=== PATIENT | female | born 1940 | race Caucasian/White ===

== ENCOUNTER 2017-03-31 23:40 | Inpatient (IN) | payer OTHER ==
[2017-04-01] MEDS ORDERED: FUROSEMIDE 40 MG/4 ML INJECTABLE VIAL IVPUSH ONE ×2 (00:58→04:21)
--- NOTE | 2017-04-01 01:11 | PDOC ---
History of Present Illness - General History Source: Patient, Family Exam Limitations: No Limitations, Language Barrier - History of Present Illness Initial Comments: 04/01/17 01:12 The patient is a 77 year old female with significant past medical history of hypertension, hyperlipidemia, diabetes, osteoporosis, and hyperthyroidism who presents to the ED for chest discomfort that began earlier today. As per family members, at bedside, patient was complaining of chest discomfort that she describes as a pressure-like sensation. Patient denies diaphoresis, lightheadedness, SOB, jaw pain, shoulder pain, arm pain, nausea, or vomiting. Family checked her blood pressure and it was noted to be 170/60. Family also states her legs are normally swollen, however they noted an increase in leg swelling bilaterally. Daughter reports patient was on furosemide 20 mg once per day and two weeks ago her maintenance scheduler informed her that she should take furosemide 20 mg BID. The patient denies fever, chills, cough, abdominal pain, and diarrhea. Allergies: NKDA Social History: No alcohol, tobacco, or drug use reported. Past Surgical History: appendectomy, polyp removal PCP: Dr. Albert Wilkinson <Laury Moran - Last Filed: 04/01/17 04:25> <Constance Clark - Last Filed: 04/01/17 20:31> - General Chief Complaint: Blood Pressure Problem Stated Complaint: BLOOD PRESSURE PROBLEM Time Seen by Provider: 04/01/17 00:48 Past History <Laury Moran - Last Filed: 04/01/17 04:25> - Past Medical History Anemia: Yes Asthma: No Cancer: Yes (Cancerous polyp) Cardiac Disorders: Yes CVA: Yes (TIA) COPD: No CHF: No Dementia: No Diabetes: Yes GI Disorders: No Disorders: No HTN: Yes Hypercholesterolemia: Yes Liver Disease: No Seizures: No Thyroid Disease: Yes - Surgical History Abdominal Surgery: No Appendectomy: Yes Cardiac Surgery: No Cholecystectomy: No Lung Surgery: No Neurologic Surgery: No Orthopedic Surgery: No - Immunization History Immunization Up to Date: Yes - Psycho/Social/Smoking Cessation Hx Anxiety: No Suicidal Ideation: No Smoking Status: No Smoking History: Never smoked Have you smoked in the past 12 months: No If you are a former smoker, when did you quit?: 40 years ago Information on smoking cessation initiated: No Hx Alcohol Use: No Drug/Substance Use Hx: No Substance Use Type: None Hx Substance Use Treatment: No <Constance Clark - Last Filed: 04/01/17 20:31> - Past Medical History Allergies/Adverse Reactions: Allergies Allergy/AdvReac Type Severity Reaction Status Date / Time No Known Allergies Allergy Verified 04/01/17 00:48 Home Medications: Ambulatory Orders Ferrous Sulfate [Feosol] 325 mg PO TID 01/14/15 Simvastatin [Zocor -] 20 mg PO HS 01/14/15 Acetaminophen [Tylenol .Regular Strength -] 650 mg PO Q6H PRN #0 tablet Aspirin [ASA -] 81 mg PO DAILY PRN 12/03/15 Furosemide 20 mg PO BID 12/03/15 Amlodipine Besylate [Norvasc -] 5 mg PO DAILY 12/04/15 Brimonidine Tartrate/Timolol [Combigan 0.2%-0.5% Eye Drops] 1 drop OU DAILY Cholecalciferol (Vitamin D3) [Vitamin D] 5,000 unit PO DAILY 12/04/15 Insulin (Novolog) [Novolog -] 0 units SQ BID 12/04/15 Calcium Carbonate/Vitamin D3 [Calcium 500 + Vit D Caplet] 1 PO BIDAC 04/01/17 Insulin Glargine,Hum.rec.anlog [Lantus (nf)] 20 units SQ BID 04/01/17 Januvia 50 mg PO DAILY 04/01/17 Lecithin 1 PO DAILY 04/01/17 Methimazole 5 mg PO DAILY 04/01/17 [place]-3 2 cap PO BID 04/01/17 Risedronate Sodium 35 mg PO WEEKLY 04/01/17 Review of Systems - Review of Systems Able to Perform ROS?: Yes Comments:: 04/01/17 01:12 CONSTITUTIONAL: Absent: fever, chills, diaphoresis, generalized weakness, malaise, loss of appetite HEENT: Absent: rhinorrhea, nasal congestion, throat pain, throat swelling, difficulty swallowing, mouth swelling, ear pain, eye pain, visual Changes CARDIOVASCULAR: +chest discomfort, bilateral leg swelling, elevated blood pressure Absent: syncope, palpitations, irregular heart rate, lightheadedness RESPIRATORY: Absent: cough, shortness of breath, dyspnea with exertion, orthopnea, wheezing, stridor, hemoptysis GASTROINTESTINAL: Absent: abdominal pain, abdominal distension, nausea, vomiting, diarrhea, constipation, melena, hematochezia GENITOURINARY: Absent: dysuria, frequency, urgency, hesitancy, hematuria, flank pain, genital pain MUSCULOSKELETAL: Absent: myalgia, arthralgia, joint swelling SKIN: Absent: rash, itching, pallor NEUROLOGIC: Absent: headache, focal weakness or paresthesias, dizziness, unsteady gait, seizure, mental status changes, bladder or bowel incontinence <Laury Moran - Last Filed: 04/01/17 04:25> *Physical Exam - Vital Signs Last Vital Signs Temp Pulse Resp BP Pulse Ox 98.0 F 80 14 198/85 100 04/01/17 00:48 04/01/17 00:48 04/01/17 00:48 04/01/17 00:48 04/01/17 00:48 - Physical Exam Comments: 04/01/17 01:12 GENERAL: Aferbile. Well developed, well nourished. Awake and alert. No acute distress. HEENT: Normocephalic, atraumatic. PERRLA, EOMI. No conjunctival pallor. Sclera are non- icteric. Moist mucous membranes. Oropharynx is clear. NECK: Supple. Full ROM. No JVD. Carotid pulses 2+ and symmetric, without bruits. No thyromegaly. No lymphadenopathy. CARDIOVASCULAR: Regular rate and rhythm. Diastolic murmur. No rubs or gallops. Distal pulses are 2+ and symmetric. PULMONARY: No evidence of respiratory distress. Lungs clear to auscultation bilaterally. No wheezing, rales or rhonchi. ABDOMINAL: Soft. Non-tender. Non-distended. No rebound or guarding. Postsurgical ventral hernia. Normoactive bowel sounds. MUSCULOSKELETAL Normal range of motion at all joints. No bony deformities or tenderness. No CVA tenderness. EXTREMITIES: No cyanosis. No clubbing. 3+ pitting edema right lower extremity. 2+ pitting edema left lower extremity. No calf tenderness. SKIN: Warm and dry. Normal capillary refill. No rashes. No jaundice. NEUROLOGICAL: AOx3. Answering questions appropriate. Cranial nerves 2-12 intact. Moving all extremities. No gross neurological deficits. <Laury Moran - Last Filed: 04/01/17 04:25> - Vital Signs Last Vital Signs Temp Pulse Resp BP Pulse Ox 98.0 F 80 14 198/85 100 04/01/17 00:48 04/01/17 00:48 04/01/17 00:48 04/01/17 00:48 04/01/17 00:48 <Constance Clark - Last Filed: 04/01/17 20:31> ED Treatment Course - LABORATORY CBC & Chemistry Diagram: 04/01/17 01:30 04/01/17 01:30 - RADIOLOGY Radiograph Interpretation: 04/01/17 03:14 EXAM: Venous duplex bilateral, lower extremities Reviewed by Imaging utilization review specialist: FINDINGS: There is no DVT of the right or left lower extremity. IMPRESSION: No DVT. <Laury Moran - Last Filed: 04/01/17 04:25> - LABORATORY CBC & Chemistry Diagram: 04/01/17 11:00 04/01/17 11:00 - RADIOLOGY Radiology Studies Ordered: Category Date Time Status CHEST X-RAY PORTABLE* [RAD] Stat Radiology 04/01/17 00:57 Ordered DUPLEX VASCUL US-2LEGS [US] Stat Ultrasound 04/01/17 00:56 Ordered <Constance Clark - Last Filed: 04/01/17 20:31> Medical Decision Making - Medical Decision Making 04/01/17 04:[address] Albert Wilkinson (via answering service) at 4:16 Awaiting call back 04/01/17 04:25 Patient's case discussed with Dr. Wilkinson at 4:25 <Laury Moran - Last Filed: 04/01/17 04:25> - Medical Decision Making 04/01/17 03:12 Patient Name: Priscila Carlisle THIS IS A PRELIMINARYREPORT FROM IMAGING EXCEPTIONAL STUDENT EDUCATION AIDE EXAM: Venous duplex bilateral, lower extremities IMAGES: 45 INDICATION: Rule out DVT DATE OF SERVICE: 2017-04-01 01:00:51.0 COMPARISON: none FINDINGS: There is no DVT of the right or left lower extremity. IMPRESSION: No DVT. THIS DOCUMENT HAS BEEN ELECTRONICALLY SIGNED 04/01/17 20:29 Pt comes with swollen legs (DVT ruled out with sono) she has doubling of her BUN and Cr and she has HTN which is poorly controlled. Case d/w Dr. Mixon. Pt complains of dyspnea, and she will be evaluated in the hospital. SHe will likely require echocardiogram in the hospital and cardio consult. <Constance Clark - Last Filed: 04/01/17 20:31> *DC/Admit/Observation/Transfer - Attestations Scribe Attestion: 04/01/17 01:12 Documentation prepared by Laury Moran, acting as medical dir for Constance Clark MD/DO. <Laury Moran - Last Filed: 04/01/17 04:25> - Discharge Dispostion Admit: Yes <Constance Clark - Last Filed: 04/01/17 20:31> Diagnosis at time of Disposition: Renal insufficiency, Anemia, HTN (hypertension), Heart murmur, Peripheral edema - Referrals
[2017-04-01 01:49] LABS: BASOPHIL 0.3 % (0-2.0); EOSINOPHIL 1.8 % (0-4.5); MCH 30.2 pg (25.7-33.7); MCHC 33.6 g/dl (32.0-36.0); MEAN CELL VOLUME 89.9 fl (80-96); MEAN PLT VOLUME 9.2 fl (7.5-11.1); NEUTROPHILS 55.5 % (42.8-82.8); PLATELET COUNT 180 K/MM3 (134-434); RDW 15.6 % (11.6-15.6); WHITE BLOOD COUNT 6.7 K/mm3 (4.0-10.0)
[2017-04-01] MEDS ORDERED: FUROSEMIDE 40 MG/4 ML INJECTABLE VIAL ONE ×2 (01:49→05:10)
[2017-04-01 02:43] LABS: ALBUMIN 3.2 g/dl (3.4-5.0); BILIRUBIN,TOTAL 0.3 mg/dL (0.2-1.0); CALCIUM 9.8 mg/dL (8.5-10.1); COCKROFT - GAULT 25.6955; CREATININE 2.1 mg/dL (0.55-1.02); TOT PROT 6.3 g/dl (6.4-8.2)
[2017-04-01 02:45] LABS: TROPONIN I 0.02 ng/ml (0.00-0.05)
[2017-04-01] MEDS ORDERED: SODIUM CHLORIDE 0.9% 500 ML INFUS.BAG IV ONE (04:16)
[2017-04-01 07:42] VITALS: BMI 30.8
--- NOTE | 2017-04-01 09:16 | EKG ---
Test Reason : Blood Pressure : / mmHG Vent. Rate : 074 BPM Atrial Rate : 074 BPM P-R Int : 192 ms QRS Dur : 126 ms QT Int : 398 ms P-R-T Axes : 030 -43 110 degrees QTc Int : 441 ms SINUS RHYTHM WITH OCCASIONAL PREMATURE VENTRICULAR COMPLEXES RIGHT BUNDLE BRANCH BLOCK LEFT AXIS DEVIATION LEFT VENTRICULAR HYPERTROPHY WITH QRS WIDENING AND REPOLARIZATION ABNORMALITY ABNORMAL ECG WHEN COMPARED WITH ECG OF 14-JAN-2016 14:47, PREMATURE VENTRICULAR COMPLEXES ARE NOW PRESENT Confirmed by MARVEL FULTON MD ([id number]) on 04/01/2017 9:16:32 AM Referred By: Confirmed By:MARVEL FULTON MD
[2017-04-01] MEDS ORDERED: ACETAMINOPHEN 325 MG TABLET (FP) PO PRN (10:20)
[2017-04-01] MEDS ORDERED: ASPIRIN 81 MG CHEWABLE TABLETS PO PRN (10:20)
[2017-04-01] MEDS ORDERED: PATIENT'S OWN MEDICATION (NON-FORMULARY) (Brimonidine Tartrate/Timolol [Combigan 0.2%-0.5% OU SCH (10:30)
--- NOTE | 2017-04-01 10:30 | HP ---
Admitting History and Physical - Primary Care Physician PCP: Albert Wilkinson - Admission Chief Complaint: Leg edema. SOB History of Present Illness: Pt was noticed by her daughter to have trouble breathing, elevated blood pressure (SBP over 160), leg swelling and brought her to ER; in ER she was found to have Leg edema, ARF. Pt was seen in Dr. Connie Hall (Pt.'s Endo) two weeks ago, Lasix was increased to BID for leg edema. Pt is known to be noncompliant with diet (eats salty food, rich carbohydrates diet). 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 Cardiovascular: Yes: HTN, Hyperlipdemia Gastrointestinal: Yes: Pancreatitis, Other (Abdominal/Umbilical hernia) Renal/: Yes: Renal Failure, Neurogenic Bladder ...: No Heme/Onc: Yes: Anemia Musculoskeletal: Yes: Chronic low back pain, Other (R shoulder pain) Endocrine: Yes: Diabetes Mellitus - Past Surgical History Past Surgical History: Yes: Appendectomy, Cholecystectomy - Smoking History Smoking history: Former smoker Have you smoked in the past 12 months: No If you are a former smoker, when did you quit?: 40 years ago - Alcohol/Substance Use Hx Alcohol Use: No Home Medications - Allergies Allergies/Adverse Reactions: Allergies Allergy/AdvReac Type Severity Reaction Status Date / Time No Known Allergies Allergy Verified 04/01/17 00:48 - Home Medications Home Medications: Ambulatory Orders Ferrous Sulfate [Feosol] 325 mg PO TID 01/14/15 Simvastatin [Zocor -] 20 mg PO HS 01/14/15 Acetaminophen [Tylenol .Regular Strength -] 650 mg PO Q6H PRN #0 tablet Aspirin [ASA -] 81 mg PO DAILY PRN 12/03/15 Furosemide 20 mg PO BID 12/03/15 Amlodipine Besylate [Norvasc -] 5 mg PO DAILY 12/04/15 Brimonidine Tartrate/Timolol [Combigan 0.2%-0.5% Eye Drops] 1 drop OU DAILY Cholecalciferol (Vitamin D3) [Vitamin D] 5,000 unit PO DAILY 12/04/15 Insulin (Novolog) [Novolog -] 0 units SQ BID 12/04/15 Calcium Carbonate/Vitamin D3 [Calcium 500 + Vit D Caplet] 1 PO BIDAC 04/01/17 Insulin Glargine,Hum.rec.anlog [Lantus (nf)] 20 units SQ BID 04/01/17 Januvia 50 mg PO DAILY 04/01/17 Lecithin 1 PO DAILY 04/01/17 Methimazole 5 mg PO DAILY 04/01/17 [place]-3 2 cap PO BID 04/01/17 Risedronate Sodium 35 mg PO WEEKLY 04/01/17 Review of Systems - Review of Systems Constitutional: denies: Chills, Fever, Loss of Appetite Eyes: denies: Blurred Vision, Double Vision HENT: denies: Difficult Swallowing, Nasal Congestion, Throat Pain Neck: denies: Pain on Movement, Stiffness Cardiovascular: denies: Chest Pain, Edema, Palpitations, Shortness of Breath Respiratory: denies: Cough, SOB, Wheezing Gastrointestinal: denies: Abdominal Pain, Constipation, Diarrhea, Nausea, Vomiting Genitourinary: denies: Burning, Discharge, Frequency Musculoskeletal: denies: Back Pain, Joint Swelling, Muscle Pain Integumentary: denies: Bruising, Eczema, Rash Neurological: denies: Change in LOC, Change in Speech, Confusion, Unsteady Gait Endocrine: denies: Excessive Sweating, Intolerance to Cold Hematology/Lymphatic: denies: Easily Bruised, Excessive Bleeding Psychiatric: denies: Anxiety, Depression Physical Examination Vital Signs: Vital Signs Temperature 97.9 F 04/01/17 07:39 Pulse Rate 79 04/01/17 07:39 Respiratory Rate 18 04/01/17 07:39 Blood Pressure 152/67 04/01/17 07:39 O2 Sat by Pulse Oximetry (%) 96 04/01/17 08:23 Constitutional: Yes: No Distress, Calm Eyes: Yes: Conjunctiva Clear, EOM Intact, PERRL HENT: Yes: Normocephalic. No: Epistaxis, Pharyngeal Erythema Neck: Yes: Trachea Midline. No: Lymphadenopathy Cardiovascular: Yes: Regular Rate and Rhythm, S1, S2 Respiratory: Yes: Regular, CTA Bilaterally Gastrointestinal: Yes: Normal Bowel Sounds, Soft, Abdomen, Obese. No: Palpable Mass, Tenderness ...Rectal Exam: Yes: Deferred Breast(s): Yes: Other (deferred) Musculoskeletal: No: Back Pain, Joint Swelling, Muscle Pain Edema: LLE: 1+, RLE: 1+ Integumentary: No: Bruising, Rash Neurological: Yes: Alert, Oriented, Cran Nerves II-XII Intact Labs: reviewed Imaging - Results Chest X-ray: Report Reviewed Ultrasound: Report Reviewed Problem List - Problems (1) Acute on chronic renal failure Code(s): N17.9 - ACUTE KIDNEY FAILURE, UNSPECIFIED N18.9 - CHRONIC KIDNEY DISEASE, UNSPECIFIED (2) Peripheral edema Code(s): R60.9 - EDEMA, UNSPECIFIED (3) CHF (congestive heart failure) Code(s): I50.9 - HEART FAILURE, UNSPECIFIED (4) Hypertrophic obstructive cardiomyopathy (HOCM) Code(s): I42.1 - OBSTRUCTIVE HYPERTROPHIC CARDIOMYOPATHY (5) Anemia Code(s): D64.9 - ANEMIA, UNSPECIFIED (6) HTN (hypertension) Code(s): I10 - ESSENTIAL (PRIMARY) HYPERTENSION (7) Diabetes mellitus Code(s): E11.9 - TYPE 2 DIABETES MELLITUS WITHOUT COMPLICATIONS Assessment/Plan Hold Januvia. To avoid ACEI/ ARB. Small dose of Lasix might be beneficial; to monitor renal function. Renal consult Cardio consult Echo- if not done recently in Cardio office Kidney US- if not done recently by Renal. Pt.'s condition was reviewed with pt.'s daughter (at bedside) AM labs. Case was d/w pt.s' nurse
[2017-04-01 11:18] LABS: MCH 30.5 pg (25.7-33.7); MCHC 33.9 g/dl (32.0-36.0); MEAN CELL VOLUME 90.1 fl (80-96); MEAN PLT VOLUME 10.4 fl (7.5-11.1); RDW 15.3 % (11.6-15.6); WHITE BLOOD COUNT 5.6 K/mm3 (4.0-10.0)
[2017-04-01 11:46] LABS: ALBUMIN 3.1 g/dl (3.4-5.0); ANION GAP 9 (8-16); CALCIUM 9.5 mg/dL (8.5-10.1); CO2 32 mmol/L (21-32); CREATININE 2.2 mg/dL (0.55-1.02); GLUCOSE,RANDOM 296 mg/dL (74-106); SGOT/AST 37 U/L (15-37); SGPT/ALT 24 U/L (12-78)
[2017-04-01 11:51] LABS: ALK PHOS 116 U/L (45-117); BILIRUBIN,TOTAL 0.5 mg/dL (0.2-1.0); TOT PROT 6.2 g/dl (6.4-8.2); TROPONIN I < 0.02 ng/ml (0.00-0.05)
[2017-04-01] MEDS ORDERED: INSULIN (NOVOLOG) ASPART 100 UNITS/ML 10ML VIAL ONE ×2 (11:56→23:01)
[2017-04-01] MEDS: amLODIPine BESYLATE 5 MG TABLET (FP) PO SCH (12:23)
[2017-04-01] MEDS: INSULIN SLIDING SCALE (NOVOLOG) 1 VIAL SQ SCH ×3 (12:23→22:55)
[2017-04-01] MEDS: FERROUS SO4 325 MG TABLET (FP) PO SCH ×2 (13:07→22:49)
[2017-04-01] MEDS: METHIMAZOLE 5 MG TABLET (FP) PO SCH (13:07)
--- NOTE | 2017-04-01 13:22 | CON.CARD ---
Consult Consult Specialty:: Cardiology Reason for Consultation:: htn chf - History of Present Illness History of Present Illness: The patient is a 77 year old female with significant past medical history of hypertension, hyperlipidemia, diabetes, osteoporosis, and hyperthyroidism who presents to the ED for chest discomfort that began earlier today. As per family members, at bedside, patient was complaining of chest discomfort that she describes as a pressure-like sensation. Patient denies diaphoresis, lightheadedness, SOB, jaw pain, shoulder pain, arm pain, nausea, or vomiting. Family checked her blood pressure and it was noted to be 170/60. Family also states her legs are normally swollen, however they noted an increase in leg swelling bilaterally. Daughter reports patient was on furosemide 20 mg once per day and two weeks ago her child protective investigator informed her that she should take furosemide 20 mg BID. The patient denies fever, chills, cough, abdominal pain, and diarrhea. Allergies: NKDA Social History: No alcohol, tobacco, or drug use reported. Past Surgical History: appendectomy, polyp removal PCP: Dr. Albert Wilkinson [facility] ASHD neg. 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 Cardio/Vascular: Yes: HTN, Hyperlipdemia Gastrointestinal: Yes: Pancreatitis Renal/: Yes: Renal Failure ...: No Musculoskeletal: Yes: Chronic low back pain, Other (R shoulder pain) Endocrine: Yes: Diabetes Mellitus Additional Medical History: Obesity - Past Surgical History Past Surgical History: Yes: Appendectomy - Alcohol/Substance Use Hx Alcohol Use: No - Smoking History Smoking history: Former smoker Have you smoked in the past 12 months: No If you are a former smoker, when did you quit?: 40 years ago Home Medications - Allergies Allergies/Adverse Reactions: Allergies Allergy/AdvReac Type Severity Reaction Status Date / Time No Known Allergies Allergy Verified 04/01/17 00:48 - Home Medications Home Medications: Ambulatory Orders Ferrous Sulfate [Feosol] 325 mg PO TID 01/14/15 Simvastatin [Zocor -] 20 mg PO HS 01/14/15 Acetaminophen [Tylenol .Regular Strength -] 650 mg PO Q6H PRN #0 tablet Aspirin [ASA -] 81 mg PO DAILY PRN 01/27/16 Furosemide 20 mg PO BID 12/03/15 Amlodipine Besylate [Norvasc -] 5 mg PO DAILY 12/04/15 Brimonidine Tartrate/Timolol [Combigan 0.2%-0.5% Eye Drops] 1 drop OU DAILY Cholecalciferol (Vitamin D3) [Vitamin D] 5,000 unit PO DAILY 12/04/15 Insulin (Novolog) [Novolog -] 0 units SQ BID 12/04/15 Calcium Carbonate/Vitamin D3 [Calcium 500 + Vit D Caplet] 1 PO BIDAC 04/01/17 Insulin Glargine,Hum.rec.anlog [Lantus (nf)] 20 units SQ BID 04/01/17 Januvia 50 mg PO DAILY 04/01/17 Lecithin 1 PO DAILY 04/01/17 Methimazole 5 mg PO DAILY 04/01/17 [place]-3 2 cap PO BID 04/01/17 Risedronate Sodium 35 mg PO WEEKLY 04/01/17 Review of Systems - Review of Systems Constitutional: reports: No Symptoms Eyes: reports: No Symptoms HENT: reports: No Symptoms Neck: reports: No Symptoms Cardiovascular: reports: Chest Pain, Shortness of Breath Gastrointestinal: reports: No Symptoms Genitourinary: reports: No Symptoms Breasts: reports: No Symptoms Reported Musculoskeletal: reports: No Symptoms Integumentary: reports: No Symptoms Neurological: reports: No Symptoms Endocrine: reports: No Symptoms Hematology/Lymphatic: reports: No Symptoms Psychiatric: reports: No Symptoms Vital Signs: Vital Signs Temperature 97.9 F 04/01/17 07:39 Pulse Rate 81 04/01/17 12:00 Respiratory Rate 18 04/01/17 12:00 Blood Pressure 148/53 04/01/17 12:00 O2 Sat by Pulse Oximetry (%) 96 04/01/17 08:23 Constitutional: Yes: Well Nourished, No Distress, Calm Eyes: Yes: WNL, Conjunctiva Clear, EOM Intact HENT: Yes: WNL, Atraumatic, Normocephalic Neck: Yes: WNL, Supple, Trachea Midline Respiratory: Yes: WNL, Regular, CTA Bilaterally Gastrointestinal: Yes: WNL, Normal Bowel Sounds Renal/: Yes: WNL Cardiovascular: Yes: WNL, Regular Rate and Rhythm Musculoskeletal: Yes: WNL Extremities: Yes: WNL Edema: Yes Integumentary: Yes: WNL Neurological: Yes: WNL, Alert, Oriented ...Motor Strength: WNL Psychiatric: Yes: WNL, Alert, Oriented - Other Data Labs, Other Data: CBC, BMP 04/01/17 11:00 04/01/17 11:00 Troponin, BNP 04/01/17 11:00 Troponin I < 0.02 Troponin, BNP 04/01/17 11:00 Troponin I < 0.02 Laboratory Tests 04/01/17 04/01/17 04/01/17 01:30 01:30 01:30 WBC 6.7 RBC 2.93 L Hgb 8.9 L Hct 26.4 L MCV 89.9 MCHC 33.6 RDW 15.6 Plt Count 180 MPV 9.2 Neutrophils % 55.5 Lymphocytes % 31.7 D Monocytes % 10.7 H Eosinophils % 1.8 Basophils % 0.3 Sodium 144 Potassium 4.1 Chloride 104 Carbon Dioxide 29 Anion Gap 11 BUN 34 H D Creatinine 2.1 H D Creat Clearance w eGFR 22.84 POC Glucometer Random Glucose 91 D Calcium 9.8 Total Bilirubin 0.3 D AST 33 D ALT 23 D Alkaline Phosphatase 102 D Creatine Kinase 65 Troponin I 0.02 B-Natriuretic Peptide 192.67 Total Protein 6.3 L Albumin 3.2 L D 04/01/17 04/01/17 04/01/17 11:00 11:00 11:11 WBC 5.6 RBC 2.89 L Hgb 8.8 L Hct 26.1 L MCV 90.1 MCHC 33.9 RDW 15.3 Plt Count MPV 10.4 D Neutrophils % Lymphocytes % Monocytes % Eosinophils % Basophils % Sodium 141 Potassium 4.3 Chloride 100 Carbon Dioxide 32 Anion Gap 9 BUN 35 H Creatinine 2.2 H Creat Clearance w eGFR 21.64 POC Glucometer 289 Random Glucose 296 H D Calcium 9.5 Total Bilirubin 0.5 D AST 37 ALT 24 Alkaline Phosphatase 116 Creatine Kinase 61 Troponin I < 0.02 B-Natriuretic Peptide Total Protein 6.2 L Albumin 3.1 L Imaging - Results Chest X-ray: Image Reviewed EKG: Image Reviewed (sr rep abn vpcs) Problem List - Problems (1) Heart murmur Code(s): R01.1 - CARDIAC MURMUR, UNSPECIFIED (2) Peripheral edema Code(s): R60.9 - EDEMA, UNSPECIFIED (3) Renal insufficiency Code(s): N28.9 - DISORDER OF KIDNEY AND URETER, UNSPECIFIED (4) Anemia Code(s): D64.9 - ANEMIA, UNSPECIFIED (5) HTN (hypertension) Code(s): I10 - ESSENTIAL (PRIMARY) HYPERTENSION (6) Accidental fall Code(s): W19.XXXA - UNSPECIFIED FALL, INITIAL ENCOUNTER (7) Altered mental state Code(s): R41.82 - ALTERED MENTAL STATUS, UNSPECIFIED (8) Chronic renal failure Code(s): N18.9 - CHRONIC KIDNEY DISEASE, UNSPECIFIED (9) GIB (gastrointestinal bleeding) Code(s): K92.2 - GASTROINTESTINAL HEMORRHAGE, UNSPECIFIED (10) Pancreatitis Code(s): K85.9 - ACUTE PANCREATITIS, UNSPECIFIED * DO NOT USE * (11) Right shoulder injury Code(s): S49.91XA - UNSP INJURY OF RIGHT SHOULDER AND UPPER ARM, INIT ENCNTR (12) Weakness Code(s): R53.1 - WEAKNESS (13) Diabetes mellitus Code(s): E11.9 - TYPE 2 DIABETES MELLITUS WITHOUT COMPLICATIONS Assessment/Plan Uncontroled HTN decompensated CHF ASHD neg. MIBI ST 2010 Bradycardia DM HHD HOCOM no LVOT gradient January 2012 HTN Hyperlipidemia Hypothyroidism LBBB 2016 PAD bilateral moderate atherosclerosis of carotid arteries January 2012 Plan Agree with restarting patients meds IV lasix avoid dehydration dvt plx
--- NOTE | 2017-04-01 13:48 | CONSULT ---
Consultation: REQUESTING PROVIDER: Dr. Sparkle Jones CONSULT REQUEST: We have been asked to medically evaluate this patient for acute kidney injury. HISTORY OF PRESENT ILLNESS: THis is a 71 year old Faroese speaking female, with a past medical history of HTN, HLD, IDDM, presents to the emergency room with chest tightness and hypertension (BP 170 systolic on admission) Patient with daughter giving history. States that she was home feeling chest tightness yesterday. Denies sob , palpitations, jaw pain, tingling sensation, abdominal pain, diaphoresis. Daughter also states that she has chronic bilateral leg swelling that has recently been more pronounced. Patient also states that she increased her Lasix to 20mg bid for the past two weeks. We were called to evaluate acute kidney injury on labs, Bun/Cr on admission were 34/2.1. Base line creatinine 1.4-1.6. Patient denies increased frequency, she sates she urinates 3-4 daily. She drinks 1 Liter of water per day. She has not noticed any blood in urine. Daughter states that she did have an episode of dark urine last week. She does not admit to taking NSAIDS, aleve or ibuprofen. She takes Tylenol for pain. She does take 81mg aspirin daily. PMH: HTN, HLD, IDDM, hyperthyroid, osteoporosis PSHx: gastic sx Social Hx: negative x3 REVIEW OF SYSTEMS: CONSTITUTIONAL: Absent: fever, chills, diaphoresis, generalized weakness, malaise, loss of appetite, weight change HEENT: Absent: rhinorrhea, nasal congestion, throat pain, throat swelling, difficulty swallowing, mouth swelling, ear pain, eye pain, visual changes CARDIOVASCULAR: Positive: chest tightness, b/l leg edema Absent: chest pain, syncope, palpitations, irregular heart rate, lightheadedness , RESPIRATORY: Absent: cough, shortness of breath, dyspnea with exertion, orthopnea, wheezing, stridor, hemoptysis GASTROINTESTINAL: Absent: abdominal pain, abdominal distension, nausea, vomiting, diarrhea, constipation, melena, hematochezia GENITOURINARY: Absent: dysuria, frequency, urgency, hesitancy, hematuria, flank pain, genital pain MUSCULOSKELETAL: Absent: myalgia, arthralgia, joint swelling, back pain, neck pain SKIN: Absent: rash, itching, pallor HEMATOLOGIC/IMMUNOLOGIC: Absent: easy bleeding, easy bruising, lymphadenopathy, frequent infections ENDOCRINE: Absent: unexplained weight gain, unexplained weight loss, heat intolerance, cold intolerance NEUROLOGIC: Absent: headache, focal weakness or paresthesias, dizziness, unsteady gait, seizure, mental status changes, bladder or bowel incontinence PSYCHIATRIC: Absent: anxiety, depression, suicidal or homicidal ideation, hallucinations. PHYSICAL EXAMINATION Vital Signs Period Temp Pulse Resp BP Sys/Elder Pulse Ox Last 24 Hr 97.9 F-98.2 F 74-82 14-20 148-198/53-85 96-100 GENERAL: Faroese speaking, Awake, alert, and fully oriented, in no acute distress. HEAD: Normal with no signs of trauma. EYES: Pupils equal, round and reactive to light, extraocular movements intact, sclera anicteric, conjunctiva clear. No lid lag. NECK: thick neck with palpable goiter? left sided; left murmur/ bruit? ,no JVD, LUNGS: Breath sounds equal, clear to auscultation bilaterally. No wheezes, and no crackles. No accessory muscle use. HEART: Regular rate and rhythm, normal S1 and S2 with II-III/IVsystolic murmur, rub or gallop. ABDOMEN: Soft, nontender, distended, normoactive bowel sounds, umbilical hernia MUSCULOSKELETAL: Normal range of motion at all joints. No bony deformities or tenderness. No CVA tenderness. Left flank pain with palpation UPPER EXTREMITIES: 2+ pulses, warm, well-perfused. No cyanosis. No clubbing. Cap refill <2 seconds. No peripheral edema. LOWER EXTREMITIES: 2+ pulses, warm, well-perfused. No calf tenderness. bilateral 1+ edema NEUROLOGICAL: . Normal speech PSYCHIATRIC: Cooperative. Good eye contact. Appropriate mood and affect. SKIN: Warm, dry, normal turgor, no rashes or lesions noted. Laboratory Results - last 24 hr 04/01/17 04/01/17 04/01/17 11:00 11:00 11:11 WBC 5.6 RBC 2.89 L Hgb 8.8 L Hct 26.1 L MCV 90.1 MCHC 33.9 RDW 15.3 Plt Count No Result Required. MPV 10.4 D Sodium 141 Potassium 4.3 Chloride 100 Carbon Dioxide 32 Anion Gap 9 BUN 35 H Creatinine 2.2 H Creat Clearance w eGFR 21.64 POC Glucometer 289 Random Glucose 296 H D Calcium 9.5 Total Bilirubin 0.5 D AST 37 ALT 24 Alkaline Phosphatase 116 Creatine Kinase 61 Troponin I < 0.02 Total Protein 6.2 L Albumin 3.1 L Active Medications Generic Name Dose Route Start Last Admin Trade Name Freq PRN Reason Stop Dose Admin Acetaminophen 650 mg 04/01/17 10:20 Tylenol - PO Q6H PRN FEVER OR PAIN Amlodipine Besylate 5 mg 04/01/17 10:30 04/01/17 12:23 Norvasc - PO 5 mg DAILY [facility] Administration Aspirin 81 mg 04/01/17 10:20 Asa - PO DAILY PRN PAIN Atorvastatin Calcium 20 mg 04/01/17 22:00 Lipitor - PO HS [facility] Cholecalciferol 5,000 unit 04/02/17 10:00 Vitamin D3 - PO DAILY [facility] Ferrous Sulfate 325 mg 04/01/17 14:00 04/01/17 13:07 Feosol - PO 325 mg TID [facility] Administration Heparin Sodium (Porcine) 5,000 unit 04/01/17 22:00 Heparin - SQ BID [facility] Insulin Aspart 1 vial 04/01/17 11:00 04/01/17 12:23 Novolog Vial Sliding Scale - SQ 6 units ACHS [facility] Administration Protocol Insulin Detemir 20 units 04/01/17 16:30 Levemir Vial SQ BIDAC [facility] Methimazole 5 mg 04/01/17 10:30 04/01/17 13:07 Tapazole - PO 5 mg DAILY [facility] Administration Non-Formulary Medication 1 drop 04/01/17 10:30 Brimonidine Tartrate/Timolol [Combigan 0.2%-0.5% Eye Drops] OU DAILY [facility] ASSESSMENT/PLAN: Impression: 1. CUAUHTEMOC 2. HTN 3. Hyper thyroid 4. IDDM 5. LVH Plan: -need to evaluate volume status/ if CUAUHTEMOC is due to pre/intr/post renal causes; vs vol overload -UA -urine creatinine, electrolytes -calculate FeNA -Renal/Bladder US -hold nephrotoxic agents -cxr noted; cardiomegaly / no acute CHF; may want to gently hydrate -recommend echo to asses heart function; Dispo: We will continue to follow the patient. Thank you for this consultative opportunity. Visit type - Emergency Visit Emergency Visit: Yes ED Registration Date: 04/01/17 Care time: The patient presented to the Emergency Department on the above date and was hospitalized for further evaluation of their emergent condition. - New Patient This patient is new to me today: Yes Date on this admission: 04/01/17 - Critical Care Critical Care patient: No
[2017-04-01] MEDS: INSULIN DETEMIR 100 UNITS/ML MDV SQ SCH (17:29)
[2017-04-01 19:21] LABS: URINE APPEARANCE CLEAR; URINE BILIRUBIN NEGATIVE (NEGATIVE); URINE BLOOD NEGATIVE (NEGATIVE); URINE COLOR STRAW; URINE GLUCOSE (UA) 1+ (NEGATIVE); URINE KETONE NEGATIVE (NEGATIVE); URINE LEUK ESTERASE NEGATIVE (NEGATIVE); URINE NITRITE NEGATIVE (NEGATIVE); URINE UROBILINOGEN NEGATIVE E.U./dl (0.2-1.0)
[2017-04-01 19:27] LABS: URINE PROTEIN 2+ (NEGATIVE)
[2017-04-01 19:36] LABS: URINE CREATININE 27.3 mg/dL (20-320)
--- NOTE | 2017-04-01 20:32 | PN ---
Teaching Attending Note Name of Resident: Svitlana Esteban (Nephrology) ATTENDING PHYSICIAN STATEMENT I saw and evaluated the patient. I reviewed the resident's note and discussed the case with the resident. I agree with the resident's findings and plan as documented. Nephrology Consult Please see consult completed by resident as well. Pt is a 77 year old female who presents with chest tightness. She was found to have elevated creatinine and I was called to evaluate her. She says that she has had lower extremity edema and SOB. Her daughter assisted with the history. She denies dysuria or hematuria. She denies nsaid use. pmhx htn dm osteoarthritis hyperthyroid pshx abdominal surgery ros leg swelling family hx denies soci neg Current Medications Generic Name Dose Route Start Last Admin Trade Name Freq PRN Reason Stop Dose Admin Acetaminophen 650 mg 04/01/17 10:20 Tylenol - PO Q6H PRN FEVER OR PAIN Amlodipine Besylate 5 mg 04/01/17 10:30 04/01/17 12:23 Norvasc - PO 5 mg DAILY [facility] Administration Aspirin 81 mg 04/01/17 10:20 Asa - PO DAILY PRN PAIN Atorvastatin Calcium 20 mg 04/01/17 22:00 Lipitor - PO HS [facility] Cholecalciferol 5,000 unit 04/02/17 10:00 Vitamin D3 - PO DAILY [facility] Ferrous Sulfate 325 mg 04/01/17 14:00 04/01/17 13:07 Feosol - PO 325 mg TID [facility] Administration Heparin Sodium (Porcine) 5,000 unit 04/01/17 22:00 Heparin - SQ BID [facility] Insulin Aspart 1 vial 04/01/17 11:00 04/01/17 17:26 Novolog Vial Sliding Scale - SQ 4 units ACHS [facility] Administration Protocol Insulin Detemir 20 units 04/01/17 16:30 04/01/17 17:29 Levemir Vial SQ 20 units BIDAC [facility] Administration Methimazole 5 mg 04/01/17 10:30 04/01/17 13:07 Tapazole - PO 5 mg DAILY [facility] Administration Non-Formulary Medication 1 drop 04/01/17 10:30 Brimonidine Tartrate/Timolol [Combigan 0.2%-0.5% Eye Drops] OU DAILY [facility] Current Active Problems Peripheral edema (Acute) Renal insufficiency (Acute) Anemia (Chronic) HTN (hypertension) (Chronic) Last Vital Signs Temp Pulse Resp BP Pulse Ox 98.6 F 86 18 136/74 96 04/01/17 15:17 04/01/17 15:17 04/01/17 15:17 04/01/17 15:17 04/01/17 08:23 cardio s1s2 reg pulm clear GI sift, hernia ext plus 1 edema neuro awake and alert skin neg rash Impression 1. CKD 2. CUAUHTEMOC 3. hyperthyroidism 4. anemia 5. DM 6. HTN Plan - renal ultrasound shows atrophic kidneys - recommend to stay on lasix, can give PO - will need ckd workup - check prt to cook restaurant ratio - repeat labs in am Dr Tubbs
[2017-04-01 20:42] LABS: URINE RBC <1 /hpf (0-3); URINE WBC 2 /hpf (3-5)
[2017-04-01] MEDS: ATORVASTATIN CA 20 MG TABLET (FP) PO SCH (22:49)
[2017-04-01] MEDS: HEPARIN NA (PORCINE) 5,000 UNITS/ML 1ML VIAL SQ SCH (22:49)
[2017-04-02] MEDS: INSULIN SLIDING SCALE (NOVOLOG) 1 VIAL SQ SCH ×4 (06:36→22:06)
[2017-04-02] MEDS: INSULIN DETEMIR 100 UNITS/ML MDV SQ SCH ×2 (06:36→16:58)
[2017-04-02] MEDS: FERROUS SO4 325 MG TABLET (FP) PO SCH ×3 (06:37→22:06)
[2017-04-02 08:28] LABS: BASOPHIL 0.4 % (0-2.0); EOSINOPHIL 1.6 % (0-4.5); MCH 30.3 pg (25.7-33.7); MCHC 33.3 g/dl (32.0-36.0); MEAN CELL VOLUME 90.9 fl (80-96); MEAN PLT VOLUME 9.9 fl (7.5-11.1); NEUTROPHILS 51.7 % (42.8-82.8); PLATELET COUNT 165 K/MM3 (134-434); RDW 15.3 % (11.6-15.6); WHITE BLOOD COUNT 5.1 K/mm3 (4.0-10.0)
--- NOTE | 2017-04-02 08:55 | PN ---
Progress Note, Physician Chief Complaint: OOB to chair; feels better no CP/SOB; still some legs edema no pain - Current Medication List Current Medications: Active Medications Acetaminophen (Tylenol -) 650 mg PO Q6H PRN PRN Reason: FEVER OR PAIN Amlodipine Besylate (Norvasc -) 5 mg PO DAILY [facility] Last Admin: 04/01/17 12:23 Dose: 5 mg Aspirin (Asa -) 81 mg PO DAILY PRN PRN Reason: PAIN Atorvastatin Calcium (Lipitor -) 20 mg PO HS [facility] Last Admin: 04/01/17 22:49 Dose: 20 mg Cholecalciferol (Vitamin D3 -) 5,000 unit PO DAILY [facility] Ferrous Sulfate (Feosol -) 325 mg PO TID [facility] Last Admin: 04/02/17 06:37 Dose: 325 mg Furosemide (Lasix -) 40 mg PO DAILY [facility] Heparin Sodium (Porcine) (Heparin -) 5,000 unit SQ BID [facility] Last Admin: 04/01/17 22:49 Dose: 5,000 unit Insulin Aspart (Novolog Vial Sliding Scale -) 1 vial SQ ACHS [facility] PRN Reason: Protocol Last Admin: 04/02/17 06:36 Dose: 2 units Insulin Detemir (Levemir Vial) 20 units SQ BIDAC [facility] Last Admin: 04/02/17 06:36 Dose: 20 units Methimazole (Tapazole -) 5 mg PO DAILY [facility] Last Admin: 04/01/17 13:07 Dose: 5 mg Non-Formulary Medication (Brimonidine Tartrate/Timolol [Combigan 0.2%-0.5% Eye Drops]) 1 drop OU DAILY [facility] - Objective Vital Signs: Vital Signs Temperature 98.7 F 04/02/17 06:00 Pulse Rate 89 04/02/17 06:00 Respiratory Rate 18 04/02/17 06:00 Blood Pressure 146/81 04/02/17 06:00 O2 Sat by Pulse Oximetry (%) 96 04/01/17 21:00 Constitutional: Yes: No Distress, Calm Eyes: Yes: Conjunctiva Clear HENT: Yes: Atraumatic Neck: Yes: Supple Cardiovascular: Yes: Regular Rate and Rhythm Respiratory: Yes: CTA Bilaterally Gastrointestinal: Yes: Soft. No: Distention, Tenderness Genitourinary: No: CVA Tenderness - Left, CVA Tenderness - Right Musculoskeletal: No: Joint Stiffness, Joint Swelling Extremities: No: Cold, Cool Edema: Yes (1+ both legs) Integumentary: No: Rash, Venous Stasis Changes Neurological: Yes: WNL, Alert, Oriented ...Motor Strength: WNL Psychiatric: Yes: WNL, Alert, Oriented. No: Agitated, Suicidal Ideation Labs: CBC, BMP 04/02/17 07:30 - ....Imaging Other: Report Reviewed Assessment/Plan Uncontroled HTN decompensated CHF, fluid overload h/o ASHD, neg. MIBI ST 2010 Bradycardia DM, HTN Hyperlipidemia Hypothyroidism LBBB PAD and bilateral moderate atherosclerosis of carotid arteries cardiology and renal f/u labs f/u diurese, f/u renal fct d/w pt and daughter and staff: falls PFX; do not get OOB alone DVT aspiration decubs pfx pt and daughter do not want SNF from here, pt to go home with home PT and VNS; daughter lives close
--- NOTE | 2017-04-02 09:42 | PN ---
Progress Note, Physician History of Present Illness: The patient is a 77 year old female with significant past medical history of hypertension, hyperlipidemia, diabetes, osteoporosis, and hyperthyroidism who presents to the ED for chest discomfort that began earlier today. As per family members, at bedside, patient was complaining of chest discomfort that she describes as a pressure-like sensation. Patient denies diaphoresis, lightheadedness, SOB, jaw pain, shoulder pain, arm pain, nausea, or vomiting. Family checked her blood pressure and it was noted to be 170/60. Family also states her legs are normally swollen, however they noted an increase in leg swelling bilaterally. Daughter reports patient was on furosemide 20 mg once per day and two weeks ago her ceo and president informed her that she should take furosemide 20 mg BID. The patient denies fever, chills, cough, abdominal pain, and diarrhea. Allergies: NKDA Social History: No alcohol, tobacco, or drug use reported. Past Surgical History: appendectomy, polyp removal PCP: Dr. Albert Wilkinson [facility] ASHD neg. MIBI [facility] 2010 Bradycardia DM HHD HOCOM no LVOT gradient January 2012 HTN Hyperlipidemia Hypothyroidism LBBB 2015 PAD bilateral moderate atherosclerosis of carotid arteries January 2012 - Current Medication List Current Medications: Active Medications Acetaminophen (Tylenol -) 650 mg PO Q6H PRN PRN Reason: FEVER OR PAIN Amlodipine Besylate (Norvasc -) 5 mg PO DAILY [facility] Last Admin: 04/01/17 12:23 Dose: 5 mg Aspirin (Asa -) 81 mg PO DAILY PRN PRN Reason: PAIN Atorvastatin Calcium (Lipitor -) 20 mg PO HS [facility] Last Admin: 04/01/17 22:49 Dose: 20 mg Cholecalciferol (Vitamin D3 -) 5,000 unit PO DAILY [facility] Ferrous Sulfate (Feosol -) 325 mg PO TID [facility] Last Admin: 04/02/17 06:37 Dose: 325 mg Furosemide (Lasix -) 40 mg PO DAILY [facility] Heparin Sodium (Porcine) (Heparin -) 5,000 unit SQ BID [facility] Last Admin: 04/01/17 22:49 Dose: 5,000 unit Insulin Aspart (Novolog Vial Sliding Scale -) 1 vial SQ ACHS [facility] PRN Reason: Protocol Last Admin: 04/02/17 06:36 Dose: 2 units Insulin Detemir (Levemir Vial) 20 units SQ BIDAC [facility] Last Admin: 04/02/17 06:36 Dose: 20 units Methimazole (Tapazole -) 5 mg PO DAILY [facility] Last Admin: 04/01/17 13:07 Dose: 5 mg Non-Formulary Medication (Brimonidine Tartrate/Timolol [Combigan 0.2%-0.5% Eye Drops]) 1 drop OU DAILY [facility] - Objective Vital Signs: Vital Signs Temperature 98.7 F 04/02/17 06:00 Pulse Rate 89 04/02/17 06:00 Respiratory Rate 18 04/02/17 06:00 Blood Pressure 146/81 04/02/17 06:00 O2 Sat by Pulse Oximetry (%) 96 04/01/17 21:00 Eyes: Yes: WNL, Conjunctiva Clear, EOM Intact HENT: Yes: WNL, Atraumatic, Normocephalic Neck: Yes: WNL, Supple, Trachea Midline Cardiovascular: Yes: WNL, Regular Rate and Rhythm, Murmur, S1, S2 Respiratory: Yes: WNL, Regular, CTA Bilaterally Gastrointestinal: Yes: WNL, Normal Bowel Sounds Genitourinary: Yes: WNL Musculoskeletal: Yes: WNL Extremities: Yes: WNL Edema: No Integumentary: Yes: WNL Neurological: Yes: WNL, Alert, Oriented ...Motor Strength: WNL Psychiatric: Yes: WNL Labs: CBC, BMP 04/02/17 07:30 Problem List - Problems (1) Heart murmur Code(s): R01.1 - CARDIAC MURMUR, UNSPECIFIED (2) Peripheral edema Code(s): R60.9 - EDEMA, UNSPECIFIED (3) Renal insufficiency Code(s): N28.9 - DISORDER OF KIDNEY AND URETER, UNSPECIFIED (4) Anemia Code(s): D64.9 - ANEMIA, UNSPECIFIED (5) HTN (hypertension) Code(s): I10 - ESSENTIAL (PRIMARY) HYPERTENSION (6) Accidental fall Code(s): W19.XXXA - UNSPECIFIED FALL, INITIAL ENCOUNTER (7) Altered mental state Code(s): R41.82 - ALTERED MENTAL STATUS, UNSPECIFIED (8) Chronic renal failure Code(s): N18.9 - CHRONIC KIDNEY DISEASE, UNSPECIFIED (9) GIB (gastrointestinal bleeding) Code(s): K92.2 - GASTROINTESTINAL HEMORRHAGE, UNSPECIFIED (10) Pancreatitis Code(s): K85.9 - ACUTE PANCREATITIS, UNSPECIFIED * DO NOT USE * (11) Right shoulder injury Code(s): S49.91XA - UNSP INJURY OF RIGHT SHOULDER AND UPPER ARM, INIT ENCNTR (12) Weakness Code(s): R53.1 - WEAKNESS (13) Diabetes mellitus Code(s): E11.9 - TYPE 2 DIABETES MELLITUS WITHOUT COMPLICATIONS Assessment/Plan Uncontroled HTN decompensated CHF ASHD neg. MIBI ST 2010 Bradycardia DM HHD HOCOM no LVOT gradient January 2012 HTN Hyperlipidemia Hypothyroidism LBBB 2016 PAD bilateral moderate atherosclerosis of carotid arteries January 2012 Plan Agree with restarting patients meds cont lasix avoid dehydration dvt plx
[2017-04-02] MEDS ORDERED: PT OWN MED DRAWER 7, Y5N ONE (09:53)
[2017-04-02] MEDS: amLODIPine BESYLATE 5 MG TABLET (FP) PO SCH (09:57)
[2017-04-02] MEDS: FUROSEMIDE 40 MG TABLET (FP) PO SCH (09:57)
[2017-04-02] MEDS: CHOLECALCIFEROL (VITAMIN D3) 1,000 UNIT TABLET (FP) PO SCH (09:57)
[2017-04-02] MEDS: METHIMAZOLE 5 MG TABLET (FP) PO SCH (09:58)
[2017-04-02] MEDS: HEPARIN NA (PORCINE) 5,000 UNITS/ML 1ML VIAL SQ SCH ×2 (09:58→22:07)
[2017-04-02 10:09] LABS: ALBUMIN 3.1 g/dl (3.4-5.0); BILIRUBIN,TOTAL 0.4 mg/dL (0.2-1.0); CALCIUM 9.5 mg/dL (8.5-10.1); COCKROFT - GAULT 27.54; TOT PROT 6.1 g/dl (6.4-8.2)
--- NOTE | 2017-04-02 11:05 | PN ---
Progress Note (short form) - Note Progress Note: RENAL Pt is awake and alert she was admitted with dyspnea, chest pain and leg edema feels better now Her BP was high as well I know her from office visits Last Vital Signs Temp Pulse Resp BP Pulse Ox 98.7 F 89 18 146/81 96 04/02/17 06:00 04/02/17 06:00 04/02/17 06:00 04/02/17 06:00 04/01/17 21:00 lungs clear cvs s1s2 rr abd soft +edema neuro a+ox3 CBC, BMP 04/02/17 07:30 04/02/17 07:30 Current Medications Generic Name Dose Route Start Last Admin Trade Name Freq PRN Reason Stop Dose Admin Acetaminophen 650 mg 04/01/17 10:20 Tylenol - PO Q6H PRN FEVER OR PAIN Amlodipine Besylate 5 mg 04/01/17 10:30 04/02/17 09:57 Norvasc - PO 5 mg DAILY [facility] Administration Aspirin 81 mg 04/01/17 10:20 Asa - PO DAILY PRN PAIN Atorvastatin Calcium 20 mg 04/01/17 22:00 04/01/17 22:49 Lipitor - PO 20 mg HS [facility] Administration Cholecalciferol 5,000 unit 04/02/17 10:00 04/02/17 09:57 Vitamin D3 - PO 5,000 unit DAILY [facility] Administration Ferrous Sulfate 325 mg 04/01/17 14:00 04/02/17 06:37 Feosol - PO 325 mg TID [facility] Administration Furosemide 40 mg 04/02/17 10:00 04/02/17 09:57 Lasix - PO 40 mg DAILY [facility] Administration Heparin Sodium (Porcine) 5,000 unit 04/01/17 22:00 04/02/17 09:58 Heparin - SQ 5,000 unit BID [facility] Administration Insulin Aspart 1 vial 04/01/17 11:00 04/02/17 06:36 Novolog Vial Sliding Scale - SQ 2 units ACHS [facility] Administration Protocol Insulin Detemir 20 units 04/01/17 16:30 04/02/17 06:36 Levemir Vial SQ 20 units BIDAC [facility] Administration Methimazole 5 mg 04/01/17 10:30 04/02/17 09:58 Tapazole - PO 5 mg DAILY [facility] Administration Non-Formulary Medication 1 drop 04/01/17 10:30 Brimonidine Tartrate/Timolol [Combigan 0.2%-0.5% Eye Drops] OU DAILY [facility] Impression 1. CKD proteinuric 2. CUAUHTEMOC mild 3. hyperthyroidism 4. anemia 5. DM 6. 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
[2017-04-02] MEDS ORDERED: INSULIN (NOVOLOG) ASPART 100 UNITS/ML 10ML VIAL ONE ×2 (11:34→21:16)
[2017-04-02 20:28] LABS: URINE CREATININE 55.5 mg/dL (20-320)
[2017-04-02] MEDS: ATORVASTATIN CA 20 MG TABLET (FP) PO SCH (22:06)
[2017-04-03] MEDS: INSULIN DETEMIR 100 UNITS/ML MDV SQ SCH ×2 (06:40→18:00)
[2017-04-03] MEDS: FERROUS SO4 325 MG TABLET (FP) PO SCH ×3 (06:40→22:21)
[2017-04-03] MEDS: INSULIN SLIDING SCALE (NOVOLOG) 1 VIAL SQ SCH ×4 (06:41→22:21)
[2017-04-03] MEDS ORDERED: INSULIN DETEMIR 100 UNITS/ML MDV SQ ONE (06:53)
[2017-04-03 07:47] LABS: BASOPHIL 0.4 % (0-2.0); EOSINOPHIL 1.4 % (0-4.5); MCH 31.1 pg (25.7-33.7); MCHC 34.4 g/dl (32.0-36.0); MEAN CELL VOLUME 90.4 fl (80-96); MEAN PLT VOLUME 9.3 fl (7.5-11.1); NEUTROPHILS 49.1 % (42.8-82.8); PLATELET COUNT 175 K/MM3 (134-434); RDW 15.5 % (11.6-15.6); WHITE BLOOD COUNT 6.2 K/mm3 (4.0-10.0)
[2017-04-03 08:12] LABS: ALBUMIN 3.2 g/dl (3.4-5.0); CALCIUM 9.4 mg/dL (8.5-10.1); COCKROFT - GAULT 28.6195; CREATININE 1.9 mg/dL (0.55-1.02)
[2017-04-03 08:14] LABS: BILIRUBIN,TOTAL 0.5 mg/dL (0.2-1.0); TOT PROT 6.3 g/dl (6.4-8.2)
[2017-04-03 08:16] LABS: FERRITIN 58.479 ng/ml (6.9-282.5)
--- NOTE | 2017-04-03 09:48 | PN ---
Progress Note, Physician History of Present Illness: The patient is a 77 year old female with significant past medical history of hypertension, hyperlipidemia, diabetes, osteoporosis, and hyperthyroidism who presents to the ED for chest discomfort that began earlier today. As per family members, at bedside, patient was complaining of chest discomfort that she describes as a pressure-like sensation. Patient denies diaphoresis, lightheadedness, SOB, jaw pain, shoulder pain, arm pain, nausea, or vomiting. Family checked her blood pressure and it was noted to be 170/60. Family also states her legs are normally swollen, however they noted an increase in leg swelling bilaterally. Daughter reports patient was on furosemide 20 mg once per day and two weeks ago her artificial flowers starcher informed her that she should take furosemide 20 mg BID. The patient denies fever, chills, cough, abdominal pain, and diarrhea. Allergies: NKDA Social History: No alcohol, tobacco, or drug use reported. Past Surgical History: appendectomy, polyp removal PCP: Dr. Albert Wilkinson [facility] ASHD neg. MIBI [facility] 2010 Bradycardia DM HHD HOCOM no LVOT gradient January 2012 HTN Hyperlipidemia Hypothyroidism LBBB 2015 PAD bilateral moderate atherosclerosis of carotid arteries January 2012 - Current Medication List Current Medications: Active Medications Acetaminophen (Tylenol -) 650 mg PO Q6H PRN PRN Reason: FEVER OR PAIN Last Admin: 04/02/17 19:45 Dose: 650 mg Amlodipine Besylate (Norvasc -) 5 mg PO DAILY [facility] Last Admin: 04/02/17 09:57 Dose: 5 mg Aspirin (Asa -) 81 mg PO DAILY PRN PRN Reason: PAIN Atorvastatin Calcium (Lipitor -) 20 mg PO HS [facility] Last Admin: 04/02/17 22:06 Dose: 20 mg Cholecalciferol (Vitamin D3 -) 5,000 unit PO DAILY [facility] Last Admin: 04/02/17 09:57 Dose: 5,000 unit Ferrous Sulfate (Feosol -) 325 mg PO TID [facility] Last Admin: 04/03/17 06:40 Dose: 325 mg Furosemide (Lasix -) 40 mg PO DAILY [facility] Last Admin: 04/02/17 09:57 Dose: 40 mg Heparin Sodium (Porcine) (Heparin -) 5,000 unit SQ BID [facility] Last Admin: 04/02/17 22:07 Dose: 5,000 unit Insulin Aspart (Novolog Vial Sliding Scale -) 1 vial SQ ACHS [facility] PRN Reason: Protocol Last Admin: 04/03/17 06:41 Dose: Not Given Insulin Detemir (Levemir Vial) 20 units SQ BIDAC [facility] Last Admin: 04/03/17 06:40 Dose: 20 units Methimazole (Tapazole -) 5 mg PO DAILY [facility] Last Admin: 04/02/17 09:58 Dose: 5 mg Non-Formulary Medication (Brimonidine Tartrate/Timolol [Combigan 0.2%-0.5% Eye Drops]) 1 drop OU DAILY [facility] - Objective Vital Signs: Vital Signs Temperature 98.2 F 04/02/17 13:45 Pulse Rate 82 04/02/17 22:00 Respiratory Rate 18 04/02/17 22:00 Blood Pressure 158/59 04/02/17 22:00 O2 Sat by Pulse Oximetry (%) 96 04/01/17 21:00 Eyes: Yes: WNL, Conjunctiva Clear, EOM Intact HENT: Yes: WNL, Atraumatic, Normocephalic Neck: Yes: WNL, Supple, Trachea Midline Cardiovascular: Yes: WNL, Regular Rate and Rhythm Respiratory: Yes: WNL, Regular, CTA Bilaterally Gastrointestinal: Yes: WNL, Normal Bowel Sounds Genitourinary: Yes: WNL Musculoskeletal: Yes: WNL Extremities: Yes: WNL Edema: No Integumentary: Yes: WNL Neurological: Yes: WNL, Alert, Oriented ...Motor Strength: WNL Psychiatric: Yes: WNL Labs: CBC, BMP 04/03/17 07:10 04/03/17 07:10 Problem List - Problems (1) Heart murmur Code(s): R01.1 - CARDIAC MURMUR, UNSPECIFIED (2) Peripheral edema Code(s): R60.9 - EDEMA, UNSPECIFIED (3) Renal insufficiency Code(s): N28.9 - DISORDER OF KIDNEY AND URETER, UNSPECIFIED (4) Anemia Code(s): D64.9 - ANEMIA, UNSPECIFIED (5) HTN (hypertension) Code(s): I10 - ESSENTIAL (PRIMARY) HYPERTENSION (6) Accidental fall Code(s): W19.XXXA - UNSPECIFIED FALL, INITIAL ENCOUNTER (7) Altered mental state Code(s): R41.82 - ALTERED MENTAL STATUS, UNSPECIFIED (8) Chronic renal failure Code(s): N18.9 - CHRONIC KIDNEY DISEASE, UNSPECIFIED (9) GIB (gastrointestinal bleeding) Code(s): K92.2 - GASTROINTESTINAL HEMORRHAGE, UNSPECIFIED (10) Pancreatitis Code(s): K85.9 - ACUTE PANCREATITIS, UNSPECIFIED * DO NOT USE * (11) Right shoulder injury Code(s): S49.91XA - UNSP INJURY OF RIGHT SHOULDER AND UPPER ARM, INIT ENCNTR (12) Weakness Code(s): R53.1 - WEAKNESS (13) Diabetes mellitus Code(s): E11.9 - TYPE 2 DIABETES MELLITUS WITHOUT COMPLICATIONS Assessment/Plan Uncontroled HTN decompensated CHF ASHD neg. MIBI ST 2010 Bradycardia DM HHD HOCOM no LVOT gradient January 2012 HTN Hyperlipidemia Hypothyroidism LBBB 2016 PAD bilateral moderate atherosclerosis of carotid arteries January 2012 Plan cont cardiac meds cont lasix avoid dehydration dvt plx cardiac chowdary stable
[2017-04-03] MEDS ORDERED: PT OWN MED DRAWER 7, Y5N ONE (10:50)
[2017-04-03] MEDS: amLODIPine BESYLATE 5 MG TABLET (FP) PO SCH (10:51)
[2017-04-03] MEDS: FUROSEMIDE 40 MG TABLET (FP) PO SCH (10:51)
[2017-04-03] MEDS: METHIMAZOLE 5 MG TABLET (FP) PO SCH (10:52)
[2017-04-03] MEDS: HEPARIN NA (PORCINE) 5,000 UNITS/ML 1ML VIAL SQ SCH ×2 (10:52→22:22)
[2017-04-03] MEDS: CHOLECALCIFEROL (VITAMIN D3) 1,000 UNIT TABLET (FP) PO SCH (10:52)
--- NOTE | 2017-04-03 11:18 | PN ---
Progress Note (short form) - Note Progress Note: RENAL Pt is awake and alert she was admitted with dyspnea, chest pain and leg edema feels better now Her BP was high as well I know her from office visits denies new complaints Last Vital Signs Temp Pulse Resp BP Pulse Ox 98.2 F 82 18 158/59 96 04/02/17 13:45 04/02/17 22:00 04/02/17 22:00 04/02/17 22:00 04/01/17 21:00 lungs clear cvs s1s2 rr abd soft +edema neuro a+ox3 CBC, BMP 04/03/17 07:10 04/03/17 07:10 Current Medications Generic Name Dose Route Start Last Admin Trade Name Freq PRN Reason Stop Dose Admin Acetaminophen 650 mg 04/01/17 10:20 04/02/17 19:45 Tylenol - PO 650 mg Q6H PRN Administration FEVER OR PAIN Amlodipine Besylate 5 mg 04/01/17 10:30 04/03/17 10:51 Norvasc - PO 5 mg DAILY TRISHA Administration Aspirin 81 mg 04/01/17 10:20 Asa - PO DAILY PRN PAIN Atorvastatin Calcium 20 mg 04/01/17 22:00 04/02/17 22:06 Lipitor - PO 20 mg HS TRISHA Administration Cholecalciferol 5,000 unit 04/02/17 10:00 04/03/17 10:52 Vitamin D3 - PO 5,000 unit DAILY TRISHA Administration Ferrous Sulfate 325 mg 04/01/17 14:00 04/03/17 06:40 Feosol - PO 325 mg TID TRISHA Administration Furosemide 40 mg 04/02/17 10:00 04/03/17 10:51 Lasix - PO 40 mg DAILY TRISHA Administration Heparin Sodium (Porcine) 5,000 unit 04/01/17 22:00 04/03/17 10:52 Heparin - SQ 5,000 unit BID TRISHA Administration Insulin Aspart 1 vial 04/01/17 11:00 04/03/17 06:41 Novolog Vial Sliding Scale - SQ Not Given [facility] Protocol Insulin Detemir 20 units 04/01/17 16:30 04/03/17 06:40 Levemir Vial SQ 20 units BIDAC TRISHA Administration Methimazole 5 mg 04/01/17 10:30 04/03/17 10:52 Tapazole - PO 5 mg DAILY TRISHA Administration Non-Formulary Medication 1 drop 04/01/17 10:30 Brimonidine Tartrate/Timolol [Combigan 0.2%-0.5% Eye Drops] OU DAILY TRISHA Impression 1. CKD proteinuric- nephrotic range 2. CU[place]HT[place] mild 3. hyperthyroidism 4. anemia 5. DM 6. HTN Plan - renal ultrasound shows atrophic kidneys- evidence of ckd - keep on lasix - creatinine is trending down - repeat labs in am MV
--- NOTE | 2017-04-03 12:36 | PN ---
Progress Note, Physician History of Present Illness: Pt. w/o SOB, CP, Abd pain - Current Medication List Current Medications: Active Medications Acetaminophen (Tylenol -) 650 mg PO Q6H PRN PRN Reason: FEVER OR PAIN Last Admin: 04/02/17 19:45 Dose: 650 mg Amlodipine Besylate (Norvasc -) 5 mg PO DAILY [facility] Last Admin: 04/03/17 10:51 Dose: 5 mg Aspirin (Asa -) 81 mg PO DAILY PRN PRN Reason: PAIN Atorvastatin Calcium (Lipitor -) 20 mg PO HS [facility] Last Admin: 04/02/17 22:06 Dose: 20 mg Cholecalciferol (Vitamin D3 -) 5,000 unit PO DAILY [facility] Last Admin: 04/03/17 10:52 Dose: 5,000 unit Ferrous Sulfate (Feosol -) 325 mg PO TID [facility] Last Admin: 04/03/17 06:40 Dose: 325 mg Furosemide (Lasix -) 40 mg PO DAILY [facility] Last Admin: 04/03/17 10:51 Dose: 40 mg Heparin Sodium (Porcine) (Heparin -) 5,000 unit SQ BID [facility] Last Admin: 04/03/17 10:52 Dose: 5,000 unit Insulin Aspart (Novolog Vial Sliding Scale -) 1 vial SQ ACHS [facility] PRN Reason: Protocol Last Admin: 04/03/17 12:05 Dose: 4 units Insulin Detemir (Levemir Vial) 20 units SQ BIDAC [facility] Last Admin: 04/03/17 06:40 Dose: 20 units Methimazole (Tapazole -) 5 mg PO DAILY [facility] Last Admin: 04/03/17 10:52 Dose: 5 mg Non-Formulary Medication (Brimonidine Tartrate/Timolol [Combigan 0.2%-0.5% Eye Drops]) 1 drop OU DAILY [facility] - Objective Vital Signs: Vital Signs Temperature 98.5 F 04/03/17 12:17 Pulse Rate 87 04/03/17 12:17 Respiratory Rate 18 04/03/17 12:17 Blood Pressure 155/65 04/03/17 12:17 O2 Sat by Pulse Oximetry (%) 96 04/01/17 21:00 Constitutional: Yes: No Distress, Calm Cardiovascular: Yes: Regular Rate and Rhythm, S1, S2 Respiratory: Yes: Regular, CTA Bilaterally Gastrointestinal: Yes: Normal Bowel Sounds, Soft, Abdomen, Obese. No: Palpable Mass, Tenderness Edema: LLE: 1+, RLE: 1+ Neurological: Yes: Alert, Oriented Labs: CBC, BMP 04/03/17 07:10 04/03/17 07:10 Problem List - Problems (1) Acute on chronic renal failure Code(s): N17.9 - ACUTE KIDNEY FAILURE, UNSPECIFIED N18.9 - CHRONIC KIDNEY DISEASE, UNSPECIFIED (2) Peripheral edema Code(s): R60.9 - EDEMA, UNSPECIFIED (3) CHF (congestive heart failure) Code(s): I50.9 - HEART FAILURE, UNSPECIFIED (4) Hypertrophic obstructive cardiomyopathy (HOCM) Code(s): I42.1 - OBSTRUCTIVE HYPERTROPHIC CARDIOMYOPATHY (5) Anemia Code(s): D64.9 - ANEMIA, UNSPECIFIED (6) HTN (hypertension) Code(s): I10 - ESSENTIAL (PRIMARY) HYPERTENSION (7) Diabetes mellitus Code(s): E11.9 - TYPE 2 DIABETES MELLITUS WITHOUT COMPLICATIONS (8) Uncontrolled hypertension Assessment/Plan: add Hydralazine Code(s): I10 - ESSENTIAL (PRIMARY) HYPERTENSION Assessment/Plan Hold Januvia. To avoid ACEI/ ARB. Cont. LAsix Renal consult apreciated, case was d/w Dr. Jauregui; creatinine is improving ( slowly). Cardio consult appreciated Add Hydralazine for better BP control. AM labs. Case was d/w pt.s' nurse
[2017-04-03] MEDS: hydrALAZINE HCL 10 MG TABLET PO SCH ×2 (14:35→22:21)
[2017-04-03] MEDS: ATORVASTATIN CA 20 MG TABLET (FP) PO SCH (22:21)
[2017-04-04 06:06] LABS: SERUM IRON 178 ug/dL (27-139)
[2017-04-04] MEDS: INSULIN SLIDING SCALE (NOVOLOG) 1 VIAL SQ SCH ×2 (06:31→11:45)
[2017-04-04] MEDS: hydrALAZINE HCL 10 MG TABLET PO SCH ×2 (06:33→14:23)
[2017-04-04] MEDS: INSULIN DETEMIR 100 UNITS/ML MDV SQ SCH (06:33)
[2017-04-04] MEDS: FERROUS SO4 325 MG TABLET (FP) PO SCH ×2 (06:33→14:23)
[2017-04-04] MEDS ORDERED: INSULIN (NOVOLOG) ASPART 100 UNITS/ML 10ML VIAL ONE (06:45)
[2017-04-04 08:44] LABS: CALCIUM 9.4 mg/dL (8.5-10.1); COCKROFT - GAULT 30.2175; CREATININE 1.8 mg/dL (0.55-1.02)
--- NOTE | 2017-04-04 09:01 | PN ---
Progress Note, Physician History of Present Illness: The patient is a 77 year old female with significant past medical history of hypertension, hyperlipidemia, diabetes, osteoporosis, and hyperthyroidism who presents to the ED for chest discomfort that began earlier today. As per family members, at bedside, patient was complaining of chest discomfort that she describes as a pressure-like sensation. Patient denies diaphoresis, lightheadedness, SOB, jaw pain, shoulder pain, arm pain, nausea, or vomiting. Family checked her blood pressure and it was noted to be 170/60. Family also states her legs are normally swollen, however they noted an increase in leg swelling bilaterally. Daughter reports patient was on furosemide 20 mg once per day and two weeks ago her geographic area intelligence officer informed her that she should take furosemide 20 mg BID. The patient denies fever, chills, cough, abdominal pain, and diarrhea. Allergies: NKDA Social History: No alcohol, tobacco, or drug use reported. Past Surgical History: appendectomy, polyp removal PCP: Dr. Albert Wilkinson [facility] ASHD neg. MIBI [facility] 2010 Bradycardia DM HHD HOCOM no LVOT gradient January 2012 HTN Hyperlipidemia Hypothyroidism LBBB 2015 PAD bilateral moderate atherosclerosis of carotid arteries January 2012 - Current Medication List Current Medications: Active Medications Acetaminophen (Tylenol -) 650 mg PO Q6H PRN PRN Reason: FEVER OR PAIN Last Admin: 04/02/17 19:45 Dose: 650 mg Amlodipine Besylate (Norvasc -) 5 mg PO DAILY [facility] OF [facility] Last Admin: 04/03/17 10:51 Dose: 5 mg Aspirin (Asa -) 81 mg PO DAILY PRN PRN Reason: PAIN Atorvastatin Calcium (Lipitor -) 20 mg PO HS [facility] Last Admin: 04/03/17 22:21 Dose: 20 mg Cholecalciferol (Vitamin D3 -) 5,000 unit PO DAILY [facility] Last Admin: 04/03/17 10:52 Dose: 5,000 unit Ferrous Sulfate (Feosol -) 325 mg PO TID [facility] Last Admin: 04/04/17 06:33 Dose: 325 mg Furosemide (Lasix -) 40 mg PO DAILY [facility] Last Admin: 04/03/17 10:51 Dose: 40 mg Heparin Sodium (Porcine) (Heparin -) 5,000 unit SQ BID [facility] Last Admin: 04/03/17 22:22 Dose: 5,000 unit Hydralazine HCl (Apresoline -) 10 mg PO TID [facility] Last Admin: 05/29/17 06:33 Dose: 10 mg Insulin Aspart (Novolog Vial Sliding Scale -) 1 vial SQ ACHS ON [facility] PRN Reason: Protocol Last Admin: 04/04/17 06:31 Dose: Not Given Insulin Detemir (Levemir Vial) 20 units SQ BIDAC [facility] Last Admin: 04/04/17 06:33 Dose: 20 units Methimazole (Tapazole -) 5 mg PO DAILY [facility] Last Admin: 04/03/17 10:52 Dose: 5 mg Non-Formulary Medication (Brimonidine Tartrate/Timolol [Combigan 0.2%-0.5% Eye Drops]) 1 drop OU DAILY ON [facility] OF [facility] - Objective Vital Signs: Vital Signs Temperature 98.5 F 04/04/17 06:00 Pulse Rate 82 04/04/17 06:00 Respiratory Rate 20 04/04/17 06:00 Blood Pressure 133/45 04/04/17 06:00 O2 Sat by Pulse Oximetry (%) 95 04/03/17 21:00 Eyes: Yes: WNL, Conjunctiva Clear, EOM Intact HENT: Yes: WNL, Atraumatic, Normocephalic Neck: Yes: WNL, Supple, Trachea Midline Cardiovascular: Yes: WNL, Regular Rate and Rhythm Respiratory: Yes: WNL, Regular, CTA Bilaterally Gastrointestinal: Yes: WNL, Normal Bowel Sounds Genitourinary: Yes: WNL Musculoskeletal: Yes: WNL Extremities: Yes: WNL Edema: No Integumentary: Yes: WNL Neurological: Yes: WNL, Alert, Oriented ...Motor Strength: WNL Psychiatric: Yes: WNL Labs: CBC, BMP 04/03/17 07:10 04/04/17 07:10 Problem List - Problems (1) Heart murmur Code(s): R01.1 - CARDIAC MURMUR, UNSPECIFIED (2) Peripheral edema Code(s): R60.9 - EDEMA, UNSPECIFIED (3) Renal insufficiency Code(s): N28.9 - DISORDER OF KIDNEY AND URETER, UNSPECIFIED (4) Anemia Code(s): D64.9 - ANEMIA, UNSPECIFIED (5) HTN (hypertension) Code(s): I10 - ESSENTIAL (PRIMARY) HYPERTENSION (6) Accidental fall Code(s): W19.XXXA - UNSPECIFIED FALL, INITIAL ENCOUNTER (7) Altered mental state Code(s): R41.82 - ALTERED MENTAL STATUS, UNSPECIFIED (8) Chronic renal failure Code(s): N18.9 - CHRONIC KIDNEY DISEASE, UNSPECIFIED (9) GIB (gastrointestinal bleeding) Code(s): K92.2 - GASTROINTESTINAL HEMORRHAGE, UNSPECIFIED (10) Pancreatitis Code(s): K85.9 - ACUTE PANCREATITIS, UNSPECIFIED * DO NOT USE * (11) Right shoulder injury Code(s): S49.91XA - UNSP INJURY OF RIGHT SHOULDER AND UPPER ARM, INIT ENCNTR (12) Weakness Code(s): R53.1 - WEAKNESS (13) Diabetes mellitus Code(s): E11.9 - TYPE 2 DIABETES MELLITUS WITHOUT COMPLICATIONS Assessment/Plan Uncontroled HTN decompensated CHF ASHD neg. MIBI ST 2010 Bradycardia DM HHD HOCOM no LVOT gradient January 2012 HTN Hyperlipidemia Hypothyroidism LBBB 2015 PAD bilateral moderate atherosclerosis of carotid arteries January 2012 Plan cont cardiac meds cont lasix avoid dehydration dvt plx cardiac chowdary stable
[2017-04-04] MEDS ORDERED: PT OWN MED DRAWER 7, Y5N ONE (10:58)
[2017-04-04 11:07] VITALS: TEMP 97.8
[2017-04-04] MEDS: CHOLECALCIFEROL (VITAMIN D3) 1,000 UNIT TABLET (FP) PO SCH (11:07)
[2017-04-04] MEDS: amLODIPine BESYLATE 5 MG TABLET (FP) PO SCH (11:07)
[2017-04-04] MEDS: FUROSEMIDE 40 MG TABLET (FP) PO SCH (11:07)
[2017-04-04] MEDS: METHIMAZOLE 5 MG TABLET (FP) PO SCH (11:08)
[2017-04-04] MEDS: HEPARIN NA (PORCINE) 5,000 UNITS/ML 1ML VIAL SQ SCH (11:08)
--- NOTE | 2017-04-04 12:07 | PN ---
Progress Note (short form) - Note Progress Note: RENAL Pt is awake and alert she was admitted with dyspnea, chest pain and leg edema feels better now Her BP was high as well I know her from office visits denies new complaints wants to go home Last Vital Signs Temp Pulse Resp BP Pulse Ox 97.8 F 70 20 120/50 95 04/04/17 11:04 04/04/17 11:04 04/04/17 11:04 04/04/17 11:04 04/03/17 21:00 lungs clear cvs s1s2 rr abd soft +edema neuro a+ox3 CBC, BMP 04/03/17 07:10 04/04/17 07:10 Current Medications Generic Name Dose Route Start Last Admin Trade Name Freq PRN Reason Stop Dose Admin Acetaminophen 650 mg 04/01/17 10:20 04/02/17 19:45 Tylenol - PO 650 mg Q6H PRN Administration FEVER OR PAIN Amlodipine Besylate 5 mg 04/01/17 10:30 04/04/17 11:07 Norvasc - PO 5 mg DAILY TRISHA Administration Aspirin 81 mg 04/01/17 10:20 Asa - PO DAILY PRN PAIN Atorvastatin Calcium 20 mg 04/01/17 22:00 04/03/17 22:21 Lipitor - PO 20 mg HS TRISHA Administration Cholecalciferol 5,000 unit 04/02/17 10:00 04/04/17 11:07 Vitamin D3 - PO 5,000 unit DAILY TRISHA Administration Ferrous Sulfate 325 mg 04/01/17 14:00 04/04/17 06:33 Feosol - PO 325 mg TID TRISHA Administration Furosemide 40 mg 04/02/17 10:00 04/04/17 11:07 Lasix - PO 40 mg DAILY TRISHA Administration Heparin Sodium (Porcine) 5,000 unit 04/01/17 22:00 04/04/17 11:08 Heparin - SQ 5,000 unit BID TRISHA Administration Hydralazine HCl 10 mg 04/03/17 14:00 04/04/17 06:33 Apresoline - PO 10 mg TID TRISHA Administration Insulin Aspart 1 vial 04/01/17 11:00 04/04/17 11:45 Novolog Vial Sliding Scale - SQ 4 units ACHS TRISHA Administration Protocol Insulin Detemir 20 units 04/01/17 16:30 04/04/17 06:33 Levemir Vial SQ 20 units BIDAC TRISHA Administration Methimazole 5 mg 04/01/17 10:30 04/04/17 11:08 Tapazole - PO 5 mg DAILY TRISHA Administration Non-Formulary Medication 1 drop 04/01/17 10:30 Brimonidine Tartrate/Timolol [Combigan 0.2%-0.5% Eye Drops] OU DAILY TRISHA Impression 1. CKD proteinuric- nephrotic range 2. [place] mild 3. hyperthyroidism 4. anemia 5. DM 6. HTN Plan - renal ultrasound shows atrophic kidneys- evidence of ckd - keep on lasix - creatinine is trending down - no objection to dc. Needs outpatient follow up MV
--- NOTE | 2017-04-04 12:50 | DS ---
Physical Examination Vital Signs: Vital Signs Temperature 97.8 F 04/04/17 11:04 Pulse Rate 70 04/04/17 11:04 Respiratory Rate 20 04/04/17 11:04 Blood Pressure 120/50 04/04/17 11:04 O2 Sat by Pulse Oximetry (%) 95 04/03/17 21:00 Findings/Remarks: Pt. w/o SOB, CP, Palp., Abd pain. Constitutional: Yes: No Distress, Calm Cardiovascular: Yes: Regular Rate and Rhythm, S1, S2 Respiratory: Yes: Regular, CTA Bilaterally Gastrointestinal: Yes: Normal Bowel Sounds, Soft, Abdomen, Obese. No: Tenderness Edema: No Neurological: Yes: Alert, Oriented Labs: CBC, BMP 04/03/17 07:10 04/04/17 07:10 Discharge Summary Reason For Visit: HTN ANEMIA RENAL INSUFFICIENCY Current Active Problems Acute on chronic renal failure (Acute) CHF (congestive heart failure) (Acute) Heart murmur (Acute) Hypertrophic obstructive cardiomyopathy (HOCM) (Acute) Peripheral edema (Acute) Renal insufficiency (Acute) Uncontrolled hypertension (Acute) Anemia (Chronic) HTN (hypertension) (Chronic) Hospital Course: Pt. came to ER for SOB, Led edema, elevated SBP; In ER she was was noticed to be in ARF. Pt. was admitted fro [place], CHF. medications were adjusted; Cardiology consult (Dr. Pena) and Renal consult (Dr. Jauregui) were called in for evaluation and management. Pt. improved slowly; she would be LA'ed home with office follow up. Condition: Improved - Instructions Diet, Activity, Other Instructions: Diet: diabetic, Low SALT, low cholesterol Follow up: Dr. Wilkinson with one week- to call. Dr. Jauregui 1 to 2 week- to call. Referrals: Albert Wilkinson MD [Primary Care Provider] - Disposition: HOME - Home Medications Comprehensive Discharge Medication List: Ambulatory Orders Ferrous Sulfate [Feosol] 325 mg PO TID 01/14/15 Simvastatin [Zocor -] 20 mg PO HS 01/14/15 Acetaminophen [Tylenol .Regular Strength -] 650 mg PO Q6H PRN #0 tablet Aspirin [ASA -] 81 mg PO DAILY PRN 12/03/15 Furosemide 20 mg PO BID 12/03/15 Amlodipine Besylate [Norvasc -] 5 mg PO DAILY 12/04/15 Brimonidine Tartrate/Timolol [Combigan 0.2%-0.5% Eye Drops] 1 drop OU DAILY Cholecalciferol (Vitamin D3) [Vitamin D] 5,000 unit PO DAILY 12/04/15 Insulin (Novolog) [Novolog -] 0 units SQ BID 12/04/15 Calcium Carbonate/Vitamin D3 [Calcium 500 + Vit D Caplet] 1 PO BIDAC 04/01/17 Insulin Glargine,Hum.rec.anlog [Lantus (nf)] 20 units SQ BID 04/01/17 Januvia 50 mg PO DAILY 04/01/17 Lecithin 1 PO DAILY 04/01/17 Methimazole 5 mg PO DAILY 04/01/17 [place]-3 2 cap PO BID 04/01/17 Risedronate Sodium 35 mg PO WEEKLY 04/01/17
[2017-04-04 14:22] VITALS: BP 144/60; PULSE 78
[2017-04-06 00:06] LABS: A/G RATIO 0.8 (0.7-1.7); ALBUMIN 2.8 g/dL (2.9-4.4); GLOBULIN, TOTAL 3.3 g/dL (2.2-3.9); M-SPIKE Not Observed g/dL (Not Observed); TOTAL PROTEIN 6.1 g/dL (6.0-8.5)
[2017-04-07 00:06] LABS: ALBUMIN FOR UPE 70.1 % (.); M-SPIKE, % Not Observed % (Not Observed)
== END 2017-04-04 15:54 | disposition home or self-care (01) | DRG 683 ==
LOC: JER 23:40 → JERBED 04-01 04:19 → UNDOADMIN 04-01 06:03 → J5S 04-01 06:55
PROVIDERS: ADMIT Specialist; ATTEND Specialist
DX: N17.9 Acute kidney failure, unspecified (principal); I13.0 Hypertensive heart and chronic kidney disease with heart failure and stage 1 through stage 4 chronic kidney disease, or unspecified chronic kidney disease; K86.1 Other chronic pancreatitis; I42.1 Obstructive hypertrophic cardiomyopathy; E78.5 Hyperlipidemia, unspecified; N31.9 Neuromuscular dysfunction of bladder, unspecified; K42.9 Umbilical hernia without obstruction or gangrene; M54.5 Low back pain; D64.9 Anemia, unspecified; M25.511 Pain in right shoulder; I25.10 Atherosclerotic heart disease of native coronary artery without angina pectoris; I65.29 Occlusion and stenosis of unspecified carotid artery; I44.7 Left bundle-branch block, unspecified; M81.0 Age-related osteoporosis without current pathological fracture; E05.90 Thyrotoxicosis, unspecified without thyrotoxic crisis or storm; I73.89 Other specified peripheral vascular diseases; E11.22 Type 2 diabetes mellitus with diabetic chronic kidney disease; N18.9 Chronic kidney disease, unspecified; I50.9 Heart failure, unspecified; E87.70 Fluid overload, unspecified; Z87.891 Personal history of nicotine dependence; Z86.73 Personal history of transient ischemic attack (TIA), and cerebral infarction without residual deficits
CPT/HCPCS: 36415; 71010-TC; 76775-TC; 76856-TC; 80048; 80053; 81003; 81015; 82436; 82550; 82570; 82607; 82728; 83540; 83880; 84133; 84155; 84156; 84157; 84165; 84300; 84484; 85025; 85027; 85651; 93005; 93010; 93970-TC; 99283-25; J1644

== ENCOUNTER 2017-04-15 20:01 | Inpatient (IN) | payer OTHER ==
[2017-04-15 20:30] VITALS: BMI 30.2
--- NOTE | 2017-04-15 21:06 | PDOC ---
History of Present Illness - General History Source: Patient, Primary Care Provider Exam Limitations: No Limitations - History of Present Illness Initial Comments: 04/15/17 22:18 The patient is a 77 year old female with a significant past medical history of HTN, HLD, diabetes, osteoporosis, and HLD who was sent by her PMD for abnormal lab results. The patient was recently admitted to the hospital on 04/01/17 for renal insufficiency. Patient was discharged and had a follow up appointment with her PMD yesterday and had blood drawn. Patient reports her PMD told her to come into the ED today for abnormal lab results. As per PMD, the patient had high sugar levels, creatinine of 2.5 and hemoglobin is 8.1. Patients baseline hemoglobin is around 8.9-9.0. As per PMD, the patients daughter does not give the patient insulin because she thinks it makes the patient weaker. The patient reports generalized weakness and a loss of appetite. She states she ate a slice of plantain, beans, rice and a cup of milk earlier today. Denies fevers or chills. Denies abdominal pain, nausea, vomiting, or diarrhea. Denies chest pain or shortness of breath. Denies dysuria or changes in urinary output. PMD: Albert Wilkinson <Marlo Pacheco - Last Filed: 04/15/17 22:18> <Constance Clark - Last Filed: 04/16/17 20:46> - General Chief Complaint: Revisit, Lab Variance Stated Complaint: DIZZINESS, PCP SENT Time Seen by Provider: 04/15/17 21:04 Past History <Marlo Pacheco - Last Filed: 04/15/17 22:18> - Past Medical History Anemia: Yes Asthma: No Cancer: Yes (Cancerous polyp) Cardiac Disorders: Yes CVA: Yes (TIA) COPD: No CHF: No Dementia: No Diabetes: Yes GI Disorders: No Disorders: No HTN: Yes Hypercholesterolemia: Yes Liver Disease: No Seizures: No Thyroid Disease: Yes - Surgical History Abdominal Surgery: No Appendectomy: Yes Cardiac Surgery: No Cholecystectomy: No Lung Surgery: No Neurologic Surgery: No Orthopedic Surgery: No - Immunization History Immunization Up to Date: Yes - Psycho/Social/Smoking Cessation Hx Anxiety: No Suicidal Ideation: No Smoking Status: No Smoking History: Former smoker Have you smoked in the past 12 months: No If you are a former smoker, when did you quit?: 40 years ago Cigars Per Day: 0 Information on smoking cessation initiated: No Hx Alcohol Use: No Drug/Substance Use Hx: No Substance Use Type: None Hx Substance Use Treatment: No <Constance Clark - Last Filed: 04/16/17 20:46> - Past Medical History Allergies/Adverse Reactions: Allergies Allergy/AdvReac Type Severity Reaction Status Date / Time No Known Allergies Allergy Verified 04/01/17 00:48 Home Medications: Ambulatory Orders Ferrous Sulfate [Feosol] 325 mg PO TID 01/14/15 Simvastatin [Zocor -] 20 mg PO HS 01/14/15 Acetaminophen [Tylenol .Regular Strength -] 650 mg PO Q6H PRN #0 tablet Aspirin [ASA -] 81 mg PO DAILY PRN 12/03/15 Amlodipine Besylate [Norvasc -] 5 mg PO DAILY 12/04/15 Brimonidine Tartrate/Timolol [Combigan 0.2%-0.5% Eye Drops] 1 drop OU DAILY Cholecalciferol (Vitamin D3) [Vitamin D] 5,000 unit PO DAILY 12/04/15 Insulin (Novolog) [Novolog -] 0 units SQ BID 12/04/15 Calcium Carbonate/Vitamin D3 [Calcium 500 + Vit D Caplet] 1 tab PO BIDAC Insulin Glargine,Hum.rec.anlog [Lantus (10mL VIAL) -] 20 units SQ BID 04/01/17 Januvia 50 mg PO DAILY 04/01/17 Lecithin 1 tab PO DAILY 04/01/17 Methimazole 5 mg PO DAILY 04/01/17 [place]-3 2 cap PO BID 04/01/17 Risedronate Sodium 35 mg PO WEEKLY 04/01/17 Furosemide [Lasix -] 40 mg PO DAILY tablet 04/04/17 Hydralazine HCl [Apresoline -] 10 mg PO TID #270 tablet 04/04/17 Review of Systems - Review of Systems Able to Perform ROS?: Yes Comments:: 04/15/17 22:19 CONSTITUTIONAL: + generalized weakness Absent: fever, chills, diaphoresis, malaise, loss of appetite HEENT: Absent: rhinorrhea, nasal congestion, throat pain, throat swelling, difficulty swallowing, mouth swelling, ear pain, eye pain, visual Changes CARDIOVASCULAR: Absent: chest pain, syncope, palpitations, irregular heart rate, lightheadedness , peripheral edema RESPIRATORY: Absent: cough, shortness of breath, dyspnea with exertion, orthopnea, wheezing, stridor, hemoptysis HEMATOLOGIC: + low hemoglobin count, low creatinine, high blood sugar GASTROINTESTINAL: Absent: abdominal pain, abdominal distension, nausea, vomiting, diarrhea, constipation, melena, hematochezia GENITOURINARY: Absent: dysuria, frequency, urgency, hesitancy, hematuria, flank pain, genital pain MUSCULOSKELETAL: Absent: myalgia, arthralgia, joint swelling SKIN: Absent: rash, itching, pallor HEMATOLOGIC/IMMUNOLOGIC: Absent: easy bleeding, easy bruising, lymphadenopathy, frequent infections ENDOCRINE: Absent: unexplained weight gain, unexplained weight loss, heat intolerance, cold intolerance NEUROLOGIC: Absent: headache, focal weakness or paresthesias, dizziness, unsteady gait, seizure, mental status changes, bladder or bowel incontinence PSYCHIATRIC: Absent: anxiety, depression, suicidal or homicidal ideation, hallucinations. All Other Systems: Reviewed and Negative <Marlo Pacheco - Last Filed: 04/15/17 22:18> *Physical Exam - Vital Signs Last Vital Signs Temp Pulse Resp BP Pulse Ox 97.3 F L 73 17 136/52 100 04/15/17 20:28 04/15/17 20:28 04/15/17 20:28 04/15/17 20:28 04/15/17 20:28 - Physical Exam Comments: 04/15/17 22:19 GENERAL: Well developed, well nourished. Awake and alert. No acute distress. HEENT: Normocephalic, atraumatic. PERRLA, EOMI. No conjunctival pallor. Sclera are non- icteric. Moist mucous membranes. Oropharynx is clear. NECK: Supple. Full ROM. No JVD. Carotid pulses 2+ and symmetric, without bruits. No thyromegaly. NCo lymphadenopathy. CARDIOVASCULAR: Regular rate and rhythm. No murmurs, rubs, or gallops. Distal pulses are 2+ and symmetric. PULMONARY: No evidence of respiratory distress. Lungs clear to auscultation bilaterally. No wheezing, rales or rhonchi. ABDOMINAL: + Gassy bowel sounds, abdominal distension. Soft. Non-tender. No rebound or guarding. No organomegaly. MUSCULOSKELETAL: Normal range of motion at all joints. No bony deformities or tenderness. No CVA tenderness. EXTREMITIES: No cyanosis. No clubbing. No edema. No calf tenderness. SKIN: Warm and dry. Normal capillary refill. No rashes. No jaundice. NEUROLOGICAL: Alert, awake, appropriate. Cranial nerves 2-12 intact. No deficits to light touch and temperature in face, upper extremities and lower extremities. No motor deficits in the in face, upper extremities and lower extremities. Normoreflexic in the upper and lower extremities. Normal speech. Toes are down- going bilaterally. Gait is normal without ataxia. PSYCHIATRIC: Cooperative. Good eye contact. Appropriate mood and affect. <Marol Pacheco - Last Filed: 04/15/17 22:18> - Vital Signs Last Vital Signs Temp Pulse Resp BP Pulse Ox 97.3 F L 73 17 136/52 100 04/15/17 20:28 04/15/17 20:28 04/15/17 20:28 04/15/17 20:28 04/15/17 20:28 <Constance Clark - Last Filed: 04/16/17 20:46> ED Treatment Course - LABORATORY CBC & Chemistry Diagram: 04/16/17 08:05 04/16/17 08:05 <Constance Clark - Last Filed: 04/16/17 20:46> Medical Decision Making - Medical Decision Making 04/15/17 22:[address] Wilkinson at 22:08. <Marlo Pacheco - Last Filed: 04/15/17 22:18> - Medical Decision Making 04/16/17 04:15 Patient Name: Priscila Carlisle THIS IS A PRELIMINARY REPORT FROM [facility] DATE OF SERVICE: 2017-04-16 02:59:05.0 IMAGES: 534 EXAM: ABDOMEN & PELVIS CT W /O CONTR HISTORY:Evaluate for pancreatitis COMPARISON: None. FINDINGS: Cardiomegaly with coronary artery calcifications Mild bibasilar subsegmental atelectasis Nodularity of the liver that is suggestive of cirrhosis Calcified granulomas within the right lobe of the liver 2.9 cm x 1.7 cm ovoid calcified exophytic mass arising from the gastric fundus. Follow-up is recommended The left kidney is enlarged relative to the contralateral side Bilateral cortical renal cysts Bilateral renal calcifications that are vascular in nature No evidence of nephrolithiasis, ureterolithiasis, or obstructive uropathy No evidence of intestinal obstruction, perforation, colitis, pancreatitis, acute diverticular disease, or an intra-abdominal or pelvic abscess. Extensive atherosclerotic changes No abdominal aortic aneurysm Multiple parenchymal calcifications within the uterus Multilevel spondylotic changes of the thoracolumbar spine THIS DOCUMENT HAS BEEN ELECTRONICALLY SIGNED 04/16/17 20:45 Pt comes with weakness. She was recently in the hospital and her Hb was 9. At her doc's office yesterday her Hb was 8. Today it is 7. She has guaiac positive black stools. She has no abdominal pains. Dr. Wilkinson is aware of the patient and he will follow her in telemetry. <Constance Clark - Last Filed: 04/16/17 20:46> *DC/Admit/Observation/Transfer - Attestations Scribe Attestion: 04/15/17 22:19 Documentation prepared by Marlo Pacheco, acting as medical insurance clerk for Constance Clark MD <Marlo Pacheco - Last Filed: 04/15/17 22:18> - Discharge Dispostion Admit: Yes <Constance Clark - Last Filed: 04/16/17 20:46> Diagnosis at time of Disposition: GIB (gastrointestinal bleeding), Pancreatitis, Acute on chronic renal failure - Referrals
[2017-04-15] MEDS ORDERED: MAG HYDROX/AL HYDROX/SIMETH 30 ML UNIT-DOSE CUP PO ONE (22:04)
[2017-04-15] MEDS ORDERED: SODIUM CHLORIDE 0.9% 500 ML INFUS.BAG IV ONE (22:10)
[2017-04-16] MEDS ORDERED: MAG HYDROX/AL HYDROX/SIMETH 30 ML UNIT-DOSE CUP ONE (00:05)
[2017-04-16 00:39] LABS: BASOPHIL 0.4 % (0-2.0); MCH 29.8 pg (25.7-33.7); MCHC 32.1 g/dl (32.0-36.0); MEAN CELL VOLUME 92.9 fl (80-96); MEAN PLT VOLUME 9.2 fl (7.5-11.1); NEUTROPHILS 57.6 % (42.8-82.8); PLATELET COUNT 231 K/MM3 (134-434); RDW 15.6 % (11.6-15.6); WHITE BLOOD COUNT 7.9 K/mm3 (4.0-10.0)
[2017-04-16 01:08] LABS: BILIRUBIN,TOTAL 0.3 mg/dL (0.2-1.0); CALCIUM 9.8 mg/dL (8.5-10.1); COCKROFT - GAULT 22.4825; CREATININE 2.4 mg/dL (0.55-1.02); TOT PROT 5.9 g/dl (6.4-8.2)
[2017-04-16 01:45] LABS: BASOPHIL 0.4 % (0-2.0); EOSINOPHIL 1.9 % (0-4.5); MCHC 32.3 g/dl (32.0-36.0); MEAN CELL VOLUME 92.9 fl (80-96); MEAN PLT VOLUME 9.3 fl (7.5-11.1); NEUTROPHILS 60.7 % (42.8-82.8); PLATELET COUNT 219 K/MM3 (134-434); RDW 15.7 % (11.6-15.6); WHITE BLOOD COUNT 8.4 K/mm3 (4.0-10.0)
[2017-04-16 02:01] LABS: PLATELET ESTIMATE ADEQUATE (NORMAL); POLYCHROMASIA 1+
[2017-04-16 02:02] LABS: ANISOCYTOSIS 1+; SPHEROCYTE 1+
[2017-04-16 08:18] LABS: MCH 30.5 pg (25.7-33.7); MCHC 33.3 g/dl (32.0-36.0); MEAN CELL VOLUME 91.6 fl (80-96); MEAN PLT VOLUME 8.6 fl (7.5-11.1); PLATELET COUNT 201 K/MM3 (134-434); RDW 15.2 % (11.6-15.6); WHITE BLOOD COUNT 7.7 K/mm3 (4.0-10.0)
[2017-04-16 08:45] LABS: ALBUMIN 2.9 g/dl (3.4-5.0); CALCIUM 9.5 mg/dL (8.5-10.1); COCKROFT - GAULT 24.531; CREATININE 2.2 mg/dL (0.55-1.02)
[2017-04-16 08:48] LABS: BILIRUBIN,TOTAL 0.3 mg/dL (0.2-1.0); TOT PROT 5.5 g/dl (6.4-8.2); TROPONIN I 0.02 ng/ml (0.00-0.05)
--- NOTE | 2017-04-16 09:22 | CON.CARD ---
Consult Consult Specialty:: Cardiology for Dr. Kelley Referred by:: Dr. Wilkinson Reason for Consultation:: Anemia, lightheadedness - History of Present Illness Chief Complaint: Sent to ER for severe Anemia History of Present Illness: 77 year old woman with a history of HTN, HLD, DMII, Hyperthyroid, Chronic anemia , Carotid stenosis, HCM with no sig LVOT gradiant, CAD, chronic LBBB, h/o bradycardia, chronic presumed diastolic CHF, admitted for severe anemia. Pt. seen and examined today with daughter at bedside, currently nad. pt receiving PRBC transfusion. Pt. had mild lightheadedness yesterday. States she saw Dr. Pnea yesterday and some tests were done and everything seemed ok from a cardiac standpoint. Denies any chest pain, sob, palpitations. No pnd, orthopnea. no change in chronic b/l LE edema. 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 Cardio/Vascular: Yes: HTN, Hyperlipdemia, Other (HCM with no reported LVOT gradient) Gastrointestinal: Yes: Pancreatitis, Other (Abdominal/Umbilical hernia) Renal/: Yes: Renal Failure, Neurogenic Bladder Musculoskeletal: Yes: Chronic low back pain, Other (R shoulder pain) Endocrine: Yes: Diabetes Mellitus Additional Medical History: Obesity - Past Surgical History Past Surgical History: Yes: Appendectomy, Cholecystectomy - Alcohol/Substance Use Hx Alcohol Use: No - Smoking History Smoking history: Former smoker Have you smoked in the past 12 months: No If you are a former smoker, when did you quit?: 40 years ago - Social History ADL: Independent History of Recent Travel: No Home Medications - Allergies Allergies/Adverse Reactions: Allergies Allergy/AdvReac Type Severity Reaction Status Date / Time No Known Allergies Allergy Verified 04/01/17 00:48 - Home Medications Home Medications: Ambulatory Orders Ferrous Sulfate [Feosol] 325 mg PO TID 01/14/15 Simvastatin [Zocor -] 20 mg PO HS 01/14/15 Acetaminophen [Tylenol .Regular Strength -] 650 mg PO Q6H PRN #0 tablet Aspirin [ASA -] 81 mg PO DAILY PRN 12/03/15 Amlodipine Besylate [Norvasc -] 5 mg PO DAILY 12/04/15 Brimonidine Tartrate/Timolol [Combigan 0.2%-0.5% Eye Drops] 1 drop OU DAILY Cholecalciferol (Vitamin D3) [Vitamin D] 5,000 unit PO DAILY 12/04/15 Insulin (Novolog) [Novolog -] 0 units SQ BID 12/04/15 Calcium Carbonate/Vitamin D3 [Calcium 500 + Vit D Caplet] 1 tab PO BIDAC Insulin Glargine,Hum.rec.anlog [Lantus (10mL VIAL) -] 20 units SQ BID 04/01/17 Januvia 50 mg PO DAILY 04/01/17 Lecithin 1 tab PO DAILY 04/01/17 Methimazole 5 mg PO DAILY 04/01/17 [place]-3 2 cap PO BID 04/01/17 Risedronate Sodium 35 mg PO WEEKLY 04/01/17 Furosemide [Lasix -] 40 mg PO DAILY tablet 04/04/17 Hydralazine HCl [Apresoline -] 10 mg PO TID #270 tablet 04/04/17 Family Disease History - Family Disease History Family History: Denies Review of Systems - Review of Systems Constitutional: reports: Weakness. denies: No Symptoms, Chills, Diaphoresis, Fever, Lethargy, Loss of Appetite, Malaise, Night Sweats, Unintentional Wgt. Loss, Other Eyes: denies: No Symptoms, Blind Spots, Blurred Vision, Double Vision, Eye Pain , Floaters, Photophobia, Recent Change in Vision, Other HENT: denies: No Symptoms, Difficult Swallowing, Ear Discharge, Ear Pain, Epistaxis, Gingival Bleeding, Hearing Loss, Mouth Swelling, Nasal Congestion, Ocular Prosthesis, Throat Pain, Toothache, Ringing in Ears, Other Neck: denies: No Symptoms, Decreased ROM, Lumps, Pain on Movement, Stiffness, Swollen Glands, Tenderness, Other Cardiovascular: reports: Edema. denies: No Symptoms, Chest Pain, Palpitations, Shortness of Breath, Other Respiratory: denies: No Symptoms, Cough, Exercise Intolerance, Hemoptysis, Orthopnea, PND, Snoring, SOB, SOB on Exertion, Wheezing, Other Gastrointestinal: denies: No Symptoms, Abdominal Pain, Bloating, Constipation, Diarrhea, Dysphagia, Indigestion, Melena, Nausea, Rectal Bleeding, Vomiting, Vomiting Blood, Other Genitourinary: denies: No Symptoms, Burning, Discharge, Dysuria, Flank Pain, Frequency, Hematuria, Incontinence, Lesions, Menses, Pain, Testicular Mass, Testicular Pain, Testicular Swelling, Urgency, Vaginal Bleeding, Other Breasts: denies: No Symptoms Reported, See HPI, Breast Implants, Discharge from Nipple, Lumps, Pain, Skin Changes, Other Musculoskeletal: denies: No Symptoms, Back Pain, Crepitus, Decreased ROM, Extremity Pain, Joint Pain, Joint Swelling, Muscle Pain, Muscle Cramps, Muscle Weakness, Other Integumentary: denies: No Symptoms, Blister, Bruising, Change in Color, Eczema, Erythema, Incision, Lesions, Lump, Pallor, Pruritis, Rash, Wound, Other Neurological: reports: Other (lightheadedness). denies: No Symptoms, Change in LOC, Change in Speech, Confusion, Dizziness, Headache, Incoordination, Numbness , Parasthesia, Pre-Existing Deficit, Seizure, Syncope, Tremors, Unsteady Gait, Weakness Endocrine: denies: No Symptoms, Excessive Sweating, Flushing, Increased Hunger, Increased Thirst, Intolerance to Cold, Intolerance to Heat, Unexplained Weight Gain, Unexplained Weight Loss, Other Hematology/Lymphatic: denies: No Symptoms, Easily Bruised, Excessive Bleeding, Swollen Glands, Other Psychiatric: denies: No Symptoms, Altered Sleep Pattern, Anxiety, Depression, Hallucinations, Panic, Paranoia, Suicidal, Other - Risk Factors Known Risk Factors: Yes: Diabetes Mellitus, Hypercholesterolemia, Hypertension Vital Signs: Vital Signs Temperature 97.6 F 04/16/17 04:26 Pulse Rate 80 04/16/17 04:26 Respiratory Rate 18 04/16/17 04:26 Blood Pressure 148/65 04/16/17 04:26 O2 Sat by Pulse Oximetry (%) 95 04/16/17 04:26 Constitutional: Yes: No Distress, Calm, Obese Eyes: Yes: WNL, Conjunctiva Clear, EOM Intact, PERRL HENT: Yes: WNL, Atraumatic, Normocephalic Neck: Yes: WNL, Supple, Trachea Midline Respiratory: Yes: WNL, Regular, CTA Bilaterally. No: Rales, Rhonchi, Wheezes Gastrointestinal: Yes: WNL, Normal Bowel Sounds, Soft. No: Distention, Tenderness Renal/: Yes: WNL Cardiovascular: Yes: Regular Rate and Rhythm. No: Bradycardia, Tachycardia, Pulse Irregular, Gallop, Rub, Varicosities JVD: No Carotid Bruit: No PMI: Non-Displaced Heart Sounds: Yes: S1, S2. No: Split S2, S3, S4, Clicks, Gallop, Rub, Bruit Murmur: Yes: Systolic Murmur, Grade 2. No: Diastolic Murmur Musculoskeletal: Yes: Muscle Weakness Extremities: Yes: WNL Edema: Yes Edema: LLE: Trace, RLE: Trace Peripheral Pulses WNL: Yes Peripheral Pulses: 2+ Left Doralis Pedis, 2+ Right Dorsalis Pedis Integumentary: Yes: WNL Neurological: Yes: Alert, Oriented, Cran Nerves II-XII Intact Psychiatric: Yes: Alert, Oriented - Other Data Labs, Other Data: CBC, BMP 04/16/17 08:05 04/16/17 08:05 Troponin, BNP 04/16/17 08:05 Troponin I 0.02 Troponin, BNP 04/16/17 08:05 Troponin I 0.02 ekg-nsr 81bpm, LBBB, sinus arrhythmia Echo: Report Reviewed Imaging - Results Chest X-ray: Report Reviewed, Image Reviewed EKG: Report Reviewed, Image Reviewed Other: Report Reviewed, Image Reviewed (tele-nsr, pvcs) Assessment/Plan 77 year old woman with a history of HTN, HLD, DMII, Hyperthyroid, Chronic anemia , Carotid stenosis, HCM with no sig LVOT gradiant, CAD, chronic LBBB, h/o bradycardia, chronic presumed diastolic CHF, admitted for severe symptomatic anemia. Anemia-acute on chronic, symptomatic with lightheadedness -receiving PRBCs -anemia work up -monitor on tele until H/H improves H/o HCM without increased LVOT gradient and Chronic diastolic CHF -pt states she saw Dr. Pena yesterday and had some tests done -f/up if echo done and status of LVOT gradient -avoid dehydration, currently intravacularly depleted -diuresis only prn as she is receiving IVF and PRBC transfusion HTN-adequately controlled for now -monitor off meds for now Carotid stenosis-reportedly moderate as per last notes here -f/up recent work up with Dr. Pena office -hold ASA for severe anemia LBBB-chronic -no additional work up needed at this point
--- NOTE | 2017-04-16 13:41 | PN ---
Progress Note, Physician Chief Complaint: Anemia, renal failure History of Present Illness: Pt. was seen in the office for weakness, blood was sent; blood work was c/w Anemia (Hb of 8.1), ARF ( creatinine of 2.5). Pt. was referred to ER found to be anemic, in ARF, have elevated amylase and lipase; pt. was admitted for evaluation and treatment. - Current Medication List Current Medications: Active Medications Sodium Chloride (Normal Saline -) 1,000 mls @ 100 mls/hr IV ASDIR TRISHA - Objective Vital Signs: Vital Signs Temperature 98.1 F 04/16/17 08:00 Pulse Rate 82 04/16/17 08:00 Respiratory Rate 20 04/16/17 08:00 Blood Pressure 145/77 04/16/17 08:00 O2 Sat by Pulse Oximetry (%) 97 04/16/17 08:00 Constitutional: Yes: No Distress, Calm Eyes: Yes: Conjunctiva Clear, EOM Intact, PERRL HENT: Yes: Normocephalic. No: Epistaxis, Rhinnorhea Neck: Yes: Trachea Midline. No: Lymphadenopathy Cardiovascular: Yes: Regular Rate and Rhythm, S1, S2 Respiratory: Yes: Regular, CTA Bilaterally. No: Rales Gastrointestinal: Yes: Normal Bowel Sounds, Soft, Abdomen, Obese. No: Palpable Mass, Tenderness Edema: No Integumentary: No: Bruising, Rash Neurological: Yes: Alert, Oriented, Cran Nerves II-XII Intact Labs: CBC, BMP 04/16/17 08:05 04/16/17 08:05 - ....Imaging Chest X-ray: Report Reviewed Cat Scan: Report Reviewed
--- NOTE | 2017-04-16 13:44 | HP ---
Admitting History and Physical - Primary Care Physician PCP: Albert Wilkinson - Admission Chief Complaint: Anemia, Acute Renal failure History of Present Illness: Pt. was seen in the office for weakness, blood was sent; blood work was c/w Anemia (Hb of 8.1), ARF ( creatinine of 2.5). Pt. was referred to ER found to be anemic, in ARF, have elevated amylase and lipase; pt. was admitted for evaluation and treatment. 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 Cardiovascular: Yes: HTN, Hyperlipdemia, Other (HCM with no reported LVOT gradient) Gastrointestinal: Yes: Pancreatitis, Other (Abdominal/Umbilical hernia) Renal/: Yes: Renal Failure, Neurogenic Bladder Heme/Onc: Yes: Anemia Musculoskeletal: Yes: Chronic low back pain, Other (R shoulder pain) Endocrine: Yes: Diabetes Mellitus - Past Surgical History Past Surgical History: Yes: Appendectomy, Cholecystectomy - Smoking History Smoking history: Former smoker Have you smoked in the past 12 months: No If you are a former smoker, when did you quit?: 40 years ago - Alcohol/Substance Use Hx Alcohol Use: No - Social History ADL: Independent History of Recent Travel: No Home Medications - Allergies Allergies/Adverse Reactions: Allergies Allergy/AdvReac Type Severity Reaction Status Date / Time No Known Allergies Allergy Verified 04/01/17 00:48 - Home Medications Home Medications: Ambulatory Orders Ferrous Sulfate [Feosol] 325 mg PO TID 01/14/15 Simvastatin [Zocor -] 20 mg PO HS 01/14/15 Acetaminophen [Tylenol .Regular Strength -] 650 mg PO Q6H PRN #0 tablet Aspirin [ASA -] 81 mg PO DAILY PRN 12/03/15 Amlodipine Besylate [Norvasc -] 5 mg PO DAILY 12/04/15 Brimonidine Tartrate/Timolol [Combigan 0.2%-0.5% Eye Drops] 1 drop OU DAILY Cholecalciferol (Vitamin D3) [Vitamin D] 5,000 unit PO DAILY 12/04/15 Insulin (Novolog) [Novolog -] 0 units SQ BID 12/04/15 Calcium Carbonate/Vitamin D3 [Calcium 500 + Vit D Caplet] 1 tab PO BIDAC 05/26/ 17 Insulin Glargine,Hum.rec.anlog [Lantus (10mL VIAL) -] 20 units SQ BID 04/01/17 Januvia 50 mg PO DAILY 04/01/17 Lecithin 1 tab PO DAILY 04/01/17 Methimazole 5 mg PO DAILY 04/01/17 [place]-3 2 cap PO BID 04/01/17 Risedronate Sodium 35 mg PO WEEKLY 04/01/17 Furosemide [Lasix -] 40 mg PO DAILY tablet 04/04/17 Hydralazine HCl [Apresoline -] 10 mg PO TID #270 tablet 04/04/17 Review of Systems - Review of Systems Constitutional: reports: Weakness (better since received PRBC). denies: Chills , Fever Eyes: denies: Blurred Vision, Double Vision HENT: denies: Difficult Swallowing, Ear Discharge, Epistaxis, Nasal Congestion Neck: denies: Decreased ROM, Pain on Movement, Stiffness Cardiovascular: denies: Chest Pain, Edema, Palpitations, Shortness of Breath Respiratory: denies: Cough, Hemoptysis, Wheezing Gastrointestinal: denies: Abdominal Pain, Constipation, Diarrhea, Nausea, Rectal Bleeding, Vomiting Genitourinary: denies: Burning, Discharge, Dysuria Musculoskeletal: denies: Back Pain, Extremity Pain Integumentary: denies: Bruising, Eczema, Rash Neurological: denies: Change in LOC, Change in Speech, Confusion, Dizziness, Numbness, Tremors, Unsteady Gait Endocrine: denies: Excessive Sweating, Intolerance to Cold Hematology/Lymphatic: denies: Easily Bruised, Excessive Bleeding Psychiatric: denies: Altered Sleep Pattern, Anxiety, Depression Physical Examination Vital Signs: Vital Signs Temperature 98.1 F 04/16/17 08:00 Pulse Rate 82 04/16/17 08:00 Respiratory Rate 20 04/16/17 08:00 Blood Pressure 145/77 04/16/17 08:00 O2 Sat by Pulse Oximetry (%) 97 04/16/17 08:00 Constitutional: Yes: No Distress, Calm Eyes: Yes: Conjunctiva Clear, EOM Intact, PERRL. No: Sclera Icterus HENT: Yes: Normocephalic. No: Epistaxis, Pharyngeal Erythema, Rhinnorhea, Thrush Neck: Yes: Trachea Midline. No: Lymphadenopathy Cardiovascular: Yes: Regular Rate and Rhythm, S1, S2 Respiratory: Yes: Regular, CTA Bilaterally. No: Rales Gastrointestinal: Yes: Normal Bowel Sounds, Soft, Abdomen, Obese. No: Palpable Mass, Tenderness ...Rectal Exam: Yes: Deferred Renal/: No: CVA Tenderness - Left, CVA Tenderness - Right Breast(s): Yes: Other (deferred) Musculoskeletal: Yes: Back Pain. No: Joint Stiffness, Joint Swelling Extremities: No: Cold, Cool Edema: No Integumentary: No: Bruising, Erythema, Rash Neurological: Yes: Oriented, Cran Nerves II-XII Intact Psychiatric: Yes: Alert, Oriented Labs: CBC, BMP 04/16/17 08:05 04/16/17 08:05 Imaging - Results Chest X-ray: Report Reviewed Cat Scan: Report Reviewed Problem List - Problems (1) Anemia Assessment/Plan: NO obvious source of bleeding. GI consult. Case was reviewed with Dr. Reji Chong Heme consult. Code(s): D64.9 - ANEMIA, UNSPECIFIED (2) Acute on chronic renal failure Assessment/Plan: Likely secondary hypoperfusion (secondary to hypovolemia, secondary to anemia). Tranfuse PRBC. Renal Consult. Monitor BMP Code(s): N17.9 - ACUTE KIDNEY FAILURE, UNSPECIFIED N18.9 - CHRONIC KIDNEY DISEASE, UNSPECIFIED (3) Pancreatitis Assessment/Plan: MARY [place] Code(s): K85.9 - ACUTE PANCREATITIS, UNSPECIFIED * DO NOT USE * (4) Weakness Code(s): R53.1 - WEAKNESS (5) Diabetes mellitus Code(s): E11.9 - TYPE 2 DIABETES MELLITUS WITHOUT COMPLICATIONS (6) HTN (hypertension) Code(s): I10 - ESSENTIAL (PRIMARY) HYPERTENSION Assessment/Plan Readjust meds DVT proph. AM labs
--- NOTE | 2017-04-16 13:46 | CONS ---
DATE OF CONSULTATION: 04/16/2017 REQUESTING PHYSICIAN: Albert Wilkinson MD HISTORY OF PRESENT ILLNESS: The patient is a 77-year-old woman admitted through [facility] for evaluation of anemia. Per the patients daughter, who is present at bedside, she had seen Dr. Wilkinson as an outpatient, blood was drawn routinely, and she was noted to be more anemic from baseline, and she was admitted to the hospital for further evaluation. She was also admitted recently in March of 2017 for evaluation of hypertension, anemia, and renal insufficiency. I know her both as an outpatient and as an inpatient, and she has been evaluated by my colleague, Dr. Hiram Heath, as well, in the past. It appears as though in terms of anemia workup, she had a workup in 2010 with him for anemia. She was noted to have B12 deficiency as well as angiodysplasia in the colon during a colonoscopy at that time, and he recommended B12 supplementation and avoidance of all NSAIDs. He also felt an epigastric mass, which was on CT scan. She had a sonogram of the abdomen in February of 2014, and that again demonstrated a prominent left lobe of the liver. At that time, he felt that she may have fatty liver disease, and he also performed an upper endoscopy that revealed a 3-cm submucosal mass in 2010. Subsequent endoscopic evaluations included a repeat upper endoscopy performed by myself in January 16, 2015, that revealed a non-obstructing Schatzkis ring, a 2-cm hiatal hernia, small in the GE junction, mild gastritis, and also revealed a submucosal lesion in the body of the stomach. She does have an exophytic gastric mass noted on previous imaging studies, and workup on this has been deferred by the patient and her family in the past. 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 Subsequently to that, it appears as though she developed cholecystitis, which was treated conservatively with cholecystostomy tube at an outside institution. She did not receive a cholecystectomy. She currently denies any abdominal pain. There has been no reported nausea or vomiting. She states that her bowel movements are dark. However, they have been dark since initiation of iron therapy, which she has been taking 3 times a day consistently now. There has been no overt rectal bleeding. Upon evaluation now, she was receiving her first unit of packed red blood cells as her hemoglobin was noted to be 6.5. PAST MEDICAL HISTORY: Includes diabetes mellitus type 2, hypertension, questionable history of coronary artery disease, glaucoma, renal insufficiency, history of anemia, adenomatous polyps with dysplasia noted on colonoscopy in November of 2015, hiatal hernia, cirrhosis, AVMs, an AVM noted in the colon which underwent APC ablation in 2016, as well. SURGICAL HISTORY: Includes appendectomy, right hemicolectomy in 2016, eye surgery for glaucoma. SOCIAL HISTORY: She was born in the [place], came to the [facility] at age 22. She is [place]-speaking. She is unemployed. She is a former smoker. No history of alcohol abuse or intravenous drug abuse or other illicit drugs. FAMILY HISTORY: Father as he was killed. Mother from complications of heart disease. She has siblings. One sister of uterine cancer. She had 11 children, 2 in infancy/childhood. One child at age 2 from a liver problem. One son at age 45 from an accidental . MEDICATIONS PRIOR TO ADMISSION: Include Zocor, Feosol 325 mg p.o. t.i.d., Tylenol Regular Strength as needed q.6 hours, aspirin 81 mg once daily, NovoLog, vitamin D, Combigan, Norvasc, Lantus insulin, methimazole, risedronate, Januvia, hydralazine, and furosemide. ALLERGIES: No known drug allergies. REVIEW OF SYSTEMS: She denies any chest pain or shortness of breath. She denies any cough or sputum production. She denies any nausea or vomiting, dysphagia, odynophagia. There has been somewhat of a diminished appetite of late. She denies any abdominal pain, changes in bowel habits, rectal bleeding, and the remainder of her GI review of systems is noted in the history of present illness. PHYSICAL EXAMINATION: General: Patient is found lying comfortably in her bed. She appeared to be in no apparent distress. Vital signs: Temperature was 98.1, pulse 82, blood pressure 145/77. HEENT: Sclerae anicteric. Neck: Supple. Heart: Examination of the heart revealed a regular rate and rhythm. She did have a 2/6 systolic murmur heard best at the right sternal border. Lungs: Examination of the lungs clear lung oquendo bilaterally. Abdomen: Examination of the abdomen, abdomen was nondistended. She had an old right lower quadrant surgical scar. She also had a lower right paramedian surgical scar from recent colon surgery with a reducible nontender incisional hernia. She had normoactive bowel sounds. No hepatosplenomegaly was appreciated. No masses were palpated. No hernias detected. No tenderness was elicited. Extremities: Examination of the extremities revealed trace lower extremity edema bilaterally. Digital rectal: No external lesions, no masses. She had iron-stained stool in the rectal vault, which was guaiac positive. LABORATORY EVALUATION: Revealed white blood count 7.7, hemoglobin 6.5, hematocrit 19.6, platelets of 201. Sodium 136, potassium 4.6, chloride 99, bicarbonate 30, BUN of 58, creatinine 2.2, glucose of 162, AST of 31, ALT of 21, alkaline phosphatase 99, total bilirubin 0.,3, albumin of 2.9, amylase 129, lipase of 730. She was noted to be guaiac positive on a specimen sent from the ER. She had a CT scan of the abdomen and pelvis performed revealing surface irregularity in association with left lobe and caudate lobe hypertrophy indicative of cirrhosis. There is no gross hepatic mass lesion. However, this was a non-contrast study given her renal insufficiency. She had a heavily calcified 2.9 x 1.7 cm partially exophytic mass along the gastric fundus without definite interval change in comparison to a previous CT examination of January 14, 2015. The pancreas did look normal despite the elevated amylase and lipase, and there was bilateral renal cortical atrophy and several bilateral renal cortical cysts. No obvious change in those, as well. IMPRESSION: This is a 77-year-old female with worsened normocytic anemia, also with renal insufficiency of unclear etiology with imaging that suggests component of chronic renal disease. She is guaiac positive on my examination today, and there has been no overt melena or rectal bleeding by history. Slow bleeding lesion of the intestinal tract would be considered in the differential contributing to her anemia such as a bleeding arteriovenous malformation. She has had recent colonoscopy confirming that she did have a vascular ectasia in her transverse colon and her stool is dark, however, it it iron, however, she is on high-dose iron therapy with normal iron studies from the end of this past May to exclude an upper gastrointestinal source of bleeding given her liver disease and given her daily aspirin use. PLAN: I did discuss upper endoscopy with both the patient and her daughter via [employer] [id number]. We discussed the potential risks of the procedure like, but not limited to, bleeding, perforation requiring surgery to repair, infection, sedation, medication effects, all of which can be potentially life threatening. The patient did agree to the procedure as did her daughter. I agree with packed red blood cell transfusion. Would consider PPI therapy. In this setting, would advance to clear liquid diet as there is no evidence of overt ongoing GI bleeding and monitor, and consider hematology evaluation as part of workup in the setting of normal iron indices, and other recommendations will be made pending the patients clinical course and findings from upper endoscopy. I think you for this consultative opportunity. KISHORE PALOMINO DO [id number]
[2017-04-16] MEDS ORDERED: ACETAMINOPHEN 325 MG TABLET (FP) PO PRN (13:58)
[2017-04-16] MEDS: METHIMAZOLE 5 MG TABLET (FP) PO SCH (14:56)
[2017-04-16] MEDS: hydrALAZINE HCL 10 MG TABLET PO SCH ×2 (14:56→21:57)
--- NOTE | 2017-04-16 15:29 | EKG ---
Test Reason : Blood Pressure : / mmHG Vent. Rate : 081 BPM Atrial Rate : 081 BPM P-R Int : 202 ms QRS Dur : 144 ms QT Int : 404 ms P-R-T Axes : 034 -51 105 degrees QTc Int : 469 ms NORMAL SINUS RHYTHM WITH SINUS ARRHYTHMIA LEFT AXIS DEVIATION LEFT BUNDLE BRANCH BLOCK ABNORMAL ECG WHEN COMPARED WITH ECG OF 01-APR-2017 03:43, PREMATURE VENTRICULAR COMPLEXES ARE NO LONGER PRESENT LEFT BUNDLE BRANCH BLOCK IS NOW PRESENT CLINICAL CORRELATION IS RECOMMENDED Confirmed by LUIS JOYA MD ([id number]) on 04/16/2017 3:29:36 PM Referred By: Confirmed By:LUIS JOYA MD
--- NOTE | 2017-04-16 17:16 | CONSULT ---
Consult Consult Specialty:: Nephrology Reason for Consultation:: CKD with CUAUHTEMOC - History of Present Illness Chief Complaint: sent in for abnormal labs, anemia and renal failure History of Present Illness: Pt is a 77 year old female with pmhx of CKD, HTN, DM, chol ad osteoporosis who was sent in from her PMD for abnormal labs. She was found to have elevated creatinine of about 2.5. Pt was was also found to be anemic and was sent in for a blood transfusion. Pt does have weakness. She denies shortness of breath. She denies hematuria or dysuria. She was evaluated by me a few weeks ago but has not followed up in the office. She has atrophic kidney on ultrasound done last visit. 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 Cardio/Vascular: Yes: HTN, Hyperlipdemia, Other (HCM with no reported LVOT gradient) Gastrointestinal: Yes: Pancreatitis, Other (Abdominal/Umbilical hernia) Renal/: Yes: Renal Failure, Neurogenic Bladder Musculoskeletal: Yes: Chronic low back pain, Other (R shoulder pain) Endocrine: Yes: Diabetes Mellitus Additional Medical History: Obesity - Past Surgical History Past Surgical History: Yes: Appendectomy, Cholecystectomy - Alcohol/Substance Use Hx Alcohol Use: No - Smoking History Smoking history: Former smoker Have you smoked in the past 12 months: No If you are a former smoker, when did you quit?: 40 years ago - Social History ADL: Independent History of Recent Travel: No Home Medications - Allergies Allergies/Adverse Reactions: Allergies Allergy/AdvReac Type Severity Reaction Status Date / Time No Known Allergies Allergy Verified 04/01/17 00:48 - Home Medications Home Medications: Ambulatory Orders Ferrous Sulfate [Feosol] 325 mg PO TID 01/14/15 Simvastatin [Zocor -] 20 mg PO HS 01/14/15 Acetaminophen [Tylenol .Regular Strength -] 650 mg PO Q6H PRN #0 tablet Aspirin [ASA -] 81 mg PO DAILY PRN 12/03/15 Amlodipine Besylate [Norvasc -] 5 mg PO DAILY 12/04/15 Brimonidine Tartrate/Timolol [Combigan 0.2%-0.5% Eye Drops] 1 drop OU DAILY Cholecalciferol (Vitamin D3) [Vitamin D] 5,000 unit PO DAILY 12/04/15 Insulin (Novolog) [Novolog -] 0 units SQ BID 12/04/15 Calcium Carbonate/Vitamin D3 [Calcium 500 + Vit D Caplet] 1 tab PO BIDAC Insulin Glargine,Hum.rec.anlog [Lantus (10mL VIAL) -] 20 units SQ BID 04/01/17 Januvia 50 mg PO DAILY 04/01/17 Lecithin 1 tab PO DAILY 04/01/17 Methimazole 5 mg PO DAILY 04/01/17 [place]-3 2 cap PO BID 04/01/17 Risedronate Sodium 35 mg PO WEEKLY 04/01/17 Furosemide [Lasix -] 40 mg PO DAILY tablet 04/04/17 Hydralazine HCl [Apresoline -] 10 mg PO TID #270 tablet 04/04/17 Family Disease History - Family Disease History Family History: Denies Review of Systems - Review of Systems Constitutional: reports: No Symptoms Eyes: reports: No Symptoms HENT: reports: No Symptoms Neck: reports: No Symptoms Cardiovascular: reports: Edema Respiratory: reports: No Symptoms Gastrointestinal: reports: No Symptoms Genitourinary: reports: No Symptoms Musculoskeletal: reports: No Symptoms Hematology/Lymphatic: reports: No Symptoms Psychiatric: reports: No Symptoms Physical Exam Vital Signs: Vital Signs Temperature 98.8 F 04/16/17 15:32 Pulse Rate 92 H 04/16/17 15:32 Respiratory Rate 20 04/16/17 15:32 Blood Pressure 123/74 04/16/17 15:32 O2 Sat by Pulse Oximetry (%) 97 04/16/17 08:00 Constitutional: Yes: Calm Eyes: Yes: Conjunctiva Clear HENT: Yes: Atraumatic Neck: Yes: Supple Cardiovascular: Yes: S1, S2 Respiratory: Yes: CTA Bilaterally Gastrointestinal: Yes: Soft, Abdomen, Obese Renal/: Yes: WNL Musculoskeletal: Yes: WNL Edema: Yes Edema: LLE: 1+, RLE: 1+ Neurological: Yes: Oriented Psychiatric: Yes: Oriented Labs: CBC, BMP 04/16/17 08:05 04/16/17 08:05 Laboratory Tests 01/17/15 04/01/17 04/02/17 05:45 18:01 07:30 Hgb 9.1 L MCV 87.2 Sodium Potassium Chloride Carbon Dioxide Anion Gap BUN Creatinine 2.0 H Serum Total Protein Albumin Globulin Albumin/Globulin Ratio Vxdyb-5-Yoiirwnzw Nctwn-3-Nkxfbicbd (%) Pmaxg-3-Icumhhisa Vnfkx-5-Ndmkogthq (%) Beta Globulins Beta Globulins (%) Gamma Globulins Gamma Globulins (%) M-Niles % Urine Color Straw Urine Appearance Clear Urine pH 7.0 Ur Specific [place] 1.010 Urine Protein 2+ H Urine Glucose (UA) 1+ H D Urine Ketones Negative Urine Blood Negative Urine Nitrite Negative Urine Bilirubin Negative Urine Urobilinogen Negative Protein/Creatinin Ratio Stool Occult Blood MAHENDRA M-Niles 04/02/17 04/03/17 04/03/17 20:04 07:10 07:10 Hgb 9.0 L MCV Sodium Potassium Chloride Carbon Dioxide Anion Gap BUN Creatinine 1.9 H Serum Total Protein Albumin Globulin Albumin/Globulin Ratio Uypiu-4-Kmwucsdiv Aqzmg-7-Dthnstplf (%) Ntdzq-7-Lfqhudlxd Njiyc-7-Grhzqmlzm (%) Beta Globulins Beta Globulins (%) Gamma Globulins Gamma Globulins (%) M-Niles % Urine Color Urine Appearance Urine pH Ur Specific [place] Urine Protein Urine Glucose (UA) Urine Ketones Urine Blood Urine Nitrite Urine Bilirubin Urine Urobilinogen Protein/Creatinin Ratio 3.49 Stool Occult Blood MAHENDRA M-Niles 04/03/17 04/04/17 04/16/17 07:10 07:10 00:17 Hgb 6.9 L* D MCV Sodium Potassium Chloride Carbon Dioxide Anion Gap BUN 39 H Creatinine 1.8 H Serum Total Protein 6.1 Albumin 2.8 L Globulin 3.3 Albumin/Globulin Ratio 0.8 Rqlft-4-Vwnklhbwa 0.3 Hwcon-9-Mukwtkkui (%) 6.4 Tdzwf-4-Yhwloacug 0.9 Bjyus-9-Puxlywmtf (%) 4.3 Beta Globulins 1.1 Beta Globulins (%) 13.3 Gamma Globulins 1.0 Gamma Globulins (%) 6.0 M-Niles % Not observed Urine Color Urine Appearance Urine pH Ur Specific [place] Urine Protein Urine Glucose (UA) Urine Ketones Urine Blood Urine Nitrite Urine Bilirubin Urine Urobilinogen Protein/Creatinin Ratio Stool Occult Blood MAHENDRA M-Niles Not observed 04/16/17 04/16/17 04/16/17 00:17 01:15 01:32 Hgb 6.7 L* MCV Sodium Potassium Chloride Carbon Dioxide Anion Gap BUN 60 H D Creatinine 2.4 H D Serum Total Protein Albumin Globulin Albumin/Globulin Ratio Bqmra-8-Ktbokxdoe Omqbb-3-Cktmiitwz (%) Eijaj-7-Qyobwjqjg Dujwr-6-Nndmlaktz (%) Beta Globulins Beta Globulins (%) Gamma Globulins Gamma Globulins (%) M-Niles % Urine Color Urine Appearance Urine pH Ur Specific [place] Urine Protein Urine Glucose (UA) Urine Ketones Urine Blood Urine Nitrite Urine Bilirubin Urine Urobilinogen Protein/Creatinin Ratio Stool Occult Blood Positive MAHENDRA M-Niles 04/16/17 04/16/17 08:05 08:05 Hgb 6.5 L* MCV Sodium 136 Potassium 4.6 Chloride 99 Carbon Dioxide 30 Anion Gap 7 L BUN 58 H Creatinine 2.2 H Serum Total Protein Albumin Globulin Albumin/Globulin Ratio Mueyf-8-Mhfnsiaun Sljmh-7-Rvvxcwrxu (%) Nnhsa-5-Srzyogpez Lnamj-8-Vczetjuol (%) Beta Globulins Beta Globulins (%) Gamma Globulins Gamma Globulins (%) M-Niles % Urine Color Urine Appearance Urine pH Ur Specific [place] Urine Protein Urine Glucose (UA) Urine Ketones Urine Blood Urine Nitrite Urine Bilirubin Urine Urobilinogen Protein/Creatinin Ratio Stool Occult Blood MAHENDRA M-Niles Imaging - Results Chest X-ray: Report Reviewed Cat Scan: Report Reviewed (hepatic cirrhosis, bilateral renal cysts and atrophy) Problem List - Problems (1) Acute on chronic renal failure Code(s): N17.9 - ACUTE KIDNEY FAILURE, UNSPECIFIED N18.9 - CHRONIC KIDNEY DISEASE, UNSPECIFIED (2) Chronic renal failure Code(s): N18.9 - CHRONIC KIDNEY DISEASE, UNSPECIFIED (3) Peripheral edema Code(s): R60.9 - EDEMA, UNSPECIFIED (4) Anemia Code(s): D64.9 - ANEMIA, UNSPECIFIED (5) Diabetes mellitus Code(s): E11.9 - TYPE 2 DIABETES MELLITUS WITHOUT COMPLICATIONS (6) HTN (hypertension) Code(s): I10 - ESSENTIAL (PRIMARY) HYPERTENSION Assessment/Plan Current Medications Generic Name Dose Route Start Last Admin Trade Name Freq PRN Reason Stop Dose Admin Acetaminophen 650 mg 04/16/17 13:58 Tylenol - PO Q6H PRN FEVER OR PAIN Amlodipine Besylate 5 mg 04/17/17 10:00 Norvasc - PO DAILY TRISHA Atorvastatin Calcium 10 mg 04/16/17 22:00 Lipitor - PO HS TRISHA Brimonidine Tartrate 1 drop 04/17/17 10:00 Alphagan 0.2% - OU DAILY TRISHA Hydralazine HCl 10 mg 04/16/17 14:00 04/16/17 14:56 Apresoline - PO 10 mg TID TRISHA Administration Sodium Chloride 1,000 mls @ 100 mls/hr 04/16/17 07:45 Normal Saline - IV ASDIR TRISHA Methimazole 5 mg 04/16/17 14:00 04/16/17 14:56 Tapazole - PO 5 mg DAILY TRISHA Administration Timolol Maleate 1 drop 04/17/17 10:00 Timoptic 0.5% OU DAILY TRISHA Impression 1. CKD 2. CUAUHTEMOC 3. hyperthyroidism 4. anemia 5. DM 6. HTN 7. anemia Plan - renal function is improving - transfuse PRBC - monitor respiratory status closely, she may need diuretics with the blood if she develops shortness of breath - monitor blood pressure - workup from last visit noted - pt is going for an endoscopy on Tuesday - will follow pt - check ua and urine protein to surgical endoscopist ratio - case discussed with patients family at length - check diogenes Tubbs
[2017-04-16] MEDS: ATORVASTATIN CA 10 MG TABLET (FP) PO SCH (21:57)
[2017-04-16] MEDS: SODIUM CHLORIDE 1,000 ML IV SCH (21:59)
[2017-04-16] MEDS ORDERED: PATIENT'S OWN MEDICATION (NON-FORMULARY) (Simvastatin 20 MG) PO SCH (22:00)
[2017-04-17] MEDS: hydrALAZINE HCL 10 MG TABLET PO SCH ×3 (06:17→23:00)
[2017-04-17 07:21] LABS: MCH 30.4 pg (25.7-33.7); MEAN CELL VOLUME 89.5 fl (80-96); MEAN PLT VOLUME 8.9 fl (7.5-11.1); PLATELET COUNT 187 K/MM3 (134-434); RDW 16.3 % (11.6-15.6); WHITE BLOOD COUNT 5.5 K/mm3 (4.0-10.0)
[2017-04-17] MEDS: SODIUM CHLORIDE 1,000 ML IV SCH (07:45)
--- NOTE | 2017-04-17 08:23 | PN ---
Progress Note, Physician History of Present Illness: seen and examined [facility]. no overnight events. no new complaints. states she is feeling better. - Current Medication List Current Medications: Active Medications Acetaminophen (Tylenol -) 650 mg PO Q6H PRN PRN Reason: FEVER OR PAIN Amlodipine Besylate (Norvasc -) 5 mg PO DAILY [facility] Atorvastatin Calcium (Lipitor -) 10 mg PO HS [facility] Last Admin: 04/16/17 21:57 Dose: 10 mg Brimonidine Tartrate (Alphagan 0.2% -) 1 drop OU DAILY [facility] Hydralazine HCl (Apresoline -) 10 mg PO TID [facility] Last Admin: 04/17/17 06:17 Dose: 10 mg Sodium Chloride (Normal Saline -) 1,000 mls @ 100 mls/hr IV ASDIR [facility] Last Admin: 04/16/17 21:59 Dose: 100 mls/hr Methimazole (Tapazole -) 5 mg PO DAILY [facility] Last Admin: 04/16/17 14:56 Dose: 5 mg Timolol Maleate (Timoptic 0.5%) 1 drop OU DAILY [facility] - Objective Vital Signs: Vital Signs Temperature 98.7 F 04/16/17 22:00 Pulse Rate 87 04/16/17 22:00 Respiratory Rate 20 04/16/17 22:00 Blood Pressure 155/60 04/16/17 22:00 O2 Sat by Pulse Oximetry (%) 98 04/16/17 21:00 Constitutional: Yes: No Distress, Calm, Obese Eyes: Yes: WNL, Conjunctiva Clear, EOM Intact, PERRL HENT: Yes: WNL, Atraumatic, Normocephalic Neck: Yes: WNL, Supple, Trachea Midline Cardiovascular: Yes: Regular Rate and Rhythm, Murmur, S1, S2. No: Bradycardia, Tachycardia, Pulse Irregular, Bruit, JVD, Gallop, Rub, S3, S4, Varicosities Respiratory: Yes: WNL, Regular, CTA Bilaterally. No: Rales, Rhonchi, SOB, Wheezes Gastrointestinal: Yes: WNL, Normal Bowel Sounds, Soft. No: Distention, Tenderness Musculoskeletal: Yes: WNL Extremities: Yes: WNL Edema: Yes Edema: LLE: Trace, RLE: Trace Peripheral Pulses WNL: Yes Peripheral Pulses: Left Doralis Pedis: 2+, Right Dorsalis Pedis: 2+ Integumentary: Yes: WNL Neurological: Yes: WNL, Alert, Oriented Psychiatric: Yes: Alert, Oriented Labs: CBC, BMP 04/17/17 05:42 - ....Imaging Chest X-ray: Report Reviewed, Image Reviewed EKG: Report Reviewed, Image Reviewed Other: Report Reviewed, Image Reviewed (tele-nsr, pvcs, no sig arrhythmia) Assessment/Plan 77 year old woman with a history of HTN, HLD, DMII, Hyperthyroid, Chronic anemia , Carotid stenosis, HCM with no sig LVOT gradiant, CAD, chronic LBBB, h/o bradycardia, chronic presumed diastolic CHF, admitted for severe symptomatic anemia. Anemia-acute on chronic, symptomatic with lightheadedness, improved with PRBC transfusion -s/p PRBCs with improved H/H -anemia work up in progress -planned for endoscopy -monitor on tele until establish stable H/H, tele can be dcd later today if H/H stable on serial cbcs H/o HCM without increased LVOT gradient and Chronic diastolic CHF -pt states she saw Dr. Pena tuesday and had some tests done -f/up if echo done and status of LVOT gradient -avoid dehydration -diuresis only prn as she is receiving IVF and PRBC transfusion HTN-adequately controlled for now -monitor off meds for now Carotid stenosis-reportedly moderate as per last notes here -f/up recent work up with Dr. Pena office -hold ASA for severe anemia LBBB-chronic -no additional work up needed at this point
[2017-04-17 08:31] LABS: ALBUMIN 3.2 g/dl (3.4-5.0); BILIRUBIN,TOTAL 0.6 mg/dL (0.2-1.0); CALCIUM 9.7 mg/dL (8.5-10.1); COCKROFT - GAULT 30.413; CREATININE 1.8 mg/dL (0.55-1.02)
[2017-04-17] MEDS: METHIMAZOLE 5 MG TABLET (FP) PO SCH (09:41)
[2017-04-17] MEDS: amLODIPine BESYLATE 5 MG TABLET (FP) PO SCH (09:42)
[2017-04-17] MEDS ORDERED: PATIENT'S OWN MEDICATION (NON-FORMULARY) (Brimonidine Tartrate/Timolol [Combigan 0.2%-0.5% OU SCH (10:00)
[2017-04-17 11:19] LABS: URINE APPEARANCE CLEAR; URINE BILIRUBIN NEGATIVE (NEGATIVE); URINE BLOOD NEGATIVE (NEGATIVE); URINE COLOR STRAW; URINE GLUCOSE (UA) 1+ (NEGATIVE); URINE KETONE NEGATIVE (NEGATIVE); URINE NITRITE NEGATIVE (NEGATIVE); URINE UROBILINOGEN NEGATIVE E.U./dl (0.2-1.0)
[2017-04-17 11:28] LABS: URINE LEUK ESTERASE TRACE (NEGATIVE); URINE PROTEIN 2+ (NEGATIVE)
[2017-04-17 11:29] LABS: URINE BACTERIA RARE /hpf (NONE SEEN); URINE WBC 2 /hpf (3-5)
--- NOTE | 2017-04-17 11:51 | CONSULT ---
Consult Consult Specialty:: Hematology-oncology Referred by:: Dr. 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 Cardio/Vascular: Yes: HTN, Hyperlipdemia, Other (HCM with no reported LVOT gradient) Gastrointestinal: Yes: Pancreatitis, Other (Abdominal/Umbilical hernia, appendectomy) Renal/: Yes: Renal Failure, Neurogenic Bladder ...: No Musculoskeletal: Yes: Chronic low back pain Endocrine: Yes: Diabetes Mellitus Additional Medical History: Obesity - Past Surgical History Past Surgical History: Yes: Appendectomy - Alcohol/Substance Use Hx Alcohol Use: No - Smoking History Smoking history: Former smoker Have you smoked in the past 12 months: No If you are a former smoker, when did you quit?: 40 years ago - Social History ADL: Independent Place of : Other (in) History of Recent Travel: No Home Medications - Allergies Allergies/Adverse Reactions: Allergies Allergy/AdvReac Type Severity Reaction Status Date / Time No Known Allergies Allergy Verified 04/01/17 00:48 - Home Medications Home Medications: Ambulatory Orders Ferrous Sulfate [Feosol] 325 mg PO TID 01/14/15 Simvastatin [Zocor -] 20 mg PO HS 01/14/15 Acetaminophen [Tylenol .Regular Strength -] 650 mg PO Q6H PRN #0 tablet Aspirin [ASA -] 81 mg PO DAILY PRN 12/03/15 Amlodipine Besylate [Norvasc -] 5 mg PO DAILY 12/04/15 Brimonidine Tartrate/Timolol [Combigan 0.2%-0.5% Eye Drops] 1 drop OU DAILY Cholecalciferol (Vitamin D3) [Vitamin D] 5,000 unit PO DAILY 12/04/15 Insulin (Novolog) [Novolog -] 0 units SQ BID 12/04/15 Calcium Carbonate/Vitamin D3 [Calcium 500 + Vit D Caplet] 1 tab PO BIDAC Insulin Glargine,Hum.rec.anlog [Lantus (10mL VIAL) -] 20 units SQ BID 04/01/17 Januvia 50 mg PO DAILY 04/01/17 Lecithin 1 tab PO DAILY 04/01/17 Methimazole 5 mg PO DAILY 04/01/17 [place]-3 2 cap PO BID 04/01/17 Risedronate Sodium 35 mg PO WEEKLY 04/01/17 Furosemide [Lasix -] 40 mg PO DAILY tablet 04/04/17 Hydralazine HCl [Apresoline -] 10 mg PO TID #270 tablet 04/04/17 Family Disease History - Family Disease History Family Disease History: CA: Sister (stock house 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 denies: Chest Pain Respiratory: reports: SOB on Exertion. denies: Wheezing Gastrointestinal: reports: Rectal Bleeding Genitourinary: denies: Dysuria, Hematuria Breasts: reports: No Symptoms Reported, Other (mammograpy reportedly negative) Musculoskeletal: reports: Extremity Pain, Muscle Pain Integumentary: denies: Eczema, Erythema Neurological: reports: No Symptoms, Weakness Endocrine: reports: No Symptoms. denies: Unexplained Weight Loss Hematology/Lymphatic: denies: Easily Bruised, Swollen Glands Psychiatric: reports: No Symptoms Physical Exam Vital Signs: Vital Signs Temperature 98 F 04/17/17 10:00 Pulse Rate 80 04/17/17 10:00 Respiratory Rate 20 04/17/17 10:00 Blood Pressure 154/65 04/17/17 10:00 O2 Sat by Pulse Oximetry (%) 98 04/17/17 09:00 Constitutional: Yes: No Distress Eyes: Yes: EOM Intact, Other (anisocoria). No: Diplopia, Sclera Icterus HENT: Yes: Normocephalic, Other (dentures upper and lower). No: Epistaxis, Hoarseness, Thrush Neck: Yes: Supple, Trachea Midline. No: Lymphadenopathy, Thyromegaly Cardiovascular: Yes: Regular Rate and Rhythm, Murmur Respiratory: Yes: Diminished, Rhonchi, Other (bilaterally) Gastrointestinal: Yes: Normal Bowel Sounds, Soft, Distention, Other ( appendectomy scar, s/p umbilical hernia repair with scar). No: Hepatomegaly, Splenomegaly Renal/: No: CVA Tenderness - Left, CVA Tenderness - Right Breast(s): Yes: WNL, Left, Right, Other (linvertedf nipple left and partial inverted nipple on right - no masses) Edema: No Integumentary: No: Erythema, Jaundice Neurological: Yes: WNL ...Motor Strength: WNL Psychiatric: Yes: WNL Labs: CBC, BMP 04/17/17 05:42 04/17/17 05:42 Imaging - Results Cat Scan: Image Reviewed Problem List - Problems (1) Acute on chronic renal failure Assessment/Plan: Seen by Nephrology- for work up ; CT with cortical atrophy compatible with chronic kidney disease and with cysts. Code(s): N17.9 - ACUTE KIDNEY FAILURE, UNSPECIFIED N18.9 - CHRONIC KIDNEY DISEASE, UNSPECIFIED (2) GIB (gastrointestinal bleeding) Assessment/Plan: Describes BRB per rectum and hematest positive stool . For GI assessment. Code(s): K92.2 - GASTROINTESTINAL HEMORRHAGE, UNSPECIFIED (3) Pancreatitis Assessment/Plan: Elevated lipase and amylase. CT with picture compatible with cirrhosis. No drinking history For GI assessment. Code(s): K85.9 - ACUTE PANCREATITIS, UNSPECIFIED * DO NOT USE * (4) Anemia Assessment/Plan: Likely multifactorial-- hematest positive stool and history of rectal bleeding, CUAUHTEMOC/CKD, pancreatitis, cirrhosis. Blood loss picture, kidney disease, and chronic disease. For additional screening Will need GI work up when medically feasible. May be candidate for Procrit per renal protocol. Code(s): D64.9 - ANEMIA, UNSPECIFIED
[2017-04-17 12:00] LABS: URINE CREATININE 35.9 mg/dL (20-320)
--- NOTE | 2017-04-17 12:35 | PN ---
GI Progress Note Subjective: No acute events States feeling well Recived 2 U PRBC yesterday No Overt bleeding - Objective Vital Signs: Vital Signs Temperature 98 F 04/17/17 10:00 Pulse Rate 80 04/17/17 10:00 Respiratory Rate 20 04/17/17 10:00 Blood Pressure 154/65 04/17/17 10:00 O2 Sat by Pulse Oximetry (%) 98 04/17/17 09:00 Constitutional: Calm Eyes: No: Sclera Icterus Cardiovascular: Yes: Regular Rate and Rhythm Respiratory: Yes: CTA Bilaterally Gastrointestinal Inspection: Yes: Hernia. No: Distention ...Auscultate: Yes: Normoactive Bowel Sounds ...Palpate: No: Splenomegaly, Tenderness Labs: CBC, BMP 04/17/17 05:42 04/17/17 05:42 - ....Imaging Chest X-ray: Other Cat Scan: Report Reviewed (EXAM#: TYPE/EXAM: RESULT: [id number] CT/ABDOMEN PELVIS CT W/O CONTR Abdomen and pelvis CT without intravenous contrast Clinical information: elevated lipase/amylase; evaluate for pancreatitis; hernia; distention, gassiness. Multiplanar imaging was performed. As requested intravenous contrast was not administered. Oral contrast was administered. No evidence of pneumoperitoneum, bowel obstruction or free intraperitoneal fluid. The pancreas demonstrates no definite noncontrast pathology. Mild acute pancreatitis may not be demonstrable on CT or MRI. Hepatic surface irregularity with associated left lobe and caudate lobe hypertrophy is seen consistent with evidence of cirrhosis. No gross hepatic mass lesion is identified. The spleen, gallbladder, and adrenal glands demonstrate no obvious noncontrast abnormality. Abdomen and pelvis CT without intravenous contrast Clinical information evaluate for pancreatitis Multiplanar imaging was performed. As requested intravenous contrast was not administered. No evidence of pneumoperitoneum, free intraperitoneal fluid or bowel obstruction. The pancreas demonstrates no definite noncontrast pathology. Mild acute pancreatitis may not be demonstrable on CT or MRI. Hepatic surface irregularity is seen in association with left lobe and caudate lobe hypertrophy indicative of cirrhosis. There is no gross hepatic mass lesion. No splenomegaly is seen. A heavily calcified 2.9 x 1.7 cm partially exophytic mass lesion is seen along the gastric fundus without definite interval change in comparison to a previous CT exam of 2014. The gallbladder, and adrenal glands demonstrate no obvious noncontrast pathology. As the prior study there is bilateral renal cortical atrophy and several bilateral renal cortical cysts. No obvious interval change is seen. No aortic aneurysm is noted. There is no CT evidence of acute appendicitis or diverticulitis. No gross small bowel pathology is seen. Colonic fecal retention is noted which is probably moderate. There is mild chronic elevation of the right diaphragm with associated mild chronic right basilar atelectasis. Prominent atherosclerotic coronary artery calcifications are noted. Chronic stable minimal to mild L1 vertebral body compression fracture without bony retropulsion. Impression: No definite CT findings of acute pathology are identified. The pancreas demonstrates no definite noncontrast abnormality. Hepatic cirrhosis. Stable heavily calcified 2.9 x 1.7 cm partially exophytic gastric lesion without definite interval change in comparison to a previous CT study of 2014. Bilateral renal cortical atrophy. Bilateral renal cortical cysts.) Problem List - Problems (1) GIB (gastrointestinal bleeding) Assessment/Plan: No overt bleeding For EGD 04/18 Code(s): K92.2 - GASTROINTESTINAL HEMORRHAGE, UNSPECIFIED (2) Elevated lipase Assessment/Plan: No clinical signs of pancreatitis Would stop Januvia and monitor Ideally if persistent elevation of amylase/lipase, contrast imaging of pancreas would be warranted however Ms. Carlisle's renal function prohibative Code(s): R74.8 - ABNORMAL LEVELS OF OTHER SERUM ENZYMES (3) Cirrhosis Assessment/Plan: Needs Q 6 Month AFP tumor marker and abdominal US to screen for hepatoma Code(s): K74.60 - UNSPECIFIED CIRRHOSIS OF LIVER Qualifiers: Hepatic cirrhosis type: other cirrhosis Qualified Code(s): K74.69 - Other cirrhosis of liver (4) Gastric mass Assessment/Plan: Exophytic / submucosal mass noted on current CT and previous studies. This has been discussed with patient and family in the past and evaluation has been deferred. If they are amenable to further work-up, then referral to a facility capable of performing EUS could be considered ie. Dr. Cate Kruger @ [facility], Code(s): K31.9 - DISEASE OF STOMACH AND DUODENUM, UNSPECIFIED
[2017-04-17] MEDS ORDERED: SODIUM CHLORIDE 1,000 ML IV SCH (13:46)
--- NOTE | 2017-04-17 13:48 | PN ---
Progress Note, Physician History of Present Illness: Pt. w/o SOB, CP, palp., abd pain, N, V. - Current Medication List Current Medications: Active Medications Acetaminophen (Tylenol -) 650 mg PO Q6H PRN PRN Reason: FEVER OR PAIN Amlodipine Besylate (Norvasc -) 5 mg PO DAILY [facility] Last Admin: 04/17/17 09:42 Dose: 5 mg Atorvastatin Calcium (Lipitor -) 10 mg PO HS [facility] Last Admin: 04/16/17 21:57 Dose: 10 mg Brimonidine Tartrate (Alphagan 0.2% -) 1 drop OU DAILY [facility] Hydralazine HCl (Apresoline -) 10 mg PO TID [facility] Last Admin: 04/17/17 06:17 Dose: 10 mg Sodium Chloride (Normal Saline -) 1,000 mls @ 50 mls/hr IV ASDIR [facility] Insulin Aspart (Novolog Vial Sliding Scale -) 1 vial SQ ACHS [facility] PRN Reason: Protocol Methimazole (Tapazole -) 5 mg PO DAILY [facility] Last Admin: 04/17/17 09:41 Dose: 5 mg Pantoprazole Sodium (Protonix -) 40 mg PO BID [facility] Timolol Maleate (Timoptic 0.5%) 1 drop OU DAILY [facility] - Objective Vital Signs: Vital Signs Temperature 98 F 04/17/17 10:00 Pulse Rate 80 04/17/17 10:00 Respiratory Rate 20 04/17/17 10:00 Blood Pressure 154/65 04/17/17 10:00 O2 Sat by Pulse Oximetry (%) 98 04/17/17 09:00 Constitutional: Yes: No Distress, Calm Cardiovascular: Yes: Regular Rate and Rhythm, S1, S2 Respiratory: Yes: Regular, CTA Bilaterally. No: Rales Gastrointestinal: Yes: Normal Bowel Sounds, Soft, Abdomen, Obese. No: Tenderness Edema: No Neurological: Yes: Alert, Oriented Labs: CBC, BMP 04/17/17 05:42 04/17/17 05:42 Problem List - Problems (1) Anemia Assessment/Plan: NO obvious source of bleeding. GI consult appreciated. Heme consult appreciated. Code(s): D64.9 - ANEMIA, UNSPECIFIED (2) Acute on chronic renal failure Assessment/Plan: Likely secondary hypoperfusion (secondary to hypovolemia, secondary to anemia). Tranfuse PRBC. Renal Consult appreciated. Monitor BMP Code(s): N17.9 - ACUTE KIDNEY FAILURE, UNSPECIFIED N18.9 - CHRONIC KIDNEY DISEASE, UNSPECIFIED (3) Pancreatitis Assessment/Plan: Probable secondary to medication Audrey was DC'ed. Better Code(s): K85.9 - ACUTE PANCREATITIS, UNSPECIFIED * DO NOT USE * (4) Weakness Code(s): R53.1 - WEAKNESS (5) Diabetes mellitus Code(s): E11.9 - TYPE 2 DIABETES MELLITUS WITHOUT COMPLICATIONS (6) HTN (hypertension) Code(s): I10 - ESSENTIAL (PRIMARY) HYPERTENSION Assessment/Plan Readjust meds DVT proph. for colonoscopy. AM labs
[2017-04-17] MEDS: BRIMONIDINE TARTRATE 0.2% OPHTHALMIC 5 ML BOTTLE OU SCH (15:09)
[2017-04-17] MEDS: TIMOLOL 0.5% OPHTHALMIC SOL 5 ML BOTTLE OU SCH (15:10)
[2017-04-17] MEDS: PANTOPRAZOLE 40 MG TABLET (FP) PO SCH ×2 (15:12→23:00)
[2017-04-17] MEDS: INSULIN SLIDING SCALE (NOVOLOG) 1 VIAL SQ SCH ×2 (17:09→23:01)
--- NOTE | 2017-04-17 17:25 | PN ---
Progress Note, Physician History of Present Illness: Pt seen and examined at bedside. She is awake and alert. She is out of bed to chair. - Current Medication List Current Medications: Active Medications Acetaminophen (Tylenol -) 650 mg PO Q6H PRN PRN Reason: FEVER OR PAIN Amlodipine Besylate (Norvasc -) 5 mg PO DAILY [facility] Last Admin: 04/17/17 09:42 Dose: 5 mg Atorvastatin Calcium (Lipitor -) 10 mg PO HS [facility] Last Admin: 04/16/17 21:57 Dose: 10 mg Brimonidine Tartrate (Alphagan 0.2% -) 1 drop OU DAILY [facility] Last Admin: 04/17/17 15:09 Dose: 1 drop Hydralazine HCl (Apresoline -) 10 mg PO TID [facility] Last Admin: 04/17/17 15:13 Dose: 10 mg Sodium Chloride (Normal Saline -) 1,000 mls @ 50 mls/hr IV ASDIR [facility] Last Admin: 04/17/17 15:13 Dose: 50 mls/hr Insulin Aspart (Novolog Vial Sliding Scale -) 1 vial SQ ACHS [facility] PRN Reason: Protocol Last Admin: 04/17/17 17:09 Dose: 8 units Methimazole (Tapazole -) 5 mg PO DAILY [facility] Last Admin: 04/17/17 09:41 Dose: 5 mg Pantoprazole Sodium (Protonix -) 40 mg PO BID [facility] Last Admin: 04/17/17 15:12 Dose: 40 mg Timolol Maleate (Timoptic 0.5%) 1 drop OU DAILY [facility] Last Admin: 04/17/17 15:10 Dose: 1 drop - Objective Vital Signs: Vital Signs Temperature 98 F 04/17/17 15:09 Pulse Rate 82 04/17/17 15:09 Respiratory Rate 20 04/17/17 15:09 Blood Pressure 153/70 04/17/17 15:09 O2 Sat by Pulse Oximetry (%) 98 04/17/17 09:00 Constitutional: Yes: Calm Eyes: Yes: Conjunctiva Clear HENT: Yes: Atraumatic Neck: Yes: Supple Cardiovascular: Yes: S1, S2 Respiratory: Yes: CTA Bilaterally Gastrointestinal: Yes: Normal Bowel Sounds, Soft Genitourinary: Yes: WNL Musculoskeletal: Yes: WNL Edema: Yes Edema: LLE: 1+, RLE: 1+ Neurological: Yes: Oriented Psychiatric: Yes: Oriented Labs: CBC, BMP 04/17/17 05:42 04/17/17 05:42 Problem List - Problems (1) Acute on chronic renal failure Code(s): N17.9 - ACUTE KIDNEY FAILURE, UNSPECIFIED N18.9 - CHRONIC KIDNEY DISEASE, UNSPECIFIED (2) Chronic renal failure Code(s): N18.9 - CHRONIC KIDNEY DISEASE, UNSPECIFIED (3) Peripheral edema Code(s): R60.9 - EDEMA, UNSPECIFIED (4) Anemia Code(s): D64.9 - ANEMIA, UNSPECIFIED (5) Diabetes mellitus Code(s): E11.9 - TYPE 2 DIABETES MELLITUS WITHOUT COMPLICATIONS (6) HTN (hypertension) Code(s): I10 - ESSENTIAL (PRIMARY) HYPERTENSION Assessment/Plan Current Medications Generic Name Dose Route Start Last Admin Trade Name Freq PRN Reason Stop Dose Admin Acetaminophen 650 mg 04/16/17 13:58 Tylenol - PO Q6H PRN FEVER OR PAIN Amlodipine Besylate 5 mg 04/17/17 10:00 04/17/17 09:42 Norvasc - PO 5 mg DAILY [facility] Administration Atorvastatin Calcium 10 mg 04/16/17 22:00 04/16/17 21:57 Lipitor - PO 10 mg HS [facility] Administration Brimonidine Tartrate 1 drop 04/17/17 10:00 04/17/17 15:09 Alphagan 0.2% - OU 1 drop DAILY [facility] Administration Hydralazine HCl 10 mg 04/16/17 14:00 04/17/17 15:13 Apresoline - PO 10 mg TID [facility] Administration Sodium Chloride 1,000 mls @ 50 mls/hr 04/17/17 13:46 04/17/17 15:13 Normal Saline - IV 50 mls/hr ASDIR [facility] Administration Insulin Aspart 1 vial 04/17/17 16:30 04/17/17 17:09 Novolog Vial Sliding Scale - SQ 8 units ACHS [facility] Administration Protocol Methimazole 5 mg 04/16/17 14:00 04/17/17 09:41 Tapazole - PO 5 mg DAILY [facility] Administration Pantoprazole Sodium 40 mg 04/17/17 11:00 04/17/17 15:12 Protonix - PO 40 mg BID [facility] Administration Timolol Maleate 1 drop 04/17/17 10:00 04/17/17 15:10 Timoptic 0.5% OU 1 drop DAILY [facility] Administration Laboratory Tests 04/17/17 10:00 Protein/Creatinin Ratio 3.537 Laboratory Tests 04/17/17 05:42 HAN Screen Pending Impression 1. CKD 2. CUAUHTEMOC 3. hyperthyroidism 4. anemia 5. DM 6. HTN 7. anemia Plan - renal function is stabilizing - will hold fluids for now as pt has hx of CHF and she has lower extremity edema - endoscopy tomorrow - case discussed with patients family - workup is in progress - CUAUHTEMOC likely from pre-renal disease Dr Tubbs
[2017-04-17] MEDS: ATORVASTATIN CA 10 MG TABLET (FP) PO SCH (23:00)
[2017-04-18] MEDS: INSULIN SLIDING SCALE (NOVOLOG) 1 VIAL SQ SCH ×4 (06:44→22:16)
[2017-04-18] MEDS: hydrALAZINE HCL 10 MG TABLET PO SCH ×3 (06:44→22:15)
[2017-04-18 07:59] LABS: BASOPHIL 0.2 % (0-2.0); MCH 30.4 pg (25.7-33.7); MCHC 33.9 g/dl (32.0-36.0); MEAN CELL VOLUME 89.8 fl (80-96); MEAN PLT VOLUME 8.9 fl (7.5-11.1); PLATELET COUNT 205 K/MM3 (134-434); RDW 16.4 % (11.6-15.6); WHITE BLOOD COUNT 6.7 K/mm3 (4.0-10.0)
[2017-04-18 08:34] LABS: ALBUMIN 3.1 g/dl (3.4-5.0); CALCIUM 9.1 mg/dL (8.5-10.1)
[2017-04-18 08:42] LABS: BILIRUBIN,TOTAL 0.8 mg/dL (0.2-1.0); COCKROFT - GAULT 31.348; CREATININE 1.7 mg/dL (0.55-1.02); FERRITIN 54.353 ng/ml (6.9-282.5); THYROID STIMULATING HORMONE 2.57 uIU/ml (0.358-3.74); TOT PROT 6.1 g/dl (6.4-8.2)
[2017-04-18] MEDS: METHIMAZOLE 5 MG TABLET (FP) PO SCH (09:25)
[2017-04-18] MEDS: TIMOLOL 0.5% OPHTHALMIC SOL 5 ML BOTTLE OU SCH (09:25)
[2017-04-18] MEDS: PANTOPRAZOLE 40 MG TABLET (FP) PO SCH ×2 (09:25→22:15)
[2017-04-18] MEDS: BRIMONIDINE TARTRATE 0.2% OPHTHALMIC 5 ML BOTTLE OU SCH (09:26)
[2017-04-18] MEDS: amLODIPine BESYLATE 5 MG TABLET (FP) PO SCH (09:26)
[2017-04-18] MEDS ORDERED: ETOMIDATE 20 MG/10 ML AMPUL IVPUSH ONE (10:24)
[2017-04-18] MEDS ORDERED: PROPOFOL 20 ML ONE (10:24)
--- NOTE | 2017-04-18 11:17 | PN ---
Progress Note (short form) - Note Progress Note: GI Procedure NOte: Please see EGD report. Ulcer and gastric mass and ectasia seen but no obvious bleeding. Given highly dysplastic colon lesion that required surgical resection surveillance colonoscopy has been advised . The daughter and mother agree. Will prep for tomorrow.
--- NOTE | 2017-04-18 11:53 | PN ---
Progress Note, Physician History of Present Illness: Pt. w/o SOB, CP, palp., abd pain, N, V. Pt. was seen in AM, before EGD; daughter at bedside. - Current Medication List Current Medications: Active Medications Acetaminophen (Tylenol -) 650 mg PO Q6H PRN PRN Reason: FEVER OR PAIN Amlodipine Besylate (Norvasc -) 5 mg PO DAILY [facility] Last Admin: 04/18/17 09:26 Dose: 5 mg Atorvastatin Calcium (Lipitor -) 10 mg PO HS [facility] Last Admin: 04/17/17 23:00 Dose: 10 mg Bisacodyl (Dulcolax -) 20 mg PO ONCE ONE Stop: 04/18/17 20:01 Brimonidine Tartrate (Alphagan 0.2% -) 1 drop OU DAILY [facility] Last Admin: 04/18/17 09:26 Dose: 1 drop Hydralazine HCl (Apresoline -) 10 mg PO TID [facility] Last Admin: 04/18/17 06:44 Dose: 10 mg Insulin Aspart (Novolog Vial Sliding Scale -) 1 vial SQ ACHS [facility] PRN Reason: Protocol Last Admin: 04/18/17 06:44 Dose: Not Given Methimazole (Tapazole -) 5 mg PO DAILY [facility] Last Admin: 04/18/17 09:25 Dose: 5 mg Pantoprazole Sodium (Protonix -) 40 mg PO BID [facility] Last Admin: 04/18/17 09:25 Dose: 40 mg Timolol Maleate (Timoptic 0.5%) 1 drop OU DAILY [facility] Last Admin: 04/18/17 09:25 Dose: 1 drop - Objective Vital Signs: Vital Signs Temperature 97 F L 04/18/17 10:51 Pulse Rate 65 04/18/17 11:36 Respiratory Rate 18 04/18/17 11:36 Blood Pressure 153/61 04/18/17 11:36 O2 Sat by Pulse Oximetry (%) 100 04/18/17 11:36 Constitutional: Yes: No Distress, Calm Cardiovascular: Yes: Regular Rate and Rhythm, S1, S2 Respiratory: Yes: Regular, CTA Bilaterally. No: Rales Gastrointestinal: Yes: Normal Bowel Sounds, Soft, Abdomen, Obese. No: Palpable Mass, Tenderness Edema: LLE: Trace, RLE: Trace Neurological: Yes: Alert, Oriented Labs: CBC, BMP 04/18/17 06:05 04/18/17 06:05 Problem List - Problems (1) Anemia Code(s): D64.9 - ANEMIA, UNSPECIFIED (2) Acute on chronic renal failure Code(s): N17.9 - ACUTE KIDNEY FAILURE, UNSPECIFIED N18.9 - CHRONIC KIDNEY DISEASE, UNSPECIFIED (3) Pancreatitis Code(s): K85.9 - ACUTE PANCREATITIS, UNSPECIFIED * DO NOT USE * (4) Weakness Code(s): R53.1 - WEAKNESS (5) Diabetes mellitus Code(s): E11.9 - TYPE 2 DIABETES MELLITUS WITHOUT COMPLICATIONS (6) HTN (hypertension) Code(s): I10 - ESSENTIAL (PRIMARY) HYPERTENSION Assessment/Plan For EGD this AM. To monitor H/H DVT proph. AM labs Case was d/w pt.'s dg. (at bedside).
[2017-04-18] MEDS ORDERED: PEG3350/SOD SULF,BICARB,CL/KCL 4,000 ML SOLN.RECON PO ONE (12:00)
--- NOTE | 2017-04-18 14:33 | PN ---
Progress Note, Physician History of Present Illness: History of Present Illness: 77 year old woman with a history of HTN, HLD, DMII, Hyperthyroid, Chronic anemia , Carotid stenosis, HCM with no sig LVOT gradiant, CAD, chronic LBBB, h/o bradycardia, chronic presumed diastolic CHF, admitted for severe anemia. Pt. seen and examined today with daughter at bedside, currently nad. pt receiving PRBC transfusion. Pt. had mild lightheadedness yesterday. States she saw Dr. Pena yesterday and some tests were done and everything seemed ok from a cardiac standpoint. Denies any chest pain, sob, palpitations. No pnd, orthopnea. no change in chronic b/l LE edema. - History Source - Current Medication List Current Medications: Active Medications Acetaminophen (Tylenol -) 650 mg PO Q6H PRN PRN Reason: FEVER OR PAIN Amlodipine Besylate (Norvasc -) 5 mg PO DAILY [facility] Last Admin: 04/18/17 09:26 Dose: 5 mg Atorvastatin Calcium (Lipitor -) 10 mg PO HS [facility] Last Admin: 04/17/17 23:00 Dose: 10 mg Bisacodyl (Dulcolax -) 20 mg PO ONCE ONE Stop: 04/18/17 20:01 Brimonidine Tartrate (Alphagan 0.2% -) 1 drop OU DAILY [facility] Last Admin: 04/18/17 09:26 Dose: 1 drop Hydralazine HCl (Apresoline -) 10 mg PO TID [facility] Last Admin: 04/18/17 12:59 Dose: 10 mg Insulin Aspart (Novolog Vial Sliding Scale -) 1 vial SQ ACHS [facility] PRN Reason: Protocol Last Admin: 04/18/17 12:31 Dose: 6 units Methimazole (Tapazole -) 5 mg PO DAILY [facility] Last Admin: 04/18/17 09:25 Dose: 5 mg Pantoprazole Sodium (Protonix -) 40 mg PO BID [facility] Last Admin: 04/18/17 09:25 Dose: 40 mg Timolol Maleate (Timoptic 0.5%) 1 drop OU DAILY [facility] Last Admin: 04/18/17 09:25 Dose: 1 drop - Objective Vital Signs: Vital Signs Temperature 98 F 04/18/17 13:00 Pulse Rate 80 04/18/17 13:00 Respiratory Rate 14 04/18/17 13:00 Blood Pressure 140/66 06/12/17 13:00 O2 Sat by Pulse Oximetry (%) 100 04/18/17 11:36 Eyes: Yes: WNL, Conjunctiva Clear, EOM Intact HENT: Yes: WNL, Atraumatic, Normocephalic Neck: Yes: WNL, Supple, Trachea Midline Cardiovascular: Yes: WNL, Regular Rate and Rhythm Respiratory: Yes: WNL, Regular, CTA Bilaterally Gastrointestinal: Yes: WNL, Normal Bowel Sounds Genitourinary: Yes: WNL Musculoskeletal: Yes: WNL Extremities: Yes: WNL Edema: No Integumentary: Yes: WNL Neurological: Yes: WNL, Alert, Oriented ...Motor Strength: WNL Psychiatric: Yes: WNL Labs: CBC, BMP 04/18/17 06:05 04/18/17 06:05 Assessment/Plan 77 year old woman with a history of HTN, HLD, DMII, Hyperthyroid, Chronic anemia , Carotid stenosis, HCM with no sig LVOT gradiant, CAD, chronic LBBB, h/o bradycardia, chronic presumed diastolic CHF, admitted for severe symptomatic anemia. Anemia-acute on chronic, symptomatic with lightheadedness, improved with PRBC transfusion -s/p PRBCs with improved H/H -anemia work up in progress -planned for endoscopy -monitor on tele until establish stable H/H, tele can be dcd later today if H/H stable on serial cbcs H/o HCM without increased LVOT gradient and Chronic diastolic CHF --f/up if echo done and status of LVOT gradient -avoid dehydration -diuresis only prn as she is receiving IVF and PRBC transfusion HTN-adequately controlled for now -monitor off meds for now Carotid stenosis-reportedly moderate as per last notes here -f/up recent work up with Dr. Pena office -hold ASA for severe anemia LBBB-chronic -no additional work up needed at this point
--- NOTE | 2017-04-18 14:46 | PN ---
Progress Note, Physician History of Present Illness: Pt seen and examined at bedside. She is awake and alert. She denies shortness of breath. She went for the endoscopy today. She is going for a colonoscopy tomorrow. - Current Medication List Current Medications: Active Medications Acetaminophen (Tylenol -) 650 mg PO Q6H PRN PRN Reason: FEVER OR PAIN Amlodipine Besylate (Norvasc -) 5 mg PO DAILY [facility] Last Admin: 04/18/17 09:26 Dose: 5 mg Atorvastatin Calcium (Lipitor -) 10 mg PO HS [facility] Last Admin: 04/17/17 23:00 Dose: 10 mg Bisacodyl (Dulcolax -) 20 mg PO ONCE ONE Stop: 04/18/17 20:01 Brimonidine Tartrate (Alphagan 0.2% -) 1 drop OU DAILY [facility] Last Admin: 04/18/17 09:26 Dose: 1 drop Hydralazine HCl (Apresoline -) 10 mg PO TID [facility] Last Admin: 04/18/17 12:59 Dose: 10 mg Insulin Aspart (Novolog Vial Sliding Scale -) 1 vial SQ ACHS [facility] PRN Reason: Protocol Last Admin: 04/18/17 12:31 Dose: 6 units Methimazole (Tapazole -) 5 mg PO DAILY [facility] Last Admin: 04/18/17 09:25 Dose: 5 mg Pantoprazole Sodium (Protonix -) 40 mg PO BID [facility] Last Admin: 04/18/17 09:25 Dose: 40 mg Timolol Maleate (Timoptic 0.5%) 1 drop OU DAILY [facility] Last Admin: 04/18/17 09:25 Dose: 1 drop - Objective Vital Signs: Vital Signs Temperature 98 F 04/18/17 13:00 Pulse Rate 80 04/18/17 13:00 Respiratory Rate 14 04/18/17 13:00 Blood Pressure 140/66 04/18/17 13:00 O2 Sat by Pulse Oximetry (%) 100 04/18/17 11:36 Constitutional: Yes: Calm Eyes: Yes: Conjunctiva Clear HENT: Yes: Atraumatic Neck: Yes: Supple Cardiovascular: Yes: S1, S2 Respiratory: Yes: CTA Bilaterally Gastrointestinal: Yes: Normal Bowel Sounds, Soft, Abdomen, Obese Genitourinary: Yes: WNL Musculoskeletal: Yes: WNL Edema: Yes Edema: LUE: Trace, RUE: Trace, LLE: 1+, RLE: 1+ Neurological: Yes: Oriented Psychiatric: Yes: Oriented Labs: CBC, BMP 04/18/17 06:05 04/18/17 06:05 Problem List - Problems (1) Acute on chronic renal failure Code(s): N17.9 - ACUTE KIDNEY FAILURE, UNSPECIFIED N18.9 - CHRONIC KIDNEY DISEASE, UNSPECIFIED (2) Chronic renal failure Code(s): N18.9 - CHRONIC KIDNEY DISEASE, UNSPECIFIED (3) Peripheral edema Code(s): R60.9 - EDEMA, UNSPECIFIED (4) Anemia Code(s): D64.9 - ANEMIA, UNSPECIFIED (5) Diabetes mellitus Code(s): E11.9 - TYPE 2 DIABETES MELLITUS WITHOUT COMPLICATIONS (6) HTN (hypertension) Code(s): I10 - ESSENTIAL (PRIMARY) HYPERTENSION Assessment/Plan Current Medications Generic Name Dose Route Start Last Admin Trade Name Freq PRN Reason Stop Dose Admin Acetaminophen 650 mg 04/16/17 13:58 Tylenol - PO Q6H PRN FEVER OR PAIN Amlodipine Besylate 5 mg 04/17/17 10:00 04/18/17 09:26 Norvasc - PO 5 mg DAILY [facility] Administration Atorvastatin Calcium 10 mg 04/16/17 22:00 04/17/17 23:00 Lipitor - PO 10 mg HS [facility] Administration Bisacodyl 20 mg 04/18/17 20:00 Dulcolax - PO 04/18/17 20:01 ONCE ONE Brimonidine Tartrate 1 drop 04/17/17 10:00 04/18/17 09:26 Alphagan 0.2% - OU 1 drop DAILY [facility] Administration Hydralazine HCl 10 mg 04/16/17 14:00 04/18/17 12:59 Apresoline - PO 10 mg TID [facility] Administration Insulin Aspart 1 vial 04/17/17 16:30 04/18/17 12:31 Novolog Vial Sliding Scale - SQ 6 units ACHS [facility] Administration Protocol Methimazole 5 mg 04/16/17 14:00 04/18/17 09:25 Tapazole - PO 5 mg DAILY [facility] Administration Pantoprazole Sodium 40 mg 04/17/17 11:00 04/18/17 09:25 Protonix - PO 40 mg BID [facility] Administration Timolol Maleate 1 drop 04/17/17 10:00 04/18/17 09:25 Timoptic 0.5% OU 1 drop DAILY [facility] Administration Impression 1. CKD 2. CUAUHTEMOC 3. hyperthyroidism 4. anemia 5. DM 6. HTN 7. anemia Plan - renal function is improving - renal workup in progress - endoscopy done today, pt going for a colonoscopy in am - case discussed with patients family - CUAUHTEMOC likely from pre-renal disease Dr Tubbs
[2017-04-18] MEDS ORDERED: BISACODYL 5 MG TABLET.DR (FP) PO ONE (20:00)
[2017-04-18] MEDS: ATORVASTATIN CA 10 MG TABLET (FP) PO SCH (22:15)
[2017-04-19] MEDS: hydrALAZINE HCL 10 MG TABLET PO SCH ×3 (05:35→22:24)
[2017-04-19] MEDS: INSULIN SLIDING SCALE (NOVOLOG) 1 VIAL SQ SCH ×3 (06:13→22:28)
[2017-04-19 07:02] LABS: BASOPHIL 0.2 % (0-2.0); EOSINOPHIL 1.8 % (0-4.5); MCH 30.3 pg (25.7-33.7); MEAN CELL VOLUME 89.2 fl (80-96); MEAN PLT VOLUME 8.6 fl (7.5-11.1); NEUTROPHILS 57.2 % (42.8-82.8); PLATELET COUNT 180 K/MM3 (134-434); RDW 15.7 % (11.6-15.6); WHITE BLOOD COUNT 4.8 K/mm3 (4.0-10.0)
[2017-04-19 07:36] LABS: ALBUMIN 2.8 g/dl (3.4-5.0); CALCIUM 8.3 mg/dL (8.5-10.1)
[2017-04-19 07:40] LABS: BILIRUBIN,TOTAL 0.6 mg/dL (0.2-1.0); COCKROFT - GAULT 33.3115; CREATININE 1.6 mg/dL (0.55-1.02); TOT PROT 5.1 g/dl (6.4-8.2)
--- NOTE | 2017-04-19 10:43 | PN ---
Progress Note, Physician History of Present Illness: History of Present Illness: 77 year old woman with a history of HTN, HLD, DMII, Hyperthyroid, Chronic anemia , Carotid stenosis, HCM with no sig LVOT gradiant, CAD, chronic LBBB, h/o bradycardia, chronic presumed diastolic CHF, admitted for severe anemia. Pt. seen and examined today with daughter at bedside, currently nad. pt receiving PRBC transfusion. Pt. had mild lightheadedness yesterday. States she saw Dr. Pena yesterday and some tests were done and everything seemed ok from a cardiac standpoint. Denies any chest pain, sob, palpitations. No pnd, orthopnea. no change in chronic b/l LE edema. - History Source - Current Medication List Current Medications: Active Medications Acetaminophen (Tylenol -) 650 mg PO Q6H PRN PRN Reason: FEVER OR PAIN Amlodipine Besylate (Norvasc -) 5 mg PO DAILY [facility] Last Admin: 04/18/17 09:26 Dose: 5 mg Atorvastatin Calcium (Lipitor -) 10 mg PO HS [facility] Last Admin: 04/18/17 22:15 Dose: 10 mg Brimonidine Tartrate (Alphagan 0.2% -) 1 drop OU DAILY [facility] Last Admin: 04/18/17 09:26 Dose: 1 drop Hydralazine HCl (Apresoline -) 10 mg PO TID [facility] Last Admin: 04/19/17 05:35 Dose: Not Given Insulin Aspart (Novolog Vial Sliding Scale -) 1 vial SQ ACHS [facility] PRN Reason: Protocol Last Admin: 04/19/17 06:13 Dose: Not Given Methimazole (Tapazole -) 5 mg PO DAILY [facility] Last Admin: 04/18/17 09:25 Dose: 5 mg Pantoprazole Sodium (Protonix -) 40 mg PO BID [facility] Last Admin: 04/18/17 22:15 Dose: 40 mg Timolol Maleate (Timoptic 0.5%) 1 drop OU DAILY [facility] Last Admin: 04/18/17 09:25 Dose: 1 drop - Objective Vital Signs: Vital Signs Temperature 98.4 F 04/19/17 06:00 Pulse Rate 84 04/19/17 06:00 Respiratory Rate 18 04/19/17 06:00 Blood Pressure 157/75 04/19/17 06:00 O2 Sat by Pulse Oximetry (%) 97 04/19/17 06:00 Eyes: Yes: WNL, Conjunctiva Clear, EOM Intact HENT: Yes: WNL, Atraumatic, Normocephalic Neck: Yes: WNL, Supple, Trachea Midline Cardiovascular: Yes: WNL, Regular Rate and Rhythm, Murmur, S1, S2 Respiratory: Yes: WNL, Regular, CTA Bilaterally Gastrointestinal: Yes: WNL, Normal Bowel Sounds Genitourinary: Yes: WNL Musculoskeletal: Yes: WNL Extremities: Yes: WNL Edema: No Integumentary: Yes: WNL Neurological: Yes: WNL, Alert, Oriented ...Motor Strength: WNL Psychiatric: Yes: WNL Labs: CBC, BMP 04/19/17 05:35 04/19/17 05:35 Assessment/Plan 77 year old woman with a history of HTN, HLD, DMII, Hyperthyroid, Chronic anemia , Carotid stenosis, HCM with no sig LVOT gradiant, CAD, chronic LBBB, h/o bradycardia, chronic presumed diastolic CHF, admitted for severe symptomatic anemia. Anemia-acute on chronic, symptomatic with lightheadedness, improved with PRBC transfusion -s/p PRBCs with improved H/H -anemia work up in progress -planned for endoscopy -monitor on tele until establish stable H/H, tele can be dcd later today if H/H stable on serial cbcs H/o HCM without increased LVOT gradient and Chronic diastolic CHF --f/up if echo done and status of LVOT gradient -avoid dehydration -diuresis only prn as she is receiving IVF and PRBC transfusion HTN-adequately controlled for now -monitor off meds for now Carotid stenosis-reportedly moderate as per last notes here -f/up recent work up with Dr. Pena office -hold ASA for severe anemia LBBB-chronic -no additional work up needed at this point d/c telemetry
[2017-04-19] MEDS ORDERED: PROPOFOL 20 ML ONE ×3 (10:48→10:49)
--- NOTE | 2017-04-19 11:25 | PATH ---
Surgical Pathology Report Patient Name: HARRY THOMAS [facility]. Rec. #: [id number] /Age/Gender: 1940 (Age: 77) / F Account: [id number] Location: 4 W TELEMETRY U Taken: 04/18/2017 Received: 04/18/2017 Reported: 04/19/2017 Physicians: Wilman Babcock M.D. Specimen(s) Received A: BX GASTRIC BODY TUMOR (?SUBMUCOSAL) B: BX ANTRUM Clinical History Anemia, blood in stool Duodenal AVM, duodenal bulb ulcer, gastric tumor, antral ulcers Final Diagnosis A. STOMACH, BODY, TUMOR (SUBMUCOSAL), BIOPSY: GASTRIC OXYNTIC MUCOSA MODERATE CHRONIC GASTRITIS. IMMUNOSTAIN FOR H. PYLORI IS NEGATIVE FOR ORGANISMS. NO SUBMUCOSAL TISSUE PRESENT FOR EVALUATION. Comment: The endoscopic impression of possible submucosal gastric body tumor is noted. No submucosal tissue is present for evaluation in the examined material. B. STOMACH, ANTRUM, BIOPSY: GASTRIC ANTRAL MUCOSA WITH FOCALLY ACTIVE MODERATE CHRONIC GASTRITIS AND REACTIVE GASTROPATHY WITH SURFACE EROSION. IMMUNOSTAIN FOR H. PYLORI IS NEGATIVE FOR ORGANISMS. Electronically Signed Elie Simmons M.D. Gross Description A. Received in formalin, labeled "biopsy gastric body tumor" are 2 jones, irregular portions of soft tissue measuring 0.2 and 0.4 cm in greatest dimension. The specimens are submitted in toto in one cassette. B. Received in formalin, labeled "biopsy antrum" are 2 jones, irregular portions of soft tissue measuring 0.2 and 0.3 cm in greatest dimension. The specimens are submitted in toto in one cassette. /04/18/201704/18/2017
--- NOTE | 2017-04-19 11:42 | PN ---
Progress Note, Physician History of Present Illness: Pt. w/o SOB, CP, palp., abd pain, N, V. Pt. was seen in AM, before colonoscopy; daughter at bedside. - Current Medication List Current Medications: Active Medications Acetaminophen (Tylenol -) 650 mg PO Q6H PRN PRN Reason: FEVER OR PAIN Amlodipine Besylate (Norvasc -) 5 mg PO DAILY [facility] Last Admin: 04/18/17 09:26 Dose: 5 mg Atorvastatin Calcium (Lipitor -) 10 mg PO HS [facility] Last Admin: 04/18/17 22:15 Dose: 10 mg Brimonidine Tartrate (Alphagan 0.2% -) 1 drop OU DAILY [facility] Last Admin: 04/18/17 09:26 Dose: 1 drop Hydralazine HCl (Apresoline -) 10 mg PO TID [facility] Last Admin: 04/19/17 05:35 Dose: Not Given Insulin Aspart (Novolog Vial Sliding Scale -) 1 vial SQ ACHS [facility] PRN Reason: Protocol Last Admin: 04/19/17 06:13 Dose: Not Given Methimazole (Tapazole -) 5 mg PO DAILY [facility] Last Admin: 04/18/17 09:25 Dose: 5 mg Pantoprazole Sodium (Protonix -) 40 mg PO BID [facility] Last Admin: 04/18/17 22:15 Dose: 40 mg Timolol Maleate (Timoptic 0.5%) 1 drop OU DAILY [facility] Last Admin: 04/18/17 09:25 Dose: 1 drop - Objective Vital Signs: Vital Signs Temperature 98.4 F 04/19/17 06:00 Pulse Rate 84 04/19/17 06:00 Respiratory Rate 18 04/19/17 06:00 Blood Pressure 157/75 04/19/17 06:00 O2 Sat by Pulse Oximetry (%) 97 04/19/17 06:00 Constitutional: Yes: No Distress, Calm Cardiovascular: Yes: Regular Rate and Rhythm, S1, S2 Respiratory: Yes: Regular, CTA Bilaterally. No: Rales Gastrointestinal: Yes: Normal Bowel Sounds, Soft, Abdomen, Obese Edema: No Neurological: Yes: Alert, Oriented Labs: CBC, BMP 04/19/17 05:35 04/19/17 05:35 Problem List - Problems (1) Anemia Assessment/Plan: NO obvious source of bleeding. GI consult appreciated. Case was reviewed with Dr. Reji Chong; for colonoscopy this AM Heme consult appreciated. H/H is trending down today; she might need PRBC Code(s): D64.9 - ANEMIA, UNSPECIFIED (2) Acute on chronic renal failure Assessment/Plan: Likely secondary hypoperfusion (secondary to hypovolemia, secondary to anemia). s/p PRBC. Renal Consult appreciated. Monitor BMP Code(s): N17.9 - ACUTE KIDNEY FAILURE, UNSPECIFIED N18.9 - CHRONIC KIDNEY DISEASE, UNSPECIFIED (3) Pancreatitis Code(s): K85.9 - ACUTE PANCREATITIS, UNSPECIFIED * DO NOT USE * (4) Weakness Code(s): R53.1 - WEAKNESS (5) Diabetes mellitus Code(s): E11.9 - TYPE 2 DIABETES MELLITUS WITHOUT COMPLICATIONS (6) HTN (hypertension) Code(s): I10 - ESSENTIAL (PRIMARY) HYPERTENSION Assessment/Plan DVT proph. AM labs
--- NOTE | 2017-04-19 11:51 | PN ---
Progress Note (short form) - Note Progress Note: Colonoscopy report placed in procedureal section of physical chart and to be scanned into [employer] Problem List - Problems (1) GIB (gastrointestinal bleeding) Code(s): K92.2 - GASTROINTESTINAL HEMORRHAGE, UNSPECIFIED (2) Elevated lipase Code(s): R74.8 - ABNORMAL LEVELS OF OTHER SERUM ENZYMES (3) Cirrhosis Code(s): K74.60 - UNSPECIFIED CIRRHOSIS OF LIVER Qualifiers: Hepatic cirrhosis type: other cirrhosis Qualified Code(s): K74.69 - Other cirrhosis of liver (4) Gastric mass Code(s): K31.9 - DISEASE OF STOMACH AND DUODENUM, UNSPECIFIED
[2017-04-19] MEDS: amLODIPine BESYLATE 5 MG TABLET (FP) PO SCH (13:27)
[2017-04-19] MEDS: BRIMONIDINE TARTRATE 0.2% OPHTHALMIC 5 ML BOTTLE OU SCH (13:28)
[2017-04-19] MEDS: TIMOLOL 0.5% OPHTHALMIC SOL 5 ML BOTTLE OU SCH (13:28)
[2017-04-19] MEDS: METHIMAZOLE 5 MG TABLET (FP) PO SCH (13:28)
[2017-04-19] MEDS: PANTOPRAZOLE 40 MG TABLET (FP) PO SCH ×2 (13:28→22:24)
--- NOTE | 2017-04-19 16:58 | PN ---
Progress Note, Physician History of Present Illness: Pt seen and examined at bedside. She is awake and alert. She denies shortness of breath. - Current Medication List Current Medications: Active Medications Acetaminophen (Tylenol -) 650 mg PO Q6H PRN PRN Reason: FEVER OR PAIN Amlodipine Besylate (Norvasc -) 5 mg PO DAILY [facility] Last Admin: 04/19/17 13:27 Dose: 5 mg Atorvastatin Calcium (Lipitor -) 10 mg PO HS [facility] Last Admin: 04/18/17 22:15 Dose: 10 mg Brimonidine Tartrate (Alphagan 0.2% -) 1 drop OU DAILY [facility] Last Admin: 04/19/17 13:28 Dose: 1 drop Hydralazine HCl (Apresoline -) 10 mg PO TID [facility] Last Admin: 04/19/17 13:28 Dose: 10 mg Hydrocortisone Acetate (Anusol Hc Suppository -) 25 mg RC HS [facility] Stop: 04/22/17 21:59 Insulin Aspart (Novolog Vial Sliding Scale -) 1 vial SQ ACHS [facility] PRN Reason: Protocol Last Admin: 04/19/17 13:29 Dose: Not Given Methimazole (Tapazole -) 5 mg PO DAILY [facility] Last Admin: 04/19/17 13:28 Dose: 5 mg Pantoprazole Sodium (Protonix -) 40 mg PO BID [facility] Last Admin: 04/19/17 13:28 Dose: 40 mg Timolol Maleate (Timoptic 0.5%) 1 drop OU DAILY [facility] Last Admin: 04/19/17 13:28 Dose: 1 drop - Objective Vital Signs: Vital Signs Temperature 98 F 04/19/17 13:06 Pulse Rate 86 04/19/17 13:06 Respiratory Rate 20 04/19/17 13:06 Blood Pressure 170/80 04/19/17 13:06 O2 Sat by Pulse Oximetry (%) 98 04/19/17 12:08 Constitutional: Yes: Calm Eyes: Yes: Conjunctiva Clear HENT: Yes: Atraumatic Neck: Yes: Supple Cardiovascular: Yes: S1, S2 Respiratory: Yes: CTA Bilaterally Gastrointestinal: Yes: Soft, Abdomen, Obese Genitourinary: Yes: WNL Musculoskeletal: Yes: WNL Edema: Yes Edema: LLE: Trace, RLE: Trace Neurological: Yes: Oriented Psychiatric: Yes: Oriented Labs: CBC, BMP 04/19/17 05:35 04/19/17 05:35 Problem List - Problems (1) Acute on chronic renal failure Code(s): N17.9 - ACUTE KIDNEY FAILURE, UNSPECIFIED N18.9 - CHRONIC KIDNEY DISEASE, UNSPECIFIED (2) Chronic renal failure Code(s): N18.9 - CHRONIC KIDNEY DISEASE, UNSPECIFIED (3) Peripheral edema Code(s): R60.9 - EDEMA, UNSPECIFIED (4) Anemia Code(s): D64.9 - ANEMIA, UNSPECIFIED (5) Diabetes mellitus Code(s): E11.9 - TYPE 2 DIABETES MELLITUS WITHOUT COMPLICATIONS (6) HTN (hypertension) Code(s): I10 - ESSENTIAL (PRIMARY) HYPERTENSION Assessment/Plan Current Medications Generic Name Dose Route Start Last Admin Trade Name Freq PRN Reason Stop Dose Admin Acetaminophen 650 mg 04/16/17 13:58 Tylenol - PO Q6H PRN FEVER OR PAIN Amlodipine Besylate 5 mg 04/17/17 10:00 04/19/17 13:27 Norvasc - PO 5 mg DAILY [facility] Administration Atorvastatin Calcium 10 mg 04/16/17 22:00 04/18/17 22:15 Lipitor - PO 10 mg HS [facility] Administration Brimonidine Tartrate 1 drop 04/17/17 10:00 04/19/17 13:28 Alphagan 0.2% - OU 1 drop DAILY [facility] Administration Hydralazine HCl 10 mg 04/16/17 14:00 04/19/17 13:28 Apresoline - PO 10 mg TID [facility] Administration Hydrocortisone Acetate 25 mg 04/19/17 22:00 Anusol Hc Suppository - RC 04/22/17 21:59 HS [facility] Insulin Aspart 1 vial 04/17/17 16:30 04/19/17 13:29 Novolog Vial Sliding Scale - SQ Not Given ACHS [facility] Protocol Methimazole 5 mg 04/16/17 14:00 04/19/17 13:28 Tapazole - PO 5 mg DAILY [facility] Administration Pantoprazole Sodium 40 mg 04/17/17 11:00 04/19/17 13:28 Protonix - PO 40 mg BID [facility] Administration Timolol Maleate 1 drop 04/17/17 10:00 04/19/17 13:28 Timoptic 0.5% OU 1 drop DAILY [facility] Administration Laboratory Tests 04/17/17 04/18/17 05:42 06:05 MAHENDRA M-Niles Pending MAHENDRA Comments Pending HAN Screen Pending Impression 1. CKD 2. CUAUHTEMOC 3. hyperthyroidism 4. anemia 5. DM 6. HTN 7. anemia Plan - renal function continues to improve - will see pt in office - monitor hg - renal workup in progress - CUAUHTEMOC likely from pre-renal disease Dr Tubbs
--- NOTE | 2017-04-19 18:03 | PN ---
Progress Note (short form) - Note Progress Note: Patient seen and examined S/P EGD - with Schatzke ring, hiatal hernia, small varix in distal esophagus , 3 cm submucosal lesion-greater curvature( s/P biopsy) , mild gastritis /p colonoscopy -3 flat polyps vascular ectasia in transverse colon-- one was fiery red and oozing with passage of scope s/p ileo colonic surgical anastomosis. Tolerated well Last Vital Signs Temp Pulse Resp BP Pulse Ox 98 F 86 20 170/80 98 04/19/17 13:06 04/19/17 13:06 04/19/17 13:06 04/19/17 13:06 04/19/17 12:08 Lungs clear COR-RSR Soft abdomen Ext- no homans CBC, BMP 04/19/17 05:35 04/19/17 05:35 B-12 elevated --?? secondary to liver disease, Normal folate and TSH. Protein studies pending Current Medications Generic Name Dose Route Start Last Admin Trade Name Freq PRN Reason Stop Dose Admin Acetaminophen 650 mg 04/16/17 13:58 Tylenol - PO Q6H PRN FEVER OR PAIN Amlodipine Besylate 5 mg 04/17/17 10:00 04/19/17 13:27 Norvasc - PO 5 mg DAILY [facility] Administration Atorvastatin Calcium 10 mg 04/16/17 22:00 04/18/17 22:15 Lipitor - PO 10 mg HS [facility] Administration Brimonidine Tartrate 1 drop 04/17/17 10:00 04/19/17 13:28 Alphagan 0.2% - OU 1 drop DAILY [facility] Administration Hydralazine HCl 10 mg 04/16/17 14:00 04/19/17 13:28 Apresoline - PO 10 mg TID [facility] Administration Hydrocortisone Acetate 25 mg 04/19/17 22:00 Anusol Hc Suppository - RC 04/22/17 21:59 HS [facility] Insulin Aspart 1 vial 04/17/17 16:30 04/19/17 13:29 Novolog Vial Sliding Scale - SQ Not Given ACHS [facility] Protocol Methimazole 5 mg 04/16/17 14:00 04/19/17 13:28 Tapazole - PO 5 mg DAILY [facility] Administration Pantoprazole Sodium 40 mg 04/17/17 11:00 04/19/17 13:28 Protonix - PO 40 mg BID [facility] Administration Timolol Maleate 1 drop 04/17/17 10:00 04/19/17 13:28 Timoptic 0.5% OU 1 drop DAILY [facility] Administration Impression: Multifactorial anemia - GI blood loss / chronic disease. Awaiting protein studies. Problem List - Problems (1) Acute on chronic renal failure Code(s): N17.9 - ACUTE KIDNEY FAILURE, UNSPECIFIED N18.9 - CHRONIC KIDNEY DISEASE, UNSPECIFIED (2) GIB (gastrointestinal bleeding) Code(s): K92.2 - GASTROINTESTINAL HEMORRHAGE, UNSPECIFIED (3) Pancreatitis Code(s): K85.9 - ACUTE PANCREATITIS, UNSPECIFIED * DO NOT USE * (4) Anemia Code(s): D64.9 - ANEMIA, UNSPECIFIED
[2017-04-19 19:55] LABS: MCH 29.4 pg (25.7-33.7); MCHC 32.5 g/dl (32.0-36.0); MEAN CELL VOLUME 90.6 fl (80-96); MEAN PLT VOLUME 8.9 fl (7.5-11.1); PLATELET COUNT 199 K/MM3 (134-434); RDW 16.3 % (11.6-15.6); WHITE BLOOD COUNT 5.8 K/mm3 (4.0-10.0)
[2017-04-19] MEDS: ATORVASTATIN CA 10 MG TABLET (FP) PO SCH (22:24)
[2017-04-19] MEDS: HYDROCORTISONE ACETATE 25 MG/SUPP.RECT RC SCH (22:24)
[2017-04-19] MEDS ORDERED: INSULIN (NOVOLOG) ASPART 100 UNITS/ML 10ML VIAL ONE (22:28)
[2017-04-20 00:07] LABS: A/G RATIO 1.2 (0.7-1.7); ALBUMIN 3.1 g/dL (2.9-4.4); ALPHA-1-GLOBULIN 0.2 g/dL (0.0-0.4); BETA GLOBULIN 1.2 g/dL (0.7-1.3); GAMMA GLOBULIN 0.8 g/dL (0.4-1.8); GLOBULIN, TOTAL 2.8 g/dL (2.2-3.9); M-SPIKE Not Observed g/dL (Not Observed); TOTAL PROTEIN 5.9 g/dL (6.0-8.5)
[2017-04-20] MEDS: INSULIN SLIDING SCALE (NOVOLOG) 1 VIAL SQ SCH ×5 (02:30→22:52)
[2017-04-20] MEDS: hydrALAZINE HCL 10 MG TABLET PO SCH ×3 (06:51→22:32)
[2017-04-20 07:34] LABS: MCH 30.4 pg (25.7-33.7); MCHC 33.5 g/dl (32.0-36.0); MEAN CELL VOLUME 90.9 fl (80-96); MEAN PLT VOLUME 9.4 fl (7.5-11.1); PLATELET COUNT 206 K/MM3 (134-434); RDW 15.8 % (11.6-15.6)
[2017-04-20 08:47] LABS: ALBUMIN 3.3 g/dl (3.4-5.0); BILIRUBIN,TOTAL 0.6 mg/dL (0.2-1.0); COCKROFT - GAULT 29.58; CREATININE 1.9 mg/dL (0.55-1.02); TOT PROT 6.5 g/dl (6.4-8.2)
[2017-04-20] MEDS ORDERED: PT OWN MED DRAWER 7, Y5N ONE ×3 (10:10→22:40)
[2017-04-20] MEDS: METHIMAZOLE 5 MG TABLET (FP) PO SCH (10:15)
[2017-04-20] MEDS: TIMOLOL 0.5% OPHTHALMIC SOL 5 ML BOTTLE OU SCH (10:15)
[2017-04-20] MEDS: amLODIPine BESYLATE 5 MG TABLET (FP) PO SCH (10:15)
[2017-04-20] MEDS: PANTOPRAZOLE 40 MG TABLET (FP) PO SCH ×2 (10:15→22:31)
[2017-04-20] MEDS: BRIMONIDINE TARTRATE 0.2% OPHTHALMIC 5 ML BOTTLE OU SCH (10:16)
--- NOTE | 2017-04-20 10:53 | PN ---
Progress Note, Physician History of Present Illness: History of Present Illness: 77 year old woman with a history of HTN, HLD, DMII, Hyperthyroid, Chronic anemia , Carotid stenosis, HCM with no sig LVOT gradiant, CAD, chronic LBBB, h/o bradycardia, chronic presumed diastolic CHF, admitted for severe anemia. Pt. seen and examined today with daughter at bedside, currently nad. pt receiving PRBC transfusion. Pt. had mild lightheadedness yesterday. States she saw Dr. Pena yesterday and some tests were done and everything seemed ok from a cardiac standpoint. Denies any chest pain, sob, palpitations. No pnd, orthopnea. no change in chronic b/l LE edema. - History Source - Current Medication List Current Medications: Active Medications Acetaminophen (Tylenol -) 650 mg PO Q6H PRN PRN Reason: FEVER OR PAIN Last Admin: 04/20/17 10:20 Dose: 650 mg Amlodipine Besylate (Norvasc -) 5 mg PO DAILY [facility] Last Admin: 04/20/17 10:15 Dose: 5 mg Atorvastatin Calcium (Lipitor -) 10 mg PO HS [facility] Last Admin: 04/19/17 22:24 Dose: 10 mg Brimonidine Tartrate (Alphagan 0.2% -) 1 drop OU DAILY [facility] Last Admin: 04/20/17 10:16 Dose: 1 drop Hydralazine HCl (Apresoline -) 10 mg PO TID [facility] Last Admin: 04/20/17 06:51 Dose: 10 mg Hydrocortisone Acetate (Anusol Hc Suppository -) 25 mg RC HS [facility] Stop: 04/22/17 21:59 Last Admin: 04/19/17 22:24 Dose: 25 mg Insulin Aspart (Novolog Vial Sliding Scale -) 1 vial SQ ACHS [facility] PRN Reason: Protocol Last Admin: 04/20/17 06:57 Dose: 4 units Methimazole (Tapazole -) 5 mg PO DAILY [facility] Last Admin: 04/20/17 10:15 Dose: 5 mg Pantoprazole Sodium (Protonix -) 40 mg PO BID [facility] Last Admin: 04/20/17 10:15 Dose: 40 mg Timolol Maleate (Timoptic 0.5%) 1 drop OU DAILY [facility] Last Admin: 04/20/17 10:15 Dose: 1 drop - Objective Vital Signs: Vital Signs Temperature 98.8 F 04/20/17 06:00 Pulse Rate 97 H 04/20/17 08:23 Respiratory Rate 20 04/20/17 08:23 Blood Pressure 154/66 04/20/17 08:23 O2 Sat by Pulse Oximetry (%) 95 04/20/17 06:00 Eyes: Yes: WNL, Conjunctiva Clear, EOM Intact HENT: Yes: WNL, Atraumatic, Normocephalic Neck: Yes: WNL, Supple, Trachea Midline Cardiovascular: Yes: WNL, Regular Rate and Rhythm Respiratory: Yes: WNL, Regular, CTA Bilaterally Gastrointestinal: Yes: WNL, Normal Bowel Sounds Genitourinary: Yes: WNL Musculoskeletal: Yes: WNL Extremities: Yes: WNL Edema: No Integumentary: Yes: WNL Neurological: Yes: WNL, Alert, Oriented ...Motor Strength: WNL Psychiatric: Yes: WNL Labs: CBC, BMP 04/20/17 05:10 04/20/17 05:10 Assessment/Plan 77 year old woman with a history of HTN, HLD, DMII, Hyperthyroid, Chronic anemia , Carotid stenosis, HCM with no sig LVOT gradiant, CAD, chronic LBBB, h/o bradycardia, chronic presumed diastolic CHF, admitted for severe symptomatic anemia. Anemia-acute on chronic, symptomatic with lightheadedness, improved with PRBC transfusion -s/p PRBCs with improved H/H -anemia work up in progress -planned for endoscopy -monitor on tele until establish stable H/H, tele can be dcd later today if H/H stable on serial cbcs H/o HCM without increased LVOT gradient and Chronic diastolic CHF --f/up if echo done and status of LVOT gradient -avoid dehydration -diuresis only prn as she is receiving IVF and PRBC transfusion HTN-adequately controlled for now -monitor off meds for now Carotid stenosis-reportedly moderate as per last notes here -f/up recent work up with Dr. Pena office -hold ASA for severe anemia LBBB-chronic -no additional work up needed at this point d/c telemetry
--- NOTE | 2017-04-20 13:46 | PATH ---
Surgical Pathology Report Patient Name: HARRY THOMAS [facility]. Rec. #: [id number] /Age/Gender: 1940 (Age: 77) / F Account: [id number] Location: 4 W TELEMETRY U Taken: 04/18/2017 Received: 04/19/2017 Reported: 04/20/2017 Physicians: Jose Luis Gage D.O. Specimen(s) Received BX POLYPS RECTOSIGMOID Clinical History Anemia Colon polyps, AVMs, hemorrhoids Final Diagnosis COLON, RECTOSIGMOID, POLYPS, BIOPSY: FRAGMENTS OF HYPERPLASTIC POLYPS WITH FOCAL PROMINENT REACTIVE LYMPHOID AGGREGATE. Electronically Signed Elie Simmons M.D. Gross Description Received in formalin, labeled "biopsy rectosigmoid polyps" are 3 jones, irregular portions of soft tissue ranging from 0.1-0.3 cm in greatest dimension. The specimens are submitted in toto in one cassette. 04/19/201704/19/2017
--- NOTE | 2017-04-20 17:36 | PN ---
Progress Note, Physician History of Present Illness: Pt seen and examined at bedside. She is awake and alert. - Current Medication List Current Medications: Active Medications Acetaminophen (Tylenol -) 650 mg PO Q6H PRN PRN Reason: FEVER OR PAIN Last Admin: 04/20/17 10:20 Dose: 650 mg Amlodipine Besylate (Norvasc -) 5 mg PO DAILY [facility] Last Admin: 04/20/17 10:15 Dose: 5 mg Atorvastatin Calcium (Lipitor -) 10 mg PO HS [facility] Last Admin: 04/19/17 22:24 Dose: 10 mg Brimonidine Tartrate (Alphagan 0.2% -) 1 drop OU DAILY [facility] Last Admin: 04/20/17 10:16 Dose: 1 drop Hydralazine HCl (Apresoline -) 10 mg PO TID [facility] Last Admin: 04/20/17 15:35 Dose: 10 mg Hydrocortisone Acetate (Anusol Hc Suppository -) 25 mg RC HS [facility] Stop: 04/22/17 21:59 Last Admin: 04/19/17 22:24 Dose: 25 mg Insulin Aspart (Novolog Vial Sliding Scale -) 1 vial SQ ACHS [facility] PRN Reason: Protocol Last Admin: 04/20/17 17:12 Dose: 4 units Methimazole (Tapazole -) 5 mg PO DAILY [facility] Last Admin: 04/20/17 10:15 Dose: 5 mg Pantoprazole Sodium (Protonix -) 40 mg PO BID [facility] Last Admin: 04/20/17 10:15 Dose: 40 mg Timolol Maleate (Timoptic 0.5%) 1 drop OU DAILY [facility] Last Admin: 04/20/17 10:15 Dose: 1 drop - Objective Vital Signs: Vital Signs Temperature 98.7 F 04/20/17 14:25 Pulse Rate 77 04/20/17 14:25 Respiratory Rate 20 04/20/17 14:25 Blood Pressure 135/54 04/20/17 14:25 O2 Sat by Pulse Oximetry (%) 95 04/20/17 06:00 Constitutional: Yes: Calm Eyes: Yes: Conjunctiva Clear HENT: Yes: Atraumatic Neck: Yes: Supple Cardiovascular: Yes: S1, S2 Respiratory: Yes: CTA Bilaterally Gastrointestinal: Yes: Normal Bowel Sounds, Soft, Abdomen, Obese Genitourinary: Yes: WNL Musculoskeletal: Yes: WNL Edema: Yes Edema: LLE: 1+, RLE: 1+ Neurological: Yes: Oriented Psychiatric: Yes: Oriented Labs: CBC, BMP 04/20/17 05:10 04/20/17 05:10 Problem List - Problems (1) Acute on chronic renal failure Code(s): N17.9 - ACUTE KIDNEY FAILURE, UNSPECIFIED N18.9 - CHRONIC KIDNEY DISEASE, UNSPECIFIED (2) Chronic renal failure Code(s): N18.9 - CHRONIC KIDNEY DISEASE, UNSPECIFIED (3) Peripheral edema Code(s): R60.9 - EDEMA, UNSPECIFIED (4) Anemia Code(s): D64.9 - ANEMIA, UNSPECIFIED (5) Diabetes mellitus Code(s): E11.9 - TYPE 2 DIABETES MELLITUS WITHOUT COMPLICATIONS (6) HTN (hypertension) Code(s): I10 - ESSENTIAL (PRIMARY) HYPERTENSION Assessment/Plan Current Medications Generic Name Dose Route Start Last Admin Trade Name Freq PRN Reason Stop Dose Admin Acetaminophen 650 mg 04/16/17 13:58 04/20/17 10:20 Tylenol - PO 650 mg Q6H PRN Administration FEVER OR PAIN Amlodipine Besylate 5 mg 04/17/17 10:00 04/20/17 10:15 Norvasc - PO 5 mg DAILY [facility] Administration Atorvastatin Calcium 10 mg 04/16/17 22:00 04/19/17 22:24 Lipitor - PO 10 mg HS [facility] Administration Brimonidine Tartrate 1 drop 04/17/17 10:00 04/20/17 10:16 Alphagan 0.2% - OU 1 drop DAILY [facility] Administration Hydralazine HCl 10 mg 04/16/17 14:00 04/20/17 15:35 Apresoline - PO 10 mg TID [facility] Administration Hydrocortisone Acetate 25 mg 04/19/17 22:00 04/19/17 22:24 Anusol Hc Suppository - RC 04/22/17 21:59 25 mg HS [facility] Administration Insulin Aspart 1 vial 04/17/17 16:30 04/20/17 17:12 Novolog Vial Sliding Scale - SQ 4 units ACHS [facility] Administration Protocol Methimazole 5 mg 04/16/17 14:00 04/20/17 10:15 Tapazole - PO 5 mg DAILY [facility] Administration Pantoprazole Sodium 40 mg 04/17/17 11:00 04/20/17 10:15 Protonix - PO 40 mg BID [facility] Administration Timolol Maleate 1 drop 04/17/17 10:00 04/20/17 10:15 Timoptic 0.5% OU 1 drop DAILY [facility] Administration Impression 1. CKD 2. CUAUHTEMOC 3. hyperthyroidism 4. anemia 5. DM 6. HTN 7. anemia Plan - will monitor renal function - follow up protein studies - will give lasix PRN - renal workup in progress - CUAUHTEMOC likely from pre-renal disease Dr Tubbs
[2017-04-20] MEDS: HYDROCORTISONE ACETATE 25 MG/SUPP.RECT RC SCH (22:43)
[2017-04-20] MEDS: ATORVASTATIN CA 10 MG TABLET (FP) PO SCH (22:43)
--- NOTE | 2017-04-20 23:13 | PN ---
Progress Note, Physician History of Present Illness: Pt. w/o SOB, CP, palp., abd pain, N, V. Pt. with generalized weakness today - Current Medication List Current Medications: Active Medications Acetaminophen (Tylenol -) 650 mg PO Q6H PRN PRN Reason: FEVER OR PAIN Last Admin: 04/20/17 10:20 Dose: 650 mg Amlodipine Besylate (Norvasc -) 5 mg PO DAILY [facility] Last Admin: 04/20/17 10:15 Dose: 5 mg Atorvastatin Calcium (Lipitor -) 10 mg PO HS [facility] Last Admin: 04/20/17 22:43 Dose: 10 mg Brimonidine Tartrate (Alphagan 0.2% -) 1 drop OU DAILY [facility] Last Admin: 04/20/17 10:16 Dose: 1 drop Hydralazine HCl (Apresoline -) 10 mg PO TID [facility] Last Admin: 04/20/17 22:32 Dose: 10 mg Hydrocortisone Acetate (Anusol Hc Suppository -) 25 mg RC HS [facility] Stop: 04/22/17 21:59 Last Admin: 04/20/17 22:43 Dose: 25 mg Insulin Aspart (Novolog Vial Sliding Scale -) 1 vial SQ ACHS [facility] PRN Reason: Protocol Last Admin: 04/20/17 22:52 Dose: 4 units Methimazole (Tapazole -) 5 mg PO DAILY [facility] Last Admin: 04/20/17 10:15 Dose: 5 mg Pantoprazole Sodium (Protonix -) 40 mg PO BID [facility] Last Admin: 04/20/17 22:31 Dose: 40 mg Timolol Maleate (Timoptic 0.5%) 1 drop OU DAILY [facility] Last Admin: 04/20/17 10:15 Dose: 1 drop - Objective Vital Signs: Vital Signs Temperature 99.0 F 04/20/17 17:00 Pulse Rate 78 04/20/17 17:00 Respiratory Rate 18 04/20/17 17:00 Blood Pressure 154/62 04/20/17 17:00 O2 Sat by Pulse Oximetry (%) 97 04/20/17 09:00 Constitutional: Yes: No Distress, Calm Cardiovascular: Yes: Regular Rate and Rhythm, S1, S2 Respiratory: Yes: Regular, CTA Bilaterally. No: Rales Gastrointestinal: Yes: Normal Bowel Sounds, Soft, Abdomen, Obese. No: Palpable Mass, Tenderness Edema: Yes Edema: LLE: 1+, RLE: Trace Neurological: Yes: Alert, Oriented Labs: CBC, BMP 04/20/17 05:10 04/20/17 05:10 Problem List - Problems (1) Anemia Code(s): D64.9 - ANEMIA, UNSPECIFIED (2) Acute on chronic renal failure Code(s): N17.9 - ACUTE KIDNEY FAILURE, UNSPECIFIED N18.9 - CHRONIC KIDNEY DISEASE, UNSPECIFIED (3) Pancreatitis Code(s): K85.9 - ACUTE PANCREATITIS, UNSPECIFIED * DO NOT USE * (4) Weakness Code(s): R53.1 - WEAKNESS (5) Diabetes mellitus Code(s): E11.9 - TYPE 2 DIABETES MELLITUS WITHOUT COMPLICATIONS (6) HTN (hypertension) Code(s): I10 - ESSENTIAL (PRIMARY) HYPERTENSION Assessment/Plan s/p EGD, s/p colonoscopy. Renal function trending down, to monitor To monitor H/H DVT proph. AM labs
[2017-04-21] MEDS: hydrALAZINE HCL 10 MG TABLET PO SCH ×3 (07:00→21:07)
[2017-04-21] MEDS: INSULIN SLIDING SCALE (NOVOLOG) 1 VIAL SQ SCH ×4 (07:01→21:15)
[2017-04-21 08:59] LABS: CALCIUM 8.6 mg/dL (8.5-10.1); COCKROFT - GAULT 35.2495; CREATININE 1.6 mg/dL (0.55-1.02)
[2017-04-21] MEDS ORDERED: PT OWN MED DRAWER 7, Y5N ONE ×2 (10:56→21:05)
--- NOTE | 2017-04-21 10:56 | PN ---
Progress Note, Physician History of Present Illness: History of Present Illness: 77 year old woman with a history of HTN, HLD, DMII, Hyperthyroid, Chronic anemia , Carotid stenosis, HCM with no sig LVOT gradiant, CAD, chronic LBBB, h/o bradycardia, chronic presumed diastolic CHF, admitted for severe anemia. Pt. seen and examined today with daughter at bedside, currently nad. pt receiving PRBC transfusion. Pt. had mild lightheadedness yesterday. States she saw Dr. Pena yesterday and some tests were done and everything seemed ok from a cardiac standpoint. Denies any chest pain, sob, palpitations. No pnd, orthopnea. no change in chronic b/l LE edema. - History Source - Current Medication List Current Medications: Active Medications Acetaminophen (Tylenol -) 650 mg PO Q6H PRN PRN Reason: FEVER OR PAIN Last Admin: 04/20/17 10:20 Dose: 650 mg Amlodipine Besylate (Norvasc -) 5 mg PO DAILY [facility] Last Admin: 04/20/17 10:15 Dose: 5 mg Atorvastatin Calcium (Lipitor -) 10 mg PO HS [facility] Last Admin: 04/20/17 22:43 Dose: 10 mg Brimonidine Tartrate (Alphagan 0.2% -) 1 drop OU DAILY [facility] Last Admin: 04/20/17 10:16 Dose: 1 drop Hydralazine HCl (Apresoline -) 10 mg PO TID [facility] Last Admin: 04/21/17 07:00 Dose: 10 mg Hydrocortisone Acetate (Anusol Hc Suppository -) 25 mg RC HS [facility] Stop: 04/22/17 21:59 Last Admin: 04/20/17 22:43 Dose: 25 mg Insulin Aspart (Novolog Vial Sliding Scale -) 1 vial SQ ACHS [facility] PRN Reason: Protocol Last Admin: 04/21/17 07:01 Dose: 4 units Methimazole (Tapazole -) 5 mg PO DAILY [facility] Last Admin: 04/20/17 10:15 Dose: 5 mg Pantoprazole Sodium (Protonix -) 40 mg PO BID [facility] Last Admin: 04/20/17 22:31 Dose: 40 mg Timolol Maleate (Timoptic 0.5%) 1 drop OU DAILY [facility] Last Admin: 04/20/17 10:15 Dose: 1 drop - Objective Vital Signs: Vital Signs Temperature 98.3 F 04/21/17 02:02 Pulse Rate 85 04/21/17 07:00 Respiratory Rate 20 04/21/17 07:00 Blood Pressure 166/73 04/21/17 07:00 O2 Sat by Pulse Oximetry (%) 98 04/20/17 21:00 Eyes: Yes: WNL, Conjunctiva Clear, EOM Intact HENT: Yes: WNL, Atraumatic, Normocephalic Neck: Yes: WNL, Supple, Trachea Midline Cardiovascular: Yes: WNL, Regular Rate and Rhythm Respiratory: Yes: WNL, Regular, CTA Bilaterally Gastrointestinal: Yes: WNL, Normal Bowel Sounds Genitourinary: Yes: WNL Musculoskeletal: Yes: WNL Extremities: Yes: WNL Edema: No Integumentary: Yes: WNL Neurological: Yes: WNL, Alert, Oriented ...Motor Strength: WNL Psychiatric: Yes: WNL Labs: CBC, BMP 04/20/17 05:10 04/21/17 05:48 Assessment/Plan 77 year old woman with a history of HTN, HLD, DMII, Hyperthyroid, Chronic anemia , Carotid stenosis, HCM with no sig LVOT gradiant, CAD, chronic LBBB, h/o bradycardia, chronic presumed diastolic CHF, admitted for severe symptomatic anemia. Anemia-acute on chronic, symptomatic with lightheadedness, improved with PRBC transfusion -s/p PRBCs with improved H/H -anemia work up in progress -planned for endoscopy -monitor on tele until establish stable H/H, tele can be dcd later today if H/H stable on serial cbcs H/o HCM without increased LVOT gradient and Chronic diastolic CHF --f/up if echo done and status of LVOT gradient -avoid dehydration -diuresis only prn as she is receiving IVF and PRBC transfusion HTN-adequately controlled for now -monitor off meds for now Carotid stenosis-reportedly moderate as per last notes here -f/up recent work up with Dr. Pena office -hold ASA for severe anemia LBBB-chronic -no additional work up needed at this point d/c telemetry
[2017-04-21] MEDS ORDERED: INSULIN DETEMIR 100 UNITS/ML MDV SQ ONE (11:00)
[2017-04-21] MEDS: METHIMAZOLE 5 MG TABLET (FP) PO SCH (11:10)
[2017-04-21] MEDS: amLODIPine BESYLATE 5 MG TABLET (FP) PO SCH (11:10)
[2017-04-21] MEDS: BRIMONIDINE TARTRATE 0.2% OPHTHALMIC 5 ML BOTTLE OU SCH (11:11)
[2017-04-21] MEDS: TIMOLOL 0.5% OPHTHALMIC SOL 5 ML BOTTLE OU SCH (11:11)
[2017-04-21] MEDS: PANTOPRAZOLE 40 MG TABLET (FP) PO SCH ×2 (11:11→21:07)
--- NOTE | 2017-04-21 16:11 | PN ---
Progress Note, Physician History of Present Illness: Pt seen and examined at bedside. She is awake and alert. She is comfortable. - Current Medication List Current Medications: Active Medications Acetaminophen (Tylenol -) 650 mg PO Q6H PRN PRN Reason: FEVER OR PAIN Last Admin: 04/20/17 10:20 Dose: 650 mg Amlodipine Besylate (Norvasc -) 5 mg PO DAILY [facility] Last Admin: 04/21/17 11:10 Dose: 5 mg Atorvastatin Calcium (Lipitor -) 10 mg PO HS [facility] Last Admin: 04/20/17 22:43 Dose: 10 mg Brimonidine Tartrate (Alphagan 0.2% -) 1 drop OU DAILY [facility] Last Admin: 04/21/17 11:11 Dose: 1 drop Hydralazine HCl (Apresoline -) 10 mg PO TID [facility] Last Admin: 04/21/17 15:27 Dose: 10 mg Hydrocortisone Acetate (Anusol Hc Suppository -) 25 mg RC HS [facility] Stop: 04/22/17 21:59 Last Admin: 04/20/17 22:43 Dose: 25 mg Insulin Aspart (Novolog Vial Sliding Scale -) 1 vial SQ ACHS [facility] PRN Reason: Protocol Last Admin: 04/21/17 12:00 Dose: 4 units Insulin Detemir (Levemir Vial) 4 units SQ ACBK [facility] Methimazole (Tapazole -) 5 mg PO DAILY [facility] Last Admin: 04/21/17 11:10 Dose: 5 mg Pantoprazole Sodium (Protonix -) 40 mg PO BID [facility] Last Admin: 04/21/17 11:11 Dose: 40 mg Timolol Maleate (Timoptic 0.5%) 1 drop OU DAILY [facility] Last Admin: 04/21/17 11:11 Dose: 1 drop - Objective Vital Signs: Vital Signs Temperature 98.4 F 04/21/17 14:25 Pulse Rate 77 04/21/17 14:25 Respiratory Rate 20 04/21/17 14:25 Blood Pressure 132/62 04/21/17 14:25 O2 Sat by Pulse Oximetry (%) 98 04/21/17 09:00 Constitutional: Yes: Calm Eyes: Yes: Conjunctiva Clear HENT: Yes: Atraumatic Neck: Yes: Supple Cardiovascular: Yes: S1, S2 Respiratory: Yes: CTA Bilaterally Gastrointestinal: Yes: Soft Genitourinary: Yes: WNL Musculoskeletal: Yes: WNL Edema: Yes Edema: LLE: Trace, RLE: Trace Neurological: Yes: Oriented Psychiatric: Yes: Oriented Labs: CBC, BMP 04/20/17 05:10 04/21/17 05:48 Problem List - Problems (1) Acute on chronic renal failure Code(s): N17.9 - ACUTE KIDNEY FAILURE, UNSPECIFIED N18.9 - CHRONIC KIDNEY DISEASE, UNSPECIFIED (2) Chronic renal failure Code(s): N18.9 - CHRONIC KIDNEY DISEASE, UNSPECIFIED (3) Peripheral edema Code(s): R60.9 - EDEMA, UNSPECIFIED (4) Anemia Code(s): D64.9 - ANEMIA, UNSPECIFIED (5) Diabetes mellitus Code(s): E11.9 - TYPE 2 DIABETES MELLITUS WITHOUT COMPLICATIONS (6) HTN (hypertension) Code(s): I10 - ESSENTIAL (PRIMARY) HYPERTENSION Assessment/Plan Current Medications Generic Name Dose Route Start Last Admin Trade Name Freq PRN Reason Stop Dose Admin Acetaminophen 650 mg 04/16/17 13:58 04/20/17 10:20 Tylenol - PO 650 mg Q6H PRN Administration FEVER OR PAIN Amlodipine Besylate 5 mg 04/17/17 10:00 04/21/17 11:10 Norvasc - PO 5 mg DAILY [facility] Administration Atorvastatin Calcium 10 mg 04/16/17 22:00 04/20/17 22:43 Lipitor - PO 10 mg HS [facility] Administration Brimonidine Tartrate 1 drop 04/17/17 10:00 04/21/17 11:11 Alphagan 0.2% - OU 1 drop DAILY [facility] Administration Hydralazine HCl 10 mg 04/16/17 14:00 04/21/17 15:27 Apresoline - PO 10 mg TID [facility] Administration Hydrocortisone Acetate 25 mg 04/19/17 22:00 04/20/17 22:43 Anusol Hc Suppository - RC 04/22/17 21:59 25 mg HS [facility] Administration Insulin Aspart 1 vial 04/17/17 16:30 04/21/17 12:00 Novolog Vial Sliding Scale - SQ 4 units ACHS [facility] Administration Protocol Insulin Detemir 4 units 04/22/17 10:00 Levemir Vial SQ ACBK [facility] Methimazole 5 mg 04/16/17 14:00 04/21/17 11:10 Tapazole - PO 5 mg DAILY [facility] Administration Pantoprazole Sodium 40 mg 04/17/17 11:00 04/21/17 11:11 Protonix - PO 40 mg BID [facility] Administration Timolol Maleate 1 drop 04/17/17 10:00 04/21/17 11:11 Timoptic 0.5% OU 1 drop DAILY [facility] Administration Laboratory Tests 04/17/17 04/18/17 05:42 06:05 MAHENDRA M-Niles Not observed HAN Screen Negative Impression 1. CKD 2. CUAUHTEMOC 3. hyperthyroidism 4. anemia 5. DM 6. HTN 7. anemia Plan - renal function is stabilizing - will see as outpt - follow up protein studies - will give lasix PRN - pt does have history of CKD, likely etiology is DM however will need further evaluation as outpt - renal workup in progress - CUAUHTEMOC likely from pre-renal disease Dr Tubbs
[2017-04-21] MEDS: ATORVASTATIN CA 10 MG TABLET (FP) PO SCH (21:07)
[2017-04-21] MEDS: HYDROCORTISONE ACETATE 25 MG/SUPP.RECT RC SCH (21:08)
--- NOTE | 2017-04-21 22:34 | PN ---
Progress Note, Physician History of Present Illness: Pt. w/o SOB, CP, palp., abd pain, N, V. Pt.'s generalized weakness improvig. Pt.'s [employer] and granddaughter at bed side. - Current Medication List Current Medications: Active Medications Acetaminophen (Tylenol -) 650 mg PO Q6H PRN PRN Reason: FEVER OR PAIN Last Admin: 04/20/17 10:20 Dose: 650 mg Amlodipine Besylate (Norvasc -) 5 mg PO DAILY [facility] Last Admin: 04/21/17 11:10 Dose: 5 mg Atorvastatin Calcium (Lipitor -) 10 mg PO HS [facility] Last Admin: 04/21/17 21:07 Dose: 10 mg Brimonidine Tartrate (Alphagan 0.2% -) 1 drop OU DAILY [facility] Last Admin: 04/21/17 11:11 Dose: 1 drop Hydralazine HCl (Apresoline -) 10 mg PO TID [facility] Last Admin: 04/21/17 21:07 Dose: 10 mg Hydrocortisone Acetate (Anusol Hc Suppository -) 25 mg RC HS [facility] Stop: 04/22/17 21:59 Last Admin: 04/21/17 21:08 Dose: 25 mg Insulin Aspart (Novolog Vial Sliding Scale -) 1 vial SQ ACHS [facility] PRN Reason: Protocol Last Admin: 04/21/17 21:15 Dose: Not Given Insulin Detemir (Levemir Vial) 4 units SQ ACBK [facility] Methimazole (Tapazole -) 5 mg PO DAILY [facility] Last Admin: 04/21/17 11:10 Dose: 5 mg Pantoprazole Sodium (Protonix -) 40 mg PO BID [facility] Last Admin: 04/21/17 21:07 Dose: 40 mg Timolol Maleate (Timoptic 0.5%) 1 drop OU DAILY [facility] Last Admin: 04/21/17 11:11 Dose: 1 drop - Objective Vital Signs: Vital Signs Temperature 98.4 F 04/21/17 21:16 Pulse Rate 82 04/21/17 21:16 Respiratory Rate 20 04/21/17 21:16 Blood Pressure 169/77 04/21/17 21:16 O2 Sat by Pulse Oximetry (%) 98 04/21/17 21:00 Constitutional: Yes: No Distress, Calm Cardiovascular: Yes: Regular Rate and Rhythm, S1, S2 Respiratory: Yes: Regular, CTA Bilaterally. No: Rales Gastrointestinal: Yes: Normal Bowel Sounds, Soft, Abdomen, Obese. No: Palpable Mass, Tenderness Edema: No Edema: LLE: 1+, RLE: 1+ Neurological: Yes: Alert, Oriented Labs: CBC, BMP 04/20/17 05:10 04/21/17 05:48 Problem List - Problems (1) Anemia Assessment/Plan: No obvious source of bleeding. GI consult appreciated. Heme consult appreciated. H/H is stable. Code(s): D64.9 - ANEMIA, UNSPECIFIED (2) Acute on chronic renal failure Assessment/Plan: Likely secondary hypoperfusion (secondary to hypovolemia, secondary to anemia). s/p PRBC. Renal Consult appreciated. Monitor BMP Code(s): N17.9 - ACUTE KIDNEY FAILURE, UNSPECIFIED N18.9 - CHRONIC KIDNEY DISEASE, UNSPECIFIED (3) Pancreatitis Code(s): K85.9 - ACUTE PANCREATITIS, UNSPECIFIED * DO NOT USE * (4) Weakness Code(s): R53.1 - WEAKNESS (5) Diabetes mellitus Assessment/Plan: Pt is on Novolog coverage. TO start Levemir Code(s): E11.9 - TYPE 2 DIABETES MELLITUS WITHOUT COMPLICATIONS (6) HTN (hypertension) Code(s): I10 - ESSENTIAL (PRIMARY) HYPERTENSION Assessment/Plan s/p EGD, s/p colonoscopy- no source of bleeding identified. Pt. would need a capsule endoscopy as outpt. DVT proph. AM labs
[2017-04-22] MEDS: hydrALAZINE HCL 10 MG TABLET PO SCH ×2 (06:40→13:37)
[2017-04-22] MEDS: INSULIN SLIDING SCALE (NOVOLOG) 1 VIAL SQ SCH ×4 (06:40→17:02)
[2017-04-22 07:54] LABS: ANION GAP 10 (8-16); CALCIUM 9.2 mg/dL (8.5-10.1); CO2 25 mmol/L (21-32); CREATININE 1.7 mg/dL (0.55-1.02); GLUCOSE,RANDOM 198 mg/dL (74-106)
[2017-04-22] MEDS ORDERED: PT OWN MED DRAWER 7, Y5N ONE (08:53)
[2017-04-22] MEDS ORDERED: INSULIN DETEMIR 100 UNITS/ML MDV SQ SCH (10:00)
[2017-04-22] MEDS: TIMOLOL 0.5% OPHTHALMIC SOL 5 ML BOTTLE OU SCH (10:09)
[2017-04-22] MEDS: BRIMONIDINE TARTRATE 0.2% OPHTHALMIC 5 ML BOTTLE OU SCH (10:10)
[2017-04-22] MEDS: METHIMAZOLE 5 MG TABLET (FP) PO SCH (10:10)
[2017-04-22] MEDS: PANTOPRAZOLE 40 MG TABLET (FP) PO SCH (10:10)
[2017-04-22] MEDS: amLODIPine BESYLATE 5 MG TABLET (FP) PO SCH (10:10)
--- NOTE | 2017-04-22 10:23 | PN ---
Progress Note, Physician History of Present Illness: History of Present Illness: 77 year old woman with a history of HTN, HLD, DMII, Hyperthyroid, Chronic anemia , Carotid stenosis, HCM with no sig LVOT gradiant, CAD, chronic LBBB, h/o bradycardia, chronic presumed diastolic CHF, admitted for severe anemia. Pt. seen and examined today with daughter at bedside, currently nad. pt receiving PRBC transfusion. Pt. had mild lightheadedness yesterday. States she saw Dr. Pena yesterday and some tests were done and everything seemed ok from a cardiac standpoint. Denies any chest pain, sob, palpitations. No pnd, orthopnea. no change in chronic b/l LE edema. - History Source - Current Medication List Current Medications: Active Medications Acetaminophen (Tylenol -) 650 mg PO Q6H PRN PRN Reason: FEVER OR PAIN Last Admin: 04/20/17 10:20 Dose: 650 mg Amlodipine Besylate (Norvasc -) 5 mg PO DAILY [facility] Last Admin: 04/22/17 10:10 Dose: 5 mg Atorvastatin Calcium (Lipitor -) 10 mg PO HS [facility] Last Admin: 04/21/17 21:07 Dose: 10 mg Brimonidine Tartrate (Alphagan 0.2% -) 1 drop OU DAILY [facility] Last Admin: 04/22/17 10:10 Dose: 1 drop Hydralazine HCl (Apresoline -) 10 mg PO TID [facility] Last Admin: 04/22/17 06:40 Dose: 10 mg Hydrocortisone Acetate (Anusol Hc Suppository -) 25 mg RC HS [facility] Stop: 04/22/17 21:59 Last Admin: 04/21/17 21:08 Dose: 25 mg Insulin Aspart (Novolog Vial Sliding Scale -) 1 vial SQ ACHS [facility] PRN Reason: Protocol Last Admin: 04/22/17 06:40 Dose: 4 units Insulin Detemir (Levemir Vial) 4 units SQ ACBK [facility] Methimazole (Tapazole -) 5 mg PO DAILY [facility] Last Admin: 04/22/17 10:10 Dose: 5 mg Pantoprazole Sodium (Protonix -) 40 mg PO BID [facility] Last Admin: 04/22/17 10:10 Dose: 40 mg Timolol Maleate (Timoptic 0.5%) 1 drop OU DAILY [facility] Last Admin: 04/22/17 10:09 Dose: 1 drop - Objective Vital Signs: Vital Signs Temperature 98.8 F 04/22/17 08:13 Pulse Rate 89 04/22/17 08:13 Respiratory Rate 20 04/22/17 08:13 Blood Pressure 154/77 04/22/17 08:13 O2 Sat by Pulse Oximetry (%) 98 04/22/17 08:13 Eyes: Yes: WNL, Conjunctiva Clear, EOM Intact HENT: Yes: WNL, Atraumatic, Normocephalic Neck: Yes: WNL, Supple, Trachea Midline Cardiovascular: Yes: WNL, Regular Rate and Rhythm Respiratory: Yes: WNL, Regular, CTA Bilaterally Gastrointestinal: Yes: WNL, Normal Bowel Sounds Genitourinary: Yes: WNL Musculoskeletal: Yes: WNL Extremities: Yes: WNL Edema: No Integumentary: Yes: WNL Neurological: Yes: WNL, Alert, Oriented ...Motor Strength: WNL Psychiatric: Yes: WNL Labs: CBC, BMP 04/20/17 05:10 04/22/17 05:35 Assessment/Plan 77 year old woman with a history of HTN, HLD, DMII, Hyperthyroid, Chronic anemia , Carotid stenosis, HCM with no sig LVOT gradiant, CAD, chronic LBBB, h/o bradycardia, chronic presumed diastolic CHF, admitted for severe symptomatic anemia. Anemia-acute on chronic, symptomatic with lightheadedness, improved with PRBC transfusion -s/p PRBCs with improved H/H -anemia work up in progress no source of bleeding identified , capsule endoscopy as outpatient -monitor on tele until establish stable H/H, tele can be dcd later today if H/H stable on serial cbcs H/o HCM without increased LVOT gradient and Chronic diastolic CHF --f/up if echo done and status of LVOT gradient -avoid dehydration -diuresis only prn as she is receiving IVF and PRBC transfusion HTN-adequately controlled for now -monitor off meds for now Carotid stenosis-reportedly moderate as per last notes here -hold ASA for severe anemia LBBB-chronic -no additional work up needed at this point d/c telemetry
--- NOTE | 2017-04-22 15:25 | PN ---
Progress Note, Physician History of Present Illness: Pt seen and examined at bedside. She is awake and alert. She denies shortness of breath. - Current Medication List Current Medications: Active Medications Acetaminophen (Tylenol -) 650 mg PO Q6H PRN PRN Reason: FEVER OR PAIN Last Admin: 04/20/17 10:20 Dose: 650 mg Amlodipine Besylate (Norvasc -) 5 mg PO DAILY [facility] Last Admin: 04/22/17 10:10 Dose: 5 mg Atorvastatin Calcium (Lipitor -) 10 mg PO HS [facility] Last Admin: 04/21/17 21:07 Dose: 10 mg Brimonidine Tartrate (Alphagan 0.2% -) 1 drop OU DAILY [facility] Last Admin: 04/22/17 10:10 Dose: 1 drop Hydralazine HCl (Apresoline -) 10 mg PO TID [facility] Last Admin: 04/22/17 13:37 Dose: 10 mg Hydrocortisone Acetate (Anusol Hc Suppository -) 25 mg RC HS [facility] Stop: 04/22/17 21:59 Last Admin: 04/21/17 21:08 Dose: 25 mg Insulin Aspart (Novolog Vial Sliding Scale -) 1 vial SQ ACHS [facility] PRN Reason: Protocol Last Admin: 04/22/17 13:39 Dose: 4 units Insulin Detemir (Levemir Vial) 4 units SQ ACBK [facility] Last Admin: 04/22/17 10:38 Dose: 4 units Methimazole (Tapazole -) 5 mg PO DAILY [facility] Last Admin: 04/22/17 10:10 Dose: 5 mg Pantoprazole Sodium (Protonix -) 40 mg PO BID [facility] Last Admin: 04/22/17 10:10 Dose: 40 mg Timolol Maleate (Timoptic 0.5%) 1 drop OU DAILY [facility] Last Admin: 04/22/17 10:09 Dose: 1 drop - Objective Vital Signs: Vital Signs Temperature 98.4 F 04/22/17 14:20 Pulse Rate 67 04/22/17 14:20 Respiratory Rate 20 04/22/17 14:20 Blood Pressure 142/67 04/22/17 14:20 O2 Sat by Pulse Oximetry (%) 98 04/22/17 08:13 Constitutional: Yes: Calm Eyes: Yes: Conjunctiva Clear HENT: Yes: Atraumatic Neck: Yes: Supple Cardiovascular: Yes: S1, S2 Respiratory: Yes: CTA Bilaterally Gastrointestinal: Yes: Normal Bowel Sounds, Soft Genitourinary: Yes: WNL Musculoskeletal: Yes: WNL Edema: Yes Edema: LLE: 1+, RLE: 1+ Neurological: Yes: Oriented Psychiatric: Yes: Oriented Labs: CBC, BMP 04/20/17 05:10 04/22/17 05:35 Problem List - Problems (1) Acute on chronic renal failure Code(s): N17.9 - ACUTE KIDNEY FAILURE, UNSPECIFIED N18.9 - CHRONIC KIDNEY DISEASE, UNSPECIFIED (2) Chronic renal failure Code(s): N18.9 - CHRONIC KIDNEY DISEASE, UNSPECIFIED (3) Peripheral edema Code(s): R60.9 - EDEMA, UNSPECIFIED (4) Anemia Code(s): D64.9 - ANEMIA, UNSPECIFIED (5) Diabetes mellitus Code(s): E11.9 - TYPE 2 DIABETES MELLITUS WITHOUT COMPLICATIONS (6) HTN (hypertension) Code(s): I10 - ESSENTIAL (PRIMARY) HYPERTENSION Assessment/Plan Current Medications Generic Name Dose Route Start Last Admin Trade Name Freq PRN Reason Stop Dose Admin Acetaminophen 650 mg 04/16/17 13:58 04/20/17 10:20 Tylenol - PO 650 mg Q6H PRN Administration FEVER OR PAIN Amlodipine Besylate 5 mg 04/17/17 10:00 04/22/17 10:10 Norvasc - PO 5 mg DAILY TRISHA Administration Atorvastatin Calcium 10 mg 04/16/17 22:00 04/21/17 21:07 Lipitor - PO 10 mg HS TRISHA Administration Brimonidine Tartrate 1 drop 04/17/17 10:00 04/22/17 10:10 Alphagan 0.2% - OU 1 drop DAILY TRISHA Administration Hydralazine HCl 10 mg 04/16/17 14:00 04/22/17 13:37 Apresoline - PO 10 mg TID TRISHA Administration Hydrocortisone Acetate 25 mg 04/19/17 22:00 04/21/17 21:08 Anusol Hc Suppository - RC 04/22/17 21:59 25 mg HS TRISHA Administration Insulin Aspart 1 vial 04/17/17 16:30 04/22/17 13:39 Novolog Vial Sliding Scale - SQ 4 units ACHS TRISHA Administration Protocol Insulin Detemir 4 units 04/22/17 10:00 04/22/17 10:38 Levemir Vial SQ 4 units ACBK TRISHA Administration Methimazole 5 mg 04/16/17 14:00 04/22/17 10:10 Tapazole - PO 5 mg DAILY TRISHA Administration Pantoprazole Sodium 40 mg 04/17/17 11:00 04/22/17 10:10 Protonix - PO 40 mg BID TRISHA Administration Timolol Maleate 1 drop 04/17/17 10:00 04/22/17 10:09 Timoptic 0.5% OU 1 drop DAILY TRISHA Administration Laboratory Tests 04/04/17 04/22/17 07:10 05:35 BUN 39 H 27 H Creatinine 1.8 H 1.7 H Impression 1. CKD 2. CUAUHTEMOC 3. hyperthyroidism 4. anemia 5. DM 6. HTN 7. anemia Plan - renal function is stable, her numbers today are better than when she was discharged on last admission - she does have edema. Pt takes 20 mg of lasix po BID at home, will restart - pt can follow with PMD next week and with me the week after - discussed plan with daughter at length - will see in office - discussed with PMD - CUAUHTEMOC likely from pre-renal disease Dr Tubbs
--- NOTE | 2017-04-22 15:53 | DS ---
Physical Examination Vital Signs: Vital Signs Temperature 98.4 F 04/22/17 14:20 Pulse Rate 67 04/22/17 14:20 Respiratory Rate 20 04/22/17 14:20 Blood Pressure 152/69 04/22/17 14:20 O2 Sat by Pulse Oximetry (%) 98 04/22/17 08:13 Findings/Remarks: Pt. w/o SOB, CP, palp., abd pain. Constitutional: Yes: No Distress, Calm Cardiovascular: Yes: Regular Rate and Rhythm, S1, S2 Respiratory: Yes: Regular, CTA Bilaterally. No: Rales Gastrointestinal: Yes: Normal Bowel Sounds, Soft, Abdomen, Obese Edema: LLE: 1+, RLE: 1+ Neurological: Yes: Alert, Oriented Labs: CBC, BMP 04/20/17 05:10 04/22/17 05:35 Discharge Summary Reason For Visit: GIB,PANCREATITIS, ACUTE ON CHRONIC DAO Current Active Problems Acute on chronic renal failure (Acute) Cirrhosis (Acute) Elevated lipase (Acute) GIB (gastrointestinal bleeding) (Acute) Gastric mass (Acute) Pancreatitis (Acute) Procedures: Principal: Abd/Pelvis CT scan Hospital Course: Pt. came to ER with weakness, noticed to be in ARF and have anemia (Hb of 8.1); she was admitted, transfused PRBC. Pt. was seen in consult by Renal (Dr. Tubbs), Cardio (Dr. Landers), GI (Dr. Chip Gage). Pt underwent EGD ( pt has a gastric mass) and colonoscopy; no obvious bleeding source was identified. Pt.'s kidney function improved. Pt. to be IL'ed home today with office followup. Condition: Fair - Instructions Diet, Activity, Other Instructions: Diet: DIABETIC, LOW SALT, low cholesterol CALL doctor's office for appointment Referrals: Steve Gage DO [Staff Physician] - (in 2-3 weeks) Albert Wilkinson MD [Staff Physician] - (next week) Gio Tubbs MD [Staff Physician] - (in 2 weeks) Disposition: VNS/HOME HEALTH CARE - Home Medications Comprehensive Discharge Medication List: Ambulatory Orders Ferrous Sulfate [Feosol] 325 mg PO TID 01/14/15 Simvastatin [Zocor -] 20 mg PO HS 01/14/15 Acetaminophen [Tylenol .Regular Strength -] 650 mg PO Q6H PRN #0 tablet Aspirin [ASA -] 81 mg PO DAILY PRN 12/03/15 Amlodipine Besylate [Norvasc -] 5 mg PO DAILY 12/04/15 Brimonidine Tartrate/Timolol [Combigan 0.2%-0.5% Eye Drops] 1 drop OU DAILY Cholecalciferol (Vitamin D3) [Vitamin D] 5,000 unit PO DAILY 12/04/15 Insulin (Novolog) [Novolog -] 0 units SQ BID 12/04/15 Calcium Carbonate/Vitamin D3 [Calcium 500 + Vit D Caplet] 1 tab PO BIDAC Insulin Glargine,Hum.rec.anlog [Lantus (10mL VIAL) -] 20 units SQ BID 04/01/17 Januvia 50 mg PO DAILY 04/01/17 Lecithin 1 tab PO DAILY 04/01/17 Methimazole 5 mg PO DAILY 04/01/17 [place]-3 2 cap PO BID 04/01/17 Risedronate Sodium 35 mg PO WEEKLY 04/01/17 Furosemide [Lasix -] 40 mg PO DAILY tablet 04/04/17 Hydralazine HCl [Apresoline -] 10 mg PO TID #270 tablet 04/04/17
--- NOTE | 2017-04-22 16:34 | PN ---
Progress Note (short form) - Note Progress Note: Patient seen and examined No specific complaints Last Vital Signs Temp Pulse Resp BP Pulse Ox 98.0 F 78 18 150/75 98 04/22/17 17:00 04/22/17 17:00 04/22/17 17:00 04/22/17 17:00 04/22/17 08:13 Cor: RSR, No murmurs, No gallops Lungs: Clear to P&A Abd: Soft, Normal bowel sounds, No organomegaly Ext:No significant edema Skin: No rashes, Integument intact Abnormal Lab Results 04/22/17 05:35 BUN 27 H Creatinine 1.7 H Random Glucose 198 H Meds reviewed A/P 1) Acute on chronic renal failure Assessment/Plan: Seen by Nephrology- for work up ; CT with cortical atrophy compatible with chronic kidney disease and with cysts. Code(s): N17.9 - ACUTE KIDNEY FAILURE, UNSPECIFIED N18.9 - CHRONIC KIDNEY DISEASE, UNSPECIFIED (2) GIB (gastrointestinal bleeding) Assessment/Plan: Describes BRB per rectum and hematest positive stool . s/p cplonmoscopy s/P--EGD--submucosal masses. Per report --patient had it for > 1yrs. bioosies were superficial (3) Pancreatitis Assessment/Plan: Elevated lipase and amylase. CT with picture compatible with cirrhosis. No drinking history For GI assessment. Code(s): K85.9 - ACUTE PANCREATITIS, UNSPECIFIED * DO NOT USE * (4) Anemia Assessment/Plan: Likely multifactorial-- hematest positive stool and history of rectal bleeding, CUAUHTEMOC/CKD, pancreatitis, cirrhosis. Blood loss picture, kidney disease, and chronic disease. Iron deficienct further gi w/u outpatient On FesO4 Protein studies neg. to f/u out patient
[2017-04-22 19:01] VITALS: BP 150/75; PULSE 78; TEMP 98
== END 2017-04-22 18:21 | disposition home health service (06) | DRG 377 ==
LOC: SUPCPDRO 20:01 → JER 20:01 → JERBED 04-16 01:26 → J4W 04-16 04:35
PROVIDERS: ADMIT Specialist; ATTEND Specialist
PROC: 30233N1 Transfusion of Nonautologous Red Blood Cells into Peripheral Vein, Percutaneous Approach (ICD-10-PCS; principal; 2017-04-16)
PROC: 0DB68ZX Excision of Stomach, Via Natural or Artificial Opening Endoscopic, Diagnostic (ICD-10-PCS; 2017-04-18)
PROC: 0W3P8ZZ Control Bleeding in Gastrointestinal Tract, Via Natural or Artificial Opening Endoscopic (ICD-10-PCS; 2017-04-18)
PROC: 0DBN8ZX Excision of Sigmoid Colon, Via Natural or Artificial Opening Endoscopic, Diagnostic (ICD-10-PCS; 2017-04-19)
DX: K92.2 Gastrointestinal hemorrhage, unspecified (principal); K85.90 Acute pancreatitis without necrosis or infection, unspecified; N17.9 Acute kidney failure, unspecified; I42.8 Other cardiomyopathies; I13.0 Hypertensive heart and chronic kidney disease with heart failure and stage 1 through stage 4 chronic kidney disease, or unspecified chronic kidney disease; I50.32 Chronic diastolic (congestive) heart failure; I85.00 Esophageal varices without bleeding; E78.5 Hyperlipidemia, unspecified; M81.0 Age-related osteoporosis without current pathological fracture; D64.9 Anemia, unspecified; K63.5 Polyp of colon; E05.90 Thyrotoxicosis, unspecified without thyrotoxic crisis or storm; I65.29 Occlusion and stenosis of unspecified carotid artery; I25.10 Atherosclerotic heart disease of native coronary artery without angina pectoris; I44.7 Left bundle-branch block, unspecified; K42.9 Umbilical hernia without obstruction or gangrene; N31.9 Neuromuscular dysfunction of bladder, unspecified; M54.5 Low back pain; M25.511 Pain in right shoulder; E66.8 Other obesity; Z68.31 Body mass index [BMI] 31.0-31.9, adult; E11.22 Type 2 diabetes mellitus with diabetic chronic kidney disease; N18.9 Chronic kidney disease, unspecified; K74.60 Unspecified cirrhosis of liver; R74.8 Abnormal levels of other serum enzymes; K31.9 Disease of stomach and duodenum, unspecified; N28.1 Cyst of kidney, acquired; E86.1 Hypovolemia; R60.9 Edema, unspecified; K25.9 Gastric ulcer, unspecified as acute or chronic, without hemorrhage or perforation; K31.819 Angiodysplasia of stomach and duodenum without bleeding; K62.1 Rectal polyp; K22.2 Esophageal obstruction; K44.9 Diaphragmatic hernia without obstruction or gangrene; K64.8 Other hemorrhoids; K29.60 Other gastritis without bleeding; D63.8 Anemia in other chronic diseases classified elsewhere; Z86.73 Personal history of transient ischemic attack (TIA), and cerebral infarction without residual deficits; Z87.891 Personal history of nicotine dependence
CPT/HCPCS: 36415; 36430; 71010-TC; 74176-TC; 80048; 80053; 81003; 81015; 82150; 82272; 82550; 82570; 82607; 82668; 82728; 82746; 82784; 83615; 83690; 83880; 84155; 84156; 84165; 84443; 84484; 85025; 85027; 85044; 86038; 86334; 86850; 86900; 86901; 86922; 88305-TC; 93005; 93010; 99282-25; P9038; P9058; Q9967

== ENCOUNTER 2017-11-25 16:38 | Inpatient (IN) | payer OTHER ==
--- NOTE | 2017-11-25 17:28 | PDOC ---
Rapid Medical Evaluation Time Seen by Provider: 11/25/17 17:22 Medical Evaluation: Allergies Allergy/AdvReac Type Severity Reaction Status Date / Time No Known Allergies Allergy Verified 04/01/17 00:48 11/25/17 17:24 I have performed a brief in-person evaluation of this patient. The patient presents with a chief complaint of:Anemia w/ sob. Hgb 5.1 on blood tests yesterday per daughter. 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
[2017-11-25 18:07] LABS: BASO % 0.3 % (0-2.0); EOS % 1.2 % (0-4.5); HEMATOCRIT 19.7 % (32.4-45.2); LYMPH % 25.1 % (8-40); MCH 27.7 pg (25.7-33.7); MCHC 31.5 g/dl (32.0-36.0); MEAN CELL VOLUME 87.8 fl (80-96); MEAN PLT VOLUME 9.1 fl (7.5-11.1); MONO % 8.5 % (3.8-10.2); NEUT % 64.9 % (42.8-82.8); PLATELET COUNT 262 K/MM3 (134-434); RBC 2.24 M/mm3 (3.60-5.2); RDW 16.3 % (11.6-15.6); WHITE BLOOD COUNT 6.4 K/mm3 (4.0-10.0)
[2017-11-25 18:09] LABS: HEMOGLOBIN 6.2 GM/dL (10.7-15.3)
[2017-11-25 18:23] LABS: INR 1.03 (0.82-1.09); PROTHROMBIN TIME (PATIENT) 11.6 SEC (9.98-11.88)
[2017-11-25 18:32] LABS: ANION GAP 9 (8-16); BILIRUBIN,TOTAL 0.4 mg/dL (0.2-1.0); BLOOD UREA NITROGEN 26 mg/dL (7-18); CALCIUM 8.1 mg/dL (8.5-10.1); CHLORIDE 106 mmol/L (98-107); CO2 26 mmol/L (21-32); CREATININE 2.3 mg/dL (0.55-1.02); GLUCOSE,RANDOM 210 mg/dL (74-106); POTASSIUM 4.9 mmol/L (3.5-5.1); SGOT/AST 34 U/L (15-37); SGPT/ALT 27 U/L (12-78); SODIUM 141 mmol/L (136-145); TOT PROT 6.3 g/dl (6.4-8.2)
[2017-11-25 18:33] LABS: ALK PHOS 131 U/L (45-117)
--- NOTE | 2017-11-25 18:58 | PDOC ---
History of Present Illness - General Chief Complaint: Revisit, Lab Variance Stated Complaint: PCP SENT Time Seen by Provider: 11/25/17 17:22 - History of Present Illness Initial Comments: 77 year old woman with a history of HTN, HLD, DMII, Hyperthyroid, Chronic anemia (on iron supplementation), Carotid stenosis, HCM, CAD, chronic LBBB, h/o bradycardia, chronic presumed diastolic CHF, and colonic biopsy, presenting with SOB and generalized weakness worsening yesterday with a HgB measured at outpatient lab shannan to be 5.7. RME redrew blood her and it was 6.2. She is currently still complaining of SOB, and generalized decreased energy. Denies hematemesis, BRBPR or any sign of blood loss. She was admitted approximately 7 months prior with very similar presentation at which point an EGD and colonoscopy were performed which found colonic and gastric masses concerning for CA which was eventually negative. She receives approximately one transfusion per year since 2002 and CKD along with these gastric masses which could be the cause for her worsening gradual anemia. Her pcp is dr. kimani owen 11/25/17 19:21 Past History - Past Medical History Allergies/Adverse Reactions: Allergies Allergy/AdvReac Type Severity Reaction Status Date / Time No Known Allergies Allergy Verified 11/25/17 17:27 Home Medications: Ambulatory Orders Ferrous Sulfate [Feosol] 325 mg PO BID 01/14/15 Simvastatin [Zocor -] 20 mg PO HS 01/14/15 Acetaminophen [Tylenol .Regular Strength -] 650 mg PO Q6H PRN #0 tablet Amlodipine Besylate [Norvasc -] 5 mg PO DAILY 12/04/15 Brimonidine Tartrate/Timolol [Combigan 0.2%-0.5% Eye Drops] 1 drop OU DAILY Cholecalciferol (Vitamin D3) [Vitamin D] 2,000 unit PO DAILY 12/04/15 Methimazole 5 mg PO DAILY 04/01/17 Risedronate Sodium 35 mg PO MO 04/01/17 Furosemide [Lasix -] 20 mg PO BID #60 tablet 04/22/17 Hydralazine HCl [Apresoline -] 10 mg PO BID 11/25/17 Insulin (Levemir) [Levemir Vial] 40 units SQ ACBK 11/25/17 Insulin Sliding Scale [Novolog Vial Sliding Scale -] 1 vial SQ ACHS PRN Lecithin, Soy [Lecithin] 2 tab PO DAILY 11/25/17 [place]-3 Fatty Acids/Fish Oil [Fish Oil 1,000 mg Capsule] 1 each PO DAILY Pantoprazole Sodium [Protonix -] 40 mg PO HS 11/25/17 Anemia: Yes Asthma: No Cancer: Yes (Cancerous polyp) Cardiac Disorders: Yes CVA: Yes (TIA) COPD: No CHF: No Dementia: No Diabetes: Yes GI Disorders: No Disorders: No HTN: Yes Hypercholesterolemia: Yes Liver Disease: No Seizures: No Thyroid Disease: Yes - Surgical History Abdominal Surgery: No Appendectomy: Yes Cardiac Surgery: No Cholecystectomy: No Lung Surgery: No Neurologic Surgery: No Orthopedic Surgery: No - Immunization History Immunization Up to Date: Yes - Suicide/Smoking/Psychosocial Hx Smoking Status: No Smoking History: Former smoker Have you smoked in the past 12 months: No If you are a former smoker, when did you quit?: 40 years ago Cigars Per Day: 0 Information on smoking cessation initiated: No Hx Alcohol Use: No Drug/Substance Use Hx: No Substance Use Type: None Hx Substance Use Treatment: No Review of Systems - Review of Systems Constitutional: No: Chills, Diaphoresis, Fever HEENTM: No: Blurred Vision, Recent change in vision Respiratory: Yes: Shortness of Breath. No: Cough, Orthopnea, Wheezing, Productive cough, Hemoptysis Cardiac (ROS): Yes: Edema, Lightheadedness. No: Chest Pain, Palpitations, Syncope, Chest Tightness ABD/GI: Yes: Constipated. No: Blood Streaked Bowels, Diarrhea, Nausea, Poor Appetite, Rectal Bleeding, Vomiting, Tarry Stools : No: Burning, Dysuria, Discharge Musculoskeletal: No: Back Pain Integumentary: No: Bruising, Change in Color, Erythema, Flushing Neurological: Yes: Weakness. No: Headache, Numbness, Paresthesia, Unsteady Gait , Ataxia, Dizziness Psychiatric: No: Anxiety, Depression *Physical Exam - Vital Signs Last Vital Signs Temp Pulse Resp BP Pulse Ox 98.3 F 86 17 121/55 100 11/25/17 17:23 11/25/17 17:23 11/25/17 17:23 11/25/17 17:23 11/25/17 17:23 - Physical Exam General Appearance: Yes: Nourished, Appropriately Dressed. No: Apparent Distress HEENT: positive: EOMI, ARIADNA, Normal ENT Inspection, Normal Voice Neck: positive: Trachea midline, Normal Thyroid, Supple. negative: Tender, Rigid Respiratory/Chest: positive: Crackles (Bilateral mid lung and basilar crackles) . negative: Chest Tender, Lungs Clear, Normal Breath Sounds, Respiratory Distress, Accessory Muscle Use Cardiovascular: positive: Regular Rhythm, Regular Rate, Edema (slightly anascarcic with noticeable bilateral LE pitting 2+ edema R>L (R>L is per baseline but overall swellig is worse right now)) Gastrointestinal/Abdominal: positive: Normal Bowel Sounds, Flat, Soft. negative : Tender Musculoskeletal: positive: Normal Inspection Extremity: positive: Normal Capillary Refill, Normal Range of Motion, Tender ( tender in bl LEs secondary to swelling). negative: Normal Inspection (edema per above) Integumentary: positive: Normal Color, Dry, Warm. negative: Bruising Neurologic: positive: Fully Oriented, Alert, Normal Mood/Affect, Normal Response , Motor Strength 5/5 ED Treatment Course - LABORATORY CBC & Chemistry Diagram: 11/25/17 17:45 11/25/17 17:45 - ADDITIONAL ORDERS Additional order review: Laboratory Results 11/25/17 11/25/17 17:45 17:45 PT with INR 11.60 INR 1.03 Crossmatch See Detail 11/25/17 17:45 RBC 2.24 L D MCV 87.8 MCHC 31.5 L RDW 16.3 H MPV 9.1 Neutrophils % 64.9 Lymphocytes % 25.1 Monocytes % 8.5 Eosinophils % 1.2 Basophils % 0.3 Medical Decision Making - Medical Decision Making 77 year old with history of GI polyps, CKD, questionable diastolic heart failure, and chronic anemia presenting with SOB, generalized edema, and HgB of 5.7. SATing 100% on RA but subjectively SOB so placed on NC 2L with improvement. Repeat HgB done by RME was 6.2. Type and screen sent and one unit ordered. Fecal occult blood negative. Unclear source for bleed but given patient 's GI surgical history and CKD she has good reason to be anemic. Spoke to Dr. Owen while he was downstairs in the ER. We will replete with one unit PRBC and give IV Lasix 20 despite creatinine of 2.[address] Owen is comfortable with this and patient appears fluid overloaded on pulmonary exam. Etiology of fluid overload is likely diastolic CHF and decreased oncotic pressure leading to easy third spacing. Patient admitted to [facility] under Dr. Owen. 11/25/17 22:21 *DC/Admit/Observation/Transfer Diagnosis at time of Disposition: Anasarca Anemia Qualifiers: Anemia type: other cause Other causes of anemia: chronic disease, other Qualified Code(s): D63.8 - Anemia in other chronic diseases classified elsewhere - Referrals - Patient Instructions - Post Discharge Activity
--- NOTE | 2017-11-25 20:40 | PDOC ---
Attending Attestation - HPI HPI: 11/25/17 20:59 The patient is a 77 year old female with past medical history of hypertension, hyperlipidemia, diabetes, chronic anemia, carotid stenosis, HCM, CAD, chronic LBBB, colonic biopsy, and diastolic CHF who presents to the ED with complaints of worsening shortness of breath and weakness since yesterday. The patient had blood work done outpatient which revealed a hemoglobin of 5.7, and the patient was instructed to come to the ER as per PMD. Upon evaluation in ED, patients hemoglobin was 6.2. She denies any hematemesis, melena, blood per rectum, or sign of blood loss. She denies any fever, chills, nausea, vomiting, diarrhea, cough, CP, SOB, urinary symptoms. PCP: Albert Wilkinson - Physicial Exam PE: 11/25/17 21:00 Vitals: Triage Vital signs reviewed General Appearance: no acute distress, well nourished well developed, Head: Atraumatic, normocephalic Neck: Supple;No Nuchal rigidity Cardiac: Regular rate and rhythm, no murmurs, no rubs, no gallops, Lungs: Clear to auscultation bilateral, good air movement bilaterally, Abdomen: Soft, nondistended, normal bowel sounds, nontender to palpation Extremities: Full range of motion to all extremities, no cyanosis, clubbing, or edema Skin: Warm and dry, no rashes or lesions, no petechiae Neuro: AOX3; Cranial Nerves 2-12 grossly intact, Strength intact to all extremities, Sensation intact to all extremities Psych: normal mood, normal affect - Medical Decision Making 11/25/17 21:01 Documentation prepared by Moni Peña, acting as medical lead for Daniel Schmid MD. <Moni Peña - Last Filed: 11/25/17 20:59> - Resident Resident Name: José Torres - ED Attending Attestation I have performed the following: I have examined & evaluated the patient, The case was reviewed & discussed with the resident, I agree w/resident's findings & plan, Exceptions are as noted - HPI HPI: 77 years old past medical history significant for hypertension hyperlipidemia diabetes chronic anemia carotid stenosis, HCM, CAD, presents to the ED with worsening shortness of breath and weakness. Outpatient labs demonstrated a hemoglobin of 5.7 she last required blood transfusion one year ago Case discussed with her PCP We will admit to medicine for blood transfusion and further management. <Daniel Schmid - Last Filed: 11/26/17 01:23>
[2017-11-25] MEDS ORDERED: FUROSEMIDE 40 MG/4 ML INJECTABLE VIAL IVPUSH ONE (20:57)
--- NOTE | 2017-11-25 21:00 | HP ---
Admitting History and Physical - Primary Care Physician PCP: Albert Wilkinson - Admission Chief Complaint: Anemia. [place] History of Present Illness: Pt was seen in my office 2-3 days ago, c/o weakness LE edema; she was sent for blood work; this AM lab reported HB of 5.6. Pt was aadviced to come to ER, were Hb was found to be 6.2 History Source: Patient, Family Member (daughter) Limitations to Obtaining History: Clinical Condition - Past Medical History [employer]: Yes: Dementia (mild), TIA Cardiovascular: Yes: HTN, Hyperlipdemia, Other (HCM with no reported LVOT gradient) Gastrointestinal: Yes: Pancreatitis, Other (Abdominal/Umbilical hernia) Renal/: Yes: Neurogenic Bladder Heme/Onc: Yes: Anemia Musculoskeletal: Yes: Chronic low back pain Endocrine: Yes: Diabetes Mellitus - Past Surgical History Past Surgical History: Yes: Appendectomy, Cholecystectomy - Smoking History Smoking history: Former smoker Have you smoked in the past 12 months: No If you are a former smoker, when did you quit?: 40 years ago - Alcohol/Substance Use Hx Alcohol Use: No - Social History ADL: Independent History of Recent Travel: No Home Medications - Allergies Allergies/Adverse Reactions: Allergies Allergy/AdvReac Type Severity Reaction Status Date / Time No Known Allergies Allergy Verified 11/25/17 17:27 - Home Medications Home Medications: Ambulatory Orders Ferrous Sulfate [Feosol] 325 mg PO BID 01/14/15 Simvastatin [Zocor -] 20 mg PO HS 01/14/15 Acetaminophen [Tylenol .Regular Strength -] 650 mg PO Q6H PRN #0 tablet Amlodipine Besylate [Norvasc -] 5 mg PO DAILY 12/04/15 Brimonidine Tartrate/Timolol [Combigan 0.2%-0.5% Eye Drops] 1 drop OU DAILY Cholecalciferol (Vitamin D3) [Vitamin D] 2,000 unit PO DAILY 12/04/15 Methimazole 5 mg PO DAILY 04/01/17 Risedronate Sodium 35 mg PO MO 04/01/17 Furosemide [Lasix -] 20 mg PO BID #60 tablet 04/22/17 Hydralazine HCl [Apresoline -] 10 mg PO BID 11/25/17 Insulin (Levemir) [Levemir Vial] 40 units SQ ACBK 11/25/17 Insulin Sliding Scale [Novolog Vial Sliding Scale -] 1 vial SQ ACHS PRN Lecithin, Soy [Lecithin] 2 tab PO DAILY 11/25/17 [place]-3 Fatty Acids/Fish Oil [Fish Oil 1,000 mg Capsule] 1 each PO DAILY Pantoprazole Sodium [Protonix -] 40 mg PO HS 11/25/17 Family Disease History - Family Disease History Family Disease History: CA: Sister (anesthesiology faculty malignancy) Review of Systems - Review of Systems Constitutional: denies: Fever Eyes: denies: Blurred Vision, Recent Change in Vision HENT: denies: Difficult Swallowing, Ear Discharge, Ear Pain, Nasal Congestion, Throat Pain Neck: denies: Pain on Movement, Tenderness Cardiovascular: reports: Edema. denies: Chest Pain, Palpitations Respiratory: denies: Cough, Exercise Intolerance Gastrointestinal: denies: Abdominal Pain, Diarrhea, Vomiting Genitourinary: denies: Burning, Discharge, Flank Pain Musculoskeletal: denies: Muscle Pain, Muscle Cramps Integumentary: denies: Bruising, Rash Neurological: reports: Change in Speech, Weakness. denies: Change in LOC Endocrine: denies: Excessive Sweating, Intolerance to Cold Hematology/Lymphatic: denies: Easily Bruised, Excessive Bleeding Psychiatric: denies: Anxiety, Depression Physical Examination Vital Signs: Vital Signs Temperature 97.8 F 11/25/17 20:55 Pulse Rate 77 11/25/17 20:55 Respiratory Rate 16 11/25/17 20:55 Blood Pressure 165/61 11/25/17 20:55 O2 Sat by Pulse Oximetry (%) 100 11/25/17 20:55 Constitutional: Yes: No Distress, Calm Eyes: Yes: Conjunctiva Clear, EOM Intact, PERRL HENT: Yes: Normocephalic. No: Thrush Neck: Yes: Trachea Midline. No: Lymphadenopathy Cardiovascular: Yes: Regular Rate and Rhythm, S1, S2 Respiratory: Yes: Regular, Rales, Other (crackles at bases) Gastrointestinal: Yes: Normal Bowel Sounds, Soft. No: Tenderness ...Rectal Exam: Yes: Deferred Extremities: No: Cold, Cool Edema: LLE: 2+, RLE: 2+ Integumentary: Yes: Pressure Ulcer Neurological: Yes: Alert, Oriented Labs: CBC, BMP 11/25/17 17:45 11/25/17 17:45 Imaging - Results Chest X-ray: Image Reviewed Problem List - Problems (1) Anemia Code(s): D64.9 - ANEMIA, UNSPECIFIED Qualifiers: Anemia type: other cause Other causes of anemia: chronic disease, other Qualified Code(s): D63.8 - Anemia in other chronic diseases classified elsewhere (2) Acute on chronic renal failure Code(s): N17.9 - ACUTE KIDNEY FAILURE, UNSPECIFIED; N18.9 - CHRONIC KIDNEY DISEASE, UNSPECIFIED (3) CHF (congestive heart failure) Code(s): I50.9 - HEART FAILURE, UNSPECIFIED (4) Peripheral edema Code(s): R60.9 - EDEMA, UNSPECIFIED (5) Diabetes mellitus Code(s): E11.9 - TYPE 2 DIABETES MELLITUS WITHOUT COMPLICATIONS (6) HTN (hypertension) Code(s): I10 - ESSENTIAL (PRIMARY) HYPERTENSION (7) Weakness Code(s): R53.1 - WEAKNESS Assessment/Plan Transfuse PRBC Renal consult AM labs. Case was d/w pt and pt's family (Dg and Nephew) at bedside; all questions were answered.
[2017-11-25 23:47] VITALS: BMI 33.6
[2017-11-26] MEDS ORDERED: FUROSEMIDE 40 MG/4 ML INJECTABLE VIAL IVPUSH ONE (00:15)
[2017-11-26] MEDS ORDERED: ACETAMINOPHEN 325 MG TABLET (FP) PO PRN (08:24)
[2017-11-26 08:53] LABS: HEMATOCRIT 22.1 % (32.4-45.2); MCH 27.2 pg (25.7-33.7); MCHC 31.8 g/dl (32.0-36.0); MEAN CELL VOLUME 85.4 fl (80-96); MEAN PLT VOLUME 8.9 fl (7.5-11.1); PLATELET COUNT 205 K/MM3 (134-434); RBC 2.58 M/mm3 (3.60-5.2); RDW 16.8 % (11.6-15.6); WHITE BLOOD COUNT 7.5 K/mm3 (4.0-10.0)
[2017-11-26] MEDS ORDERED: PT OWN MED DRAWER 7, Y5N ONE ×2 (09:25→21:59)
[2017-11-26 09:35] LABS: ANION GAP 4 (8-16); BLOOD UREA NITROGEN 30 mg/dL (7-18); CALCIUM 8.6 mg/dL (8.5-10.1); CHLORIDE 108 mmol/L (98-107); CO2 32 mmol/L (21-32); CREATININE 2.1 mg/dL (0.55-1.02); GLUCOSE,RANDOM 87 mg/dL (74-106); POTASSIUM 4.6 mmol/L (3.5-5.1); SODIUM 144 mmol/L (136-145)
[2017-11-26] MEDS ORDERED: INSULIN (NOVOLOG) ASPART 100 UNITS/ML 10ML VIAL ONE (09:37)
[2017-11-26] MEDS: INSULIN SLIDING SCALE (NOVOLOG) 1 VIAL SQ SCH ×2 (09:39→17:17)
[2017-11-26] MEDS: METHIMAZOLE 5 MG TABLET (FP) PO SCH (09:39)
[2017-11-26] MEDS: HEPARIN NA (PORCINE) 5,000 UNITS/ML 1ML VIAL SQ SCH ×2 (09:39→22:02)
[2017-11-26] MEDS: FERROUS SO4 325 MG TABLET (FP) PO SCH ×2 (09:39→17:17)
[2017-11-26] MEDS: amLODIPine BESYLATE 5 MG TABLET (FP) PO SCH (09:39)
[2017-11-26] MEDS ORDERED: PATIENT'S OWN MEDICATION (NON-FORMULARY) (Brimonidine Tartrate/Timolol [Combigan 0.2%-0.5% OU SCH (10:00)
[2017-11-26] MEDS: hydrALAZINE HCL 10 MG TABLET PO SCH ×2 (11:49→22:02)
[2017-11-26] MEDS: BRIMONIDINE TARTRATE 0.2% OPHTHALMIC 5 ML BOTTLE OU SCH (11:49)
[2017-11-26] MEDS: TIMOLOL 0.5% OPHTHALMIC SOL 5 ML BOTTLE OU SCH (11:50)
--- NOTE | 2017-11-26 13:04 | PN ---
Progress Note, Physician History of Present Illness: Pt states that is feeling good, no SOB/ CP/ papitations/ abd pain. - Current Medication List Current Medications: Active Medications Acetaminophen (Tylenol -) 650 mg PO Q6H PRN PRN Reason: FEVER Amlodipine Besylate (Norvasc -) 5 mg PO DAILY [facility] Last Admin: 11/26/17 09:39 Dose: 5 mg Atorvastatin Calcium (Lipitor -) 10 mg PO HS [facility] Brimonidine Tartrate (Alphagan 0.2% -) 1 drop OU DAILY [facility] Last Admin: 11/26/17 11:49 Dose: 1 drop Ferrous Sulfate (Feosol -) 325 mg PO BIDWM [facility] Last Admin: 11/26/17 09:39 Dose: 325 mg Heparin Sodium (Porcine) (Heparin -) 5,000 unit SQ BID [facility] Last Admin: 11/26/17 09:39 Dose: 5,000 unit Hydralazine HCl (Apresoline -) 10 mg PO BID [facility] Last Admin: 11/26/17 11:49 Dose: 10 mg Insulin Aspart (Novolog Vial Sliding Scale -) 1 vial SQ BIDAC [facility] PRN Reason: Protocol Last Admin: 11/26/17 09:39 Dose: 2 units Insulin Detemir (Levemir Vial) 40 units SQ ACBK [facility] Methimazole (Tapazole -) 5 mg PO DAILY [facility] Last Admin: 11/26/17 09:39 Dose: 5 mg Pantoprazole Sodium (Protonix -) 40 mg PO HS [facility] Timolol Maleate (Timoptic 0.5%) 1 drop OU DAILY [facility] Last Admin: 11/26/17 11:50 Dose: 1 drop - Objective Vital Signs: Vital Signs Temperature 98.3 F 11/26/17 07:59 Pulse Rate 74 11/26/17 07:59 Respiratory Rate 18 11/26/17 07:59 Blood Pressure 155/63 11/26/17 07:59 O2 Sat by Pulse Oximetry (%) 94 L 11/25/17 23:36 Constitutional: Yes: No Distress, Calm Cardiovascular: Yes: Regular Rate and Rhythm, S1, S2 Respiratory: Yes: Regular, CTA Bilaterally, Other (coarse BS at bases). No: Rales Gastrointestinal: Yes: Normal Bowel Sounds, Soft. No: Tenderness Edema: Yes Edema: LLE: 1+, RLE: 1+ Neurological: Yes: Alert, Oriented Labs: CBC, BMP 11/26/17 08:00 11/26/17 08:00 INR, PTT INR 1.03 (0.82-1.09) 11/25/17 17:45 Problem List - Problems (1) Anemia Code(s): D64.9 - ANEMIA, UNSPECIFIED Qualifiers: Anemia type: other cause Other causes of anemia: chronic disease, other Qualified Code(s): D63.8 - Anemia in other chronic diseases classified elsewhere (2) Acute on chronic renal failure Code(s): N17.9 - ACUTE KIDNEY FAILURE, UNSPECIFIED; N18.9 - CHRONIC KIDNEY DISEASE, UNSPECIFIED (3) CHF (congestive heart failure) Code(s): I50.9 - HEART FAILURE, UNSPECIFIED (4) Peripheral edema Code(s): R60.9 - EDEMA, UNSPECIFIED (5) Diabetes mellitus Code(s): E11.9 - TYPE 2 DIABETES MELLITUS WITHOUT COMPLICATIONS (6) HTN (hypertension) Code(s): I10 - ESSENTIAL (PRIMARY) HYPERTENSION (7) Weakness Code(s): R53.1 - WEAKNESS Assessment/Plan s/p 1 unit of PRBC Tx to transfuse 1 unit of PRBC Renal consult Heme consult AM labs. Case was d/w pt's dg. Case was reviewed with pt's nurse.
--- NOTE | 2017-11-26 16:50 | CON.NEP ---
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 Cardio/Vascular: Yes: HTN, Hyperlipdemia, Other (HCM with no reported LVOT gradient) Gastrointestinal: Yes: Pancreatitis, Other (Abdominal/Umbilical hernia) Renal/: Yes: Neurogenic Bladder Musculoskeletal: Yes: Chronic low back pain Endocrine: Yes: Diabetes Mellitus Additional Medical History: Obesity - Past Surgical History Past Surgical History: Yes: Appendectomy, Cholecystectomy - Alcohol/Substance Use Hx Alcohol Use: No - Smoking History Smoking history: Former smoker Have you smoked in the past 12 months: No If you are a former smoker, when did you quit?: 40 years ago - Social History ADL: Independent History of Recent Travel: No Home Medications - Allergies Allergies/Adverse Reactions: Allergies Allergy/AdvReac Type Severity Reaction Status Date / Time No Known Allergies Allergy Verified 11/25/17 17:27 - Home Medications Home Medications: Ambulatory Orders Ferrous Sulfate [Feosol] 325 mg PO BID 01/14/15 Simvastatin [Zocor -] 20 mg PO HS 01/14/15 Acetaminophen [Tylenol .Regular Strength -] 650 mg PO Q6H PRN #0 tablet Amlodipine Besylate [Norvasc -] 5 mg PO DAILY 12/04/15 Brimonidine Tartrate/Timolol [Combigan 0.2%-0.5% Eye Drops] 1 drop OU DAILY Cholecalciferol (Vitamin D3) [Vitamin D] 2,000 unit PO DAILY 12/04/15 Methimazole 5 mg PO DAILY 04/01/17 Risedronate Sodium 35 mg PO MO 04/01/17 Furosemide [Lasix -] 20 mg PO BID #60 tablet 04/22/17 Hydralazine HCl [Apresoline -] 10 mg PO BID 11/25/17 Insulin (Levemir) [Levemir Vial] 40 units SQ ACBK 11/25/17 Insulin Sliding Scale [Novolog Vial Sliding Scale -] 1 vial SQ ACHS PRN Lecithin, Soy [Lecithin] 2 tab PO DAILY 11/25/17 [place]-3 Fatty Acids/Fish Oil [Fish Oil 1,000 mg Capsule] 1 each PO DAILY Pantoprazole Sodium [Protonix -] 40 mg PO HS 11/25/17 Family Disease History - Family Disease History Family Disease History: CA: Sister (rubber factory worker malignancy) Nephrology Consult - Height Height: 5 ft - Weight Weight: 172 lb 3 oz - BMI Body Mass Index (BMI): 33.6 - Lab Results CBC,BMP: CBC, BMP 11/26/17 08:00 11/26/17 08:00 Anion Gap: Anion Gap Anion Gap 4 (8-16) L 11/26/17 08:00 - Physical Examination Vital Signs: Vital Signs Temperature 97.8 F 11/26/17 14:03 Pulse Rate 71 11/26/17 14:03 Respiratory Rate 18 11/26/17 14:03 Blood Pressure 133/64 11/26/17 14:03 O2 Sat by Pulse Oximetry (%) 98 11/26/17 09:00 Assessment/Plan ckd anemia renal function near baseline slight increase may be prerenal 2/2 acute medical problems will monitor during hosp stay may improve after blood transfusions
--- NOTE | 2017-11-26 17:44 | CONSULT ---
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: Dementia (mild), TIA Cardio/Vascular: Yes: HTN, Hyperlipdemia, Other (HCM with no reported LVOT gradient) Gastrointestinal: Yes: Pancreatitis, Other (Abdominal/Umbilical hernia) Renal/: Yes: Neurogenic Bladder Musculoskeletal: Yes: Chronic low back pain Endocrine: Yes: Diabetes Mellitus Additional Medical History: Obesity - Past Surgical History Past Surgical History: Yes: Appendectomy, Cholecystectomy - Smoking History Smoking history: Former smoker - Social History ADL: Independent Home Medications - Allergies Allergies/Adverse Reactions: Allergies Allergy/AdvReac Type Severity Reaction Status Date / Time No Known Allergies Allergy Verified 11/25/17 17:27 - Home Medications Home Medications: Ambulatory Orders Ferrous Sulfate [Feosol] 325 mg PO BID 01/14/15 Simvastatin [Zocor -] 20 mg PO HS 01/14/15 Acetaminophen [Tylenol .Regular Strength -] 650 mg PO Q6H PRN #0 tablet Amlodipine Besylate [Norvasc -] 5 mg PO DAILY 12/04/15 Brimonidine Tartrate/Timolol [Combigan 0.2%-0.5% Eye Drops] 1 drop OU DAILY Cholecalciferol (Vitamin D3) [Vitamin D] 2,000 unit PO DAILY 12/04/15 Methimazole 5 mg PO DAILY 04/01/17 Risedronate Sodium 35 mg PO MO 04/01/17 Furosemide [Lasix -] 20 mg PO BID #60 tablet 04/22/17 Hydralazine HCl [Apresoline -] 10 mg PO BID 11/25/17 Insulin (Levemir) [Levemir Vial] 40 units SQ ACBK 11/25/17 Insulin Sliding Scale [Novolog Vial Sliding Scale -] 1 vial SQ ACHS PRN Lecithin, Soy [Lecithin] 2 tab PO DAILY 11/25/17 [place]-3 Fatty Acids/Fish Oil [Fish Oil 1,000 mg Capsule] 1 each PO DAILY Pantoprazole Sodium [Protonix -] 40 mg PO HS 11/25/17 Home Medication List Medication Instructions Recorded Confirmed Type Ferrous Sulfate [Feosol] 325 mg PO BID 01/14/15 11/25/17 History Simvastatin [Zocor -] 20 mg PO HS 01/14/15 11/25/17 History Amlodipine Besylate [Norvasc -] 5 mg PO DAILY 12/04/15 11/25/17 History Brimonidine Tartrate/Timolol 1 drop OU DAILY 12/04/15 11/25/17 History [Combigan 0.2%-0.5% Eye Drops] Cholecalciferol (Vitamin D3) 2,000 unit PO DAILY 12/04/15 11/25/17 History [Vitamin D] Methimazole 5 mg PO DAILY 04/01/17 11/25/17 History Risedronate Sodium 35 mg PO MO 04/01/17 11/25/17 History Hydralazine HCl [Apresoline -] 10 mg PO BID 11/25/17 11/25/17 History Insulin (Levemir) [Levemir Vial] 40 units SQ ACBK 11/25/17 11/25/17 History Insulin Sliding Scale [Novolog 1 vial SQ ACHS PRN 11/25/17 11/25/17 History Vial Sliding Scale -] Lecithin, Soy [Lecithin] 2 tab PO DAILY 11/25/17 11/25/17 History [place]-3 Fatty Acids/Fish Oil [Fish 1 each PO DAILY 11/25/17 11/25/17 History Oil 1,000 mg Capsule] Pantoprazole Sodium [Protonix -] 40 mg PO HS 11/25/17 11/25/17 History Active Medications Generic Name Dose Route Start Last Admin Trade Name Freq PRN Reason Stop Dose Admin Acetaminophen 650 mg 11/26/17 08:24 Tylenol - PO Q6H PRN FEVER Amlodipine Besylate 5 mg 11/26/17 10:00 11/26/17 09:39 Norvasc - PO 5 mg DAILY [facility] Administration Atorvastatin Calcium 10 mg 11/26/17 22:00 Lipitor - PO [facility] Brimonidine Tartrate 1 drop 11/26/17 10:00 11/26/17 11:49 Alphagan 0.2% - OU 1 drop DAILY [facility] Administration Ferrous Sulfate 325 mg 11/26/17 10:00 11/26/17 17:17 Feosol - PO 325 mg BIDWM [facility] Administration Heparin Sodium (Porcine) 5,000 unit 11/26/17 10:00 11/26/17 09:39 Heparin - SQ 5,000 unit BID [facility] Administration Hydralazine HCl 10 mg 11/26/17 10:00 11/26/17 11:49 Apresoline - PO 10 mg BID [facility] Administration Insulin Aspart 1 vial 11/26/17 10:00 11/26/17 17:17 Novolog Vial Sliding Scale - SQ 2 units BIDAC [facility] Administration Protocol Insulin Detemir 40 units 11/27/17 07:00 Levemir Vial SQ ACBK [facility] Methimazole 5 mg 11/26/17 10:00 11/26/17 09:39 Tapazole - PO 5 mg DAILY [facility] Administration Pantoprazole Sodium 40 mg 11/26/17 22:00 Protonix - PO HS [facility] Timolol Maleate 1 drop 11/26/17 10:00 11/26/17 11:50 Timoptic 0.5% OU 1 drop DAILY [facility] Administration Family Disease History - Family Disease History Family Disease History: CA: Sister (ore smelter malignancy) - Physical Examination Vital Signs: Vital Signs Temperature 97.8 F 11/26/17 14:03 Pulse Rate 71 11/26/17 14:03 Respiratory Rate 18 11/26/17 14:03 Blood Pressure 133/64 11/26/17 14:03 O2 Sat by Pulse Oximetry (%) 98 11/26/17 09:00 Cor: RSR, No murmurs, No gallops Lungs: Clear to P&A Abd: Soft, Normal bowel sounds, No organomegaly Ext:1+ edema Skin: No rashes, Integument intact Abnormal Lab Results 11/25/17 11/26/17 11/26/17 17:45 08:00 08:00 RBC Hgb Hct MCHC RDW Chloride 108 H Anion Gap 4 L BUN 30 H Creatinine 2.1 H Random Glucose Iron Saturation Vitamin B12 1101 H Crossmatch See Detail 11/26/17 11/27/17 11/27/17 08:00 07:30 07:30 RBC 2.98 L Hgb 8.1 L D Hct 22.2 L 25.5 L D MCHC 31.5 L RDW 16.5 H Chloride Anion Gap 6 L BUN 29 H Creatinine 2.1 H Random Glucose 107 H Iron Saturation 9 L Vitamin B12 Crossmatch Assessment/Plan 77 y/o with DM HTN< hyperlipidemia, obesity, TIA, CKD come sin with shortness of breath Symptomatic anemia, CKD Anemia of chronic disease+/- gi losses On ferrous sulfate f/u iron studies/B!2/folate may be a candidate for procrit--will discuss with renal will request gi consult/pulmonary consult discussed with daughter in great detail
[2017-11-26] MEDS: ATORVASTATIN CA 10 MG TABLET (FP) PO SCH (22:02)
[2017-11-26] MEDS: PANTOPRAZOLE 40 MG TABLET (FP) PO SCH (22:02)
[2017-11-27] MEDS: INSULIN SLIDING SCALE (NOVOLOG) 1 VIAL SQ SCH ×2 (06:11→17:50)
[2017-11-27] MEDS: INSULIN DETEMIR 100 UNITS/ML MDV SQ SCH (06:11)
[2017-11-27] MEDS ORDERED: INSULIN (NOVOLOG) ASPART 100 UNITS/ML 10ML VIAL ONE (06:35)
[2017-11-27 08:40] LABS: HEMATOCRIT 25.5 % (32.4-45.2); HEMOGLOBIN 8.1 GM/dL (10.7-15.3); MCHC 31.5 g/dl (32.0-36.0); MEAN CELL VOLUME 85.7 fl (80-96); MEAN PLT VOLUME 8.8 fl (7.5-11.1); PLATELET COUNT 179 K/MM3 (134-434); RBC 2.98 M/mm3 (3.60-5.2); RDW 16.5 % (11.6-15.6); WHITE BLOOD COUNT 5.9 K/mm3 (4.0-10.0)
[2017-11-27 08:59] LABS: ANION GAP 6 (8-16); BLOOD UREA NITROGEN 29 mg/dL (7-18); CALCIUM 8.8 mg/dL (8.5-10.1); CHLORIDE 107 mmol/L (98-107); CO2 31 mmol/L (21-32); CREATININE 2.1 mg/dL (0.55-1.02); GLUCOSE,RANDOM 107 mg/dL (74-106); POTASSIUM 4.3 mmol/L (3.5-5.1); SODIUM 144 mmol/L (136-145)
[2017-11-27] MEDS ORDERED: PT OWN MED DRAWER 7, Y5N ONE ×2 (09:02→22:17)
[2017-11-27] MEDS: FERROUS SO4 325 MG TABLET (FP) PO SCH ×2 (09:06→17:51)
[2017-11-27] MEDS: amLODIPine BESYLATE 5 MG TABLET (FP) PO SCH (09:07)
[2017-11-27] MEDS: HEPARIN NA (PORCINE) 5,000 UNITS/ML 1ML VIAL SQ SCH ×2 (09:07→22:18)
[2017-11-27] MEDS: METHIMAZOLE 5 MG TABLET (FP) PO SCH (09:07)
[2017-11-27] MEDS: BRIMONIDINE TARTRATE 0.2% OPHTHALMIC 5 ML BOTTLE OU SCH (09:08)
[2017-11-27] MEDS: hydrALAZINE HCL 10 MG TABLET PO SCH ×2 (09:08→22:19)
[2017-11-27] MEDS: TIMOLOL 0.5% OPHTHALMIC SOL 5 ML BOTTLE OU SCH (09:09)
--- NOTE | 2017-11-27 11:39 | CON.PULM ---
Consult Consult Specialty:: PULM/CCM Referred by:: REZA Reason for Consultation:: SOB - History of Present Illness Chief Complaint: SOB / leg swelling History of Present Illness: 77 F, hypertension, hyperlipidemia, diabetes, chronic anemia, carotid stenosis, HCM, CAD, chronic LBBB, HCOM, colonic biopsy 1 year ago, and diastolic CHF. Reports BEATTY and SOB for the past few days. No significant cough or sputum. No fever or chills. Outpatient labs : Hgb 5.7. No travel history or sick contacts. Reports feeling better after receiving pRBCs. Having "small" BM with no active bleeding noted. CXR : Clear except for minimal RLL linear atelectasis. 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), TIA Cardio/Vascular: Yes: HTN, Hyperlipdemia, Other (HCM with no reported LVOT gradient) Gastrointestinal: Yes: Pancreatitis, Other (Abdominal/Umbilical hernia) Renal/: Yes: Neurogenic Bladder Musculoskeletal: Yes: Chronic low back pain Endocrine: Yes: Diabetes Mellitus Additional Medical History: Obesity - Past Surgical History Past Surgical History: Yes: Appendectomy, Cholecystectomy - Alcohol/Substance Use Hx Alcohol Use: No - Smoking History Smoking history: Former smoker Have you smoked in the past 12 months: No If you are a former smoker, when did you quit?: 40 years ago - Social History ADL: Independent History of Recent Travel: No Home Medications - Allergies Allergies/Adverse Reactions: Allergies Allergy/AdvReac Type Severity Reaction Status Date / Time No Known Allergies Allergy Verified 11/25/17 17:27 - Home Medications Home Medications: Ambulatory Orders Ferrous Sulfate [Feosol] 325 mg PO BID 01/14/15 Simvastatin [Zocor -] 20 mg PO HS 01/14/15 Acetaminophen [Tylenol .Regular Strength -] 650 mg PO Q6H PRN #0 tablet Amlodipine Besylate [Norvasc -] 5 mg PO DAILY 12/04/15 Brimonidine Tartrate/Timolol [Combigan 0.2%-0.5% Eye Drops] 1 drop OU DAILY Cholecalciferol (Vitamin D3) [Vitamin D] 2,000 unit PO DAILY 12/04/15 Methimazole 5 mg PO DAILY 04/01/17 Risedronate Sodium 35 mg PO MO 04/01/17 Furosemide [Lasix -] 20 mg PO BID #60 tablet 04/22/17 Hydralazine HCl [Apresoline -] 10 mg PO BID 11/25/17 Insulin (Levemir) [Levemir Vial] 40 units SQ ACBK 11/25/17 Insulin Sliding Scale [Novolog Vial Sliding Scale -] 1 vial SQ ACHS PRN Lecithin, Soy [Lecithin] 2 tab PO DAILY 11/25/17 [place]-3 Fatty Acids/Fish Oil [Fish Oil 1,000 mg Capsule] 1 each PO DAILY Pantoprazole Sodium [Protonix -] 40 mg PO HS 11/25/17 Family Disease History - Family Disease History Family Disease History: CA: Sister (correctional corporal malignancy) Review of Systems - Review of Systems Constitutional: reports: Malaise. denies: Chills, Diaphoresis, Night Sweats, Unintentional Wgt. Loss, Weakness Eyes: reports: No Symptoms HENT: reports: No Symptoms Neck: reports: No Symptoms Cardiovascular: reports: Edema, Shortness of Breath. denies: Chest Pain, Palpitations Respiratory: reports: Exercise Intolerance, Snoring, SOB, SOB on Exertion. denies: Cough, Hemoptysis, Wheezing Gastrointestinal: reports: Abdominal Pain, Indigestion, Melena, Nausea. denies : Constipation, Diarrhea, Dysphagia, Rectal Bleeding, Vomiting, Vomiting Blood Genitourinary: reports: No Symptoms Breasts: reports: No Symptoms Reported Musculoskeletal: reports: No Symptoms Integumentary: reports: No Symptoms Neurological: reports: No Symptoms Endocrine: reports: No Symptoms Hematology/Lymphatic: reports: No Symptoms Psychiatric: reports: No Symptoms Physical Exam Vital Sings: Vital Signs Temperature 98.8 F 11/27/17 09:00 Pulse Rate 73 11/27/17 09:00 Respiratory Rate 20 11/27/17 09:00 Blood Pressure 150/60 11/27/17 09:00 O2 Sat by Pulse Oximetry (%) 96 11/26/17 21:00 Constitutional: Yes: No Distress, Calm, Obese Eyes: Yes: Conjunctiva Clear, EOM Intact HENT: Yes: Atraumatic, Normocephalic Neck: Yes: Supple, Trachea Midline Cardiovascular: Yes: Regular Rate and Rhythm Respiratory: Yes: CTA Bilaterally, Diminished. No: Accessory Muscle Use, On Nasal O2, Rales, Rhonchi, SOB, Stridor, Tachypnea, Wheezes ...Inspection: Yes: WNL ...Clubbing: No Gastrointestinal: Yes: Normal Bowel Sounds, Soft, Abdomen, Obese Musculoskeletal: Yes: WNL Extremities: Yes: WNL Edema: Yes Peripheral Pulses WNL: Yes Integumentary: Yes: WNL Neurological: Yes: WNL, Alert, Oriented ...Motor Strength: WNL Psychiatric: Yes: WNL, Alert, Oriented Labs: CBC, BMP 11/27/17 07:30 11/27/17 07:30 Imaging - Results Chest X-ray: Report Reviewed, Image Reviewed Problem List - Problems (1) Anemia Code(s): D64.9 - ANEMIA, UNSPECIFIED Qualifiers: Anemia type: other cause Other causes of anemia: chronic disease, other Qualified Code(s): D63.8 - Anemia in other chronic diseases classified elsewhere (2) CHF (congestive heart failure) Code(s): I50.9 - HEART FAILURE, UNSPECIFIED (3) GIB (gastrointestinal bleeding) Code(s): K92.2 - GASTROINTESTINAL HEMORRHAGE, UNSPECIFIED (4) Hypertrophic obstructive cardiomyopathy (HOCM) Code(s): I42.1 - OBSTRUCTIVE HYPERTROPHIC CARDIOMYOPATHY (5) Peripheral edema Code(s): R60.9 - EDEMA, UNSPECIFIED (6) Renal insufficiency Code(s): N28.9 - DISORDER OF KIDNEY AND URETER, UNSPECIFIED (7) Diabetes mellitus Code(s): E11.9 - TYPE 2 DIABETES MELLITUS WITHOUT COMPLICATIONS (8) HTN (hypertension) Code(s): I10 - ESSENTIAL (PRIMARY) HYPERTENSION Assessment/Plan Normal transfusion thresholds O2 as needed: currently she is comfortable off supplemental O2 GI evaluation has been called OOB to chair Incentive Spirometry SCDS : Caution with SQ Heparin Will follow Thank you. Dr Ford
--- NOTE | 2017-11-27 13:32 | PN ---
Progress Note, Physician History of Present Illness: Pt states that is better today, no SOB/ CP/ papitations/ abd pain. Pt walk (with her dg) this AM w/o BEATTY, CP. Pt's dg at bedside. - Current Medication List Current Medications: Active Medications Acetaminophen (Tylenol -) 650 mg PO Q6H PRN PRN Reason: FEVER Amlodipine Besylate (Norvasc -) 5 mg PO DAILY [facility] Last Admin: 11/27/17 09:07 Dose: 5 mg Atorvastatin Calcium (Lipitor -) 10 mg PO HS [facility] Last Admin: 11/26/17 22:02 Dose: 10 mg Brimonidine Tartrate (Alphagan 0.2% -) 1 drop OU DAILY [facility] Last Admin: 11/27/17 09:08 Dose: 1 drop Ferrous Sulfate (Feosol -) 325 mg PO BIDWM [facility] Last Admin: 11/27/17 09:06 Dose: 325 mg Heparin Sodium (Porcine) (Heparin -) 5,000 unit SQ BID [facility] Last Admin: 11/27/17 09:07 Dose: 5,000 unit Hydralazine HCl (Apresoline -) 10 mg PO BID [facility] Last Admin: 11/27/17 09:08 Dose: 10 mg Insulin Aspart (Novolog Vial Sliding Scale -) 1 vial SQ BIDAC [facility] PRN Reason: Protocol Last Admin: 11/27/17 06:11 Dose: Not Given Insulin Detemir (Levemir Vial) 40 units SQ ACBK [facility] Last Admin: 11/27/17 06:11 Dose: 40 units Methimazole (Tapazole -) 5 mg PO DAILY [facility] Last Admin: 11/27/17 09:07 Dose: 5 mg Pantoprazole Sodium (Protonix -) 40 mg PO HS [facility] Last Admin: 11/26/17 22:02 Dose: 40 mg Timolol Maleate (Timoptic 0.5%) 1 drop OU DAILY [facility] Last Admin: 11/27/17 09:09 Dose: 1 drop - Objective Vital Signs: Vital Signs Temperature 98.8 F 11/27/17 09:00 Pulse Rate 73 11/27/17 09:00 Respiratory Rate 20 11/27/17 09:00 Blood Pressure 150/60 11/27/17 09:00 O2 Sat by Pulse Oximetry (%) 96 11/26/17 21:00 Constitutional: Yes: No Distress, Calm Cardiovascular: Yes: Regular Rate and Rhythm, S1, S2 Respiratory: Yes: Regular, CTA Bilaterally. No: Rales Gastrointestinal: Yes: Normal Bowel Sounds, Soft, Tenderness Edema: LLE: 1+, RLE: 1+ Neurological: Yes: Alert, Oriented Labs: CBC, BMP 11/27/17 07:30 11/27/17 07:30 INR, PTT INR 1.03 (0.82-1.09) 11/25/17 17:45 Problem List - Problems (1) Anemia Assessment/Plan: likely multifactorial. s/p PRBC Transfusion (2 units) To f/u with Heme for further evaluation and treatmnet Code(s): D64.9 - ANEMIA, UNSPECIFIED Qualifiers: Anemia type: other cause Other causes of anemia: chronic disease, other Qualified Code(s): D63.8 - Anemia in other chronic diseases classified elsewhere (2) Acute on chronic renal failure Code(s): N17.9 - ACUTE KIDNEY FAILURE, UNSPECIFIED; N18.9 - CHRONIC KIDNEY DISEASE, UNSPECIFIED (3) CHF (congestive heart failure) Code(s): I50.9 - HEART FAILURE, UNSPECIFIED (4) Peripheral edema Code(s): R60.9 - EDEMA, UNSPECIFIED (5) Diabetes mellitus Code(s): E11.9 - TYPE 2 DIABETES MELLITUS WITHOUT COMPLICATIONS (6) HTN (hypertension) Code(s): I10 - ESSENTIAL (PRIMARY) HYPERTENSION (7) Weakness Code(s): R53.1 - WEAKNESS Assessment/Plan s/p 2 units of PRBC Tx Renal consult and Heme consult appreciated AM labs. Case was d/w pt's dg -at bedside. Case was reviewed with pt's nurse.
--- NOTE | 2017-11-27 19:24 | PN ---
Progress Note (short form) - Note Progress Note: ckd anemia Active Medications Acetaminophen (Tylenol -) 650 mg PO Q6H PRN PRN Reason: FEVER Amlodipine Besylate (Norvasc -) 5 mg PO DAILY [facility] Last Admin: 11/27/17 09:07 Dose: 5 mg Atorvastatin Calcium (Lipitor -) 10 mg PO HS [facility] Last Admin: 11/26/17 22:02 Dose: 10 mg Brimonidine Tartrate (Alphagan 0.2% -) 1 drop OU DAILY [facility] Last Admin: 11/27/17 09:08 Dose: 1 drop Ferrous Sulfate (Feosol -) 325 mg PO BIDWM [facility] Last Admin: 11/27/17 17:51 Dose: 325 mg Heparin Sodium (Porcine) (Heparin -) 5,000 unit SQ BID [facility] Last Admin: 11/27/17 09:07 Dose: 5,000 unit Hydralazine HCl (Apresoline -) 10 mg PO BID [facility] Last Admin: 11/27/17 09:08 Dose: 10 mg Insulin Aspart (Novolog Vial Sliding Scale -) 1 vial SQ BIDAC [facility] PRN Reason: Protocol Last Admin: 11/27/17 17:50 Dose: 6 units Insulin Detemir (Levemir Vial) 40 units SQ ACBK [facility] Last Admin: 11/27/17 06:11 Dose: 40 units Methimazole (Tapazole -) 5 mg PO DAILY [facility] Last Admin: 11/27/17 09:07 Dose: 5 mg Pantoprazole Sodium (Protonix -) 40 mg PO HS [facility] Last Admin: 11/26/17 22:02 Dose: 40 mg Timolol Maleate (Timoptic 0.5%) 1 drop OU DAILY [facility] Last Admin: 11/27/17 09:09 Dose: 1 drop Last Vital Signs Temp Pulse Resp BP Pulse Ox 98.7 F 74 20 155/59 96 11/27/17 14:40 11/27/17 14:40 11/27/17 09:00 11/27/17 14:40 11/27/17 09:00 CBC, BMP 11/27/17 07:30 11/27/17 07:30 IMP CKD acute worsening on admission may improve with transfusions of prbc anemia Plan follow labs
[2017-11-27] MEDS: PANTOPRAZOLE 40 MG TABLET (FP) PO SCH (22:18)
[2017-11-27] MEDS: FUROSEMIDE 20 MG TABLET (FP) PO SCH (22:18)
[2017-11-27] MEDS: ATORVASTATIN CA 10 MG TABLET (FP) PO SCH (22:18)
[2017-11-28] MEDS: INSULIN DETEMIR 100 UNITS/ML MDV SQ SCH (06:14)
[2017-11-28] MEDS: INSULIN SLIDING SCALE (NOVOLOG) 1 VIAL SQ SCH ×2 (06:15→16:47)
[2017-11-28] MEDS ORDERED: INSULIN (NOVOLOG) ASPART 100 UNITS/ML 10ML VIAL ONE ×2 (06:17→11:15)
[2017-11-28 08:04] LABS: HEMATOCRIT 25.3 % (32.4-45.2); HEMOGLOBIN 8.1 GM/dL (10.7-15.3); MCHC 31.8 g/dl (32.0-36.0); MEAN CELL VOLUME 84.8 fl (80-96); MEAN PLT VOLUME 9.1 fl (7.5-11.1); PLATELET COUNT 170 K/MM3 (134-434); RBC 2.99 M/mm3 (3.60-5.2); RDW 16.4 % (11.6-15.6); WHITE BLOOD COUNT 5.9 K/mm3 (4.0-10.0)
[2017-11-28] MEDS: FERROUS SO4 325 MG TABLET (FP) PO SCH ×2 (08:17→16:47)
[2017-11-28 08:20] LABS: ANION GAP 7 (8-16); BLOOD UREA NITROGEN 31 mg/dL (7-18); CHLORIDE 106 mmol/L (98-107); CO2 31 mmol/L (21-32); CREATININE 2.1 mg/dL (0.55-1.02); GLUCOSE,RANDOM 105 mg/dL (74-106); POTASSIUM 4.4 mmol/L (3.5-5.1); SODIUM 144 mmol/L (136-145)
--- NOTE | 2017-11-28 10:17 | PN ---
Progress Note (short form) - Note Progress Note: Full consult dictated. Plan discussed with Dr. Albert Wilkinson
[2017-11-28] MEDS ORDERED: PT OWN MED DRAWER 7, Y5N ONE (10:43)
[2017-11-28] MEDS: POLYETHYLENE GLYCOL 3350 119 GM BTL PO SCH (10:58)
[2017-11-28] MEDS: hydrALAZINE HCL 10 MG TABLET PO SCH ×2 (11:01→21:55)
[2017-11-28] MEDS: amLODIPine BESYLATE 5 MG TABLET (FP) PO SCH (11:01)
[2017-11-28] MEDS: METHIMAZOLE 5 MG TABLET (FP) PO SCH (11:01)
[2017-11-28] MEDS: FUROSEMIDE 20 MG TABLET (FP) PO SCH ×2 (11:02→21:54)
[2017-11-28] MEDS: HEPARIN NA (PORCINE) 5,000 UNITS/ML 1ML VIAL SQ SCH ×2 (11:02→21:54)
[2017-11-28] MEDS: BRIMONIDINE TARTRATE 0.2% OPHTHALMIC 5 ML BOTTLE OU SCH (11:02)
[2017-11-28] MEDS: TIMOLOL 0.5% OPHTHALMIC SOL 5 ML BOTTLE OU SCH (11:02)
--- NOTE | 2017-11-28 12:01 | PN ---
Progress Note (short form) - Note Progress Note: PULMONARY States breathing is improved after transfusions. No chest pain or cough. Last Vital Signs Temp Pulse Resp BP Pulse Ox 98.6 F 75 18 162/67 96 11/28/17 08:00 11/28/17 08:00 11/28/17 08:00 11/28/17 08:00 11/27/17 21:00 Gen: NAD at rest Heart: RRR Lung: decreased breath sounds at the bases Abd: soft, nontender Ext: no edema CBC, BMP 11/28/17 07:15 11/28/17 07:15 Active Medications Acetaminophen (Tylenol -) 650 mg PO Q6H PRN PRN Reason: FEVER Amlodipine Besylate (Norvasc -) 5 mg PO DAILY [facility] Last Admin: 11/28/17 11:01 Dose: 5 mg Atorvastatin Calcium (Lipitor -) 10 mg PO HS [facility] Last Admin: 11/27/17 22:18 Dose: 10 mg Brimonidine Tartrate (Alphagan 0.2% -) 1 drop OU DAILY [facility] Last Admin: 11/28/17 11:02 Dose: 1 drop Ferrous Sulfate (Feosol -) 325 mg PO BIDWM [facility] Last Admin: 11/28/17 08:17 Dose: 325 mg Furosemide (Lasix -) 20 mg PO BID [facility] Last Admin: 11/28/17 11:02 Dose: 20 mg Heparin Sodium (Porcine) (Heparin -) 5,000 unit SQ BID [facility] Last Admin: 11/28/17 11:02 Dose: 5,000 unit Hydralazine HCl (Apresoline -) 10 mg PO BID [facility] Last Admin: 11/28/17 11:01 Dose: 10 mg Insulin Aspart (Novolog Vial Sliding Scale -) 1 vial SQ BIDAC [facility] PRN Reason: Protocol Last Admin: 11/28/17 06:15 Dose: Not Given Insulin Detemir (Levemir Vial) 40 units SQ ACBK [facility] Last Admin: 11/28/17 06:14 Dose: 40 units Methimazole (Tapazole -) 5 mg PO DAILY [facility] Last Admin: 11/28/17 11:01 Dose: 5 mg Pantoprazole Sodium (Protonix -) 40 mg PO HS [facility] Last Admin: 11/27/17 22:18 Dose: 40 mg Polyethylene Glycol (Miralax (For Daily Use) -) 17 gm PO DAILY [facility] Last Admin: 11/28/17 10:58 Dose: 17 gm Timolol Maleate (Timoptic 0.5%) 1 drop OU DAILY [facility] Last Admin: 11/28/17 11:02 Dose: 1 drop A/P Anemia s/p PRBC transfusions Acute on Chronic Renal Failure CHF HTN DM - monitor H/H - transfuse as needed - lasix - monitor urine output, creatinine - DVT prophylaxis
--- NOTE | 2017-11-28 12:26 | CONS ---
DATE OF CONSULTATION: 11/28/2017 REQUESTING PHYSICIAN Albert Wilkinson MD HISTORY: The patient is a 77-year-old female admitted through [facility] Room for evaluation of anemia. The patient denies any overt rectal bleeding, melena, abdominal pain. She has been evaluated by Hematology who felt that this was secondary to anemia of chronic disease plus or minus GI losses. I have been asked to evaluate further. She does have a history of anemia dating back from 2014. She was also admitted last year in March for evaluation of hypertension, anemia, and renal insufficiency. She has been evaluated by myself in the past as well as Dr. Hiram Heath. In terms of anemia workup, she had a workup [place] [address] Heath for anemia. She was noted to have B12 deficiency as well as angiodysplasia in the colon during a colonoscopy at that time, and he recommended B12 supplementation and avoidance of all NSAIDs. He also felt an epigastric mass, which was noted on CT scan. She had a sonogram of the abdomen in February 2014 that, again, demonstrated a prominent left lobe of the liver. At that time, he felt she may have fatty liver disease, and he also performed an upper endoscopy that revealed a 3-cm submucosal mass in 2010. Subsequent endoscopic evaluations included a repeat upper endoscopy performed by myself January 16, 2015 that revealed a nonobstructing Schatzki ring, 2-cm hiatal hernia, small varix in the GE junction, mild gastritis, and also revealed a submucosal lesion in the body of the stomach as noted previously. She does have an exophytic gastric mass noted on previous imaging studies, and workup of this has been deferred by the patient and her family in the past. She also underwent colonoscopy on December 04, 2015 performed by myself that revealed an AVM in the transverse colon. She underwent APC ablation, and she was noted to have a 2-cm flat cecal polyp saddling the ileocecal valve biopsies of which revealed there to be high-grade dysplasia within the polyp, and this led the patient to undergo subsequent right hemicolectomy, which she opted for as opposed to repeated surveillance colonoscopies. Subsequent to that, it appears as though she developed cholecystitis, which was treated conservatively with cholecystostomy tube at an outside institution. She did not receive a cholecystectomy. During her hemicolectomy as well, liver biopsy was performed that revealed changes consistent with cirrhosis. Her most recent colonoscopy was on April 18, 2017 performed by myself. Her last endoscopic procedures were performed in April 2017. Her upper endoscopy was performed on April 18, [address] Wilman Ching, and it revealed a normal esophagus, the submucosal gastric mass as described previously, small, nonbleeding ulcers in the gastric antrum, small, nonbleeding ulcer in the 1st portion of the duodenum, a small angiodysplastic lesion with no bleeding in the 2nd part of the duodenum. He advised avoidance of NSAIDs, Gaviscon, pantoprazole 40 mg once daily endoscopic ultrasound, and CT scan. She underwent colonoscopy performed by myself April 19, 2017 that revealed 3 diminutive flat polyps in the rectosigmoid colon, vascular ectasias in the transverse colon. One was fiery red and did ooze when the endoscope passed over it. Argon Plasma A Operator was applied to the site, and I did suspect other ectasias along the GI tract also contributed to her guaiac-positive stool. At that time, there was evidence of an ileocolonic surgical anastomosis in the proximal half of the colon. I advised that if overt bleeding, persistent worsening of anemia, guaiac-positive stool without alternate etiologies of anemia persisted, capsule endoscopy as an outpatient could be considered as well as Hematology evaluation, iron supplementation, high-fiber diet, and avoidance of NSAIDs. Pathology reports from the colonoscopy revealed the polyps to be hyperplastic and of the biopsies of the stomach were negative for Helicobacter pylori. There was no submucosal tissue noted to evaluate the submucosal lesion. Currently, aside from constipation, she denies any other GI complaints. 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 PAST SURGICAL HISTORY: Includes appendectomy, right hemicolectomy in 2016, cholecystostomy tube secondary to cholecystitis in 2016 that underwent percutaneous drainage, eye surgery for glaucoma. SOCIAL HISTORY: She was born in the [place]. Came to the [place] at age 22. She is [place] speaking. She is unemployed. Former smoker. No history of alcohol abuse, intravenous drug abuse, or illicit drugs. FAMILY HISTORY: Father as he was killed. Mother from complications of heart disease. She has siblings. One sister of uterine cancer. She had 11 children. Two in infancy/childhood. One at age 2 from liver problem. One son at age 45 from an accidental . MEDICATIONS: Prior to admission include simvastatin, ferrous sulfate once daily, acetaminophen, vitamin D, Combigan, amlodipine, methimazole, risedronate, furosemide, pantoprazole, insulin, hydralazine. REVIEW OF SYSTEMS: She denied any chest pain. She does have a history of chronic shortness of breath. She denies any nausea, vomiting, dysphagia, or odynophagia. No fevers or chills. Remainder of her GI review of systems as noted in the history of present illness. No lower extremity swelling. PHYSICAL EXAMINATION: General: The patient is found lying comfortably in her bed. She appears to be in no apparent distress. Vital Signs: Temperature 98.6, pulse 75, blood pressure 162/67. HEENT: Her sclerae are anicteric. Neck: Supple. Heart: Reveals a regular rate and rhythm. She does have a 2/6 systolic murmur heard best at the left sternal border. Lungs: Reveal mild expiratory wheezing bilaterally at the bases. Abdomen: Reveals vertical right and midline abdominal surgical scars. She does have a nontender incisional hernia in the midline. She has normoactive bowel sounds. No hepatosplenomegaly is appreciated. No masses are palpated. No tenderness is elicited. Extremities: Reveal no bilateral lower extremity edema. Rectal: Digital rectal exam no external lesions and no masses. She has a scant amount of light jones stool in the rectal vault, which is guaiac negative. LABORATORY EVALUATION: White blood count 5.9, hemoglobin 8.1. Of note, this is after 2 units of packed red blood cells. Initial hemoglobin is 6.2, MCV 84.8, platelet count 170, INR 1.03. Sodium 144, potassium 4.4, chloride 108, bicarbonate 31, BUN 31, creatinine 2.1. She is occult blood negative. Specimen sent on November 25, 2017. Radiology reports: She had a chest x-ray performed that revealed no sign of failure. She had an enlarged heart with elevated right hemidiaphragm and right basilar atelectasis. IMPRESSION: This is a 77-year-old female with worsening of a chronic normocytic anemia without overt signs of gastrointestinal bleeding. She was guaiac negative x2, one from my examination and one from specimen sent on the . She is currently being evaluated by Hematology. I did discuss the possibility of a repeat upper endoscopy at this time given previous findings with the patient's daughter via telephone this morning; however, she does not want her mother undergoing invasive testing at this time and would prefer attempts at conservative measures such as medical therapy. I would continue Protonix 40 mg once daily, continue Hematology workup to look for alternate etiologies of her anemia, Nephrology is evaluating her as well given her renal insufficiency. I am deferring endoscopic evaluation at this time. Consideration should be given to have her follow up with Dr. Heath/Dr. Villa as an outpatient to discuss the possibility of a capsule endoscopy to complete evaluation of her intestinal tract as she has had recent upper endoscopy and colonoscopy. I suspect that vascular ectasias throughout her intestinal tract may indeed play a role in her anemia; however, concomitant etiologies need to be excluded as well. Please recall as necessary. I thank you for this consultative opportunity. KISHORE PALOMINO DO CD/[id number]
--- NOTE | 2017-11-28 16:13 | PN ---
Progress Note, Physician History of Present Illness: Pt seen and examined at bedside. She still has shortness of breath. - Current Medication List Current Medications: Active Medications Acetaminophen (Tylenol -) 650 mg PO Q6H PRN PRN Reason: FEVER Amlodipine Besylate (Norvasc -) 5 mg PO DAILY [facility] Last Admin: 11/28/17 11:01 Dose: 5 mg Atorvastatin Calcium (Lipitor -) 10 mg PO HS [facility] Last Admin: 11/27/17 22:18 Dose: 10 mg Brimonidine Tartrate (Alphagan 0.2% -) 1 drop OU DAILY [facility] Last Admin: 11/28/17 11:02 Dose: 1 drop Ferrous Sulfate (Feosol -) 325 mg PO BIDWM [facility] Last Admin: 11/28/17 08:17 Dose: 325 mg Furosemide (Lasix -) 20 mg PO BID [facility] Last Admin: 11/28/17 11:02 Dose: 20 mg Heparin Sodium (Porcine) (Heparin -) 5,000 unit SQ BID [facility] Last Admin: 11/28/17 11:02 Dose: 5,000 unit Hydralazine HCl (Apresoline -) 10 mg PO BID [facility] Last Admin: 11/28/17 11:01 Dose: 10 mg Insulin Aspart (Novolog Vial Sliding Scale -) 1 vial SQ BIDAC [facility] PRN Reason: Protocol Last Admin: 11/28/17 06:15 Dose: Not Given Insulin Detemir (Levemir Vial) 40 units SQ ACBK [facility] Last Admin: 11/28/17 06:14 Dose: 40 units Methimazole (Tapazole -) 5 mg PO DAILY [facility] Last Admin: 11/28/17 11:01 Dose: 5 mg Pantoprazole Sodium (Protonix -) 40 mg PO HS [facility] Last Admin: 11/27/17 22:18 Dose: 40 mg Polyethylene Glycol (Miralax (For Daily Use) -) 17 gm PO DAILY [facility] Last Admin: 11/28/17 10:58 Dose: 17 gm Timolol Maleate (Timoptic 0.5%) 1 drop OU DAILY [facility] Last Admin: 11/28/17 11:02 Dose: 1 drop - Objective Vital Signs: Vital Signs Temperature 98.1 F 11/28/17 14:00 Pulse Rate 69 11/28/17 14:00 Respiratory Rate 17 11/28/17 14:00 Blood Pressure 124/59 11/28/17 14:00 O2 Sat by Pulse Oximetry (%) 99 11/28/17 09:00 Constitutional: Yes: Calm Eyes: Yes: Conjunctiva Clear HENT: Yes: Atraumatic Neck: Yes: Supple Cardiovascular: Yes: S1, S2 Respiratory: Yes: CTA Bilaterally, On Nasal O2 Gastrointestinal: Yes: Soft, Abdomen, Obese Genitourinary: Yes: WNL Musculoskeletal: Yes: WNL Edema: Yes Edema: LLE: 1+, RLE: 1+ Neurological: Yes: Oriented Psychiatric: Yes: Oriented Labs: CBC, BMP 11/28/17 07:15 11/28/17 07:15 INR, PTT INR 1.03 (0.82-1.09) 11/25/17 17:45 Problem List - Problems (1) Anemia Code(s): D64.9 - ANEMIA, UNSPECIFIED Qualifiers: Anemia type: other cause Other causes of anemia: chronic disease, other Qualified Code(s): D63.8 - Anemia in other chronic diseases classified elsewhere (2) CHF (congestive heart failure) Code(s): I50.9 - HEART FAILURE, UNSPECIFIED (3) Renal insufficiency Code(s): N28.9 - DISORDER OF KIDNEY AND URETER, UNSPECIFIED (4) Diabetes mellitus Code(s): E11.9 - TYPE 2 DIABETES MELLITUS WITHOUT COMPLICATIONS (5) HTN (hypertension) Code(s): I10 - ESSENTIAL (PRIMARY) HYPERTENSION Assessment/Plan Current Medications Generic Name Dose Route Start Last Admin Trade Name Freq PRN Reason Stop Dose Admin Acetaminophen 650 mg 11/26/17 08:24 Tylenol - PO Q6H PRN FEVER Amlodipine Besylate 5 mg 11/26/17 10:00 11/28/17 11:01 Norvasc - PO 5 mg DAILY TRIS[facility] Administration Atorvastatin Calcium 10 mg 11/26/17 22:00 11/27/17 22:18 Lipitor - PO 10 mg HS [facility] Administration Brimonidine Tartrate 1 drop 11/26/17 10:00 11/28/17 11:02 Alphagan 0.2% - OU 1 drop DAILY [facility] Administration Ferrous Sulfate 325 mg 11/26/17 10:00 11/28/17 08:17 Feosol - PO 325 mg BIDWM [facility] Administration Furosemide 20 mg 11/27/17 22:00 11/28/17 11:02 Lasix - PO 20 mg BID [facility] Administration Heparin Sodium (Porcine) 5,000 unit 11/26/17 10:00 11/28/17 11:02 Heparin - SQ 5,000 unit BID [facility] Administration Hydralazine HCl 10 mg 11/26/17 10:00 11/28/17 11:01 Apresoline - PO 10 mg BID [facility] Administration Insulin Aspart 1 vial 11/26/17 10:00 11/28/17 06:15 Novolog Vial Sliding Scale - SQ Not Given BIDAC [facility] Protocol Insulin Detemir 40 units 11/27/17 07:00 11/28/17 06:14 Levemir Vial SQ 40 units ACBK [facility] Administration Methimazole 5 mg 11/26/17 10:00 11/28/17 11:01 Tapazole - PO 5 mg DAILY [facility] Administration Pantoprazole Sodium 40 mg 11/26/17 22:00 11/27/17 22:18 Protonix - PO 40 mg HS [facility] Administration Polyethylene Glycol 17 gm 11/29/17 10:00 11/28/17 10:58 Miralax (For Daily Use) - PO 17 gm DAILY [facility] Administration Timolol Maleate 1 drop 11/26/17 10:00 11/28/17 11:02 Timoptic 0.5% OU 1 drop DAILY [facility] Administration Impression 1. CKD with acute component 2. anemia 3. CHF 4. HTN 5. DM Plan - monitor renal function - cont lasix - monitor hg - repeat labs in am - called office for last labs - will follow Dr Tubbs
--- NOTE | 2017-11-28 16:28 | PN ---
Progress Note, Physician History of Present Illness: Pt states that is better today, no SOB/ CP/ papitations/ abd pain. Pt walk again this AM w/o BEATTY, CP. Pt's grandson is at bedside. - Current Medication List Current Medications: Active Medications Acetaminophen (Tylenol -) 650 mg PO Q6H PRN PRN Reason: FEVER Amlodipine Besylate (Norvasc -) 5 mg PO DAILY [facility] Last Admin: 11/28/17 11:01 Dose: 5 mg Atorvastatin Calcium (Lipitor -) 10 mg PO HS [facility] Last Admin: 11/27/17 22:18 Dose: 10 mg Brimonidine Tartrate (Alphagan 0.2% -) 1 drop OU DAILY [facility] Last Admin: 11/28/17 11:02 Dose: 1 drop Ferrous Sulfate (Feosol -) 325 mg PO BIDWM [facility] Last Admin: 11/28/17 08:17 Dose: 325 mg Furosemide (Lasix -) 20 mg PO BID [facility] Last Admin: 11/28/17 11:02 Dose: 20 mg Heparin Sodium (Porcine) (Heparin -) 5,000 unit SQ BID [facility] Last Admin: 11/28/17 11:02 Dose: 5,000 unit Hydralazine HCl (Apresoline -) 10 mg PO BID [facility] Last Admin: 11/28/17 11:01 Dose: 10 mg Insulin Aspart (Novolog Vial Sliding Scale -) 1 vial SQ BIDAC [facility] PRN Reason: Protocol Last Admin: 11/28/17 06:15 Dose: Not Given Insulin Detemir (Levemir Vial) 40 units SQ ACBK [facility] Last Admin: 11/28/17 06:14 Dose: 40 units Methimazole (Tapazole -) 5 mg PO DAILY [facility] Last Admin: 11/28/17 11:01 Dose: 5 mg Pantoprazole Sodium (Protonix -) 40 mg PO HS [facility] Last Admin: 11/27/17 22:18 Dose: 40 mg Polyethylene Glycol (Miralax (For Daily Use) -) 17 gm PO DAILY [facility] Last Admin: 11/28/17 10:58 Dose: 17 gm Timolol Maleate (Timoptic 0.5%) 1 drop OU DAILY [facility] Last Admin: 11/28/17 11:02 Dose: 1 drop - Objective Vital Signs: Vital Signs Temperature 98.1 F 11/28/17 14:00 Pulse Rate 69 11/28/17 14:00 Respiratory Rate 17 11/28/17 14:00 Blood Pressure 124/59 11/28/17 14:00 O2 Sat by Pulse Oximetry (%) 99 11/28/17 09:00 Constitutional: Yes: No Distress, Calm Cardiovascular: Yes: Regular Rate and Rhythm, S1, S2 Respiratory: Yes: Regular, CTA Bilaterally. No: Rales Gastrointestinal: Yes: Normal Bowel Sounds, Soft. No: Tenderness Edema: LLE: 1+, RLE: 1+ Neurological: Yes: Alert, Oriented Labs: CBC, BMP 11/28/17 07:15 11/28/17 07:15 INR, PTT INR 1.03 (0.82-1.09) 11/25/17 17:45 Problem List - Problems (1) Anemia Code(s): D64.9 - ANEMIA, UNSPECIFIED Qualifiers: Anemia type: other cause Other causes of anemia: chronic disease, other Qualified Code(s): D63.8 - Anemia in other chronic diseases classified elsewhere (2) Acute on chronic renal failure Code(s): N17.9 - ACUTE KIDNEY FAILURE, UNSPECIFIED; N18.9 - CHRONIC KIDNEY DISEASE, UNSPECIFIED (3) CHF (congestive heart failure) Code(s): I50.9 - HEART FAILURE, UNSPECIFIED (4) Peripheral edema Code(s): R60.9 - EDEMA, UNSPECIFIED (5) Diabetes mellitus Code(s): E11.9 - TYPE 2 DIABETES MELLITUS WITHOUT COMPLICATIONS (6) HTN (hypertension) Code(s): I10 - ESSENTIAL (PRIMARY) HYPERTENSION (7) Weakness Code(s): R53.1 - WEAKNESS Assessment/Plan s/p 2 units of PRBC Tx; stable H/H Renal, Heme, GI consults appreciated. Case was d/w Dr Chong, pt's dg refused EGD. Case was d/w Dr. Reid, pt would receive Iro infusion AM labs. Case was d/w pt's grandson (at bedside); DC planing fro tomorrow. Case was reviewed with pt's nurse.
--- NOTE | 2017-11-28 21:00 | PN ---
Progress Note (short form) - Note Progress Note: PAtient seen and examined Feels better. Denies any complaints Last Vital Signs Temp Pulse Resp BP Pulse Ox 97.1 F L 97 H 20 160/67 95 11/28/17 18:41 11/28/17 18:41 11/28/17 18:41 11/28/17 18:41 11/28/17 20:50 Cor: RSR, No murmurs, No gallops Lungs: Clear to P&A Abd: Soft, Normal bowel sounds, No organomegaly Ext:No significant edema Abnormal Lab Results 11/25/17 11/28/17 11/28/17 17:45 07:15 07:15 RBC 2.99 L Hgb 8.1 L Hct 25.3 L MCHC 31.8 L RDW 16.4 H Anion Gap 7 L BUN 31 H Creatinine 2.1 H Crossmatch See Detail Active Medications Generic Name Dose Route Start Last Admin Trade Name Freq PRN Reason Stop Dose Admin Acetaminophen 650 mg 11/26/17 08:24 Tylenol - PO Q6H PRN FEVER Amlodipine Besylate 5 mg 11/26/17 10:00 11/28/17 11:01 Norvasc - PO 5 mg DAILY [facility] Administration Atorvastatin Calcium 10 mg 11/26/17 22:00 11/27/17 22:18 Lipitor - PO 10 mg HS [facility] Administration Brimonidine Tartrate 1 drop 11/26/17 10:00 11/28/17 11:02 Alphagan 0.2% - OU 1 drop DAILY [facility] Administration Ferrous Sulfate 325 mg 11/26/17 10:00 11/28/17 16:47 Feosol - PO 325 mg BIDWM [facility] Administration Furosemide 20 mg 11/27/17 22:00 11/28/17 11:02 Lasix - PO 20 mg BID [facility] Administration Heparin Sodium (Porcine) 5,000 unit 11/26/17 10:00 11/28/17 11:02 Heparin - SQ 5,000 unit BID [facility] Administration Hydralazine HCl 10 mg 11/26/17 10:00 11/28/17 11:01 Apresoline - PO 10 mg BID [facility] Administration Insulin Aspart 1 vial 11/26/17 10:00 11/28/17 16:47 Novolog Vial Sliding Scale - SQ 4 units BIDAC [facility] Administration Protocol Insulin Detemir 40 units 11/27/17 07:00 11/28/17 06:14 Levemir Vial SQ 40 units ACBK [facility] Administration Methimazole 5 mg 11/26/17 10:00 11/28/17 11:01 Tapazole - PO 5 mg DAILY [facility] Administration Pantoprazole Sodium 40 mg 11/26/17 22:00 11/27/17 22:18 Protonix - PO 40 mg HS [facility] Administration Polyethylene Glycol 17 gm 11/29/17 10:00 11/28/17 10:58 Miralax (For Daily Use) - PO 17 gm DAILY [facility] Administration Timolol Maleate 1 drop 11/26/17 10:00 11/28/17 11:02 Timoptic 0.5% OU 1 drop DAILY [facility] Administration A/P 77 y/o with DM HTN< hyperlipidemia, obesity, TIA, CKD come sin with shortness of breath Symptomatic anemia, CKD Anemia of chronic disease+/- gi losses On ferrous sulfate PO--iron studies --low saturation 9% -- will dose 200mg IV iron today and tomorrow may be a candidate for procrit discussed with daughter side effects/benefits/risks of iv iron
[2017-11-28] MEDS ORDERED: IRON SUCROSE INJECTION 200 MG in SODIUM CHLORIDE 240 ML IVPB ONE (21:45)
[2017-11-28] MEDS: ATORVASTATIN CA 10 MG TABLET (FP) PO SCH (21:54)
[2017-11-28] MEDS: PANTOPRAZOLE 40 MG TABLET (FP) PO SCH (21:54)
[2017-11-28] MEDS ORDERED: IRON SUCROSE INJECTION 200 MG in SODIUM CHLORIDE 100 ML IVPB ONE (22:00)
[2017-11-29] MEDS: INSULIN SLIDING SCALE (NOVOLOG) 1 VIAL SQ SCH (06:19)
[2017-11-29] MEDS: INSULIN DETEMIR 100 UNITS/ML MDV SQ SCH (06:23)
[2017-11-29 09:21] LABS: ANION GAP 6 (8-16); BLOOD UREA NITROGEN 31 mg/dL (7-18); CALCIUM 9.8 mg/dL (8.5-10.1); CHLORIDE 104 mmol/L (98-107); CO2 32 mmol/L (21-32); CREATININE 1.8 mg/dL (0.55-1.02); GLUCOSE,RANDOM 109 mg/dL (74-106); POTASSIUM 4.7 mmol/L (3.5-5.1); SODIUM 142 mmol/L (136-145)
[2017-11-29] MEDS ORDERED: PT OWN MED DRAWER 7, Y5N ONE (10:10)
[2017-11-29] MEDS: amLODIPine BESYLATE 5 MG TABLET (FP) PO SCH (10:15)
[2017-11-29] MEDS: hydrALAZINE HCL 10 MG TABLET PO SCH (10:15)
[2017-11-29] MEDS: FUROSEMIDE 20 MG TABLET (FP) PO SCH (10:15)
[2017-11-29] MEDS: POLYETHYLENE GLYCOL 3350 119 GM BTL PO SCH (10:15)
[2017-11-29] MEDS: HEPARIN NA (PORCINE) 5,000 UNITS/ML 1ML VIAL SQ SCH (10:15)
[2017-11-29] MEDS: METHIMAZOLE 5 MG TABLET (FP) PO SCH (10:15)
[2017-11-29] MEDS: BRIMONIDINE TARTRATE 0.2% OPHTHALMIC 5 ML BOTTLE OU SCH (10:16)
[2017-11-29] MEDS: TIMOLOL 0.5% OPHTHALMIC SOL 5 ML BOTTLE OU SCH (10:17)
--- NOTE | 2017-11-29 11:29 | DS ---
Physical Examination Vital Signs: Vital Signs Temperature 98.4 F 11/29/17 06:50 Pulse Rate 73 11/29/17 06:50 Respiratory Rate 20 11/29/17 06:50 Blood Pressure 154/62 11/29/17 06:50 O2 Sat by Pulse Oximetry (%) 95 11/28/17 20:50 Constitutional: Yes: No Distress, Calm Cardiovascular: Yes: Regular Rate and Rhythm, S1, S2 Respiratory: Yes: Regular, CTA Bilaterally. No: Rales Gastrointestinal: Yes: Normal Bowel Sounds, Soft, Tenderness Edema: LLE: Trace, RLE: Trace Neurological: Yes: Alert, Oriented Labs: CBC, BMP 11/28/17 07:15 11/29/17 07:30 Discharge Summary Reason For Visit: ANEMIA Current Active Problems Anasarca (Acute) Anemia (Chronic) Hospital Course: Pt came to ER with anemia ( in my office Hb was 5.7) and was SOB and weak with walking. Pt received 2 units of PRBC, was seen by Renal (Dr Tubbs/ [place]), Heme (Dr. Reid), GI (Dr. Reji Chong, recommended EGD but dg refused). Pt was noticed to have low iron, Dr. Reid gave pt IV iron. Pt to be DC'ed home today with office F/u. Condition: Fair - Instructions Diet, Activity, Other Instructions: Resume Diet Call for appointments Referrals: Mark Villa MD [Staff Physician] - 2 Weeks AndAlbert villa MD [Primary Care Provider] - (in 1-2 weeks) Toñito Chawla MD [Staff Physician] - (within 1 week) - Home Medications Comprehensive Discharge Medication List: Ambulatory Orders this might NOT be accurate Ferrous Sulfate [Feosol] 325 mg PO BID 01/14/15 Simvastatin [Zocor -] 20 mg PO HS 01/14/15 Acetaminophen [Tylenol .Regular Strength -] 650 mg PO Q6H PRN #0 tablet Amlodipine Besylate [Norvasc -] 5 mg PO DAILY 12/04/15 Brimonidine Tartrate/Timolol [Combigan 0.2%-0.5% Eye Drops] 1 drop OU DAILY Cholecalciferol (Vitamin D3) [Vitamin D] 2,000 unit PO DAILY 12/04/15 Methimazole 5 mg PO DAILY 04/01/17 Risedronate Sodium 35 mg PO MO 04/01/17 Furosemide [Lasix -] 20 mg PO BID #60 tablet 04/22/17 Hydralazine HCl [Apresoline -] 10 mg PO BID 11/25/17 Insulin (Levemir) [Levemir Vial] 40 units SQ ACBK 11/25/17 Insulin Sliding Scale [Novolog Vial Sliding Scale -] 1 vial SQ ACHS PRN Lecithin, Soy [Lecithin] 2 tab PO DAILY 11/25/17 Firestone-3 Fatty Acids/Fish Oil [Fish Oil 1,000 mg Capsule] 1 each PO DAILY Pantoprazole Sodium [Protonix -] 40 mg PO HS 11/25/17
--- NOTE | 2017-11-29 11:45 | PN ---
Progress Note (short form) - Note Progress Note: PULMONARY Denies shortness of breath. No chest pain or cough. Last Vital Signs Temp Pulse Resp BP Pulse Ox 98.4 F 73 20 154/62 95 11/29/17 06:50 11/29/17 06:50 11/29/17 06:50 11/29/17 06:50 11/28/17 20:50 Gen: NAD at rest Heart: RRR Lung: decreased breath sounds at the bases Abd: soft, nontender Ext: distal edema CBC, BMP 11/28/17 07:15 11/29/17 07:30 Active Medications Acetaminophen (Tylenol -) 650 mg PO Q6H PRN PRN Reason: FEVER Amlodipine Besylate (Norvasc -) 5 mg PO DAILY [facility] Last Admin: 11/29/17 10:15 Dose: 5 mg Atorvastatin Calcium (Lipitor -) 10 mg PO HS [facility] Last Admin: 11/28/17 21:54 Dose: 10 mg Brimonidine Tartrate (Alphagan 0.2% -) 1 drop OU DAILY [facility] Last Admin: 11/29/17 10:16 Dose: 1 drop Furosemide (Lasix -) 20 mg PO BID [facility] Last Admin: 11/29/17 10:15 Dose: 20 mg Heparin Sodium (Porcine) (Heparin -) 5,000 unit SQ BID [facility] Last Admin: 11/29/17 10:15 Dose: 5,000 unit Hydralazine HCl (Apresoline -) 10 mg PO BID [facility] Last Admin: 11/29/17 10:15 Dose: 10 mg Insulin Aspart (Novolog Vial Sliding Scale -) 1 vial SQ BIDAC [facility] PRN Reason: Protocol Last Admin: 11/29/17 06:19 Dose: Not Given Insulin Detemir (Levemir Vial) 40 units SQ ACBK [facility] Last Admin: 11/29/17 06:23 Dose: 40 units Methimazole (Tapazole -) 5 mg PO DAILY [facility] Last Admin: 11/29/17 10:15 Dose: 5 mg Pantoprazole Sodium (Protonix -) 40 mg PO HS [facility] Last Admin: 11/28/17 21:54 Dose: 40 mg Polyethylene Glycol (Miralax (For Daily Use) -) 17 gm PO DAILY [facility] Last Admin: 11/29/17 10:15 Dose: 17 gm Timolol Maleate (Timoptic 0.5%) 1 drop OU DAILY [facility] Last Admin: 11/29/17 10:17 Dose: 1 drop A/P Anemia s/p PRBC transfusions Acute on Chronic Renal Failure CHF HTN DM - monitor H/H - transfuse as needed - lasix - monitor urine output, creatinine - DVT prophylaxis - d/c planning
[2017-11-29] MEDS ORDERED: IRON SUCROSE INJECTION 200 MG in SODIUM CHLORIDE 240 ML IVPB ONE (13:39)
[2017-11-29 15:22] VITALS: PULSE 66
--- NOTE | 2017-11-29 15:36 | PN ---
Progress Note, Physician History of Present Illness: Pt seen and examined at bedside. She is awake and alert. She feels that he breathing is improved. - Current Medication List Current Medications: Active Medications Acetaminophen (Tylenol -) 650 mg PO Q6H PRN PRN Reason: FEVER Amlodipine Besylate (Norvasc -) 5 mg PO DAILY [facility] Last Admin: 11/29/17 10:15 Dose: 5 mg Atorvastatin Calcium (Lipitor -) 10 mg PO HS [facility] Last Admin: 11/28/17 21:54 Dose: 10 mg Brimonidine Tartrate (Alphagan 0.2% -) 1 drop OU DAILY [facility] Last Admin: 11/29/17 10:16 Dose: 1 drop Furosemide (Lasix -) 20 mg PO BID [facility] Last Admin: 11/29/17 10:15 Dose: 20 mg Heparin Sodium (Porcine) (Heparin -) 5,000 unit SQ BID [facility] Last Admin: 11/29/17 10:15 Dose: 5,000 unit Hydralazine HCl (Apresoline -) 10 mg PO BID [facility] Last Admin: 11/29/17 10:15 Dose: 10 mg Insulin Aspart (Novolog Vial Sliding Scale -) 1 vial SQ BIDAC [facility] PRN Reason: Protocol Last Admin: 11/29/17 06:19 Dose: Not Given Insulin Detemir (Levemir Vial) 40 units SQ ACBK [facility] Last Admin: 11/29/17 06:23 Dose: 40 units Methimazole (Tapazole -) 5 mg PO DAILY [facility] Last Admin: 11/29/17 10:15 Dose: 5 mg Pantoprazole Sodium (Protonix -) 40 mg PO HS [facility] Last Admin: 11/28/17 21:54 Dose: 40 mg Polyethylene Glycol (Miralax (For Daily Use) -) 17 gm PO DAILY [facility] Last Admin: 11/29/17 10:15 Dose: 17 gm Timolol Maleate (Timoptic 0.5%) 1 drop OU DAILY [facility] Last Admin: 11/29/17 10:17 Dose: 1 drop - Objective Vital Signs: Vital Signs Temperature 97.9 F 11/29/17 15:15 Pulse Rate 66 11/29/17 15:15 Respiratory Rate 20 11/29/17 15:15 Blood Pressure 152/55 11/29/17 15:15 O2 Sat by Pulse Oximetry (%) 95 11/28/17 20:50 Constitutional: Yes: Calm Eyes: Yes: Conjunctiva Clear HENT: Yes: Atraumatic Neck: Yes: Supple Cardiovascular: Yes: Regular Rate and Rhythm, S1, S2 Respiratory: Yes: CTA Bilaterally Gastrointestinal: Yes: Normal Bowel Sounds, Soft, Abdomen, Obese Genitourinary: Yes: WNL Musculoskeletal: Yes: WNL Edema: Yes Edema: LLE: 1+, RLE: 1+ Neurological: Yes: Oriented Psychiatric: Yes: Oriented Labs: CBC, BMP 11/28/17 07:15 11/29/17 07:30 INR, PTT INR 1.03 (0.82-1.09) 11/25/17 17:45 Problem List - Problems (1) Anemia Code(s): D64.9 - ANEMIA, UNSPECIFIED Qualifiers: Anemia type: other cause Other causes of anemia: chronic disease, other Qualified Code(s): D63.8 - Anemia in other chronic diseases classified elsewhere (2) CHF (congestive heart failure) Code(s): I50.9 - HEART FAILURE, UNSPECIFIED (3) Renal insufficiency Code(s): N28.9 - DISORDER OF KIDNEY AND URETER, UNSPECIFIED (4) Diabetes mellitus Code(s): E11.9 - TYPE 2 DIABETES MELLITUS WITHOUT COMPLICATIONS (5) HTN (hypertension) Code(s): I10 - ESSENTIAL (PRIMARY) HYPERTENSION Assessment/Plan Current Medications Generic Name Dose Route Start Last Admin Trade Name Freq PRN Reason Stop Dose Admin Acetaminophen 650 mg 11/26/17 08:24 Tylenol - PO Q6H PRN FEVER Amlodipine Besylate 5 mg 11/26/17 10:00 11/29/17 10:15 Norvasc - PO 5 mg DAILY [facility] Administration Atorvastatin Calcium 10 mg 11/26/17 22:00 11/28/17 21:54 Lipitor - PO 10 mg HS [facility] Administration Brimonidine Tartrate 1 drop 11/26/17 10:00 11/29/17 10:16 Alphagan 0.2% - OU 1 drop DAILY [facility] Administration Furosemide 20 mg 11/27/17 22:00 11/29/17 10:15 Lasix - PO 20 mg BID [facility] Administration Heparin Sodium (Porcine) 5,000 unit 11/26/17 10:00 11/29/17 10:15 Heparin - SQ 5,000 unit BID [facility] Administration Hydralazine HCl 10 mg 11/26/17 10:00 11/29/17 10:15 Apresoline - PO 10 mg BID [facility] Administration Insulin Aspart 1 vial 11/26/17 10:00 11/29/17 06:19 Novolog Vial Sliding Scale - SQ Not Given BIDAC [facility] Protocol Insulin Detemir 40 units 11/27/17 07:00 11/29/17 06:23 Levemir Vial SQ 40 units ACBK [facility] Administration Methimazole 5 mg 11/26/17 10:00 11/29/17 10:15 Tapazole - PO 5 mg DAILY [facility] Administration Pantoprazole Sodium 40 mg 11/26/17 22:00 11/28/17 21:54 Protonix - PO 40 mg HS [facility] Administration Polyethylene Glycol 17 gm 11/29/17 10:00 11/29/17 10:15 Miralax (For Daily Use) - PO 17 gm DAILY [facility] Administration Timolol Maleate 1 drop 11/26/17 10:00 11/29/17 10:17 Timoptic 0.5% OU 1 drop DAILY [facility] Administration Impression 1. CKD with acute component 2. anemia 3. CHF 4. HTN 5. DM Plan - cont with lasix - discussed low sodium diet - renal function is improving - outpt follow up - recommend daily weights at home - will follow Dr Tubbs
[2017-11-29 16:55] VITALS: BP 164/72; TEMP 98
== END 2017-11-29 18:04 | disposition home or self-care (01) | DRG 812 ==
LOC: JER 16:38 → JERBED 20:19 → J6S 22:11 → OBSVTOIN 23:47
PROVIDERS: ADMIT Specialist; ATTEND Specialist
PROC: 30233N1 Transfusion of Nonautologous Red Blood Cells into Peripheral Vein, Percutaneous Approach (ICD-10-PCS; principal; 2017-11-25)
DX: D64.9 Anemia, unspecified (principal); N17.9 Acute kidney failure, unspecified; I13.0 Hypertensive heart and chronic kidney disease with heart failure and stage 1 through stage 4 chronic kidney disease, or unspecified chronic kidney disease; I50.30 Unspecified diastolic (congestive) heart failure; E11.22 Type 2 diabetes mellitus with diabetic chronic kidney disease; N18.9 Chronic kidney disease, unspecified; E78.5 Hyperlipidemia, unspecified; E66.9 Obesity, unspecified; Z68.33 Body mass index [BMI] 33.0-33.9, adult; R53.1 Weakness; R60.9 Edema, unspecified
CPT/HCPCS: 36415; 36430; 36511; 71045-TC; 80048; 80053; 82272; 82607; 82747; 82962; 83540; 83550; 83880; 84439; 84443; 84481; 85014; 85025; 85027; 85044; 85610; 86850; 86900; 86901; 86922; 99285-25; G0378; J1644; J1756; P9038; P9058

== ENCOUNTER 2018-03-31 07:31 | Day surgery (SDC) | payer OTHER ==
[2018-03-31] MEDS ORDERED: DIPHENHYDRAMINE 50 MG in SODIUM CHLORIDE 50 ML IVPB ONE (10:00)
[2018-03-31] MEDS ORDERED: ACETAMINOPHEN 325 MG TABLET (FP) PO ONE (10:00)
[2018-03-31] MEDS ORDERED: FERRIC CARBOXYMALTOSE 750 MG in SODIUM CHLORIDE 250 ML IVPB ONE (10:15)
[2018-03-31 15:10] VITALS: TEMP 98.1
[2018-03-31 15:13] VITALS: BP 172/72; PULSE 65
== END 2018-03-31 13:15 | disposition home or self-care (01) ==
LOC: JONCNONCHE 07:31 → J7W 09:12 → JONCNONCHE 13:15
PROVIDERS: ATTEND Internal Medicine Hematology & Oncology
PROC: 3E033GC Introduction of Other Therapeutic Substance into Peripheral Vein, Percutaneous Approach (ICD-10-PCS; principal; 2018-03-31)
DX: D50.9 Iron deficiency anemia, unspecified (principal)
CPT/HCPCS: 96365; J1439

== ENCOUNTER 2018-07-03 14:08 | Emergency (ER) | payer OTHER ==
[2018-07-03 14:16] VITALS: TEMP 98.6; BMI 32.0
[2018-07-03] MEDS ORDERED: FUROSEMIDE 40 MG/4 ML INJECTABLE VIAL IVPUSH ONE (15:36)
--- NOTE | 2018-07-03 15:45 | PDOC ---
History of Present Illness - General Chief Complaint: Revisit, Lab Variance Stated Complaint: blood count low Time Seen by Provider: 07/03/18 15:28 History Source: Patient - History of Present Illness Initial Comments: 07/03/18 15:39 Patient is a 78F with history of CHF, HTN, DM, CKD and hyperthyroidism here today complaining of a hemoglobin level of 7.6. Patient is anemic at baseline but 7.6 would be a drop from her baseline in the 8s. Patient endorses shortness of breath and leg swelling, but denies other symptoms. Denies chest pain, fevers , chills, nausea, vomiting. Denies blood clots. diarrhea, dark stools, abdominal pain, dysuria. Past History - Past Medical History Allergies/Adverse Reactions: Allergies Allergy/AdvReac Type Severity Reaction Status Date / Time No Known Allergies Allergy Verified 07/03/18 14:12 Home Medications: Ambulatory Orders Ferrous Sulfate [Feosol] 325 mg PO BID 01/14/15 Simvastatin [Zocor -] 20 mg PO HS 01/14/15 Acetaminophen [Tylenol .Regular Strength -] 650 mg PO Q6H PRN #0 tablet Amlodipine Besylate [Norvasc -] 5 mg PO DAILY 12/04/15 Brimonidine Tartrate/Timolol [Combigan 0.2%-0.5% Eye Drops] 1 drop OU DAILY Cholecalciferol (Vitamin D3) [Vitamin D] 2,000 unit PO DAILY 12/04/15 Methimazole 5 mg PO DAILY 04/01/17 Risedronate Sodium 35 mg PO MO 04/01/17 Furosemide [Lasix -] 20 mg PO BID #60 tablet 04/22/17 Insulin (Levemir) [Levemir Vial] 40 units SQ ACBK 11/25/17 Insulin Sliding Scale [Novolog Vial Sliding Scale -] 1 vial SQ ACHS PRN Lecithin, Soy [Lecithin] 2 tab PO DAILY 11/25/17 [place]-3 Fatty Acids/Fish Oil [Fish Oil 1,000 mg Capsule] 1 each PO DAILY Pantoprazole Sodium [Protonix -] 40 mg PO HS 11/25/17 hydrALAZINE HCL [Apresoline -] 10 mg PO BID 11/25/17 Anemia: Yes Asthma: No Cancer: Yes (Cancerous polyp) Cardiac Disorders: Yes CVA: Yes (TIA) COPD: No CHF: No Dementia: No Diabetes: Yes GI Disorders: No Disorders: No HTN: Yes Hypercholesterolemia: Yes Liver Disease: No Seizures: No Thyroid Disease: Yes - Surgical History Abdominal Surgery: No Appendectomy: Yes Cardiac Surgery: No Cholecystectomy: No Lung Surgery: No Neurologic Surgery: No Orthopedic Surgery: No - Immunization History Immunization Up to Date: Yes - Suicide/Smoking/Psychosocial Hx Smoking Status: No Smoking History: Former smoker Have you smoked in the past 12 months: No If you are a former smoker, when did you quit?: 40 years ago Cigars Per Day: 0 Information on smoking cessation initiated: No Hx Alcohol Use: No Drug/Substance Use Hx: No Substance Use Type: None Hx Substance Use Treatment: No Review of Systems - Review of Systems Comments:: 07/03/18 15:44 GENERAL/CONSTITUTIONAL: No fever +chills. No weakness. HEAD, EYES, EARS, NOSE AND THROAT: No change in vision. No ear pain or discharge. No sore throat. CARDIOVASCULAR: No chest pain +shortness of breath RESPIRATORY: No cough, wheezing, or hemoptysis. GASTROINTESTINAL: No nausea, vomiting, diarrhea or constipation. GENITOURINARY: No dysuria, frequency, or change in urination. MUSCULOSKELETAL: No joint or muscle swelling or pain. No neck or back pain. SKIN: No rash NEUROLOGIC: No headache, vertigo, loss of consciousness, or change in strength/ sensation. ENDOCRINE: No increased thirst. No abnormal weight change HEMATOLOGIC/LYMPHATIC: No anemia, easy bleeding, or history of blood clots. ALLERGIC/IMMUNOLOGIC: No hives or skin allergy. *Physical Exam - Vital Signs Last Vital Signs Temp Pulse Resp BP Pulse Ox 98.6 F 78 18 158/56 100 07/03/18 14:13 07/03/18 14:13 07/03/18 14:13 07/03/18 14:13 07/03/18 14:13 - Physical Exam Comments: 07/03/18 15:44 GENERAL: Awake, alert, and fully oriented, in no acute distress HEAD: No signs of trauma, normocephalic, atraumatic EYES: PERRLA, EOMI, sclera anicteric, conjunctiva clear ENT: Auricles normal inspection, hearing grossly normal, nares patent, oropharynx clear without exudates. Moist mucosa NECK: Normal ROM, supple, no lymphadenopathy, JVD, or masses LUNGS: No distress, speaks full sentences, crackles in bases HEART: Regular rate and rhythm, normal S1 and S2, no murmurs, rubs or gallops, peripheral pulses normal and equal bilaterally. ABDOMEN: Soft, nontender, normoactive bowel sounds. No guarding, no rebound. No masses EXTREMITIES: Normal inspection, Normal range of motion, pitting edema bilaterally. No clubbing or cyanosis. NEUROLOGICAL: Cranial nerves II through XII grossly intact. Normal speech, no focal sensorimotor deficits SKIN: Warm, Dry, normal turgor, no rashes or lesions noted. ED Treatment Course - LABORATORY CBC & Chemistry Diagram: 07/03/18 15:50 07/03/18 15:50 - RADIOLOGY Radiology Studies Ordered: Category Date Time Status CHEST PA & LAT [RAD] Stat Radiology 07/03/18 15:36 Ordered Medical Decision Making - Medical Decision Making 07/03/18 15:46 Patient is 78F with history of anemia, CHF, DM, HTN, hyperthyroidism here today with reported hgb of 7.6 and shortness of breath. Vitals normal and stable. Patient takes 60mg of lasix per day. Pitting edema bilaterally with crackles in bases. Will repeat labs, workup for chf exacerbation. 07/03/18 17:51 Laboratory Tests 07/03/18 07/03/18 07/03/18 15:50 15:50 15:50 WBC 5.6 Hgb 7.9 L Plt Count 207 INR 1.06 BUN 29 H Creatinine 2.0 H Troponin I < 0.02 B-Natriuretic Peptide 290.11 Hgb 7.9. CMP shows CKD, at baseline. CXR shows no acute cardiopulmonary process. BNP shows no elevation. Call out to Dr Wilkinson. 07/03/18 18:33 EKG shows normal sinus rhythm with rate of 69. LBBB pattern with widened QRS. Sgarbossa negative. Unchanged from prior EKG in April. Patient reassessed, states that she feels fine, wants to go home. Dr Wilkinson called, discussed patient, agrees with plan to discharge home with outpatient follow up. *DC/Admit/Observation/Transfer Diagnosis at time of Disposition: Anemia - Discharge Dispostion Disposition: HOME Condition at time of disposition: Good Decision to Admit order: No - Referrals Referrals: Albert Wilkinson MD [Primary Care Provider] - - Patient Instructions Printed Discharge Instructions: DI for Iron Deficiency Anemia-Adult Additional Instructions: Please call Dr Wilkinson tomorrow for further follow up. Please return to the hospital immediately if you have any new, worsening or concerning symptoms. - Post Discharge Activity
[2018-07-03] MEDS ORDERED: FUROSEMIDE 40 MG/4 ML INJECTABLE VIAL ONE (16:08)
[2018-07-03 16:37] LABS: BASO % 0.2 % (0-2.0); EOS % 1.3 % (0-4.5); HEMATOCRIT 24.7 % (32.4-45.2); HEMOGLOBIN 7.9 GM/dL (10.7-15.3); LYMPH % 28.6 % (8-40); MCH 29.4 pg (25.7-33.7); MCHC 31.9 g/dl (32.0-36.0); MEAN CELL VOLUME 91.9 fl (80-96); MEAN PLT VOLUME 9.4 fl (7.5-11.1); MONO % 9.7 % (3.8-10.2); NEUT % 60.2 % (42.8-82.8); PLATELET COUNT 207 K/MM3 (134-434); RBC 2.69 M/mm3 (3.60-5.2); RDW 16.5 % (11.6-15.6); WHITE BLOOD COUNT 5.6 K/mm3 (4.0-10.0)
[2018-07-03 16:46] LABS: INR 1.06 (0.83-1.09)
[2018-07-03 17:06] LABS: ALBUMIN 3.3 g/dl (3.4-5.0); ANION GAP 9 MMOL/L (8-16); BLOOD UREA NITROGEN 29 mg/dL (7-18); CALCIUM 9.7 mg/dL (8.5-10.1); CHLORIDE 107 mmol/L (98-107); CO2 27 mmol/L (21-32); GLUCOSE,RANDOM 161 mg/dL (74-106); MAGNESIUM 2.2 mg/dL (1.8-2.4); POTASSIUM 4.7 mmol/L (3.5-5.1); SODIUM 143 mmol/L (136-145)
[2018-07-03 17:11] LABS: ALK PHOS 82 U/L (45-117); BILIRUBIN,TOTAL 0.3 mg/dL (0.2-1.0); N-TERMINAL BNP 290.11 pg/ml (5-450); SGOT/AST 34 U/L (15-37); SGPT/ALT 23 U/L (12-78); TOT PROT 6.6 g/dl (6.4-8.2)
[2018-07-03 18:43] VITALS: BP 184/87; PULSE 99
--- NOTE | 2018-07-03 22:06 | PDOC ---
Attending Attestation - HPI HPI: 07/04/18 01:41 Patient is a 78 year old female with a significant past medical history of HTN, Dementia (mild), Anemia, CHF, diabetes, CKD, and Hyperthyroidism who presents to the ED with complaints of decreased hemoglobin levels. Patient reports her anemic levels to be in the 8s at baseline, but states her levels were found to be low at 7.6 prompting her to come into the ED for further evaluation. She reports experiencing associated symptoms of shortness of breath and leg swelling. Denies chest pain. Denies nausea, vomiting. Denies contact with sick individuals , out of state traveling. Denies dysuria, hematuria. Denies constipation, diarrhea. Denies fevers, chills. Denies any trauma. Denies any other symptoms. Allergies: none Social history: Former smoker (last 40 years ago). No alcohol. No illicit drugs. Surgical history: Appendectomy, Cholecystectomy PMD: Dr. Albert Wilkinson <Chay Grant - Last Filed: 07/04/18 01:41> - Resident Resident Name: Danis Cohn - ED Attending Attestation I have performed the following: I have examined & evaluated the patient, The case was reviewed & discussed with the resident, I agree w/resident's findings & plan, Exceptions are as noted - HPI HPI: 07/03/18 22:01 78 yo female presents because she was anemia head ncat neck supple lungs cta b/l cvs [id number] abd nontender ext no significant edema neuro alert and conversant skin warm and dry psych appropriate - Physicial Exam PE: 07/04/18 02:20 please see above - Medical Decision Making 07/03/18 22:06 pt has h/o anemia and chf and p/w some dyspnea and increased bnp pt admitted to Dr Jones <Lori Moscoso - Last Filed: 07/04/18 02:20>
--- NOTE | 2018-07-04 09:47 | EKG ---
Test Reason : Blood Pressure : / mmHG Vent. Rate : 069 BPM Atrial Rate : 069 BPM P-R Int : 188 ms QRS Dur : 130 ms QT Int : 408 ms P-R-T Axes : 025 -49 105 degrees QTc Int : 437 ms NORMAL SINUS RHYTHM LEFT AXIS DEVIATION LEFT VENTRICULAR HYPERTROPHY WITH QRS WIDENING AND REPOLARIZATION ABNORMALITY ABNORMAL ECG WHEN COMPARED WITH ECG OF 16-APR-2017 01:28, LEFT BUNDLE BRANCH BLOCK IS NO LONGER PRESENT Confirmed by Chris Mera MD ([id number]) on 07/04/2018 9:47:40 AM Referred By: Confirmed By:Chris Mera MD
== END 2018-07-03 19:13 | disposition home or self-care (01) ==
LOC: JER 14:08
PROC: 3E033GC Introduction of Other Therapeutic Substance into Peripheral Vein, Percutaneous Approach (ICD-10-PCS; principal; 2018-07-03)
DX: D64.9 Anemia, unspecified (principal); I25.10 Atherosclerotic heart disease of native coronary artery without angina pectoris; I13.0 Hypertensive heart and chronic kidney disease with heart failure and stage 1 through stage 4 chronic kidney disease, or unspecified chronic kidney disease; N18.9 Chronic kidney disease, unspecified; I50.9 Heart failure, unspecified; Z87.891 Personal history of nicotine dependence; E11.9 Type 2 diabetes mellitus without complications; Z79.4 Long term (current) use of insulin; E05.90 Thyrotoxicosis, unspecified without thyrotoxic crisis or storm; Z86.73 Personal history of transient ischemic attack (TIA), and cerebral infarction without residual deficits
CPT/HCPCS: 36415; 71046-TC-FY; 80053; 82550; 83735; 83880; 84443; 84484; 85025; 85610; 86850; 86900; 86901; 93005; 93010; 96374; 99283-25

== ENCOUNTER 2018-08-04 07:40 | Day surgery (SDC) | payer OTHER ==
[2018-08-04] MEDS ORDERED: IRON SUCROSE INJECTION 200 MG in SODIUM CHLORIDE 90 ML IVPB ONE (12:30)
[2018-08-04 17:27] VITALS: TEMP 97.9
[2018-08-04 17:37] VITALS: BP 140/52; PULSE 69
== END 2018-08-04 14:10 | disposition home or self-care (01) ==
LOC: JONCBLOOD 07:40 → J7W 12:07 → JONCBLOOD 14:10
PROVIDERS: ATTEND Internal Medicine Hematology & Oncology
PROC: 3E033GC Introduction of Other Therapeutic Substance into Peripheral Vein, Percutaneous Approach (ICD-10-PCS; principal; 2018-08-04)
DX: D50.9 Iron deficiency anemia, unspecified (principal)
CPT/HCPCS: 96365; J1756

== ENCOUNTER 2018-08-11 07:18 | Day surgery (SDC) | payer OTHER ==
[2018-08-11] MEDS ORDERED: IRON SUCROSE INJECTION 200 MG in SODIUM CHLORIDE 100 ML IVPB ONE (10:00)
[2018-08-11 10:37] VITALS: TEMP 97.5
[2018-08-11 11:02] LABS: BASO % 0.3 % (0-2.0); EOS % 0.6 % (0-4.5); HEMATOCRIT 25.2 % (32.4-45.2); LYMPH % 24.9 % (8-40); MCH 29.8 pg (25.7-33.7); MEAN CELL VOLUME 93.1 fl (80-96); MEAN PLT VOLUME 8.8 fl (7.5-11.1); MONO % 10.3 % (3.8-10.2); NEUT % 63.9 % (42.8-82.8); PLATELET COUNT 241 K/MM3 (134-434); RDW 17.4 % (11.6-15.6); WHITE BLOOD COUNT 7.2 K/mm3 (4.0-10.0)
[2018-08-11 11:36] LABS: ALBUMIN 3.4 g/dl (3.4-5.0); ALK PHOS 88 U/L (45-117); ANION GAP 6 MMOL/L (8-16); BILIRUBIN,DIRECT < 0.2 mg/dL (0.0-0.2); BILIRUBIN,TOTAL 0.4 mg/dL (0.2-1); BLOOD UREA NITROGEN 55 mg/dL (7-18); CALCIUM 10.1 mg/dL (8.5-10.1); CHLORIDE 102 mmol/L (98-107); CO2 30 mmol/L (21-32); CREATININE 2.5 mg/dL (0.55-1.3); GLUCOSE,RANDOM 118 mg/dL (74-106); MAGNESIUM 2.3 mg/dL (1.8-2.4); POTASSIUM 4.3 mmol/L (3.5-5.1); SGOT/AST 36 U/L (15-37); SGPT/ALT 23 U/L (13-61); SODIUM 139 mmol/L (136-145); TOT PROT 6.9 g/dl (6.4-8.2)
[2018-08-11 12:16] LABS: PHOSPHOROUS 3.7 mg/dL (2.5-4.9); URIC ACID 10.3 mg/dL (2.6-7.2)
[2018-08-11 15:02] VITALS: BP 150/46; PULSE 77
[2018-08-12 08:07] LABS: SERUM IRON SATURATION 14 % (15-55); TOTAL IRON BINDING CAPACITY 345 ug/dL (250-450); UIBC 297 ug/dL (118-369)
== END 2018-08-11 14:00 | disposition home or self-care (01) ==
LOC: JONCCHEMO 07:18 → J7W 12:48 → JONCCHEMO 14:00
PROVIDERS: ATTEND Internal Medicine Hematology & Oncology
PROC: 3E033GC Introduction of Other Therapeutic Substance into Peripheral Vein, Percutaneous Approach (ICD-10-PCS; principal; 2018-08-11)
DX: D50.9 Iron deficiency anemia, unspecified (principal)
CPT/HCPCS: 36415; 80053; 80076; 82607; 82728; 82747; 83540; 83550; 83735; 84100; 84439; 84443; 84550; 85014; 85025; 96365; J1756

== ENCOUNTER 2018-08-18 07:48 | Day surgery (SDC) | payer OTHER ==
[2018-08-18] MEDS ORDERED: IRON SUCROSE INJECTION 200 MG in SODIUM CHLORIDE 100 ML IVPB ONE (10:00)
[2018-08-18 13:13] VITALS: TEMP 98
[2018-08-18 13:22] VITALS: BP 149/51; PULSE 77
== END 2018-08-18 11:35 | disposition home or self-care (01) ==
LOC: JONCNONCHE 07:48 → J7W 10:16 → JONCNONCHE 11:35
PROVIDERS: ATTEND Internal Medicine Hematology & Oncology
PROC: 3E033GC Introduction of Other Therapeutic Substance into Peripheral Vein, Percutaneous Approach (ICD-10-PCS; principal; 2018-08-18)
DX: D50.9 Iron deficiency anemia, unspecified (principal)
CPT/HCPCS: 96365; J1756

== ENCOUNTER 2018-09-08 07:29 | Day surgery (SDC) | payer OTHER ==
[2018-09-08] MEDS ORDERED: IRON SUCROSE INJECTION 200 MG in SODIUM CHLORIDE 100 ML IVPB ONE (11:45)
[2018-09-08 12:12] VITALS: TEMP 98.1
[2018-09-08 13:46] VITALS: BP 147/52; PULSE 70
== END 2018-09-08 13:30 | disposition home or self-care (01) ==
LOC: JONCNONCHE 07:29 → J7W 10:57 → JONCNONCHE 13:30
PROVIDERS: ATTEND Internal Medicine Hematology & Oncology
PROC: 3E033GC Introduction of Other Therapeutic Substance into Peripheral Vein, Percutaneous Approach (ICD-10-PCS; principal; 2018-09-08)
DX: D50.9 Iron deficiency anemia, unspecified (principal)
CPT/HCPCS: 96365; J1756

== ENCOUNTER 2018-09-15 07:33 | Day surgery (SDC) | payer OTHER ==
[2018-09-15] MEDS ORDERED: IRON SUCROSE INJECTION 200 MG in SODIUM CHLORIDE 100 ML IVPB ONE (09:00)
[2018-09-15 12:50] LABS: BASO % 0.3 % (0-2.0); EOS % 1.1 % (0-4.5); HEMATOCRIT 26.6 % (32.4-45.2); HEMOGLOBIN 8.9 GM/dL (10.7-15.3); MCH 30.7 pg (25.7-33.7); MCHC 33.3 g/dl (32.0-36.0); MEAN PLT VOLUME 9.5 fl (7.5-11.1); MONO % 9.6 % (3.8-10.2); PLATELET COUNT 247 K/MM3 (134-434); RBC 2.89 M/mm3 (3.60-5.2); RDW 14.7 % (11.6-15.6); WHITE BLOOD COUNT 6.6 K/mm3 (4.0-10.0)
[2018-09-15 14:36] VITALS: TEMP 97.7
[2018-09-15 14:37] VITALS: BP 138/60; PULSE 61
[2018-09-17 06:39] LABS: SERUM IRON SATURATION 36 % (15-55); TOTAL IRON BINDING CAPACITY 304 ug/dL (250-450); UIBC 196 ug/dL (118-369)
== END 2018-09-15 14:38 | disposition home or self-care (01) ==
LOC: JONCNONCHE 07:33 → J7W 13:28 → JONCNONCHE 14:38
PROVIDERS: ATTEND Internal Medicine Hematology & Oncology
PROC: 3E033GC Introduction of Other Therapeutic Substance into Peripheral Vein, Percutaneous Approach (ICD-10-PCS; principal; 2018-09-15)
DX: D50.9 Iron deficiency anemia, unspecified (principal)
CPT/HCPCS: 36415; 80053; 81003; 81015; 82607; 82728; 83036; 83540; 83550; 85025; 85027; 96365; J1756

== ENCOUNTER 2018-12-11 09:52 | Day surgery (SDC) | payer OTHER | END 2018-12-11 12:35 | disposition home or self-care (01) | LOC: JBLOOD 09:52 → J7W 09:56 → JBLOOD 12:35 ==

== ENCOUNTER 2018-12-13 18:14 | Inpatient (IN) | payer OTHER ==
--- NOTE | 2018-12-13 18:31 | PDOC ---
Rapid Medical Evaluation Chief Complaint: Shortness of Breath Time Seen by Provider: 12/13/18 18:30 Medical Evaluation: Allergies Allergy/AdvReac Type Severity Reaction Status Date / Time No Known Allergies Allergy Verified 12/13/18 18:28 12/13/18 18:30 I have performed a brief in-person evaluation of this patient. The patient presents with a chief complaint of: generalized edema w/ worsening sob x 1 week. Taken off furosemide and started on torsemide 2 weeks ago. H/o CHF , HTN, DM, CRF, hyperthyroid, anemia, currently on iron transfusion per daughter PMD: Dr Sparkle Wilkinson Cards: Dr Sandoval Renal: Dr Samy Bustamante Pertinent physical exam findings:stable w/ edema of exts I have ordered the following:ekg/cxr/labs The patient will proceed to the ED for further evaluation. 12/13/18 18:34 Discharge Disposition - Diagnosis SOB (shortness of breath) - Referrals - Patient Instructions - Post Discharge Activity
[2018-12-13 20:42] LABS: ALBUMIN 3.5 g/dl (3.4-5.0); ALK PHOS 90 U/L (45-117); ANION GAP 6 MMOL/L (8-16); BILIRUBIN,TOTAL 0.4 mg/dL (0.2-1); BLOOD UREA NITROGEN 38 mg/dL (7-18); CALCIUM 9.6 mg/dL (8.5-10.1); CHLORIDE 106 mmol/L (98-107); CO2 28 mmol/L (21-32); CREATININE 2.5 mg/dL (0.55-1.3); GLUCOSE,RANDOM 112 mg/dL (74-106); POTASSIUM 4.1 mmol/L (3.5-5.1); SGOT/AST 29 U/L (15-37); SGPT/ALT 22 U/L (13-61); SODIUM 139 mmol/L (136-145); TOT PROT 6.7 g/dl (6.4-8.2)
[2018-12-13 20:47] LABS: URINE APPEARANCE CLOUDY; URINE BILIRUBIN NEGATIVE (<2.0 mg/dL); URINE COLOR YELLOW; URINE GLUCOSE (UA) NEGATIVE (NEGATIVE); URINE KETONE NEGATIVE (NEGATIVE); URINE LEUK ESTERASE 2+ (NEGATIVE); URINE NITRITE NEGATIVE (NEGATIVE); URINE PROTEIN 2+ (NEGATIVE); URINE UROBILINOGEN NEGATIVE mg/dL (0.2-1.0)
--- NOTE | 2018-12-13 20:47 | PDOC ---
History of Present Illness - General Chief Complaint: Shortness of Breath Stated Complaint: BREATHING PROBLEMS Time Seen by Provider: 12/13/18 18:30 - History of Present Illness Initial Comments: 12/13/18 20:47 78 year old woman with history of CHF, HTN, DM, CKD and hyperthyroidism who presents with worsening shortness of breath preventing her from lying flat, which started after a medication change 2 weeks ago. The patient was on furosemide 40 BID and was changed to Torsemide 20mg, 2 pills in the AM by Dr. Pablo. She started developing swelling in the legs and arms worse than baseline and orthopnea. The patient followed up with [facility] who noticed the swelling and added a second dose of torsemide 20mg at bedtime for a total of 60mg per day, and the patient has been taking this dosage for the past 5 days without improvement of swelling or shortness of breath. Today the patient's daughter noticed the swelling and decided to bring her into the ED. The patient denies fever, cough, uri symptoms, chest pain, abdominal pain, dysuria, hematuria, nausea, vomiting or diaphoresis. She has no other complaints at bedside. PCP: Robert Past History - Past Medical History Allergies/Adverse Reactions: Allergies Allergy/AdvReac Type Severity Reaction Status Date / Time No Known Allergies Allergy Verified 12/13/18 18:28 Home Medications: Ambulatory Orders Ferrous Sulfate [Feosol] 325 mg PO BID 01/14/15 Simvastatin [Zocor -] 20 mg PO HS 01/14/15 Acetaminophen [Tylenol .Regular Strength -] 650 mg PO Q6H PRN #0 tablet Amlodipine Besylate [Norvasc -] 5 mg PO DAILY 12/04/15 Brimonidine Tartrate/Timolol [Combigan 0.2%-0.5% Eye Drops] 1 drop OU DAILY Cholecalciferol (Vitamin D3) [Vitamin D] 2,000 unit PO DAILY 12/04/15 Methimazole 5 mg PO DAILY 04/01/17 Risedronate Sodium 35 mg PO MO 04/01/17 Furosemide [Lasix -] 20 mg PO BID #60 tablet 04/22/17 Insulin (Levemir) [Levemir Vial] 40 units SQ ACBK 11/25/17 Insulin Sliding Scale [Novolog Vial Sliding Scale -] 1 vial SQ ACHS PRN Lecithin, Soy [Lecithin] 2 tab PO DAILY 11/25/17 [place]-3 Fatty Acids/Fish Oil [Fish Oil 1,000 mg Capsule] 1 each PO DAILY Pantoprazole Sodium [Protonix -] 40 mg PO HS 11/25/17 hydrALAZINE HCL [Apresoline -] 10 mg PO BID 11/25/17 Anemia: Yes (on iron) Asthma: No Cancer: Yes (Cancerous polyp, carotid stenosis) Cardiac Disorders: Yes CVA: Yes (TIA) COPD: No CHF: Yes Dementia: No Diabetes: Yes GI Disorders: No Disorders: Yes (kidney disease) HTN: Yes Hypercholesterolemia: Yes Liver Disease: No Seizures: No Thyroid Disease: Yes - Surgical History Abdominal Surgery: No Appendectomy: Yes Cardiac Surgery: No Cholecystectomy: No Lung Surgery: No Neurologic Surgery: No Orthopedic Surgery: No - Immunization History Immunization Up to Date: Yes - Suicide/Smoking/Psychosocial Hx Smoking Status: No Smoking History: Never smoked Have you smoked in the past 12 months: No If you are a former smoker, when did you quit?: 40 years ago Cigars Per Day: 0 Hx Alcohol Use: No Drug/Substance Use Hx: No Substance Use Type: None Hx Substance Use Treatment: No *Physical Exam - Vital Signs Last Vital Signs Temp Pulse Resp BP Pulse Ox 98.6 F 87 20 155/49 L 99 12/13/18 18:28 12/13/18 18:28 12/13/18 18:28 12/13/18 18:28 12/13/18 18:28 Moderate Sedation - Procedure Monitoring Vital Signs: Procedure Monitoring Vital Signs Temperature 98.6 F 12/13/18 18:28 Pulse Rate 87 12/13/18 18:28 Respiratory Rate 20 12/13/18 18:28 Blood Pressure 155/49 L 12/13/18 18:28 O2 Sat by Pulse Oximetry (%) 99 12/13/18 18:28 ED Treatment Course - LABORATORY CBC & Chemistry Diagram: 12/13/18 20:03 - ADDITIONAL ORDERS Additional order review: Laboratory Results 12/13/18 12/13/18 20:03 20:03 Sodium 139 Potassium 4.1 Chloride 106 Carbon Dioxide 28 Anion Gap 6 L BUN 38 H Creatinine 2.5 H Creat Clearance w eGFR 18.63 Random Glucose 112 H Calcium 9.6 Total Bilirubin 0.4 AST 29 ALT 22 Alkaline Phosphatase 90 Creatine Kinase 111 Troponin I 0.05 B-Natriuretic Peptide 735.5 H Total Protein 6.7 Albumin 3.5 Medical Decision Making - Medical Decision Making 12/13/18 21:04 78 year old woman with history of CHF, HTN, DM, CKD and hyperthyroidism who presents with worsening shortness of breath preventing her from lying flat, which started after a medication change 2 weeks ago. The patient was on furosemide 40 BID and was changed to Torsemide 20mg, 2 pills in the AM by Dr. Pablo. She started developing swelling in the legs and arms worse than baseline and orthopnea. The patient followed up with [facility] who noticed the swelling and added a second dose of torsemide 20mg at bedtime for a total of 60mg per day, and the patient has been taking this dosage for the past 5 days without improvement of swelling or shortness of breath. ED Course: consider CHF exacerbation cbc, cmp, cxr, ekg cbc, cmp close to baseline bnp slightly elevated to 735 cxr with some cephalization and congestive changes. will diurese w/ lasix 40mg EK12/13/18 21:36 *DC/Admit/Observation/Transfer Diagnosis at time of Disposition: SOB (shortness of breath) - Referrals Referrals: Albert Wilkinson MD [Primary Care Provider] - - Patient Instructions - Post Discharge Activity
[2018-12-13 20:53] LABS: EPI CELLS FEW /HPF (FEW); URINE BACTERIA RARE /hpf (NONE SEEN); URINE HYALINE CAST 3 /lpf; URINE MUCUS RARE
[2018-12-13] MEDS ORDERED: FUROSEMIDE 40 MG TABLET (FP) PO ONE (21:01)
--- NOTE | 2018-12-13 21:28 | PDOC ---
Attending Attestation - HPI HPI: 12/13/18 23:07 The patient 78 year old woman with a PMH of CHF, HTN, DM, CKD and hyperthyroidism who presents to the ER with worsening shortness of breath. Patient admits to having orthopnea at night prompting her to come to the ER for further evaluation. Patient believes her symptoms may be related to recent changes in her meds between furosemide and torsemide by Dr. Pablo. Patient's daughter has also noticed swelling to the arms and legs, that appears worse than baseline. Patient denies any recent fever, cough, cp, abd pain, urinary symptoms, N/V/D/C , or diaphoresis. PCP: Minh - Physicial Exam PE: 12/13/18 23:20 ADULT PHYSICAL EXAM Constitutional: Awake, alert, oriented. No acute distress. Head: Normocephalic. Atraumatic Eyes: PERRL. EOMI. Conjunctivae are not pale. ENT: Mucous membranes are moist and intact. Posterior pharynx without exudates or erythema. Uvula midline. Neck: Supple. Full ROM. No lymphadenopathy. Cardiovascular: Regular rate. Regular rhythm. S1, S2 regular. Distal pulses are 2+ and symmetric. Pulmonary/Chest: (+) Tachypneic. (+) short of breath. (+) Diminished breath sounds, soft rales at the bases. Abdominal: Soft and non-distended. There is no tenderness. No rebound, guarding or rigidity. No organomegaly. No palpable masses. Good bowel sounds. Back: No CVA tenderness. Musculoskeletal: (+) Generalized anasarca. No cyanosis. No clubbing. Full range of motion in all extremities. Nocalf tenderness. Radial/pedal pulses are intact and 2+ bilaterally Skin: Skin is warm and dry. No petechiae. No purpura. Neurological: Alert and oriented to person, place, and time. Cranial nerves II -XII are grossly intact. Psychiatric: Good eye contact. Normal interaction, affect and behavior. <Shahida Clemens - Last Filed: 12/13/18 23:20> - Resident Resident Name: Avani Wolff - ED Attending Attestation I have performed the following: I have examined & evaluated the patient, The case was reviewed & discussed with the resident, I agree w/resident's findings & plan, Exceptions are as noted - Medical Decision Making 12/13/18 21:28 I, Dr. Heather Shukla, DO, attest that this document has been prepared under my direction and personally reviewed by me in its entirety. I further attest, that it accurately reflects all work, treatment, procedures and medical decision -making performed by me. 12/13/18 22:24 a/p: 78yo female with worsening sob, orthopnea -generalized anasarca -LE swelling, price and sob -concern for chf exacerbation that failed outpt management -change in medication recently from lasix to torsemide, but still with worsening edema -will send labs, ekg, cxr -will monitor and reassess 12/14/18 00:[address] wilkinson who accepts pt to service <Heather Shukla - Last Filed: 12/14/18 00:03> *DC/Admit/Observation/Transfer <Shahida Clemens - Last Filed: 12/13/18 23:20> - Discharge Dispostion Decision to Admit order: Yes <Heather Shukla - Last Filed: 12/14/18 00:03> Diagnosis at time of Disposition: SOB (shortness of breath), Anasarca - Discharge Dispostion Condition at time of disposition: Guarded - Referrals Referrals: Albert Wilkinson MD [Primary Care Provider] - - Patient Instructions - Post Discharge Activity Heart Score/ECG Review - ECG Intrepretation Comment:: 12/13/18 22:28 sinus at 83, l axis deviation, lvh, interventricular conduction delay, abnl ekg <Heather Shukla - Last Filed: 12/14/18 00:03>
--- NOTE | 2018-12-13 21:50 | PDOC ---
*Physical Exam - Vital Signs Last Vital Signs Temp Pulse Resp BP Pulse Ox 98.6 F 87 20 155/49 L 99 12/13/18 18:28 12/13/18 18:28 12/13/18 18:28 12/13/18 18:28 12/13/18 18:28 - Physical Exam Comments: 12/13/18 21:49 Received sign out from Dr. Wolff. ED Treatment Course - LABORATORY CBC & Chemistry Diagram: 12/15/18 05:30 12/16/18 05:30 - ADDITIONAL ORDERS Additional order review: Laboratory Results 12/13/18 12/13/18 12/13/18 20:30 20:03 20:03 Sodium 139 Potassium 4.1 Chloride 106 Carbon Dioxide 28 Anion Gap 6 L BUN 38 H Creatinine 2.5 H Creat Clearance w eGFR 18.63 Random Glucose 112 H Calcium 9.6 Total Bilirubin 0.4 AST 29 ALT 22 Alkaline Phosphatase 90 Creatine Kinase 111 Troponin I 0.05 B-Natriuretic Peptide 735.5 H Total Protein 6.7 Albumin 3.5 Urine Color Yellow Urine Appearance Cloudy Urine pH 6.0 Ur Specific [place] 1.012 Urine Protein 2+ H Urine Glucose (UA) Negative Urine Ketones Negative Urine Blood Negative Urine Nitrite Negative Urine Bilirubin Negative Urine Urobilinogen Negative Ur Leukocyte Esterase 2+ H Urine WBC (Auto) 42 Urine RBC (Auto) 2 Ur Epithelial Cells Few Urine Bacteria Rare Hyaline Casts 3 Urine Mucus Rare Blood Type Antibody Screen 12/13/18 19:36 Sodium Potassium Chloride Carbon Dioxide Anion Gap BUN Creatinine Creat Clearance w eGFR Random Glucose Calcium Total Bilirubin AST ALT Alkaline Phosphatase Creatine Kinase Troponin I B-Natriuretic Peptide Total Protein Albumin Urine Color Urine Appearance Urine pH Ur Specific [place] Urine Protein Urine Glucose (UA) Urine Ketones Urine Blood Urine Nitrite Urine Bilirubin Urine Urobilinogen Ur Leukocyte Esterase Urine WBC (Auto) Urine RBC (Auto) Ur Epithelial Cells Urine Bacteria Hyaline Casts Urine Mucus Blood Type O POSITIVE Antibody Screen Negative Medical Decision Making - Medical Decision Making Ms. Carlisle is a 78 yo F with a hx of CHF, HTN, DM, CKD, and hyperthyroidism presents to the ED with SOB and worsening LE edema. Laboratory Tests 12/13/18 12/13/18 12/13/18 11:01 19:36 20:03 WBC 5.2 RBC 2.76 L Hgb 8.8 L Hct 25.9 L MCV 93.7 MCH 32.0 D MCHC 34.1 RDW 15.2 Plt Count 213 MPV 8.9 Absolute Neuts (auto) 3.4 Neutrophils % 65.0 Lymphocytes % 22.2 Monocytes % 11.7 H Eosinophils % 0.7 Basophils % 0.4 Nucleated RBC % 0 Sodium Potassium Chloride Carbon Dioxide Anion Gap BUN Creatinine Creat Clearance w eGFR Random Glucose Calcium Total Bilirubin AST ALT Alkaline Phosphatase Creatine Kinase Troponin I B-Natriuretic Peptide 735.5 H Total Protein Albumin Urine Color Urine Appearance Urine pH Ur Specific [place] Urine Protein Urine Glucose (UA) Urine Ketones Urine Blood Urine Nitrite Urine Bilirubin Urine Urobilinogen Ur Leukocyte Esterase Urine WBC (Auto) Urine RBC (Auto) Ur Epithelial Cells Urine Bacteria Hyaline Casts Urine Mucus Blood Type O POSITIVE Antibody Screen Negative 12/13/18 12/13/18 20:03 20:30 WBC RBC Hgb Hct MCV MCH MCHC RDW Plt Count MPV Absolute Neuts (auto) Neutrophils % Lymphocytes % Monocytes % Eosinophils % Basophils % Nucleated RBC % Sodium 139 Potassium 4.1 Chloride 106 Carbon Dioxide 28 Anion Gap 6 L BUN 38 H Creatinine 2.5 H Creat Clearance w eGFR 18.63 Random Glucose 112 H Calcium 9.6 Total Bilirubin 0.4 AST 29 ALT 22 Alkaline Phosphatase 90 Creatine Kinase 111 Troponin I 0.05 B-Natriuretic Peptide Total Protein 6.7 Albumin 3.5 Urine Color Yellow Urine Appearance Cloudy Urine pH 6.0 Ur Specific [place] 1.012 Urine Protein 2+ H Urine Glucose (UA) Negative Urine Ketones Negative Urine Blood Negative Urine Nitrite Negative Urine Bilirubin Negative Urine Urobilinogen Negative Ur Leukocyte Esterase 2+ H Urine WBC (Auto) 42 Urine RBC (Auto) 2 Ur Epithelial Cells Few Urine Bacteria Rare Hyaline Casts 3 Urine Mucus Rare Blood Type Antibody Screen BNP was elevated as well as the UA showing that she had 2+ leukocyte esterase with 42 WBC. patient was given 40 mg of lasix. will admit patient for continued SOB. Dr. Wilkinson accepted admission. Dispo: Admit *DC/Admit/Observation/Transfer Diagnosis at time of Disposition: SOB (shortness of breath), Anasarca - Referrals - Patient Instructions - Post Discharge Activity
[2018-12-13] MEDS ORDERED: FUROSEMIDE 40 MG/4 ML INJECTABLE VIAL IVPUSH ONE (23:00)
[2018-12-13] MEDS ORDERED: FUROSEMIDE 40 MG/4 ML INJECTABLE VIAL ONE (23:06)
[2018-12-13 23:18] LABS: BASO % 0.4 % (0-2.0); EOS % 0.7 % (0-4.5); HEMATOCRIT 25.9 % (32.4-45.2); HEMOGLOBIN 8.8 GM/dL (10.7-15.3); LYMPH % 22.2 % (8-40); MCHC 34.1 g/dl (32.0-36.0); MEAN CELL VOLUME 93.7 fl (80-96); MEAN PLT VOLUME 8.9 fl (7.5-11.1); MONO % 11.7 % (3.8-10.2); PLATELET COUNT 213 K/MM3 (134-434); RBC 2.76 M/mm3 (3.60-5.2); RDW 15.2 % (11.6-15.6); WHITE BLOOD COUNT 5.2 K/mm3 (4.0-10.0)
[2018-12-14] MEDS ORDERED: LORATADINE 10 MG TABLET ONE (01:49)
[2018-12-14 01:56] LABS: INR 1.03 (0.83-1.09); PROTHROMBIN TIME (PATIENT) 12.1 SEC (9.7-13.0)
[2018-12-14 06:19] LABS: HEMATOCRIT 23.1 % (32.4-45.2); HEMOGLOBIN 7.8 GM/dL (10.7-15.3); MCH 31.2 pg (25.7-33.7); MCHC 33.6 g/dl (32.0-36.0); MEAN CELL VOLUME 92.6 fl (80-96); MEAN PLT VOLUME 8.7 fl (7.5-11.1); PLATELET COUNT 199 K/MM3 (134-434); RBC 2.49 M/mm3 (3.60-5.2); RDW 15.2 % (11.6-15.6); WHITE BLOOD COUNT 5.7 K/mm3 (4.0-10.0)
[2018-12-14 07:10] LABS: ALBUMIN 3.3 g/dl (3.4-5.0); ALK PHOS 79 U/L (45-117); ANION GAP 7 MMOL/L (8-16); BILIRUBIN,TOTAL 0.4 mg/dL (0.2-1); BLOOD UREA NITROGEN 37 mg/dL (7-18); CALCIUM 9.4 mg/dL (8.5-10.1); CHLORIDE 106 mmol/L (98-107); CO2 28 mmol/L (21-32); CREATININE 2.5 mg/dL (0.55-1.3); GLUCOSE,RANDOM 69 mg/dL (74-106); SGOT/AST 23 U/L (15-37); SGPT/ALT 18 U/L (13-61); SODIUM 141 mmol/L (136-145); TOT PROT 6.2 g/dl (6.4-8.2)
--- NOTE | 2018-12-14 07:44 | CON.CARD ---
Consult Consult Specialty:: cardiology Reason for Consultation:: shortness of breath - History of Present Illness Chief Complaint: Pt Alert; dyspneic History of Present Illness: 78 year old woman with history of hypertrophic cardiomyopathy (HCM; no significant intracavitary gradient on 11/2018 ECHO); mild-moderate systolic CHF , HTN, DM, CKD colon CA, s/p resection, hyperthyroidism,hyperlipidemia, LBBB noted 2016; PAD; bilateral 25-30% stenoses of the carotid arteries on 11/2018 ultrasound), anemia, who presents with worsening shortness of breath preventing her from lying flat, which started after a medication change 2 weeks ago. The patient was on furosemide 40 BID and was changed to Torsemide 20mg, 2 pills in the AM. She started developing swelling in the legs and arms worse than baseline and orthopnea. The patient followed up with Program Attendant who noticed the swelling and added a second dose of torsemide 20mg at bedtime for a total of 60mg per day, and the patient has been taking this dosage for the past 5 days without improvement of swelling or shortness of breath. Today the patient' s daughter noticed the swelling and decided to bring her into the ED. The patient denies fever, cough, uri symptoms, chest pain, abdominal pain, dysuria, hematuria, nausea, vomiting or diaphoresis. She has no other complaints at bedside. 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: Dementia (mild), TIA Cardio/Vascular: Yes: CHF, HTN, Hyperlipdemia, Other (HCM with no reported LVOT gradient) Gastrointestinal: Yes: Pancreatitis, Other (Abdominal/Umbilical hernia) Renal/: Yes: Neurogenic Bladder Reproductive: Yes: Postmenopausal ...: No Heme/Onc: Yes: Anemia Musculoskeletal: Yes: Chronic low back pain Endocrine: Yes: Diabetes Mellitus Additional Medical History: Obesity - Past Surgical History Past Surgical History: Yes: Appendectomy, Cholecystectomy - Alcohol/Substance Use Hx Alcohol Use: No - Smoking History Smoking history: Never smoked Have you smoked in the past 12 months: No If you are a former smoker, when did you quit?: 40 years ago - Social History ADL: Independent History of Recent Travel: No Home Medications - Allergies Allergies/Adverse Reactions: Allergies Allergy/AdvReac Type Severity Reaction Status Date / Time No Known Allergies Allergy Verified 12/13/18 18:28 - Home Medications Home Medications: Ambulatory Orders Ferrous Sulfate [Feosol] 325 mg PO BID 01/14/15 Simvastatin [Zocor -] 20 mg PO HS 01/14/15 Acetaminophen [Tylenol .Regular Strength -] 650 mg PO Q6H PRN #0 tablet Amlodipine Besylate [Norvasc -] 10 mg PO DAILY 12/04/15 Brimonidine Tartrate/Timolol [Combigan 0.2%-0.5% Eye Drops] 1 drop OU DAILY Cholecalciferol (Vitamin D3) [Vitamin D] 2,000 unit PO DAILY 12/04/15 Furosemide [Lasix -] 20 mg PO BID #60 tablet 04/22/17 Insulin (Levemir) [Levemir Vial] 40 units SQ ACBK 11/25/17 Insulin Sliding Scale [Novolog Vial Sliding Scale -] 1 vial SQ ACHS PRN [place]-3 Fatty Acids/Fish Oil [Fish Oil 1,000 mg Capsule] 1 each PO DAILY hydrALAZINE HCL [Apresoline -] 30 mg PO BID 11/25/17 Atorvastatin Ca [Lipitor] 10 mg PO HS 12/14/18 Linagliptin [Tradjenta] 5 mg PO DAILY 12/14/18 Family Disease History - Family Disease History Family Disease History: CA: Sister (wind turbine mechanic malignancy) Review of Systems - Review of Systems Constitutional: reports: Weakness Eyes: reports: No Symptoms HENT: reports: No Symptoms Neck: reports: No Symptoms Cardiovascular: reports: Shortness of Breath Respiratory: reports: SOB Gastrointestinal: reports: No Symptoms Genitourinary: reports: No Symptoms Breasts: reports: No Symptoms Reported Musculoskeletal: reports: Muscle Weakness Integumentary: reports: No Symptoms Neurological: reports: No Symptoms Endocrine: reports: No Symptoms Hematology/Lymphatic: reports: Other Psychiatric: reports: No Symptoms - Risk Factors Known Risk Factors: Yes: Age, Physical Inactivity, Other (HCM; systolic CHF) Vital Signs: Vital Signs Temperature 98.6 F 12/13/18 18:28 Pulse Rate 87 12/13/18 18:28 Respiratory Rate 20 12/13/18 18:28 Blood Pressure 155/49 L 12/13/18 18:28 O2 Sat by Pulse Oximetry (%) 99 12/13/18 18:28 Abnormal Lab Results 12/15/18 12/15/18 05:30 06:00 RBC 2.36 L Hgb 7.4 L Hct 21.9 L Anion Gap 6 L BUN 43 H Creatinine 2.6 H Random Glucose 120 H Total Protein 6.0 L Albumin 2.9 L Constitutional: Yes: Well Nourished Eyes: Yes: WNL HENT: Yes: WNL Neck: Yes: WNL Respiratory: Yes: Diminished, Tachypnea Gastrointestinal: Yes: Soft Renal/: No: Anuria Heart Sounds: Yes: S1, Split S2 Murmur: Yes: Systolic Murmur, Grade 2 Musculoskeletal: Yes: Muscle Weakness Extremities: Yes: Cool Edema: Yes Edema: LLE: Trace, RLE: Trace Peripheral Pulses WNL: Yes Integumentary: Yes: WNL Neurological: Yes: Alert, Oriented, Weakness Psychiatric: Yes: Alert, Oriented - Other Data Labs, Other Data: CBC, BMP 12/14/18 05:20 12/14/18 05:20 INR, PTT INR 1.03 (0.83-1.09) 12/14/18 01:31 Troponin, BNP 12/13/18 12/13/18 12/14/18 20:03 20:03 05:20 Troponin I 0.05 0.05 B-Natriuretic Peptide 735.5 H Troponin, BNP 12/13/18 12/13/18 12/14/18 20:03 20:03 05:20 Troponin I 0.05 0.05 B-Natriuretic Peptide 735.5 H Imaging - Results Chest X-ray: Image Reviewed EKG: Image Reviewed Other: Image Reviewed Problem List - Problems (1) Systolic and diastolic CHF w/reduced LV function, NYHA class 4 Assessment/Plan: Consider starting beta blockers (systolic CHF; HCM; HTN). Code(s): I50.40 - UNSP COMBINED SYSTOLIC AND DIASTOLIC (CONGESTIVE) HRT FAIL (2) Hypertrophic obstructive cardiomyopathy (HOCM) Code(s): I42.1 - OBSTRUCTIVE HYPERTROPHIC CARDIOMYOPATHY (3) Renal insufficiency Assessment/Plan: Now off torsemide; being given IV furosemide. F/u BUN/Cr, electrolytes, Is and Os, daily weight. F/u with welder apprentice gas. Code(s): N28.9 - DISORDER OF KIDNEY AND URETER, UNSPECIFIED (4) Anemia Code(s): D64.9 - ANEMIA, UNSPECIFIED Qualifiers: Iron deficiency anemia type: inadequate dietary iron intake (5) HTN (hypertension) Assessment/Plan: On hydralazine; on amlodipine as outpatient. Consider starting metoprolol (HCM; systolic CHF); renal dysfunction presently precludes use of ACEI or ARB. Code(s): I10 - ESSENTIAL (PRIMARY) HYPERTENSION (6) Hyperthyroidism Assessment/Plan: on methimazole. TSH WNL. Code(s): E05.90 - THYROTOXICOSIS, UNSP WITHOUT THYROTOXIC CRISIS OR STORM
[2018-12-14] MEDS ORDERED: INSULIN (LEVEMIR) 100 UNITS/ML UNITS SQ ONE (07:56)
[2018-12-14] MEDS: INSULIN (LEVEMIR) 100 UNITS/ML UNITS SQ SCH (08:05)
[2018-12-14] MEDS: INSULIN SLIDING SCALE (NOVOLOG) 1 VIAL SQ SCH ×4 (08:05→23:50)
[2018-12-14 09:04] LABS: CHOLESTEROL 159 mg/dL (50-200); HDL CHOLESTEROL 63 mg/dL (40-60); TRIGLYCERIDES 141 mg/dL (0-150)
[2018-12-14] MEDS: TIMOLOL 0.5% OPHTHALMIC SOL 5 ML BOTTLE OU SCH ×2 (09:19→23:50)
[2018-12-14] MEDS: METHIMAZOLE 5 MG TABLET (FP) PO SCH (09:19)
[2018-12-14] MEDS: BRIMONIDINE TARTRATE 0.2% OPHTHALMIC 5 ML BOTTLE OU SCH ×2 (09:19→23:50)
[2018-12-14] MEDS ORDERED: FUROSEMIDE 40 MG TABLET (FP) PO ONE (09:32)
--- NOTE | 2018-12-14 09:34 | HP ---
Admitting History and Physical - Primary Care Physician PCP: Albert Wilkinson - Admission Chief Complaint: SOB History of Present Illness: Pt with significant PMHx/o CHF, HOCM, DM, CRF came to ER c/o worsening LE edema and SOB over the last 2 days, associated with orthopnea last night. Pt was seen in ER; pt's dg is at bedside. 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 (mild), TIA Cardiovascular: Yes: HTN, Hyperlipdemia, Other (HOCM) Gastrointestinal: Yes: Pancreatitis, Other (Abdominal/Umbilical hernia) Renal/: Yes: Neurogenic Bladder Heme/Onc: Yes: Anemia Musculoskeletal: Yes: Chronic low back pain Endocrine: Yes: Diabetes Mellitus - Past Surgical History Past Surgical History: Yes: Appendectomy, Cholecystectomy - Smoking History Smoking history: Never smoked Have you smoked in the past 12 months: No If you are a former smoker, when did you quit?: 40 years ago - Alcohol/Substance Use Hx Alcohol Use: No - Social History ADL: Independent History of Recent Travel: No Home Medications - Allergies Allergies/Adverse Reactions: Allergies Allergy/AdvReac Type Severity Reaction Status Date / Time No Known Allergies Allergy Verified 12/13/18 18:28 - Home Medications Home Medications: Ambulatory Orders Ferrous Sulfate [Feosol] 325 mg PO BID 01/14/15 Simvastatin [Zocor -] 20 mg PO HS 01/14/15 Acetaminophen [Tylenol .Regular Strength -] 650 mg PO Q6H PRN #0 tablet Amlodipine Besylate [Norvasc -] 10 mg PO DAILY 12/04/15 Brimonidine Tartrate/Timolol [Combigan 0.2%-0.5% Eye Drops] 1 drop OU DAILY Cholecalciferol (Vitamin D3) [Vitamin D] 2,000 unit PO DAILY 12/04/15 Furosemide [Lasix -] 20 mg PO BID #60 tablet 04/22/17 Insulin (Levemir) [Levemir Vial] 40 units SQ ACBK 11/25/17 Insulin Sliding Scale [Novolog Vial Sliding Scale -] 1 vial SQ ACHS PRN [place]-3 Fatty Acids/Fish Oil [Fish Oil 1,000 mg Capsule] 1 each PO DAILY hydrALAZINE HCL [Apresoline -] 30 mg PO BID 11/25/17 Atorvastatin Ca [Lipitor] 10 mg PO HS 12/14/18 Linagliptin [Tradjenta] 5 mg PO DAILY 12/14/18 Family Disease History - Family Disease History Family Disease History: CA: Sister (ob/gyn nurse malignancy) Review of Systems - Review of Systems Constitutional: denies: Chills, Fever, Night Sweats Eyes: denies: Blurred Vision, Eye Pain HENT: denies: Difficult Swallowing, Ear Discharge, Ear Pain, Nasal Congestion, Throat Pain Neck: denies: Pain on Movement, Stiffness Cardiovascular: denies: Chest Pain, Palpitations Respiratory: reports: SOB, SOB on Exertion. denies: Cough Gastrointestinal: denies: Abdominal Pain, Diarrhea, Nausea, Vomiting Genitourinary: denies: Burning, Discharge Musculoskeletal: denies: Back Pain, Joint Swelling Integumentary: denies: Blister, Bruising Neurological: denies: Change in LOC, Change in Speech, Numbness, Syncope, Tremors Endocrine: denies: Excessive Sweating, Intolerance to Cold Hematology/Lymphatic: denies: Easily Bruised, Excessive Bleeding Psychiatric: denies: Anxiety, Depression Physical Examination Vital Signs: Vital Signs Temperature 99.1 F 12/14/18 08:45 Pulse Rate 90 12/14/18 08:45 Respiratory Rate 18 12/14/18 08:45 Blood Pressure 183/62 H 12/14/18 08:45 O2 Sat by Pulse Oximetry (%) 99 12/14/18 08:45 Constitutional: Yes: No Distress, Calm Eyes: Yes: Conjunctiva Clear, EOM Intact, PERRL HENT: Yes: Normocephalic. No: Epistaxis, Pharyngeal Erythema, Rhinnorhea Neck: Yes: Trachea Midline. No: Lymphadenopathy Cardiovascular: Yes: Regular Rate and Rhythm, S1, S2 Respiratory: Yes: Regular, Rales (crackles at bases) Gastrointestinal: Yes: Normal Bowel Sounds, Soft, Abdomen, Obese, Hernia, Other (abd wall edema) ...Rectal Exam: Yes: Deferred Renal/: No: CVA Tenderness - Left, CVA Tenderness - Right Breast(s): Yes: Other (deferred) Musculoskeletal: No: Back Pain, Joint Stiffness, Joint Swelling Extremities: No: Cold, Cool, Cyanosis Edema: LLE: 2+, RLE: 2+ Neurological: Yes: Alert, Oriented, Other (motor and sensory examination is symmetric in UE/LE/face) Psychiatric: Yes: Oriented. No: Agitated Labs: CBC, BMP 12/14/18 05:20 12/14/18 05:20 Imaging - Results Chest X-ray: Report Reviewed Problem List - Problems (1) Acute exacerbation of CHF (congestive heart failure) Code(s): I50.9 - HEART FAILURE, UNSPECIFIED (2) Anasarca Code(s): R60.1 - GENERALIZED EDEMA (3) Chronic renal failure Code(s): N18.9 - CHRONIC KIDNEY DISEASE, UNSPECIFIED (4) Hypertrophic obstructive cardiomyopathy (HOCM) Code(s): I42.1 - OBSTRUCTIVE HYPERTROPHIC CARDIOMYOPATHY (5) Diabetes mellitus Code(s): E11.9 - TYPE 2 DIABETES MELLITUS WITHOUT COMPLICATIONS (6) Liver cirrhosis Code(s): K74.60 - UNSPECIFIED CIRRHOSIS OF LIVER (7) Anemia Assessment/Plan: s/p iron infusion Code(s): D64.9 - ANEMIA, UNSPECIFIED Qualifiers: Iron deficiency anemia type: inadequate dietary iron intake Assessment/Plan IV Lasix To f/u electrolytes Admit to monitor bed. Cardio consult Renal consult To clarify pt's meds with her daughter (e.g. she has in her medication bag both Lasix and Torsemide). AM labs
[2018-12-14] MEDS ORDERED: hydrALAZINE HCL 10 MG TABLET PO SCH (10:00)
[2018-12-14] MEDS ORDERED: PATIENT'S OWN MEDICATION (NON-FORMULARY) (Brimonidine Tartrate/Timolol [Combigan 0.2%-0.5% OU SCH (10:00)
[2018-12-14] MEDS ORDERED: amLODIPine BESYLATE 5 MG TABLET (FP) PO SCH (10:00)
[2018-12-14] MEDS ORDERED: FUROSEMIDE 40 MG TABLET (FP) ONE (11:32)
--- NOTE | 2018-12-14 12:15 | CONSULT ---
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 Pt follows with me in the office. Pt was recently changed to Torsemide from Lasix for more convenient dosing. Wt was 73kg on 11/27/18, now 77kg. Pt denies any dietary indiscretion. Denies any NSAID use. Making urine. + SOB. No fever, chills, N/V/D, MARTINI, confusion, lethargy or weakness. PMhx: as above Allergies: NKDA Family Hx: NC Social Hx: No T/A/D ROS: as per HPI, all other pertinent ros negative Home Medications Medication Instructions Recorded Ferrous Sulfate [Feosol] 325 mg PO BID 01/14/15 Simvastatin [Zocor -] 20 mg PO HS 01/14/15 Acetaminophen [Tylenol .Regular 650 mg PO Q6H PRN #0 tablet 01/18/15 Strength -] Amlodipine Besylate [Norvasc -] 10 mg PO DAILY 12/04/15 Brimonidine Tartrate/Timolol 1 drop OU DAILY 12/04/15 [Combigan 0.2%-0.5% Eye Drops] Cholecalciferol (Vitamin D3) 2,000 unit PO DAILY 12/04/15 [Vitamin D] Furosemide [Lasix -] 20 mg PO BID #60 tablet 04/22/17 Insulin (Levemir) [Levemir Vial] 40 units SQ ACBK 11/25/17 Insulin Sliding Scale [Novolog 1 vial SQ ACHS PRN 11/25/17 Vial Sliding Scale -] [place]-3 Fatty Acids/Fish Oil [Fish 1 each PO DAILY 11/25/17 Oil 1,000 mg Capsule] hydrALAZINE HCL [Apresoline -] 30 mg PO BID 11/25/17 Atorvastatin Ca [Lipitor] 10 mg PO HS 12/14/18 Linagliptin [Tradjenta] 5 mg PO DAILY 12/14/18 Vital Signs Temperature 99.1 F 12/14/18 08:45 Pulse Rate 80 12/14/18 10:57 Respiratory Rate 18 12/14/18 10:57 Blood Pressure 148/52 L 12/14/18 10:57 O2 Sat by Pulse Oximetry (%) 97 12/14/18 10:57 Intake & Output 12/11/18 12/12/18 12/13/18 12/14/18 23:59 23:59 23:59 23:59 Weight 77.111 kg NAD awake and alert neck supple, no JVD RRR Dec Bs at lung bases but no overt rales soft NT/ND ++ edema in LE, no clubbing or cyanosis No bladder distension no focal neurologic defects CBC, BMP 12/14/18 05:20 12/14/18 05:20 Current Medications Acetaminophen (Tylenol -) 650 mg PO Q6H PRN PRN Reason: FEVER Atorvastatin Calcium (Lipitor -) 20 mg PO HS [facility] Brimonidine Tartrate ([place] 0.2% -) 1 drop OU BID [facility] Last Admin: 12/14/18 09:19 Dose: Not Given Furosemide (Lasix Injection -) 40 mg IVPUSH ONCE ONE Stop: 12/14/18 16:01 Furosemide (Lasix Injection -) 60 mg IVPB DAILY [facility] Hydralazine HCl (Apresoline -) 10 mg PO BID [facility] Last Admin: 12/14/18 09:19 Dose: 10 mg Insulin Aspart (Novolog Vial Sliding Scale -) 1 vial SQ ACHS [facility]; Protocol Last Admin: 12/14/18 11:29 Dose: Not Given Insulin Detemir (Levemir Vial) 20 units SQ ACBK [facility] Last Admin: 12/14/18 08:05 Dose: 20 units Methimazole (Tapazole -) 5 mg PO DAILY [facility] Last Admin: 12/14/18 09:19 Dose: 5 mg Pantoprazole Sodium (Protonix -) 40 mg PO HS [facility] Timolol Maleate (Timoptic 0.5%) 1 drop OU BID [facility] Last Admin: 12/14/18 09:19 Dose: Not Given 78 year old woman with hx of 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 #Anasarca/CHF/Fluid overload #CKD stage 4 with nephrotic proteinuira #CHF #DM #Iron deficiency anemia Unclear why pt was gaining weight while on diuretics, ? if resistant to torsemide or requires higher dose continue IV diuresis with Lasix for now, plan 40mg BID today and then 60mg in AM tomorrow. Titrate diuretics to achieve weight loss baseline Cr is 2.2, trend renal function and electrolytes daily Cardiology following continue insulin sliding scale Will give EILEEN and additional iron for anemia this admission Low salt diet no urgent indication for DIRECTOR STYLE Dose all meds for CrCl < 20 avoid nephrotoxins and IV contrast check doppler of lower extremities to r/o DVT given pt has nephrotic range proteinuira and this higher likely iverson of thrombosis Thank you Robby Pablo DO
[2018-12-14] MEDS ORDERED: FUROSEMIDE 40 MG/4 ML INJECTABLE VIAL ONE (15:51)
[2018-12-14] MEDS ORDERED: FUROSEMIDE 40 MG/4 ML INJECTABLE VIAL IVPUSH ONE (16:00)
[2018-12-14] MEDS ORDERED: hydrALAZINE HCL 25 MG TABLET (FP) ONE (16:24)
[2018-12-14] MEDS ORDERED: hydrALAZINE HCL 10 MG TABLET PO ONE (16:44)
--- NOTE | 2018-12-14 16:46 | EKG ---
Test Reason : Blood Pressure : / mmHG Vent. Rate : 083 BPM Atrial Rate : 083 BPM P-R Int : 184 ms QRS Dur : 126 ms QT Int : 386 ms P-R-T Axes : 025 -54 099 degrees QTc Int : 453 ms NORMAL SINUS RHYTHM LEFT AXIS DEVIATION LEFT VENTRICULAR HYPERTROPHY WITH QRS WIDENING AND REPOLARIZATION ABNORMALITY ABNORMAL ECG WHEN COMPARED WITH ECG OF 03-JUL-2018 16:23, NO SIGNIFICANT CHANGE WAS FOUND Confirmed by JENNIFER SCHAFFER, KORIN ([id number]) on 12/14/2018 4:45:49 PM Referred By: Confirmed By:KORIN RODRIGUEZ MD
[2018-12-14 18:13] LABS: URINE APPEARANCE CLEAR; URINE BILIRUBIN NEGATIVE (<2.0 mg/dL); URINE COLOR LTYELLOW; URINE GLUCOSE (UA) NEGATIVE (NEGATIVE); URINE KETONE NEGATIVE (NEGATIVE); URINE LEUK ESTERASE NEGATIVE (NEGATIVE); URINE NITRITE NEGATIVE (NEGATIVE); URINE PROTEIN 2+ (NEGATIVE); URINE UROBILINOGEN NEGATIVE mg/dL (0.2-1.0)
[2018-12-14 18:26] LABS: EPI CELLS RARE /HPF (FEW); URINE HYALINE CAST 1 /lpf
[2018-12-14] MEDS: hydrALAZINE HCL 10 MG TABLET PO SCH (23:50)
[2018-12-14] MEDS: ATORVASTATIN CA 20 MG TABLET (FP) PO SCH (23:50)
[2018-12-14] MEDS: PANTOPRAZOLE 40 MG TABLET (FP) PO SCH (23:50)
[2018-12-15] MEDS: INSULIN SLIDING SCALE (NOVOLOG) 1 VIAL SQ SCH ×4 (06:06→22:10)
[2018-12-15] MEDS: INSULIN (LEVEMIR) 100 UNITS/ML UNITS SQ SCH (06:06)
[2018-12-15 06:30] LABS: HEMATOCRIT 21.9 % (32.4-45.2); HEMOGLOBIN 7.4 GM/dL (10.7-15.3); MCH 31.4 pg (25.7-33.7); MCHC 33.8 g/dl (32.0-36.0); MEAN CELL VOLUME 92.9 fl (80-96); MEAN PLT VOLUME 8.8 fl (7.5-11.1); PLATELET COUNT 177 K/MM3 (134-434); RBC 2.36 M/mm3 (3.60-5.2); RDW 15.3 % (11.6-15.6); WHITE BLOOD COUNT 4.1 K/mm3 (4.0-10.0)
[2018-12-15 07:07] LABS: ALBUMIN 2.9 g/dl (3.4-5.0); ALK PHOS 81 U/L (45-117); ANION GAP 6 MMOL/L (8-16); BILIRUBIN,TOTAL 0.3 mg/dL (0.2-1); BLOOD UREA NITROGEN 43 mg/dL (7-18); CALCIUM 8.6 mg/dL (8.5-10.1); CHLORIDE 105 mmol/L (98-107); CO2 30 mmol/L (21-32); CREATININE 2.6 mg/dL (0.55-1.3); GLUCOSE,RANDOM 120 mg/dL (74-106); MAGNESIUM 2.2 mg/dL (1.8-2.4); POTASSIUM 4.1 mmol/L (3.5-5.1); SGOT/AST 23 U/L (15-37); SGPT/ALT 17 U/L (13-61); SODIUM 141 mmol/L (136-145)
[2018-12-15] MEDS ORDERED: EPOETIN ALFA 20,000 UNIT/1 ML VIAL SQ ONE (09:00)
[2018-12-15] MEDS ORDERED: IRON SUCROSE INJECTION 100 MG in SODIUM CHLORIDE 95 ML IVPB ONE (09:00)
--- NOTE | 2018-12-15 09:37 | PN ---
Progress Note, Physician History of Present Illness: Pt's breathing is better, less swollen (hands, legs). Pt w/o CP, palpitations, dizziness, abd pain, nausea, vomiting. - Current Medication List Current Medications: Active Medications Acetaminophen (Tylenol -) 650 mg PO Q6H PRN PRN Reason: FEVER Atorvastatin Calcium (Lipitor -) 20 mg PO HS [facility] Last Admin: 12/14/18 23:50 Dose: 20 mg Brimonidine Tartrate (Alphagan 0.2% -) 1 drop OU BID [facility] Last Admin: 12/14/18 23:50 Dose: 1 drop Furosemide (Lasix Injection -) 60 mg IVPB DAILY [facility] Hydralazine HCl (Apresoline -) 30 mg PO BID [facility] Last Admin: 12/14/18 23:50 Dose: 30 mg Insulin Aspart (Novolog Vial Sliding Scale -) 1 vial SQ [facility]; Protocol Last Admin: 12/15/18 06:06 Dose: Not Given Insulin Detemir (Levemir Vial) 20 units SQ ACBK [facility] Last Admin: 12/15/18 06:06 Dose: Not Given Methimazole (Tapazole -) 5 mg PO DAILY [facility] Last Admin: 12/14/18 09:19 Dose: 5 mg Pantoprazole Sodium (Protonix -) 40 mg PO [facility] Last Admin: 12/14/18 23:50 Dose: 40 mg Timolol Maleate (Timoptic 0.5%) 1 drop OU BID [facility] Last Admin: 12/14/18 23:50 Dose: 1 drop - Objective Vital Signs: Vital Signs Temperature 97.8 F 12/15/18 09:00 Pulse Rate 76 12/15/18 09:00 Respiratory Rate 20 12/15/18 09:00 Blood Pressure 159/68 12/15/18 09:00 O2 Sat by Pulse Oximetry (%) 99 12/15/18 06:00 Constitutional: Yes: No Distress, Calm Cardiovascular: Yes: Regular Rate and Rhythm, S1, S2 Respiratory: Yes: Regular, Rales (crackles at bases) Gastrointestinal: Yes: Normal Bowel Sounds, Soft, Abdomen, Obese, Tenderness Edema: LLE: 2+, RLE: 2+ Neurological: Yes: Alert, Oriented Labs: CBC, BMP 12/15/18 05:30 12/15/18 06:00 INR, PTT INR 1.03 (0.83-1.09) 12/14/18 01:31 Problem List - Problems (1) Acute exacerbation of CHF (congestive heart failure) Code(s): I50.9 - HEART FAILURE, UNSPECIFIED (2) Anasarca Code(s): R60.1 - GENERALIZED EDEMA (3) Chronic renal failure Code(s): N18.9 - CHRONIC KIDNEY DISEASE, UNSPECIFIED (4) Hypertrophic obstructive cardiomyopathy (HOCM) Code(s): I42.1 - OBSTRUCTIVE HYPERTROPHIC CARDIOMYOPATHY (5) Diabetes mellitus Code(s): E11.9 - TYPE 2 DIABETES MELLITUS WITHOUT COMPLICATIONS (6) Liver cirrhosis Code(s): K74.60 - UNSPECIFIED CIRRHOSIS OF LIVER (7) Anemia Code(s): D64.9 - ANEMIA, UNSPECIFIED Qualifiers: Iron deficiency anemia type: inadequate dietary iron intake Assessment/Plan Pt is monitored on Telemetry IV Lasix To f/u electrolytes, renal function Cardio are Renal consults are appreciated. AM labs
[2018-12-15] MEDS ORDERED: FUROSEMIDE 40 MG/4 ML INJECTABLE VIAL IVPB SCH (10:00)
[2018-12-15] MEDS: hydrALAZINE HCL 10 MG TABLET PO SCH ×2 (10:24→22:11)
[2018-12-15] MEDS: METHIMAZOLE 5 MG TABLET (FP) PO SCH (10:24)
[2018-12-15] MEDS: TIMOLOL 0.5% OPHTHALMIC SOL 5 ML BOTTLE OU SCH ×2 (10:29→22:11)
[2018-12-15] MEDS: BRIMONIDINE TARTRATE 0.2% OPHTHALMIC 5 ML BOTTLE OU SCH ×2 (10:30→22:11)
--- NOTE | 2018-12-15 14:52 | PN ---
Progress Note (short form) - Note Progress Note: Renal follow up for CKD with fluid overload Pt seen and examined at the bedside feels better no sob leg edema improving making urine Vital Signs Temperature 97.8 F 12/15/18 09:00 Pulse Rate 76 12/15/18 09:00 Respiratory Rate 20 12/15/18 09:00 Blood Pressure 159/68 12/15/18 09:00 O2 Sat by Pulse Oximetry (%) 98 12/15/18 09:00 Intake & Output 12/12/18 12/13/18 12/14/18 12/15/18 23:59 23:59 23:59 23:59 Intake Total 260 Balance 260 Weight 77.111 kg 76.204 kg NAD ++ edema in LE CBC, BMP 12/15/18 05:30 12/15/18 06:00 Current Medications Acetaminophen (Tylenol -) 650 mg PO Q6H PRN PRN Reason: FEVER Atorvastatin Calcium (Lipitor -) 20 mg PO HS [facility] Last Admin: 12/14/18 23:50 Dose: 20 mg Brimonidine Tartrate (Alphagan 0.2% -) 1 drop OU BID [facility] Last Admin: 12/15/18 10:30 Dose: 1 drop Furosemide (Lasix Injection -) 60 mg IVPB DAILY [facility] Last Admin: 12/15/18 10:23 Dose: 60 mg Hydralazine HCl (Apresoline -) 30 mg PO BID [facility] Last Admin: 12/15/18 10:24 Dose: 30 mg Insulin Aspart (Novolog Vial Sliding Scale -) 1 vial SQ [facility]; Protocol Last Admin: 12/15/18 12:13 Dose: 2 units Insulin Detemir (Levemir Vial) 20 units SQ ACBK [facility] Last Admin: 12/15/18 06:06 Dose: Not Given Methimazole (Tapazole -) 5 mg PO DAILY [facility] Last Admin: 12/15/18 10:24 Dose: 5 mg Pantoprazole Sodium (Protonix -) 40 mg PO HS [facility] Last Admin: 12/14/18 23:50 Dose: 40 mg Timolol Maleate (Timoptic 0.5%) 1 drop OU BID [facility] Last Admin: 12/15/18 10:29 Dose: 1 drop 78 year old woman with hx of 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 #Anasarca/CHF/Fluid overload #CKD stage 4 with nephrotic proteinuira #CHF #DM #Iron deficiency anemia Renal function stable Weight improving with IV lasix Continue Lasix 60mg Daily, titrate to achieve weight loss Trend daily weights Doppler of LE pending Thank you Robby Pablo DO
[2018-12-15] MEDS: ATORVASTATIN CA 20 MG TABLET (FP) PO SCH (22:11)
[2018-12-15] MEDS: PANTOPRAZOLE 40 MG TABLET (FP) PO SCH (22:11)
--- NOTE | 2018-12-16 02:55 | PN ---
Progress Note, Physician Chief Complaint: Pt A&Ox3; slept relatively well; less dyspneic now than on admission. History of Present Illness: 78 year old woman with history of hypertrophic cardiomyopathy (HCM; no significant intracavitary gradient on 11/2018 ECHO); mild-moderate systolic CHF , HTN, DM, CKD colon CA, s/p resection, hyperthyroidism,hyperlipidemia, LBBB noted 2016; PAD; bilateral 25-30% stenoses of the carotid arteries on 11/2018 ultrasound), anemia, who presents with worsening shortness of breath preventing her from lying flat, which started after a medication change 2 weeks ago. The patient was on furosemide 40 BID and was changed to Torsemide 20mg, 2 pills in the AM. She started developing swelling in the legs and arms worse than baseline and orthopnea. The patient followed up with [employer] who noticed the swelling and added a second dose of torsemide 20mg at bedtime for a total of 60mg per day, and the patient has been taking this dosage for the past 5 days without improvement of swelling or shortness of breath. Today the patient' s daughter noticed the swelling and decided to bring her into the ED. The patient denies fever, cough, uri symptoms, chest pain, abdominal pain, dysuria, hematuria, nausea, vomiting or diaphoresis. She has no other complaints at bedside. PCP: Minh Channel Lip Wetter: Jean [employer]: Samy Hendricks stress MIBIs 2010 and January 2016; hx bradycardia - Current Medication List Current Medications: Active Medications Acetaminophen (Tylenol -) 650 mg PO Q6H PRN PRN Reason: FEVER Atorvastatin Calcium (Lipitor -) 20 mg PO HS [facility] Last Admin: 12/15/18 22:11 Dose: 20 mg Brimonidine Tartrate (Alphagan 0.2% -) 1 drop OU BID [facility] Last Admin: 12/15/18 22:11 Dose: 1 drop Furosemide (Lasix Injection -) 60 mg IVPB DAILY [facility] Last Admin: 12/15/18 10:23 Dose: 60 mg Hydralazine HCl (Apresoline -) 30 mg PO BID [facility] Last Admin: 12/15/18 22:11 Dose: 30 mg Insulin Aspart (Novolog Vial Sliding Scale -) 1 vial SQ [facility]; Protocol Last Admin: 12/15/18 22:10 Dose: Not Given Insulin Detemir (Levemir Vial) 20 units SQ ACBK [facility] Last Admin: 12/15/18 06:06 Dose: Not Given Methimazole (Tapazole -) 5 mg PO DAILY [facility] Last Admin: 12/15/18 10:24 Dose: 5 mg Pantoprazole Sodium (Protonix -) 40 mg PO HS [facility] Last Admin: 12/15/18 22:11 Dose: 40 mg Timolol Maleate (Timoptic 0.5%) 1 drop OU BID [facility] Last Admin: 12/15/18 22:11 Dose: 1 drop - Objective Vital Signs: Vital Signs Temperature 98.5 F 12/16/18 02:00 Pulse Rate 71 12/16/18 02:00 Respiratory Rate 19 12/15/18 16:30 Blood Pressure 148/53 L 12/16/18 02:00 O2 Sat by Pulse Oximetry (%) 98 12/15/18 09:00 Constitutional: Yes: Calm Eyes: Yes: WNL HENT: Yes: WNL Neck: Yes: WNL Cardiovascular: Yes: Regular Rate and Rhythm Respiratory: Yes: WNL Gastrointestinal: Yes: Soft ...Rectal Exam: Yes: Deferred Genitourinary: No: Anuria Breast(s): Yes: WNL Musculoskeletal: Yes: WNL Extremities: Yes: WNL Edema: No Peripheral Pulses WNL: Yes Integumentary: Yes: WNL Neurological: Yes: WNL Psychiatric: Yes: WNL Labs: CBC, BMP 12/15/18 05:30 12/15/18 06:00 INR, PTT INR 1.03 (0.83-1.09) 12/14/18 01:31 Abnormal Lab Results 12/15/18 12/15/18 05:30 06:00 RBC 2.36 L Hgb 7.4 L Hct 21.9 L Anion Gap 6 L BUN 43 H Creatinine 2.6 H Random Glucose 120 H Total Protein 6.0 L Albumin 2.9 L - ....Imaging Other: Image Reviewed (telemetry: NSR) Problem List - Problems (1) Systolic and diastolic CHF w/reduced LV function, NYHA class 4 Assessment/Plan: Consider starting beta blockers (systolic CHF; HCM; HTN). On hydralazine. Code(s): I50.40 - UNSP COMBINED SYSTOLIC AND DIASTOLIC (CONGESTIVE) HRT FAIL (2) Hypertrophic obstructive cardiomyopathy (HOCM) Assessment/Plan: Pt and family were Code(s): I42.1 - OBSTRUCTIVE HYPERTROPHIC CARDIOMYOPATHY (3) Renal insufficiency Assessment/Plan: Now off torsemide; being given IV furosemide. F/u BUN/Cr, electrolytes, Is and Os, daily weight. F/u with nursing techn. Code(s): N28.9 - DISORDER OF KIDNEY AND URETER, UNSPECIFIED (4) Anemia Code(s): D64.9 - ANEMIA, UNSPECIFIED Qualifiers: Iron deficiency anemia type: inadequate dietary iron intake (5) HTN (hypertension) Assessment/Plan: On hydralazine; on amlodipine as outpatient. Consider starting metoprolol (HCM; systolic CHF); renal dysfunction presently precludes use of ACEI or ARB. Code(s): I10 - ESSENTIAL (PRIMARY) HYPERTENSION (6) Hyperthyroidism Assessment/Plan: on methimazole. TSH WNL. Code(s): E05.90 - THYROTOXICOSIS, UNSP WITHOUT THYROTOXIC CRISIS OR STORM
[2018-12-16] MEDS: INSULIN SLIDING SCALE (NOVOLOG) 1 VIAL SQ SCH ×4 (06:51→23:03)
[2018-12-16] MEDS: INSULIN (LEVEMIR) 100 UNITS/ML UNITS SQ SCH (06:51)
[2018-12-16 07:23] LABS: ANION GAP 5 MMOL/L (8-16); BLOOD UREA NITROGEN 45 mg/dL (7-18); CALCIUM 8.8 mg/dL (8.5-10.1); CHLORIDE 103 mmol/L (98-107); CO2 31 mmol/L (21-32); CREATININE 2.6 mg/dL (0.55-1.3); GLUCOSE,RANDOM 116 mg/dL (74-106); MAGNESIUM 2.4 mg/dL (1.8-2.4); POTASSIUM 4.2 mmol/L (3.5-5.1); SODIUM 139 mmol/L (136-145)
--- NOTE | 2018-12-16 09:10 | PN ---
Progress Note, Physician - Current Medication List Current Medications: Active Medications Acetaminophen (Tylenol -) 650 mg PO Q6H PRN PRN Reason: FEVER Atorvastatin Calcium (Lipitor -) 20 mg PO HS [facility] Last Admin: 12/15/18 22:11 Dose: 20 mg Brimonidine Tartrate (Alphagan 0.2% -) 1 drop OU BID [facility] Last Admin: 12/15/18 22:11 Dose: 1 drop Furosemide (Lasix Injection -) 60 mg IVPB DAILY [facility] Last Admin: 12/15/18 10:23 Dose: 60 mg Hydralazine HCl (Apresoline -) 30 mg PO BID [facility] Last Admin: 12/15/18 22:11 Dose: 30 mg Insulin Aspart (Novolog Vial Sliding Scale -) 1 vial SQ [facility]; Protocol Last Admin: 12/16/18 06:51 Dose: Not Given Insulin Detemir (Levemir Vial) 20 units SQ ACBK [facility] Last Admin: 12/16/18 06:51 Dose: 20 units Methimazole (Tapazole -) 5 mg PO DAILY [facility] Last Admin: 12/15/18 10:24 Dose: 5 mg Pantoprazole Sodium (Protonix -) 40 mg PO HS [facility] Last Admin: 12/15/18 22:11 Dose: 40 mg Timolol Maleate (Timoptic 0.5%) 1 drop OU BID [facility] Last Admin: 12/15/18 22:11 Dose: 1 drop - Objective Vital Signs: Vital Signs Temperature 98.2 F 12/16/18 06:00 Pulse Rate 76 12/16/18 06:00 Respiratory Rate 20 12/16/18 06:00 Blood Pressure 138/64 12/16/18 06:00 O2 Sat by Pulse Oximetry (%) 100 12/15/18 21:00 Labs: CBC, BMP 12/15/18 05:30 12/16/18 05:30 INR, PTT INR 1.03 (0.83-1.09) 12/14/18 01:31 Assessment/Plan 78 year old woman with history of CHF, HTN, DM, CKD and hyperthyroidism who presents with worsening shortness of breath. The patient was on furosemide 40 BID and was changed to Torsemide 40 mg/day. Samy. She started developing swelling in the legs and arms worse than baseline and orthopnea, a second dose of torsemide 20mg added at bedtime without improvement of swelling or shortness of breath. Admitted with CHF fluid overload and anemia cardiology and renal consults appreciated heme eval sq epogen f/ulabs diuretics per cardio falls DVT decubs pfx DVT pfx for now on TATIANNA and SCD b/o anemia r/o GI bleed check stools, GI eval d/w pt and daughter at bedside
[2018-12-16] MEDS ORDERED: PT OWN MED DRAWER 7, Y5N ONE ×2 (09:13→13:04)
--- NOTE | 2018-12-16 09:28 | PN ---
Progress Note, Physician History of Present Illness: 78 year old woman with history of hypertrophic cardiomyopathy (HCM; no significant intracavitary gradient on 11/2018 ECHO); mild-moderate systolic CHF , HTN, DM, CKD colon CA, s/p resection, hyperthyroidism,hyperlipidemia, LBBB noted 2016; PAD; bilateral 25-30% stenoses of the carotid arteries on 11/2018 ultrasound), anemia, who presents with worsening shortness of breath preventing her from lying flat, which started after a medication change 2 weeks ago. The patient was on furosemide 40 BID and was changed to Torsemide 20mg, 2 pills in the AM. She started developing swelling in the legs and arms worse than baseline and orthopnea. The patient followed up with [employer] who noticed the swelling and added a second dose of torsemide 20mg at bedtime for a total of 60mg per day, and the patient has been taking this dosage for the past 5 days without improvement of swelling or shortness of breath. Today the patient' s daughter noticed the swelling and decided to bring her into the ED. The patient denies fever, cough, uri symptoms, chest pain, abdominal pain, dysuria, hematuria, nausea, vomiting or diaphoresis. She has no other complaints at bedside. PCP: Minh Escrow Secretary: Jean Counter Professional: Samy - Current Medication List Current Medications: Active Medications Acetaminophen (Tylenol -) 650 mg PO Q6H PRN PRN Reason: FEVER Atorvastatin Calcium (Lipitor -) 20 mg PO HS [facility] Last Admin: 12/15/18 22:11 Dose: 20 mg Brimonidine Tartrate (Alphagan 0.2% -) 1 drop OU BID [facility] Last Admin: 12/15/18 22:11 Dose: 1 drop Furosemide (Lasix Injection -) 40 mg IVPB BID [facility] Hydralazine HCl (Apresoline -) 30 mg PO BID [facility] Last Admin: 12/15/18 22:11 Dose: 30 mg Insulin Aspart (Novolog Vial Sliding Scale -) 1 vial SQ [facility]; Protocol Last Admin: 12/16/18 06:51 Dose: Not Given Insulin Detemir (Levemir Vial) 20 units SQ ACBK [facility] Last Admin: 12/16/18 06:51 Dose: 20 units Methimazole (Tapazole -) 5 mg PO DAILY [facility] Last Admin: 12/15/18 10:24 Dose: 5 mg Pantoprazole Sodium (Protonix -) 40 mg PO HS [facility] Last Admin: 12/15/18 22:11 Dose: 40 mg Timolol Maleate (Timoptic 0.5%) 1 drop OU BID [facility] Last Admin: 12/15/18 22:11 Dose: 1 drop - Objective Vital Signs: Vital Signs Temperature 98.2 F 12/16/18 06:00 Pulse Rate 76 12/16/18 06:00 Respiratory Rate 20 12/16/18 06:00 Blood Pressure 138/64 12/16/18 06:00 O2 Sat by Pulse Oximetry (%) 100 12/15/18 21:00 Eyes: Yes: WNL, Conjunctiva Clear, EOM Intact HENT: Yes: WNL, Atraumatic, Normocephalic Neck: Yes: WNL, Supple, Trachea Midline Cardiovascular: Yes: WNL, Regular Rate and Rhythm Respiratory: Yes: WNL, Regular, CTA Bilaterally Gastrointestinal: Yes: WNL, Normal Bowel Sounds Genitourinary: Yes: WNL Musculoskeletal: Yes: WNL Extremities: Yes: WNL Edema: No Integumentary: Yes: WNL Neurological: Yes: WNL, Alert, Oriented ...Motor Strength: WNL Psychiatric: Yes: WNL Labs: CBC, BMP 12/15/18 05:30 12/16/18 05:30 INR, PTT INR 1.03 (0.83-1.09) 12/14/18 01:31 Assessment/Plan - Problems (1) Systolic and diastolic CHF w/reduced LV function, NYHA class 4 Assessment/Plan: Consider starting beta blockers (systolic CHF; HCM; HTN). On hydralazine. Code(s): I50.40 - UNSP COMBINED SYSTOLIC AND DIASTOLIC (CONGESTIVE) HRT FAIL (2) Hypertrophic obstructive cardiomyopathy (HOCM) Assessment/Plan: Code(s): I42.1 - OBSTRUCTIVE HYPERTROPHIC CARDIOMYOPATHY (3) Renal insufficiency Assessment/Plan: Now off torsemide; being given IV furosemide. F/u BUN/Cr, electrolytes, Is and Os, daily weight. F/u with express manager. Code(s): N28.9 - DISORDER OF KIDNEY AND URETER, UNSPECIFIED (4) Anemia Code(s): D64.9 - ANEMIA, UNSPECIFIED Qualifiers: Iron deficiency anemia type: inadequate dietary iron intake (5) HTN (hypertension) Assessment/Plan: On hydralazine; on amlodipine as outpatient. Consider starting metoprolol (HCM; systolic CHF); renal dysfunction presently precludes use of ACEI or ARB. Code(s): I10 - ESSENTIAL (PRIMARY) HYPERTENSION (6) Hyperthyroidism Assessment/Plan: on methimazole. TSH WNL. Code(s): E05.90 - THYROTOXICOSIS, UNSP WITHOUT THYROTOXIC CRISIS OR STORM
[2018-12-16] MEDS: hydrALAZINE HCL 10 MG TABLET PO SCH ×2 (09:45→23:02)
[2018-12-16] MEDS: METHIMAZOLE 5 MG TABLET (FP) PO SCH (09:45)
[2018-12-16] MEDS: FUROSEMIDE 40 MG/4 ML INJECTABLE VIAL IVPB SCH ×2 (09:45→17:37)
[2018-12-16] MEDS: TIMOLOL 0.5% OPHTHALMIC SOL 5 ML BOTTLE OU SCH ×2 (09:51→23:04)
[2018-12-16] MEDS: BRIMONIDINE TARTRATE 0.2% OPHTHALMIC 5 ML BOTTLE OU SCH ×2 (09:51→23:03)
[2018-12-16] MEDS ORDERED: metoPROLOL SUCCINATE 25 MG TAB.SR.24H (FP) PO SCH (10:00)
--- NOTE | 2018-12-16 11:05 | PN ---
Progress Note (short form) - Note Progress Note: Renal follow up for CKD with fluid overload Pt seen and examined at the bedside awake and alert feels better leg edema improved weights stable Vital Signs Temperature 98.2 F 12/16/18 06:00 Pulse Rate 76 12/16/18 06:00 Respiratory Rate 20 12/16/18 06:00 Blood Pressure 138/64 12/16/18 06:00 O2 Sat by Pulse Oximetry (%) 100 12/15/18 21:00 Intake & Output 12/13/18 12/14/18 12/15/18 12/16/18 23:59 23:59 23:59 23:59 Intake Total 260 10 Balance 260 10 Weight 77.111 kg 76.204 kg 77.655 kg NAD ++ edema in LE CBC, BMP 12/15/18 05:30 12/16/18 05:30 Current Medications Acetaminophen (Tylenol -) 650 mg PO Q6H PRN PRN Reason: FEVER Atorvastatin Calcium (Lipitor -) 20 mg PO HS [facility] Last Admin: 12/15/18 22:11 Dose: 20 mg Brimonidine Tartrate (Alphagan 0.2% -) 1 drop OU BID [facility] Last Admin: 12/16/18 09:51 Dose: 1 drop Furosemide (Lasix Injection -) 40 mg IVPB BID@0600,1800 [facility] Last Admin: 12/16/18 09:45 Dose: 40 mg Hydralazine HCl (Apresoline -) 30 mg PO BID [facility] Last Admin: 12/16/18 09:45 Dose: 30 mg Insulin Aspart (Novolog Vial Sliding Scale -) 1 vial SQ [facility]; Protocol Last Admin: 12/16/18 06:51 Dose: Not Given Insulin Detemir (Levemir Vial) 20 units SQ ACBK [facility] Last Admin: 12/16/18 06:51 Dose: 20 units Methimazole (Tapazole -) 5 mg PO DAILY [facility] Last Admin: 12/16/18 09:45 Dose: 5 mg Metoprolol Succinate (Toprol Xl -) 12.5 mg PO DAILY [facility] Pantoprazole Sodium (Protonix -) 40 mg PO HS [facility] Last Admin: 12/15/18 22:11 Dose: 40 mg Timolol Maleate (Timoptic 0.5%) 1 drop OU BID [facility] Last Admin: 12/16/18 09:51 Dose: 1 drop 78 year old woman with hx of 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 #Anasarca/CHF/Fluid overload #CKD stage 4 with nephrotic proteinuira #CHF #DM #Iron deficiency anemia Renal function stable weights unchanged, so will increase Lasix low salt diet Hgb noted to be 7.4 yesterday will continue Epogen 3x weekly while inpatient and give additional venofer today Thank you Robby Pablo DO
[2018-12-16] MEDS ORDERED: IRON SUCROSE INJECTION 100 MG in SODIUM CHLORIDE 95 ML IVPB ONE (11:06)
--- NOTE | 2018-12-16 14:03 | PN ---
Progress Note (short form) - Note Progress Note: Full consult dictated. Please refer to consultation from 11/24 as well Guaiac negative on exam without overt bleeding Outpatient follow-up Q 6 month AFP tumor marker and Hepatic US to screen for HCC
--- NOTE | 2018-12-16 15:00 | CONS ---
DATE OF CONSULTATION: 12/16/2018 REQUESTING PHYSICIAN: Albert Wilkinson MD HISTORY OF PRESENT ILLNESS: The patient is a 78-year-old female admitted through [facility] emergency room for evaluation of progressive shortness of breath, lower extremity swelling, dyspnea on exertion. I have been asked to evaluate for anemia. Her hemoglobin on admission was 8.8. Today it was 7.4. There has been no overt bleeding noted. In review of the [employer] [employer] system it appears as though she has been anemic since 2014. I last evaluated the patient October 2018 when she was admitted for evaluation of anemia. At that time she also did not have any overt rectal bleeding, melena or abdominal pain. She had been evaluated by Hematology who felt that this was secondary to anemia of chronic disease plus or minus GI losses. As above she does have a history of anemia dating back from 2014 and she had been admitted in 2016 for evaluation of hypertension, anemia and renal insufficiency. She has been evaluated by myself in the past as well as Dr. Hiram Heath. In terms of anemia workup she had a workup [place] [address] Heath for anemia. She was noted to have a B12 deficiency as well as angiodysplasias in the colon during a colonoscopy. He recommended B12 supplementation and avoidance of all NSAIDs. He also felt an epigastric mass which was noted on CT scan. She had a sonogram of the abdomen in February 2014. That again demonstrated a prominent left lobe of the liver. At that time he felt she may have fatty liver disease and he also performed an upper endoscopy that revealed a 3-cm submucosal mass. Subsequent endoscopic evaluations included a repeat upper endoscopy performed by myself January 16, 2015, that revealed a nonobstructing Schatzki ring, 2-cm hiatal hernia, a small varix in the GE junction, mild gastritis and also revealed a submucosal lesion in the body of the stomach as noted previously. She does have an exophytic gastric mass noted on previous imaging studies and workup of this had been deferred by the patient and her family in the past. She also underwent colonoscopy on December 04, 2015, performed by myself that revealed an AVM in the transverse colon. She underwent APC ablation and she was noted to have a 2-cm flat cecal polyp saddling the ileocecal valve, biopsies of which revealed there to be high-grade dysplasia within the polyp. This led the patient to undergo subsequent right hemicolectomy which she opted for as opposed to repeat surveillance colonoscopies. Subsequent to that it appears as though she developed acalculous cholecystitis which was treated conservatively with cholecystostomy tube at an outside institution. She did not receive a cholecystectomy. During her hemicolectomy as well liver biopsy was performed that revealed changes consistent with cirrhosis. Most recent colonoscopy was on April 18, 2017, performed by myself and her last upper endoscopy was performed on April 18, 2017, as well by Dr. Wilman Babcock. It revealed normal esophagus, the submucosal gastric mass as described previously, small nonbleeding ulcers in the gastric antrum, small nonbleeding ulcer in the 1st portion of the duodenum, small angiodysplastic lesion with no bleeding in the 2nd part of the duodenum. He advised avoidance of NSAIDs, Gaviscon, pantoprazole, endoscopic ultrasound and CT scan. She also underwent colonoscopy performed by myself April 19, 2017, as noted above that revealed 3 diminutive flat polyps in the rectosigmoid colon, vascular ectasias in the transverse colon, 1 was fiery red and did ooze when the endoscope passed over it. Argon plasma ash handler was applied to the site and I did suspect other ectasias along the GI tract also contributing to her guaiac-positive stool at the time. At that time it also revealed evidence of an ileocolonic surgical anastomosis in the proximal half of the colon. I advised that if overt bleeding, persistent worse anemia, guaiac-positive stool without alternate etiologies of anemia persisted capsule endoscopy as an outpatient could be considered as well as a hematology evaluation, iron supplementation, high-fiber diet and avoidance of NSAIDs. Pathology reports from that colonoscopy revealed these polyps to be hyperplastic and the biopsies of the stomach were negative for H pylori. It appears as though Dr. Babcock tried to biopsy the submucosal mass. However, no submucosal tissue was noted. Currently aside from constipation and her shortness of breath leading up to her admission she denies any other GI complaints. 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 PAST SURGICAL HISTORY: Includes appendectomy, right hemicolectomy in 2016, cholecystostomy tube secondary to cholecystitis in 2016 that underwent percutaneous drainage, eye surgery for glaucoma. SOCIAL HISTORY: She was born in the [place]. She came to the [facility] at age 22. She is Danish speaking. She is unemployed. She is a former smoker. No history of alcohol abuse, intravenous drug abuse or other illicit drugs. FAMILY HISTORY: Father as he was killed. Mother from complications of heart disease. She has siblings. One sister of uterine cancer. She had 11 children. Two in infancy/childhood, 1 at age 2 from liver problem, 1 son at age 45 from an accidental . MEDICATIONS: Prior to admission include simvastatin, ferrous sulfate, acetaminophen, vitamin D3, Combigan, Norvasc, Lasix, fish oil, Levemir, Apresoline, Lipitor and Tradjenta. Of note it is not clear if Zocor which was documented in 2015 and Lipitor which was documented as being an active drug in 2019 are being used concomitantly. ALLERGIES: There are no known drug allergies. REVIEW OF SYSTEMS: She does complain of shortness of breath, swelling of her lower extremities. She denies any abdominal pain. There has been no reported overt rectal bleeding or melena. She has been having strained bowel movements. PHYSICAL EXAMINATION:General: The patient was found lying in her bed. She was somewhat tachypneic. She was on nasal cannula oxygen. Vital Signs: Temperature was 98.2, pulse 72, blood pressure 138/64, respirations of 20, she was saturating at 100% on 2 L, nasal cannula oxygen. HEENT: Sclerae were anicteric. Neck: Supple. Heart: Revealed a regular rate and rhythm. She did have a 2/6 systolic murmur heard best at the left sternal border. Lungs: Revealed mild expiratory wheezing bilaterally as well as decreased breath sounds at the bases bilaterally. Abdomen: Revealed a vertical right and midline abdominal surgical scar. She did have a nontender incisional hernia in the midline. She had normoactive bowel sounds. No hepatosplenomegaly was appreciated. No masses were palpated. No tenderness was elicited. Extremities: Revealed 2+ bilateral lower extremity pitting edema. Rectal: Digital rectal exam performed with a nurse present revealed no external lesions, no masses. She had firm light stool in the rectal vault which was guaiac negative. LABORATORY EVALUATION: Revealed white blood count 4.1, hemoglobin 7.4, hematocrit 21.9, platelets of 177. INR of 1.03. Sodium 139, potassium 4.2, chloride of 103, bicarbonate of 31, BUN of 45, creatinine 2.6, glucose of 116, AST of 23, ALT of 17, alkaline phosphatase 81, total bilirubin 0.3 with an albumin of 2.9. IMPRESSION AND PLAN: A 77-year-old female, worsening of chronic normocytic anemia without overt signs of gastrointestinal bleeding. She was guaiac negative on my examination and she is currently being evaluated by Hematology. Iron studies from last month were unrevealing. For now I would continue Protonix 20 mg once daily, continue hematology workup to look for alternate etiologies of her anemia. Consider nephrology evaluation given her renal insufficiency as I am sure this is contributing as well. Consideration could be given to have her follow up with Dr. Heath as an outpatient to discuss the possibility of a capsule endoscopy to complete evaluation of her intestinal tract as she has had recent upper endoscopy and colonoscopies. I suspect that vascular ectasias throughout her intestinal tract may indeed play a role in her anemia. However, concomitant etiologies need to be excluded as well. In terms of her constipation I have ordered MiraLAX 17 g twice daily to aid in relief of her complaints. In terms of evaluation of the exophytic gastric mass I did speak with her daughter via telephone today. Her cell phone number is [phone]. She did discuss again conservative measures in regards to this and invasive testing at this time. She should also be screened for hepatocellular carcinoma with [id number] alpha-fetoprotein tumor marker and hepatic ultrasound given her history of cirrhosis. Please recall as necessary. I thank you for this consultative opportunity. KISHORE PALOMINO DO [id number]
--- NOTE | 2018-12-16 21:50 | CONSULT ---
Consult Consult Specialty:: hematology Referred by:: Dr. Wilkinson Reason for Consultation:: Anemia - History of Present Illness Chief Complaint: SOB History of Present Illness: 77 with DM, CKD IV. CHF, hx colon ca s/p resection admitted with acute decompensated heart failure. Hematology consulted for normocytic anemia (Hgb ~8) . CBC otherwise normal. Follows with hematology, Dr. Patiño for anemia ( last seen in 08/2018) that is thought to be 2/2 chronic kidney disease. Ferritin was 150 at the time. On this admission she was started on Epogen by nephrology and was ordered for Venofer 200 mg today. Currently denies SOB, chest pain, MARTINI. 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: 40 years ago - Social History ADL: Independent History of Recent Travel: No Home Medications - Allergies Allergies/Adverse Reactions: Allergies Allergy/AdvReac Type Severity Reaction Status Date / Time No Known Allergies Allergy Verified 12/13/18 18:28 - Home Medications Home Medications: Ambulatory Orders Ferrous Sulfate [Feosol] 325 mg PO BID 01/14/15 Simvastatin [Zocor -] 20 mg PO HS 01/14/15 Acetaminophen [Tylenol .Regular Strength -] 650 mg PO Q6H PRN #0 tablet Amlodipine Besylate [Norvasc -] 10 mg PO DAILY 12/04/15 Brimonidine Tartrate/Timolol [Combigan 0.2%-0.5% Eye Drops] 1 drop OU DAILY Cholecalciferol (Vitamin D3) [Vitamin D] 2,000 unit PO DAILY 12/04/15 Furosemide [Lasix -] 20 mg PO BID #60 tablet 04/22/17 Insulin (Levemir) [Levemir Vial] 40 units SQ ACBK 11/25/17 Insulin Sliding Scale [Novolog Vial Sliding Scale -] 1 vial SQ ACHS PRN [place]-3 Fatty Acids/Fish Oil [Fish Oil 1,000 mg Capsule] 1 each PO DAILY hydrALAZINE HCL [Apresoline -] 30 mg PO BID 11/25/17 Atorvastatin Ca [Lipitor] 10 mg PO HS 12/14/18 Linagliptin [Tradjenta] 5 mg PO DAILY 12/14/18 Family Disease History - Family Disease History Family Disease History: CA: Sister (tug master malignancy) Physical Exam Vital Signs: Vital Signs Temperature 98.2 F 12/16/18 06:00 Pulse Rate 76 12/16/18 06:00 Respiratory Rate 20 12/16/18 06:00 Blood Pressure 138/64 12/16/18 06:00 O2 Sat by Pulse Oximetry (%) 100 12/16/18 09:00 Constitutional: Yes: No Distress, Calm Eyes: Yes: Conjunctiva Clear Cardiovascular: Yes: Regular Rate and Rhythm Respiratory: Yes: Regular, CTA Bilaterally Gastrointestinal: Yes: Soft Edema: LLE: 1+, RLE: 1+ Labs: CBC, BMP 12/15/18 05:30 12/16/18 05:30 Assessment/Plan 77 with DM, CKD IV. CHF, hx colon ca s/p resection admitted with acute decompensated heart failure. Has chronic anemia 2/2 CKD. Agree with EILEEN and Venofer as recommended by nephrology.
[2018-12-16] MEDS: ATORVASTATIN CA 20 MG TABLET (FP) PO SCH (23:02)
[2018-12-16] MEDS: PANTOPRAZOLE 40 MG TABLET (FP) PO SCH (23:03)
[2018-12-16] MEDS: POLYETHYLENE GLYCOL 3350 119 GM BTL PO SCH (23:03)
[2018-12-17] MEDS: FUROSEMIDE 40 MG/4 ML INJECTABLE VIAL IVPB SCH ×2 (06:27→17:24)
[2018-12-17] MEDS: INSULIN (LEVEMIR) 100 UNITS/ML UNITS SQ SCH (06:27)
[2018-12-17] MEDS: INSULIN SLIDING SCALE (NOVOLOG) 1 VIAL SQ SCH ×4 (06:28→22:19)
[2018-12-17 07:41] LABS: BASO % 0.4 % (0-2.0); EOS % 1.8 % (0-4.5); HEMATOCRIT 23.1 % (32.4-45.2); HEMOGLOBIN 7.8 GM/dL (10.7-15.3); LYMPH % 20.4 % (8-40); MCH 31.7 pg (25.7-33.7); MCHC 33.8 g/dl (32.0-36.0); MEAN CELL VOLUME 93.9 fl (80-96); MEAN PLT VOLUME 9.4 fl (7.5-11.1); MONO % 12.6 % (3.8-10.2); NEUT % 64.8 % (42.8-82.8); PLATELET COUNT 184 K/MM3 (134-434); RBC 2.45 M/mm3 (3.60-5.2); RDW 14.8 % (11.6-15.6); WHITE BLOOD COUNT 6.2 K/mm3 (4.0-10.0)
[2018-12-17 08:13] LABS: ALK PHOS 78 U/L (45-117); ANION GAP 3 MMOL/L (8-16); BILIRUBIN,TOTAL 0.3 mg/dL (0.2-1); BLOOD UREA NITROGEN 52 mg/dL (7-18); CALCIUM 8.9 mg/dL (8.5-10.1); CHLORIDE 105 mmol/L (98-107); CO2 33 mmol/L (21-32); CREATININE 2.5 mg/dL (0.55-1.3); GLUCOSE,RANDOM 118 mg/dL (74-106); POTASSIUM 4.3 mmol/L (3.5-5.1); SGOT/AST 22 U/L (15-37); SGPT/ALT 18 U/L (13-61); SODIUM 141 mmol/L (136-145); TOT PROT 5.9 g/dl (6.4-8.2)
--- NOTE | 2018-12-17 09:21 | PN ---
Progress Note (short form) - Note Progress Note: Renal follow up for CKD with fluid overload Pt seen and examined at the bedside feels much better overall but still has some BEATTY when moving around no cp, abd pain, N/V/D mild sob persists no fever or chills making urine Vital Signs Temperature 99.0 F 12/17/18 06:00 Pulse Rate 82 12/17/18 06:00 Respiratory Rate 20 12/17/18 06:00 Blood Pressure 167/66 12/17/18 06:00 O2 Sat by Pulse Oximetry (%) 100 12/16/18 21:00 Intake & Output 12/14/18 12/15/18 12/16/18 12/17/18 23:59 23:59 23:59 23:59 Intake Total 260 110 20 Balance 260 110 20 Weight 76.204 kg 77.655 kg 75.841 kg NAD CTA improving leg edema CBC, BMP 12/17/18 06:00 12/17/18 06:00 Current Medications Acetaminophen (Tylenol -) 650 mg PO Q6H PRN PRN Reason: FEVER Atorvastatin Calcium (Lipitor -) 20 mg PO HS [facility] Last Admin: 12/16/18 23:02 Dose: 20 mg Brimonidine Tartrate (Alphagan 0.2% -) 1 drop OU BID [facility] Last Admin: 12/16/18 23:03 Dose: 1 drop Epoetin Elton (Procrit -) 20,000 unit SQ MOWEFR [facility] Furosemide (Lasix Injection -) 40 mg IVPB BID@0600,1800 [facility] Last Admin: 12/17/18 06:27 Dose: 40 mg Hydralazine HCl (Apresoline -) 30 mg PO BID [facility] Last Admin: 12/16/18 23:02 Dose: 30 mg Insulin Aspart (Novolog Vial Sliding Scale -) 1 vial SQ [facility]; Protocol Last Admin: 12/17/18 06:28 Dose: Not Given Insulin Detemir (Levemir Vial) 20 units SQ ACBK [facility] Last Admin: 12/17/18 06:27 Dose: 20 units Methimazole (Tapazole -) 5 mg PO DAILY [facility] Last Admin: 12/16/18 09:45 Dose: 5 mg Metoprolol Succinate (Toprol Xl -) 12.5 mg PO DAILY [facility] Last Admin: 12/16/18 11:31 Dose: 12.5 mg Pantoprazole Sodium (Protonix -) 40 mg PO HS [facility] Last Admin: 12/16/18 23:03 Dose: 40 mg Polyethylene Glycol (Miralax (For Daily Use) -) 17 gm PO BID [facility] Last Admin: 12/16/18 23:03 Dose: 17 gm Timolol Maleate (Timoptic 0.5%) 1 drop OU BID [facility] Last Admin: 12/16/18 23:04 Dose: 1 drop 78 year old woman with hx of 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 #Anasarca/CHF/Fluid overload #CKD stage 4 with nephrotic proteinuira #CHF #DM #Iron deficiency anemia Renal function remains stable pt with good weight loss on Lasix 40mg IV BID will continue present diuretics for now as pt still has mild BEATTY trend renal function and electrolytes daily will continue Epogen 20k units MWF as well as IV venofer Trend H/H, no urgent indication for transfusion GI consult noted Thank you Robby Pablo DO
--- NOTE | 2018-12-17 09:33 | PN ---
Progress Note, Physician History of Present Illness: 78 year old woman with history of hypertrophic cardiomyopathy (HCM; no significant intracavitary gradient on 11/2018 ECHO); mild-moderate systolic CHF , HTN, DM, CKD colon CA, s/p resection, hyperthyroidism,hyperlipidemia, LBBB noted 2015; PAD; bilateral 25-30% stenoses of the carotid arteries on 11/2018 ultrasound), anemia, who presents with worsening shortness of breath preventing her from lying flat, which started after a medication change 2 weeks ago. The patient was on furosemide 40 BID and was changed to Torsemide 20mg, 2 pills in the AM. She started developing swelling in the legs and arms worse than baseline and orthopnea. The patient followed up with Risk Analyst who noticed the swelling and added a second dose of torsemide 20mg at bedtime for a total of 60mg per day, and the patient has been taking this dosage for the past 5 days without improvement of swelling or shortness of breath. Today the patient' s daughter noticed the swelling and decided to bring her into the ED. The patient denies fever, cough, uri symptoms, chest pain, abdominal pain, dysuria, hematuria, nausea, vomiting or diaphoresis. She has no other complaints at bedside. PCP: Min[facility] Forestry Contractor: Jean Risk Analyst: Samy - Current Medication List Current Medications: Active Medications Acetaminophen (Tylenol -) 650 mg PO Q6H PRN PRN Reason: FEVER Atorvastatin Calcium (Lipitor -) 20 mg PO HS [facility] Last Admin: 12/16/18 23:02 Dose: 20 mg Brimonidine Tartrate (Alphagan 0.2% -) 1 drop OU BID [facility] Last Admin: 12/16/18 23:03 Dose: 1 drop Epoetin Elton (Procrit -) 20,000 unit SQ MOWEFR [facility] Furosemide (Lasix Injection -) 40 mg IVPB BID@0600,1800 [facility] Last Admin: 12/17/18 06:27 Dose: 40 mg Hydralazine HCl (Apresoline -) 30 mg PO BID [facility] Last Admin: 12/16/18 23:02 Dose: 30 mg Insulin Aspart (Novolog Vial Sliding Scale -) 1 vial SQ [facility]; Protocol Last Admin: 12/17/18 06:28 Dose: Not Given Insulin Detemir (Levemir Vial) 20 units SQ ACBK [facility] Last Admin: 12/17/18 06:27 Dose: 20 units Methimazole (Tapazole -) 5 mg PO DAILY [facility] Last Admin: 12/16/18 09:45 Dose: 5 mg Metoprolol Succinate (Toprol Xl -) 12.5 mg PO DAILY [facility] Last Admin: 12/16/18 11:31 Dose: 12.5 mg Pantoprazole Sodium (Protonix -) 40 mg PO HS [facility] Last Admin: 12/16/18 23:03 Dose: 40 mg Polyethylene Glycol (Miralax (For Daily Use) -) 17 gm PO BID [facility] Last Admin: 12/16/18 23:03 Dose: 17 gm Timolol Maleate (Timoptic 0.5%) 1 drop OU BID [facility] Last Admin: 12/16/18 23:04 Dose: 1 drop - Objective Vital Signs: Vital Signs Temperature 99.0 F 12/17/18 06:00 Pulse Rate 82 12/17/18 06:00 Respiratory Rate 20 12/17/18 06:00 Blood Pressure 167/66 12/17/18 06:00 O2 Sat by Pulse Oximetry (%) 100 12/16/18 21:00 Eyes: Yes: WNL, Conjunctiva Clear, EOM Intact HENT: Yes: WNL, Atraumatic, Normocephalic Neck: Yes: WNL, Supple, Trachea Midline Cardiovascular: Yes: WNL, Regular Rate and Rhythm, Murmur Respiratory: Yes: WNL, Regular, CTA Bilaterally Gastrointestinal: Yes: WNL, Normal Bowel Sounds Genitourinary: Yes: WNL Musculoskeletal: Yes: WNL Extremities: Yes: WNL Edema: No Integumentary: Yes: WNL Neurological: Yes: WNL, Alert, Oriented ...Motor Strength: WNL Psychiatric: Yes: WNL Labs: CBC, BMP 12/17/18 06:00 12/17/18 06:00 INR, PTT INR 1.03 (0.83-1.09) 12/14/18 01:31 Assessment/Plan - Problems (1) Systolic and diastolic CHF w/reduced LV function, NYHA class 4 Assessment/Plan: will increase Metoprolol succinate to 25 QD (systolic CHF; HCM; HTN). On hydralazine. Code(s): I50.40 - UNSP COMBINED SYSTOLIC AND DIASTOLIC (CONGESTIVE) HRT FAIL (2) Hypertrophic obstructive cardiomyopathy (HOCM) Assessment/Plan: Code(s): I42.1 - OBSTRUCTIVE HYPERTROPHIC CARDIOMYOPATHY (3) Renal insufficiency Assessment/Plan: Now off torsemide; being given IV furosemide. F/u BUN/Cr, electrolytes, Is and Os, daily weight. F/u with earring maker. Code(s): N28.9 - DISORDER OF KIDNEY AND URETER, UNSPECIFIED (4) Anemia Code(s): D64.9 - ANEMIA, UNSPECIFIED Qualifiers: Iron deficiency anemia type: inadequate dietary iron intake (5) HTN (hypertension) Assessment/Plan: On hydralazine; on amlodipine as outpatient. Consider starting metoprolol (HCM; systolic CHF); renal dysfunction presently precludes use of ACEI or ARB. Code(s): I10 - ESSENTIAL (PRIMARY) HYPERTENSION (6) Hyperthyroidism Assessment/Plan: on methimazole. TSH WNL. Code(s): E05.90 - THYROTOXICOSIS, UNSP WITHOUT THYROTOXIC CRISIS OR STORM
[2018-12-17] MEDS: hydrALAZINE HCL 10 MG TABLET PO SCH ×2 (09:41→21:12)
[2018-12-17] MEDS: METHIMAZOLE 5 MG TABLET (FP) PO SCH (09:41)
[2018-12-17] MEDS: POLYETHYLENE GLYCOL 3350 119 GM BTL PO SCH ×2 (09:42→21:12)
[2018-12-17] MEDS: metoPROLOL SUCCINATE 25 MG TAB.SR.24H (FP) PO SCH (09:42)
[2018-12-17] MEDS: TIMOLOL 0.5% OPHTHALMIC SOL 5 ML BOTTLE OU SCH ×2 (09:46→21:13)
[2018-12-17] MEDS: BRIMONIDINE TARTRATE 0.2% OPHTHALMIC 5 ML BOTTLE OU SCH ×2 (09:47→21:14)
[2018-12-17 11:52] LABS: ANISOCYTOSIS 1+; MACROCYTOSIS 1+; OVALOCYTE 1+
--- NOTE | 2018-12-17 15:00 | PN ---
Progress Note, Physician History of Present Illness: Pt's breathing is better, but still with BEATTY. Pt w/o CP, palpitations, dizziness, abd pain, nausea, vomiting. - Current Medication List Current Medications: Active Medications Acetaminophen (Tylenol -) 650 mg PO Q6H PRN PRN Reason: FEVER Atorvastatin Calcium (Lipitor -) 20 mg PO HS [facility] Last Admin: 12/16/18 23:02 Dose: 20 mg Brimonidine Tartrate (Alphagan 0.2% -) 1 drop OU BID [facility] Last Admin: 12/17/18 09:47 Dose: 1 drop Epoetin Elton (Procrit -) 20,000 unit SQ MOWEFR [facility] Furosemide (Lasix Injection -) 40 mg IVPB BID@0600,1800 [facility] Last Admin: 12/17/18 06:27 Dose: 40 mg Hydralazine HCl (Apresoline -) 30 mg PO BID [facility] Last Admin: 12/17/18 09:41 Dose: 30 mg Insulin Aspart (Novolog Vial Sliding Scale -) 1 vial SQ [facility]; Protocol Last Admin: 12/17/18 11:27 Dose: 2 units Insulin Detemir (Levemir Vial) 20 units SQ ACBK [facility] Last Admin: 12/17/18 06:27 Dose: 20 units Methimazole (Tapazole -) 5 mg PO DAILY [facility] Last Admin: 12/17/18 09:41 Dose: 5 mg Metoprolol Succinate (Toprol Xl -) 25 mg PO DAILY [facility] Last Admin: 12/17/18 09:42 Dose: 25 mg Pantoprazole Sodium (Protonix -) 40 mg PO HS [facility] Last Admin: 12/16/18 23:03 Dose: 40 mg Polyethylene Glycol (Miralax (For Daily Use) -) 17 gm PO BID [facility] Last Admin: 12/17/18 09:42 Dose: 17 gm Timolol Maleate (Timoptic 0.5%) 1 drop OU BID [facility] Last Admin: 12/17/18 09:46 Dose: 1 drop - Objective Vital Signs: Vital Signs Temperature 98.4 F 12/17/18 14:00 Pulse Rate 86 12/17/18 14:00 Respiratory Rate 20 12/17/18 14:00 Blood Pressure 138/64 12/17/18 14:00 O2 Sat by Pulse Oximetry (%) 100 12/17/18 09:00 Constitutional: Yes: No Distress, Calm Cardiovascular: Yes: Regular Rate and Rhythm, S1, S2 Respiratory: Yes: Regular, Rales (crackles at bases) Gastrointestinal: Yes: Normal Bowel Sounds, Soft, Abdomen, Obese Edema: LLE: 1+, RLE: 1+ Neurological: Yes: Alert, Oriented Labs: CBC, BMP 12/17/18 06:00 12/17/18 06:00 INR, PTT INR 1.03 (0.83-1.09) 12/14/18 01:31 Problem List - Problems (1) Acute exacerbation of CHF (congestive heart failure) Code(s): I50.9 - HEART FAILURE, UNSPECIFIED (2) Anasarca Code(s): R60.1 - GENERALIZED EDEMA (3) Chronic renal failure Code(s): N18.9 - CHRONIC KIDNEY DISEASE, UNSPECIFIED (4) Hypertrophic obstructive cardiomyopathy (HOCM) Code(s): I42.1 - OBSTRUCTIVE HYPERTROPHIC CARDIOMYOPATHY (5) Diabetes mellitus Code(s): E11.9 - TYPE 2 DIABETES MELLITUS WITHOUT COMPLICATIONS (6) Liver cirrhosis Code(s): K74.60 - UNSPECIFIED CIRRHOSIS OF LIVER (7) Anemia Code(s): D64.9 - ANEMIA, UNSPECIFIED Qualifiers: Iron deficiency anemia type: inadequate dietary iron intake Assessment/Plan Pt is monitored on Telemetry IV Lasix To f/u electrolytes, renal function Cardio, Renal, Heme, GI consults are appreciated. AM labs. Pt's condition was reviewed with her family (at bedside); all questions were answered.
--- NOTE | 2018-12-17 18:54 | PN ---
Progress Note, Physician Chief Complaint: SOB History of Present Illness: Feeling better, less SOB - Current Medication List Current Medications: Active Medications Acetaminophen (Tylenol -) 650 mg PO Q6H PRN PRN Reason: FEVER Atorvastatin Calcium (Lipitor -) 20 mg PO [facility] Last Admin: 12/16/18 23:02 Dose: 20 mg Brimonidine Tartrate (Alphagan 0.2% -) 1 drop OU BID [facility] Last Admin: 12/17/18 09:47 Dose: 1 drop Epoetin Elton (Procrit -) 20,000 unit SQ MOWEFR [facility] Furosemide (Lasix Injection -) 40 mg IVPB BID@0600,1800 [facility] Last Admin: 12/17/18 17:24 Dose: 40 mg Hydralazine HCl (Apresoline -) 30 mg PO BID [facility] Last Admin: 12/17/18 09:41 Dose: 30 mg Insulin Aspart (Novolog Vial Sliding Scale -) 1 vial SQ [facility]; Protocol Last Admin: 12/17/18 17:24 Dose: 2 units Insulin Detemir (Levemir Vial) 20 units SQ ACBK [facility] Last Admin: 12/17/18 06:27 Dose: 20 units Methimazole (Tapazole -) 5 mg PO DAILY [facility] Last Admin: 12/17/18 09:41 Dose: 5 mg Metoprolol Succinate (Toprol Xl -) 25 mg PO DAILY [facility] Last Admin: 12/17/18 09:42 Dose: 25 mg Pantoprazole Sodium (Protonix -) 40 mg PO [facility] Last Admin: 12/16/18 23:03 Dose: 40 mg Polyethylene Glycol (Miralax (For Daily Use) -) 17 gm PO BID [facility] Last Admin: 12/17/18 09:42 Dose: 17 gm Timolol Maleate (Timoptic 0.5%) 1 drop OU BID [facility] Last Admin: 12/17/18 09:46 Dose: 1 drop - Objective Vital Signs: Vital Signs Temperature 98.4 F 12/17/18 14:00 Pulse Rate 86 12/17/18 14:00 Respiratory Rate 20 12/17/18 14:00 Blood Pressure 138/64 12/17/18 14:00 O2 Sat by Pulse Oximetry (%) 100 12/17/18 09:00 Constitutional: Yes: No Distress Eyes: Yes: Conjunctiva Clear Cardiovascular: Yes: Regular Rate and Rhythm Respiratory: Yes: Regular, CTA Bilaterally Gastrointestinal: Yes: WNL, Soft Edema: No Edema: LLE: 1+, RLE: 1+ Labs: CBC, BMP 12/17/18 06:00 12/17/18 06:00 INR, PTT INR 1.03 (0.83-1.09) 12/14/18 01:31 Assessment/Plan 77 with DM, CKD IV. CHF, hx colon ca s/p resection admitted with acute decompensated heart failure. Has chronic anemia 2/2 CKD. Agree with EILEEN and Venofer as recommended by nephrology.
[2018-12-17] MEDS: PANTOPRAZOLE 40 MG TABLET (FP) PO SCH (21:12)
[2018-12-17] MEDS: ATORVASTATIN CA 20 MG TABLET (FP) PO SCH (21:12)
[2018-12-18 06:19] LABS: BASO % 0.3 % (0-2.0); HEMATOCRIT 21.1 % (32.4-45.2); HEMOGLOBIN 7.1 GM/dL (10.7-15.3); LYMPH % 21.9 % (8-40); MCH 31.5 pg (25.7-33.7); MCHC 33.6 g/dl (32.0-36.0); MEAN CELL VOLUME 93.8 fl (80-96); MEAN PLT VOLUME 9.5 fl (7.5-11.1); MONO % 9.8 % (3.8-10.2); PLATELET COUNT 187 K/MM3 (134-434); RBC 2.25 M/mm3 (3.60-5.2); RDW 14.5 % (11.6-15.6); WHITE BLOOD COUNT 7.1 K/mm3 (4.0-10.0)
[2018-12-18] MEDS: INSULIN (LEVEMIR) 100 UNITS/ML UNITS SQ SCH (06:39)
[2018-12-18] MEDS: FUROSEMIDE 40 MG/4 ML INJECTABLE VIAL IVPB SCH ×2 (06:39→18:36)
[2018-12-18 06:46] LABS: ANION GAP 4 MMOL/L (8-16); BLOOD UREA NITROGEN 63 mg/dL (7-18); CALCIUM 8.9 mg/dL (8.5-10.1); CHLORIDE 102 mmol/L (98-107); CO2 33 mmol/L (21-32); CREATININE 2.6 mg/dL (0.55-1.3); GLUCOSE,RANDOM 124 mg/dL (74-106); MAGNESIUM 2.3 mg/dL (1.8-2.4); PHOSPHOROUS 2.7 mg/dL (2.5-4.9); POTASSIUM 4.4 mmol/L (3.5-5.1); SODIUM 139 mmol/L (136-145)
[2018-12-18] MEDS: INSULIN SLIDING SCALE (NOVOLOG) 1 VIAL SQ SCH ×4 (06:49→22:11)
--- NOTE | 2018-12-18 09:35 | PN ---
Progress Note, Physician History of Present Illness: Pt's breathing is better, but still with BEATTY. Pt w/o CP, palpitations, dizziness, abd pain, nausea, vomiting. - Current Medication List Current Medications: Active Medications Acetaminophen (Tylenol -) 650 mg PO Q6H PRN PRN Reason: FEVER Atorvastatin Calcium (Lipitor -) 20 mg PO HS [facility] Last Admin: 12/17/18 21:12 Dose: 20 mg Brimonidine Tartrate (Alphagan 0.2% -) 1 drop OU BID [facility] Last Admin: 12/17/18 21:14 Dose: 1 drop Epoetin Elton (Procrit -) 20,000 unit SQ MOWEFR [facility] Furosemide (Lasix Injection -) 40 mg IVPB BID@0600,1800 [facility] Last Admin: 12/18/18 06:39 Dose: 40 mg Hydralazine HCl (Apresoline -) 30 mg PO BID [facility] Last Admin: 12/17/18 21:12 Dose: 30 mg Insulin Aspart (Novolog Vial Sliding Scale -) 1 vial SQ [facility]; Protocol Last Admin: 12/18/18 06:49 Dose: Not Given Insulin Detemir (Levemir Vial) 20 units SQ ACBK [facility] Last Admin: 12/18/18 06:39 Dose: 20 units Methimazole (Tapazole -) 5 mg PO DAILY [facility] Last Admin: 12/17/18 09:41 Dose: 5 mg Metoprolol Succinate (Toprol Xl -) 25 mg PO DAILY [facility] Last Admin: 12/17/18 09:42 Dose: 25 mg Pantoprazole Sodium (Protonix -) 40 mg PO HS [facility] Last Admin: 12/17/18 21:12 Dose: 40 mg Polyethylene Glycol (Miralax (For Daily Use) -) 17 gm PO BID [facility] Last Admin: 12/17/18 21:12 Dose: 17 gm Timolol Maleate (Timoptic 0.5%) 1 drop OU BID [facility] Last Admin: 12/17/18 21:13 Dose: 1 drop - Objective Vital Signs: Vital Signs Temperature 98.6 F 12/18/18 05:34 Pulse Rate 75 12/18/18 05:34 Respiratory Rate 22 H 12/18/18 05:34 Blood Pressure 160/55 L 12/18/18 05:34 O2 Sat by Pulse Oximetry (%) 98 12/17/18 20:18 Constitutional: Yes: No Distress, Calm Cardiovascular: Yes: Regular Rate and Rhythm, S1, S2 Respiratory: Yes: Regular, Rales (at bases) Gastrointestinal: Yes: Normal Bowel Sounds, Soft, Abdomen, Obese. No: Tenderness Edema: LLE: 1+, RLE: 1+ Neurological: Yes: Alert, Oriented Labs: CBC, BMP 12/18/18 05:30 12/18/18 05:30 INR, PTT INR 1.03 (0.83-1.09) 12/14/18 01:31 Problem List - Problems (1) Acute exacerbation of CHF (congestive heart failure) Code(s): I50.9 - HEART FAILURE, UNSPECIFIED (2) Anasarca Code(s): R60.1 - GENERALIZED EDEMA (3) Chronic renal failure Code(s): N18.9 - CHRONIC KIDNEY DISEASE, UNSPECIFIED (4) Hypertrophic obstructive cardiomyopathy (HOCM) Code(s): I42.1 - OBSTRUCTIVE HYPERTROPHIC CARDIOMYOPATHY (5) Diabetes mellitus Code(s): E11.9 - TYPE 2 DIABETES MELLITUS WITHOUT COMPLICATIONS (6) Liver cirrhosis Code(s): K74.60 - UNSPECIFIED CIRRHOSIS OF LIVER (7) Anemia Code(s): D64.9 - ANEMIA, UNSPECIFIED Qualifiers: Iron deficiency anemia type: inadequate dietary iron intake Assessment/Plan Pt is monitored on Telemetry IV Lasix To transfuse PRBC; to monitor H/H To f/u electrolytes, renal function Cardio, Renal, Heme, GI consults are appreciated. AM labs. Pt. care was reviewed with her nurse.
[2018-12-18] MEDS: hydrALAZINE HCL 10 MG TABLET PO SCH ×2 (10:44→21:41)
[2018-12-18] MEDS: METHIMAZOLE 5 MG TABLET (FP) PO SCH (10:45)
[2018-12-18] MEDS: POLYETHYLENE GLYCOL 3350 119 GM BTL PO SCH ×2 (10:45→21:43)
[2018-12-18] MEDS: metoPROLOL SUCCINATE 25 MG TAB.SR.24H (FP) PO SCH (10:47)
[2018-12-18] MEDS: BRIMONIDINE TARTRATE 0.2% OPHTHALMIC 5 ML BOTTLE OU SCH ×2 (10:47→21:43)
[2018-12-18] MEDS: TIMOLOL 0.5% OPHTHALMIC SOL 5 ML BOTTLE OU SCH ×2 (10:48→21:45)
[2018-12-18] MEDS ORDERED: PT OWN MED DRAWER 7, Y5N ONE (11:21)
--- NOTE | 2018-12-18 11:41 | PN ---
Progress Note (short form) - Note Progress Note: Renal follow up for CKD with fluid overload Pt seen and examined at the bedside feels very weak and tired today no overt sob, cp, abd pain, N/V/D making urine edema improving Vital Signs Temperature 98.6 F 12/18/18 05:34 Pulse Rate 75 12/18/18 05:34 Respiratory Rate 22 H 12/18/18 05:34 Blood Pressure 160/55 L 12/18/18 05:34 O2 Sat by Pulse Oximetry (%) 98 12/17/18 20:18 Intake & Output 12/15/18 12/16/18 12/17/18 12/18/18 23:59 23:59 23:59 23:59 Intake Total 260 110 350 120 Balance 260 110 350 120 Weight 76.204 kg 77.655 kg 75.841 kg 77.167 kg NAD CTA improving leg edema CBC, BMP 12/18/18 05:30 12/18/18 05:30 Current Medications Acetaminophen (Tylenol -) 650 mg PO Q6H PRN PRN Reason: FEVER Atorvastatin Calcium (Lipitor -) 20 mg PO HS [facility] Last Admin: 12/17/18 21:12 Dose: 20 mg Brimonidine Tartrate (Alphagan 0.2% -) 1 drop OU BID [facility] Last Admin: 12/18/18 10:47 Dose: 1 drop Epoetin Elton (Procrit -) 20,000 unit SQ MOWEFR [facility] Furosemide (Lasix Injection -) 40 mg IVPB BID@0600,1800 [facility] Last Admin: 12/18/18 06:39 Dose: 40 mg Hydralazine HCl (Apresoline -) 30 mg PO BID [facility] Last Admin: 12/18/18 10:44 Dose: 30 mg Insulin Aspart (Novolog Vial Sliding Scale -) 1 vial SQ [facility]; Protocol Last Admin: 12/18/18 06:49 Dose: Not Given Insulin Detemir (Levemir Vial) 20 units SQ ACBK [facility] Last Admin: 12/18/18 06:39 Dose: 20 units Methimazole (Tapazole -) 5 mg PO DAILY [facility] Last Admin: 12/18/18 10:45 Dose: 5 mg Metoprolol Succinate (Toprol Xl -) 25 mg PO DAILY [facility] Last Admin: 12/18/18 10:47 Dose: 25 mg Pantoprazole Sodium (Protonix -) 40 mg PO HS [facility] Last Admin: 12/17/18 21:12 Dose: 40 mg Polyethylene Glycol (Miralax (For Daily Use) -) 17 gm PO BID [facility] Last Admin: 12/18/18 10:45 Dose: 17 gm Timolol Maleate (Timoptic 0.5%) 1 drop OU BID [facility] Last Admin: 12/18/18 10:48 Dose: 1 drop 78 year old woman with hx of 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 #Anasarca/CHF/Fluid overload #CKD stage 4 with nephrotic proteinuira #CHF #DM #Iron deficiency anemia Renal function remains stable continue BID Lasix for PRBC transfusion today, total of 2 continue Epogen 3x weeky Trend renal function and electrolytes Thank you Robby Pablo DO
--- NOTE | 2018-12-18 13:32 | PN ---
Progress Note, Physician History of Present Illness: 78 year old woman with history of hypertrophic cardiomyopathy (HCM; no significant intracavitary gradient on 11/2018 ECHO); mild-moderate systolic CHF , HTN, DM, CKD colon CA, s/p resection, hyperthyroidism,hyperlipidemia, LBBB noted 2016; PAD; bilateral 25-30% stenoses of the carotid arteries on 11/2018 ultrasound), anemia, who presents with worsening shortness of breath preventing her from lying flat, which started after a medication change 2 weeks ago. The patient was on furosemide 40 BID and was changed to Torsemide 20mg, 2 pills in the AM. She started developing swelling in the legs and arms worse than baseline and orthopnea. The patient followed up with [employer] [employer] who noticed the swelling and added a second dose of torsemide 20mg at bedtime for a total of 60mg per day, and the patient has been taking this dosage for the past 5 days without improvement of swelling or shortness of breath. Today the patient' s daughter noticed the swelling and decided to bring her into the ED. The patient denies fever, cough, uri symptoms, chest pain, abdominal pain, dysuria, hematuria, nausea, vomiting or diaphoresis. She has no other complaints at bedside. PCP: Minh Real Estate Officer: Jean [employer]: Samy - Current Medication List Current Medications: Active Medications Acetaminophen (Tylenol -) 650 mg PO Q6H PRN PRN Reason: FEVER Atorvastatin Calcium (Lipitor -) 20 mg PO HS [facility] Last Admin: 12/17/18 21:12 Dose: 20 mg Brimonidine Tartrate (Alphagan 0.2% -) 1 drop OU BID [facility] Last Admin: 12/18/18 10:47 Dose: 1 drop Epoetin Elton (Procrit -) 20,000 unit SQ MOWEFR [facility] Furosemide (Lasix Injection -) 40 mg IVPB BID@0600,1800 [facility] Last Admin: 12/18/18 06:39 Dose: 40 mg Hydralazine HCl (Apresoline -) 30 mg PO BID [facility] Last Admin: 12/18/18 10:44 Dose: 30 mg Insulin Aspart (Novolog Vial Sliding Scale -) 1 vial SQ [facility]; Protocol Last Admin: 12/18/18 06:49 Dose: Not Given Insulin Detemir (Levemir Vial) 20 units SQ ACBK [facility] Last Admin: 12/18/18 06:39 Dose: 20 units Methimazole (Tapazole -) 5 mg PO DAILY [facility] Last Admin: 12/18/18 10:45 Dose: 5 mg Metoprolol Succinate (Toprol Xl -) 25 mg PO DAILY [facility] Last Admin: 12/18/18 10:47 Dose: 25 mg Pantoprazole Sodium (Protonix -) 40 mg PO HS [facility] Last Admin: 12/17/18 21:12 Dose: 40 mg Polyethylene Glycol (Miralax (For Daily Use) -) 17 gm PO BID [facility] Last Admin: 12/18/18 10:45 Dose: 17 gm Timolol Maleate (Timoptic 0.5%) 1 drop OU BID [facility] Last Admin: 12/18/18 10:48 Dose: 1 drop - Objective Vital Signs: Vital Signs Temperature 98.6 F 12/18/18 05:34 Pulse Rate 75 12/18/18 05:34 Respiratory Rate 22 H 12/18/18 05:34 Blood Pressure 160/55 L 12/18/18 05:34 O2 Sat by Pulse Oximetry (%) 98 12/17/18 20:18 Eyes: Yes: WNL, Conjunctiva Clear, EOM Intact HENT: Yes: WNL, Atraumatic, Normocephalic Neck: Yes: WNL, Supple, Trachea Midline Cardiovascular: Yes: WNL, Regular Rate and Rhythm, Murmur Respiratory: Yes: WNL, Regular, CTA Bilaterally Gastrointestinal: Yes: WNL, Normal Bowel Sounds Genitourinary: Yes: WNL Musculoskeletal: Yes: WNL Extremities: Yes: WNL Edema: No Integumentary: Yes: WNL Neurological: Yes: WNL, Alert, Oriented ...Motor Strength: WNL Psychiatric: Yes: WNL Labs: CBC, BMP 12/18/18 05:30 12/18/18 05:30 INR, PTT INR 1.03 (0.83-1.09) 12/14/18 01:31 Assessment/Plan - Problems (1) Systolic and diastolic CHF w/reduced LV function, NYHA class 4 Assessment/Plan: will increase Metoprolol succinate to 25 QD (systolic CHF; HCM; HTN). On hydralazine. Code(s): I50.40 - UNSP COMBINED SYSTOLIC AND DIASTOLIC (CONGESTIVE) HRT FAIL (2) Hypertrophic obstructive cardiomyopathy (HOCM) Assessment/Plan: Code(s): I42.1 - OBSTRUCTIVE HYPERTROPHIC CARDIOMYOPATHY (3) Renal insufficiency Assessment/Plan: Now off torsemide; being given IV furosemide. F/u BUN/Cr, electrolytes, Is and Os, daily weight. F/u with engagement specialist. Code(s): N28.9 - DISORDER OF KIDNEY AND URETER, UNSPECIFIED (4) Anemia Code(s): D64.9 - ANEMIA, UNSPECIFIED Qualifiers: Iron deficiency anemia type: inadequate dietary iron intake (5) HTN (hypertension) Assessment/Plan: On hydralazine; on amlodipine as outpatient. Consider starting metoprolol (HCM; systolic CHF); renal dysfunction presently precludes use of ACEI or ARB. Code(s): I10 - ESSENTIAL (PRIMARY) HYPERTENSION (6) Hyperthyroidism Assessment/Plan: on methimazole. TSH WNL. Code(s): E05.90 - THYROTOXICOSIS, UNSP WITHOUT THYROTOXIC CRISIS OR STORM
[2018-12-18 14:12] LABS: ANISOCYTOSIS 1+; MACROCYTOSIS 0; OVALOCYTE 1+; PLATELET ESTIMATE NORMAL
[2018-12-18] MEDS: EPOETIN ALFA 20,000 UNIT/1 ML VIAL SQ SCH (14:15)
[2018-12-18] MEDS: ACETAMINOPHEN 325 MG TABLET (FP) PO PRN (19:18)
[2018-12-18] MEDS: ATORVASTATIN CA 20 MG TABLET (FP) PO SCH (21:42)
[2018-12-18] MEDS: PANTOPRAZOLE 40 MG TABLET (FP) PO SCH (21:42)
[2018-12-19] MEDS: INSULIN (LEVEMIR) 100 UNITS/ML UNITS SQ SCH (06:33)
[2018-12-19] MEDS: FUROSEMIDE 40 MG/4 ML INJECTABLE VIAL IVPB SCH ×2 (06:33→17:47)
[2018-12-19] MEDS: INSULIN SLIDING SCALE (NOVOLOG) 1 VIAL SQ SCH ×4 (06:34→22:08)
[2018-12-19 07:16] LABS: HEMATOCRIT 28.2 % (32.4-45.2); HEMOGLOBIN 9.8 GM/dL (10.7-15.3); MCH 31.3 pg (25.7-33.7); MCHC 34.7 g/dl (32.0-36.0); MEAN CELL VOLUME 90.3 fl (80-96); MEAN PLT VOLUME 9.2 fl (7.5-11.1); PLATELET COUNT 193 K/MM3 (134-434); RBC 3.13 M/mm3 (3.60-5.2); RDW 15.6 % (11.6-15.6); WHITE BLOOD COUNT 6.9 K/mm3 (4.0-10.0)
[2018-12-19 07:58] LABS: ALBUMIN 3.1 g/dl (3.4-5.0); ALK PHOS 75 U/L (45-117); ANION GAP 4 MMOL/L (8-16); BILIRUBIN,TOTAL 0.9 mg/dL (0.2-1); BLOOD UREA NITROGEN 64 mg/dL (7-18); CALCIUM 9.1 mg/dL (8.5-10.1); CHLORIDE 101 mmol/L (98-107); CO2 34 mmol/L (21-32); CREATININE 2.4 mg/dL (0.55-1.3); GLUCOSE,RANDOM 87 mg/dL (74-106); POTASSIUM 4.3 mmol/L (3.5-5.1); SGOT/AST 19 U/L (15-37); SGPT/ALT 19 U/L (13-61); SODIUM 138 mmol/L (136-145); TOT PROT 6.2 g/dl (6.4-8.2)
[2018-12-19] MEDS: hydrALAZINE HCL 10 MG TABLET PO SCH ×2 (10:18→22:07)
[2018-12-19] MEDS: METHIMAZOLE 5 MG TABLET (FP) PO SCH (10:19)
[2018-12-19] MEDS: metoPROLOL SUCCINATE 25 MG TAB.SR.24H (FP) PO SCH (10:19)
[2018-12-19] MEDS: BRIMONIDINE TARTRATE 0.2% OPHTHALMIC 5 ML BOTTLE OU SCH ×2 (10:21→22:12)
[2018-12-19] MEDS: TIMOLOL 0.5% OPHTHALMIC SOL 5 ML BOTTLE OU SCH ×2 (10:22→22:13)
[2018-12-19] MEDS: POLYETHYLENE GLYCOL 3350 119 GM BTL PO SCH ×2 (10:35→22:08)
[2018-12-19] MEDS ORDERED: FUROSEMIDE 40 MG/4 ML INJECTABLE VIAL IVPUSH ONE (10:42)
--- NOTE | 2018-12-19 11:22 | PN ---
Progress Note (short form) - Note Progress Note: Renal follow up for CKD with fluid overload Pt seen and examined at the bedside reports more shortness of breath today no chest pain, fever, chills s/p PRBC transfusion yesterday making urine Vital Signs Temperature 98.4 F 12/19/18 09:00 Pulse Rate 76 12/19/18 09:00 Respiratory Rate 20 12/19/18 09:00 Blood Pressure 169/59 L 12/19/18 09:00 O2 Sat by Pulse Oximetry (%) 99 12/19/18 09:00 Intake & Output 12/16/18 12/17/18 12/18/18 12/19/18 23:59 23:59 23:59 23:59 Intake Total 970 398 0734 410 Balance 804 547 5795 410 Weight 77.655 kg 75.841 kg 77.167 kg 77.564 kg NAD + rales + leg edema CBC, BMP 12/19/18 05:20 12/19/18 05:20 Current Medications Acetaminophen (Tylenol -) 650 mg PO Q6H PRN PRN Reason: FEVER Last Admin: 12/18/18 19:18 Dose: 650 mg Atorvastatin Calcium (Lipitor -) 20 mg PO HS [facility] Last Admin: 12/18/18 21:42 Dose: 20 mg Brimonidine Tartrate (Alphagan 0.2% -) 1 drop OU BID [facility] Last Admin: 12/19/18 10:21 Dose: 1 drop Epoetin Elton (Procrit -) 20,000 unit SQ MOWEFR [facility] Last Admin: 12/18/18 14:15 Dose: 20,000 unit Furosemide (Lasix Injection -) 80 mg IVPB BID@0600,1800 [facility] Hydralazine HCl (Apresoline -) 40 mg PO BID [facility] Last Admin: 12/19/18 10:18 Dose: 40 mg Insulin Aspart (Novolog Vial Sliding Scale -) 1 vial SQ ACHS [facility]; Protocol Last Admin: 12/19/18 06:34 Dose: Not Given Insulin Detemir (Levemir Vial) 20 units SQ ACBK [facility] Last Admin: 12/19/18 06:33 Dose: 20 units Methimazole (Tapazole -) 5 mg PO DAILY [facility] Last Admin: 12/19/18 10:19 Dose: 5 mg Metoprolol Succinate (Toprol Xl -) 25 mg PO DAILY [facility] Last Admin: 12/19/18 10:19 Dose: 25 mg Pantoprazole Sodium (Protonix -) 40 mg PO HS [facility] Last Admin: 12/18/18 21:42 Dose: 40 mg Polyethylene Glycol (Miralax (For Daily Use) -) 17 gm PO BID [facility] Last Admin: 12/19/18 10:35 Dose: Not Given Timolol Maleate (Timoptic 0.5%) 1 drop OU BID [facility] Last Admin: 12/19/18 10:22 Dose: 1 drop 78 year old woman with hx of 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 #Anasarca/CHF/Fluid overload #CKD stage 4 with nephrotic proteinuira #CHF #DM #Iron deficiency anemia Renal function remains stable will give extra dose of Lasix this am and increase Lasix to 80mg IV BID Trend renal function, daily weights and electrolytes will continue Epogen 3x weekly good response 2 to units PRBC transfusion yesterday Thank you Robby Pablo DO
--- NOTE | 2018-12-19 13:49 | CONSULT ---
Consultation: REQUESTING PROVIDER: CONSULT REQUEST: We have been asked to medically evaluate this patient for ( specify). HISTORY OF PRESENT ILLNESS: REVIEW OF SYSTEMS: CONSTITUTIONAL: Absent: fever, chills, diaphoresis, generalized weakness, malaise, loss of appetite, weight change HEENT: Absent: rhinorrhea, nasal congestion, throat pain, throat swelling, difficulty swallowing, mouth swelling, ear pain, eye pain, visual changes CARDIOVASCULAR: Absent: chest pain, syncope, palpitations, irregular heart rate, lightheadedness , peripheral edema RESPIRATORY: Absent: cough, shortness of breath, dyspnea with exertion, orthopnea, wheezing, stridor, hemoptysis GASTROINTESTINAL: Absent: abdominal pain, abdominal distension, nausea, vomiting, diarrhea, constipation, melena, hematochezia GENITOURINARY: Absent: dysuria, frequency, urgency, hesitancy, hematuria, flank pain, genital pain MUSCULOSKELETAL: Absent: myalgia, arthralgia, joint swelling, back pain, neck pain SKIN: Absent: rash, itching, pallor HEMATOLOGIC/IMMUNOLOGIC: Absent: easy bleeding, easy bruising, lymphadenopathy, frequent infections ENDOCRINE: Absent: unexplained weight gain, unexplained weight loss, heat intolerance, cold intolerance NEUROLOGIC: Absent: headache, focal weakness or paresthesias, dizziness, unsteady gait, seizure, mental status changes, bladder or bowel incontinence PSYCHIATRIC: Absent: anxiety, depression, suicidal or homicidal ideation, hallucinations. PHYSICAL EXAMINATION Vital Signs - 24 hr 12/18/18 12/18/18 12/18/18 14:00 16:20 21:00 Temperature 98.2 F 98.8 F 99 F Pulse Rate 69 72 67 Respiratory 20 20 21 H Rate Blood Pressure 152/57 L 158/58 L 154/60 O2 Sat by Pulse 99 Oximetry (%) 12/19/18 12/19/18 12/19/18 01:00 05:45 09:00 Temperature 98.7 F 98.9 F 98.4 F Pulse Rate 65 81 76 Respiratory 20 20 20 Rate Blood Pressure 131/55 L 166/67 169/59 L O2 Sat by Pulse 99 Oximetry (%) GENERAL: Awake, alert, and fully oriented, in no acute distress. HEAD: Normal with no signs of trauma. EYES: Pupils equal, round and reactive to light, extraocular movements intact, sclera anicteric, conjunctiva clear. No lid lag. EARS, NOSE, THROAT: Ears normal, nares patent, oropharynx clear without exudates. Moist mucous membranes. NECK: Normal range of motion, supple without lymphadenopathy, JVD, or masses. LUNGS: Breath sounds equal, clear to auscultation bilaterally. No wheezes, and no crackles. No accessory muscle use. HEART: Regular rate and rhythm, normal S1 and S2 without murmur, rub or gallop. ABDOMEN: Soft, nontender, not distended, normoactive bowel sounds, no guarding, no rebound, no masses. No hepatomegaly or splenomegaly. MUSCULOSKELETAL: Normal range of motion at all joints. No bony deformities or tenderness. No CVA tenderness. UPPER EXTREMITIES: 2+ pulses, warm, well-perfused. No cyanosis. No clubbing. Cap refill <2 seconds. No peripheral edema. LOWER EXTREMITIES: 2+ pulses, warm, well-perfused. No calf tenderness. No peripheral edema. NEUROLOGICAL: Cranial nerves II-XII intact. Normal speech. Normal gait. PSYCHIATRIC: Cooperative. Good eye contact. Appropriate mood and affect. SKIN: Warm, dry, normal turgor, no rashes or lesions noted. Laboratory Results - last 24 hr 12/18/18 12/18/18 12/18/18 05:30 11:10 17:06 WBC RBC Hgb Hct MCV MCH MCHC RDW Plt Count MPV Neutrophils % (Manual) 63.8 Band Neutrophils % 0.0 Lymphocytes % (Manual) 22.9 D Monocytes % (Manual) 8 Eosinophils % (Manual) 0.9 Basophils % (Manual) 0.9 Myelocytes % (Man) 3 H Promyelocytes % (Man) 0 Blast Cells % (Manual) 0 Metamyelocytes 0 Hypochromia 0 Platelet Estimate Normal Polychromasia 1+ Poikilocytosis 1+ Anisocytosis 1+ Microcytosis 1+ Macrocytosis 0 Ovalocytes 1+ Sodium Potassium Chloride Carbon Dioxide Anion Gap BUN Creatinine Creat Clearance w eGFR POC Glucometer 166 Random Glucose Calcium Total Bilirubin AST ALT Alkaline Phosphatase Total Protein Albumin Blood Type O POSITIVE Antibody Screen Negative Crossmatch See Detail 12/18/18 12/19/18 12/19/18 21:35 05:20 05:20 WBC 6.9 RBC 3.13 L Hgb 9.8 L Hct 28.2 L D MCV 90.3 MCH 31.3 MCHC 34.7 RDW 15.6 Plt Count 193 MPV 9.2 Neutrophils % (Manual) Band Neutrophils % Lymphocytes % (Manual) Monocytes % (Manual) Eosinophils % (Manual) Basophils % (Manual) Myelocytes % (Man) Promyelocytes % (Man) Blast Cells % (Manual) Metamyelocytes Hypochromia Platelet Estimate Polychromasia Poikilocytosis Anisocytosis Microcytosis Macrocytosis Ovalocytes Sodium 138 Potassium 4.3 Chloride 101 Carbon Dioxide 34 H Anion Gap 4 L BUN 64 H Creatinine 2.4 H Creat Clearance w eGFR 19.52 POC Glucometer 126 Random Glucose 87 Calcium 9.1 Total Bilirubin 0.9 AST 19 ALT 19 Alkaline Phosphatase 75 Total Protein 6.2 L Albumin 3.1 L Blood Type Antibody Screen Crossmatch 12/19/18 12/19/18 06:11 11:46 WBC RBC Hgb Hct MCV MCH MCHC RDW Plt Count MPV Neutrophils % (Manual) Band Neutrophils % Lymphocytes % (Manual) Monocytes % (Manual) Eosinophils % (Manual) Basophils % (Manual) Myelocytes % (Man) Promyelocytes % (Man) Blast Cells % (Manual) Metamyelocytes Hypochromia Platelet Estimate Polychromasia Poikilocytosis Anisocytosis Microcytosis Macrocytosis Ovalocytes Sodium Potassium Chloride Carbon Dioxide Anion Gap BUN Creatinine Creat Clearance w eGFR POC Glucometer 100 164 Random Glucose Calcium Total Bilirubin AST ALT Alkaline Phosphatase Total Protein Albumin Blood Type Antibody Screen Crossmatch Active Medications Generic Name Dose Route Start Last Admin Trade Name Freq PRN Reason Stop Dose Admin Acetaminophen 650 mg 12/14/18 00:12 12/18/18 19:18 Tylenol - PO 650 mg Q6H PRN Administration FEVER Atorvastatin Calcium 20 mg 12/14/18 22:00 12/18/18 21:42 Lipitor - PO 20 mg HS [facility] Administration Brimonidine Tartrate 1 drop 12/14/18 10:00 12/19/18 10:21 Alphagan 0.2% - OU 1 drop BID [facility] Administration Epoetin Elton 20,000 unit 12/18/18 10:00 12/18/18 14:15 Procrit - SQ 20,000 unit MOWEFR [facility] Administration Furosemide 80 mg 12/19/18 18:00 Lasix Injection - IVPB BID@0600,1800 [facility] Hydralazine HCl 40 mg 12/18/18 22:15 02/12/19 10:18 Apresoline - PO 40 mg BID [facility] Administration Insulin Aspart 1 vial 12/14/18 07:00 12/19/18 11:40 Novolog Vial Sliding Scale - SQ 2 units ACHS [facility] Administration Protocol Insulin Detemir 20 units 12/14/18 07:00 12/19/18 06:33 Levemir Vial SQ 20 units ACBK [facility] Administration Methimazole 5 mg 12/14/18 10:00 12/19/18 10:19 Tapazole - PO 5 mg DAILY [facility] Administration Metoprolol Succinate 25 mg 12/17/18 10:00 12/19/18 10:19 Toprol Xl - PO 25 mg DAILY [facility] Administration Pantoprazole Sodium 40 mg 12/14/18 22:00 12/18/18 21:42 Protonix - PO 40 mg HS [facility] Administration Polyethylene Glycol 17 gm 12/16/18 22:00 12/19/18 10:35 Miralax (For Daily Use) - PO Not Given BID [facility] Timolol Maleate 1 drop 12/14/18 10:00 12/19/18 10:22 Timoptic 0.5% OU 1 drop BID [facility] Administration ASSESSMENT/PLAN: Dispo: We will continue to follow the patient. Thank you for this consultative opportunity.
--- NOTE | 2018-12-19 16:11 | PN ---
Progress Note, Physician Chief Complaint: Pt A&Ox3; daughter is at bedside trying to help her mother eat breakfast. Pt is refusing, and says she has difficulty breathing. Slept well last night. History of Present Illness: 78 year old woman with history of hypertrophic cardiomyopathy (HCM; no significant intracavitary gradient on 11/2018 ECHO); mild-moderate systolic CHF , HTN, DM, CKD colon CA, s/p resection, hyperthyroidism,hyperlipidemia, LBBB noted 2016; PAD; bilateral 25-30% stenoses of the carotid arteries on 11/2018 ultrasound), anemia, who presents with worsening shortness of breath preventing her from lying flat, which started after a medication change 2 weeks ago. The patient was on furosemide 40 BID and was changed to Torsemide 20mg, 2 pills in the AM. She started developing swelling in the legs and arms worse than baseline and orthopnea. The patient followed up with Director Of Quality Improvement who noticed the swelling and added a second dose of torsemide 20mg at bedtime for a total of 60mg per day, and the patient has been taking this dosage for the past 5 days without improvement of swelling or shortness of breath. Today the patient' s daughter noticed the swelling and decided to bring her into the ED. The patient denies fever, cough, uri symptoms, chest pain, abdominal pain, dysuria, hematuria, nausea, vomiting or diaphoresis. She has no other complaints at bedside. PCP: Minh Director School Of [employer]: Jean Director Of Quality Improvement: Samy Negative stress MIBIs 2010 and January 2016; hx bradycardia - Current Medication List Current Medications: Active Medications Acetaminophen (Tylenol -) 650 mg PO Q6H PRN PRN Reason: FEVER Last Admin: 12/18/18 19:18 Dose: 650 mg Atorvastatin Calcium (Lipitor -) 20 mg PO HS [facility] Last Admin: 12/18/18 21:42 Dose: 20 mg Brimonidine Tartrate (Alphagan 0.2% -) 1 drop OU BID [facility] Last Admin: 12/19/18 10:21 Dose: 1 drop Epoetin Elton (Procrit -) 20,000 unit SQ MOWEFR [facility] Last Admin: 12/18/18 14:15 Dose: 20,000 unit Furosemide (Lasix Injection -) 80 mg IVPB BID@0600,1800 [facility] Hydralazine HCl (Apresoline -) 40 mg PO BID [facility] Last Admin: 12/19/18 10:18 Dose: 40 mg Insulin Aspart (Novolog Vial Sliding Scale -) 1 vial SQ ACHS [facility]; Protocol Last Admin: 12/19/18 11:40 Dose: 2 units Insulin Detemir (Levemir Vial) 20 units SQ ACBK [facility] Last Admin: 12/19/18 06:33 Dose: 20 units Methimazole (Tapazole -) 5 mg PO DAILY [facility] Last Admin: 12/19/18 10:19 Dose: 5 mg Metoprolol Succinate (Toprol Xl -) 25 mg PO DAILY [facility] Last Admin: 12/19/18 10:19 Dose: 25 mg Pantoprazole Sodium (Protonix -) 40 mg PO HS [facility] Last Admin: 12/18/18 21:42 Dose: 40 mg Polyethylene Glycol (Miralax (For Daily Use) -) 17 gm PO BID [facility] Last Admin: 12/19/18 10:35 Dose: Not Given Timolol Maleate (Timoptic 0.5%) 1 drop OU BID [facility] Last Admin: 12/19/18 10:22 Dose: 1 drop - Objective Vital Signs: Vital Signs Temperature 98.4 F 12/19/18 09:00 Pulse Rate 76 12/19/18 09:00 Respiratory Rate 20 12/19/18 09:00 Blood Pressure 169/59 L 12/19/18 09:00 O2 Sat by Pulse Oximetry (%) 99 12/19/18 09:00 Constitutional: Yes: Anxious Eyes: Yes: WNL HENT: Yes: WNL Neck: Yes: WNL Cardiovascular: Yes: S1, S2, S4 Respiratory: Yes: Diminished, Rales, SOB, Wheezes Gastrointestinal: Yes: Soft ...Rectal Exam: Yes: Deferred Genitourinary: No: Anuria Breast(s): Yes: WNL Musculoskeletal: Yes: Muscle Weakness Extremities: Yes: Cool Edema: No Peripheral Pulses WNL: Yes Integumentary: Yes: WNL Neurological: Yes: Weakness Psychiatric: Yes: WNL Labs: CBC, BMP 12/19/18 05:20 12/19/18 05:20 INR, PTT INR 1.03 (0.83-1.09) 12/14/18 01:31 Abnormal Lab Results 12/18/18 12/19/18 12/19/18 11:10 05:20 05:20 RBC 3.13 L Hgb 9.8 L Hct 28.2 L D Carbon Dioxide 34 H Anion Gap 4 L BUN 64 H Creatinine 2.4 H Total Protein 6.2 L Albumin 3.1 L Crossmatch See Detail - ....Imaging Chest X-ray: Image Reviewed (congestive changes) Other: Image Reviewed (telemetry: NSR) Problem List - Problems (1) Systolic and diastolic CHF w/reduced LV function, NYHA class 4 Assessment/Plan: Now on metoprolol (mild-moderate systolic LV dysfunction; HCM; HTN). On hydralazine. Code(s): I50.40 - UNSP COMBINED SYSTOLIC AND DIASTOLIC (CONGESTIVE) HRT FAIL (2) Hypertrophic obstructive cardiomyopathy (HOCM) Assessment/Plan: Pt and family have been put in contact in the past with heart failure group for genetic testing to r/o other members having HOCM. Code(s): I42.1 - OBSTRUCTIVE HYPERTROPHIC CARDIOMYOPATHY (3) Renal insufficiency Assessment/Plan: Now off torsemide (?cause of rash); being given IV furosemide. F/u BUN/Cr, electrolytes, Is and Os, daily weight. F/u with sweat band sewer. Code(s): N28.9 - DISORDER OF KIDNEY AND URETER, UNSPECIFIED (4) Anemia Code(s): D64.9 - ANEMIA, UNSPECIFIED Qualifiers: Iron deficiency anemia type: inadequate dietary iron intake (5) HTN (hypertension) Assessment/Plan: On hydralazine; on amlodipine as outpatient. On metoprolol ER (HCM; systolic CHF; HTN) renal dysfunction presently precludes use of ACEI or ARB. Code(s): I10 - ESSENTIAL (PRIMARY) HYPERTENSION (6) Hyperthyroidism Assessment/Plan: on methimazole. TSH WNL. Code(s): E05.90 - THYROTOXICOSIS, UNSP WITHOUT THYROTOXIC CRISIS OR STORM
[2018-12-19] MEDS: ACETAMINOPHEN 325 MG TABLET (FP) PO PRN (18:01)
--- NOTE | 2018-12-19 18:21 | PN ---
Progress Note (short form) - Note Progress Note: Patient seen and examined Somewhat dyspneic and tachypneic Last Vital Signs Temp Pulse Resp BP Pulse Ox 98.5 F 77 20 158/69 99 12/19/18 13:00 12/19/18 13:00 12/19/18 13:00 12/19/18 13:00 12/19/18 09:00 HEENT: DANIKA, EOM Intact Oropharynx: No thrush, No mucositis Cor: RSR, No murmurs, No gallops Lungs: Ralesa bilateral LE Abd: Soft, Normal bowel sounds, No organomegaly, large ventral hernia Ext edema LE Skin: No rashes, Integument intact CBC, BMP 12/19/18 05:20 12/19/18 05:20 Current Medications Generic Name Dose Route Start Last Admin Trade Name Freq PRN Reason Stop Dose Admin Acetaminophen 650 mg 12/14/18 00:12 12/19/18 18:01 Tylenol - PO 650 mg Q6H PRN Administration FEVER Atorvastatin Calcium 20 mg 12/14/18 22:00 12/18/18 21:42 Lipitor - PO 20 mg HS [facility] Administration Brimonidine Tartrate 1 drop 12/14/18 10:00 12/19/18 10:21 Alphagan 0.2% - OU 1 drop BID [facility] Administration Epoetin Elton 20,000 unit 12/18/18 10:00 12/18/18 14:15 Procrit - SQ 20,000 unit MOWEFR [facility] Administration Furosemide 80 mg 12/19/18 18:00 12/19/18 17:47 Lasix Injection - IVPB 80 mg BID@0600,1800 [facility] Administration Hydralazine HCl 40 mg 12/18/18 22:15 12/19/18 10:18 Apresoline - PO 40 mg BID [facility] Administration Insulin Aspart 1 vial 12/14/18 07:00 12/19/18 16:47 Novolog Vial Sliding Scale - SQ 2 units ACHS [facility] Administration Protocol Insulin Detemir 20 units 12/14/18 07:00 12/19/18 06:33 Levemir Vial SQ 20 units ACBK [facility] Administration Methimazole 5 mg 12/14/18 10:00 12/19/18 10:19 Tapazole - PO 5 mg DAILY [facility] Administration Metoprolol Succinate 25 mg 12/17/18 10:00 12/19/18 10:19 Toprol Xl - PO 25 mg DAILY [facility] Administration Pantoprazole Sodium 40 mg 12/14/18 22:00 12/18/18 21:42 Protonix - PO 40 mg HS [facility] Administration Polyethylene Glycol 17 gm 12/16/18 22:00 12/19/18 10:35 Miralax (For Daily Use) - PO Not Given BID [facility] Timolol Maleate 1 drop 12/14/18 10:00 12/19/18 10:22 Timoptic 0.5% OU 1 drop BID [facility] Administration Impression Fluid overload CKD- nephrotic proteinuria, hx colon ca s/p resection chronic anemia 2/2 CKD. Plan : diuresis s/p transfusion Continue epogen Venofer
[2018-12-19] MEDS: PANTOPRAZOLE 40 MG TABLET (FP) PO SCH (22:07)
[2018-12-19] MEDS: ATORVASTATIN CA 20 MG TABLET (FP) PO SCH (22:07)
--- NOTE | 2018-12-19 22:53 | PN ---
Progress Note, Physician History of Present Illness: Pt's with difficult breathing today. Pt also c/o weakness. Pt w/o CP, palpitations, dizziness, abd pain, nausea, vomiting. - Current Medication List Current Medications: Active Medications Acetaminophen (Tylenol -) 650 mg PO Q6H PRN PRN Reason: FEVER Last Admin: 12/19/18 18:01 Dose: 650 mg Atorvastatin Calcium (Lipitor -) 20 mg PO [facility] Last Admin: 12/19/18 22:07 Dose: 20 mg Brimonidine Tartrate (Alphagan 0.2% -) 1 drop OU BID [facility] Last Admin: 12/19/18 22:12 Dose: 1 drop Epoetin Elton (Procrit -) 20,000 unit SQ MOWEFR [facility] Last Admin: 12/18/18 14:15 Dose: 20,000 unit Furosemide (Lasix Injection -) 80 mg IVPB BID@0600,1800 [facility] Last Admin: 12/19/18 17:47 Dose: 80 mg Hydralazine HCl (Apresoline -) 40 mg PO TID [facility] Insulin Aspart (Novolog Vial Sliding Scale -) 1 vial SQ [facility]; Protocol Last Admin: 12/19/18 22:08 Dose: Not Given Insulin Detemir (Levemir Vial) 20 units SQ ACBK [facility] Last Admin: 12/19/18 06:33 Dose: 20 units Methimazole (Tapazole -) 5 mg PO DAILY [facility] Last Admin: 12/19/18 10:19 Dose: 5 mg Metoprolol Succinate (Toprol Xl -) 25 mg PO DAILY [facility] Last Admin: 12/19/18 10:19 Dose: 25 mg Pantoprazole Sodium (Protonix -) 40 mg PO [facility] Last Admin: 12/19/18 22:07 Dose: 40 mg Polyethylene Glycol (Miralax (For Daily Use) -) 17 gm PO BID [facility] Last Admin: 12/19/18 22:08 Dose: 17 gm Timolol Maleate (Timoptic 0.5%) 1 drop OU BID [facility] Last Admin: 12/19/18 22:13 Dose: 1 drop - Objective Vital Signs: Vital Signs Temperature 98.3 F 12/19/18 20:45 Pulse Rate 71 12/19/18 20:45 Respiratory Rate 20 12/19/18 20:45 Blood Pressure 168/73 12/19/18 20:45 O2 Sat by Pulse Oximetry (%) 97 12/19/18 20:45 Constitutional: Yes: No Distress, Calm Cardiovascular: Yes: Regular Rate and Rhythm, S1, S2 Respiratory: Yes: Regular, Rales (crackles at both bases) Gastrointestinal: Yes: Normal Bowel Sounds, Soft, Abdomen, Obese. No: Tenderness Edema: No Neurological: Yes: Alert, Oriented Labs: CBC, BMP 12/19/18 05:20 12/19/18 05:20 INR, PTT INR 1.03 (0.83-1.09) 12/14/18 01:31 Problem List - Problems (1) Acute exacerbation of CHF (congestive heart failure) Code(s): I50.9 - HEART FAILURE, UNSPECIFIED (2) Anasarca Code(s): R60.1 - GENERALIZED EDEMA (3) Chronic renal failure Code(s): N18.9 - CHRONIC KIDNEY DISEASE, UNSPECIFIED (4) Hypertrophic obstructive cardiomyopathy (HOCM) Code(s): I42.1 - OBSTRUCTIVE HYPERTROPHIC CARDIOMYOPATHY (5) Diabetes mellitus Code(s): E11.9 - TYPE 2 DIABETES MELLITUS WITHOUT COMPLICATIONS (6) Liver cirrhosis Code(s): K74.60 - UNSPECIFIED CIRRHOSIS OF LIVER (7) Anemia Code(s): D64.9 - ANEMIA, UNSPECIFIED Qualifiers: Iron deficiency anemia type: inadequate dietary iron intake Assessment/Plan Pt is monitored on Telemetry s/p 2 units of PRBC (on 12/18/2018). IV Lasix was increased; pt's condition was d/w Dr. Mixon To f/u electrolytes, renal function Cardio, Renal, Heme, GI consults are appreciated. AM labs. Pt. care was reviewed with her nurse and dg ( at bedside).
[2018-12-20] MEDS ORDERED: hydrALAZINE HCL 10 MG TABLET PO SCH (06:00)
[2018-12-20] MEDS: INSULIN SLIDING SCALE (NOVOLOG) 1 VIAL SQ SCH ×4 (06:09→22:09)
[2018-12-20 06:47] LABS: HEMATOCRIT 28.5 % (32.4-45.2); HEMOGLOBIN 9.7 GM/dL (10.7-15.3); MCH 30.8 pg (25.7-33.7); MCHC 34.1 g/dl (32.0-36.0); MEAN CELL VOLUME 90.5 fl (80-96); PLATELET COUNT 198 K/MM3 (134-434); RBC 3.15 M/mm3 (3.60-5.2); RDW 15.6 % (11.6-15.6); WHITE BLOOD COUNT 6.7 K/mm3 (4.0-10.0)
[2018-12-20] MEDS: FUROSEMIDE 40 MG/4 ML INJECTABLE VIAL IVPB SCH ×2 (07:01→17:41)
[2018-12-20] MEDS: INSULIN (LEVEMIR) 100 UNITS/ML UNITS SQ SCH (07:02)
[2018-12-20 07:34] LABS: ALK PHOS 74 U/L (45-117); ANION GAP 6 MMOL/L (8-16); BILIRUBIN,TOTAL 0.8 mg/dL (0.2-1); BLOOD UREA NITROGEN 64 mg/dL (7-18); CALCIUM 9.4 mg/dL (8.5-10.1); CHLORIDE 101 mmol/L (98-107); CO2 35 mmol/L (21-32); CREATININE 2.4 mg/dL (0.55-1.3); GLUCOSE,RANDOM 88 mg/dL (74-106); POTASSIUM 4.1 mmol/L (3.5-5.1); SGOT/AST 21 U/L (15-37); SGPT/ALT 13 U/L (13-61); SODIUM 142 mmol/L (136-145)
[2018-12-20] MEDS ORDERED: PT OWN MED DRAWER 7, Y5N ONE (09:23)
[2018-12-20] MEDS: METHIMAZOLE 5 MG TABLET (FP) PO SCH (09:30)
[2018-12-20] MEDS: metoPROLOL SUCCINATE 25 MG TAB.SR.24H (FP) PO SCH (09:31)
[2018-12-20] MEDS: EPOETIN ALFA 20,000 UNIT/1 ML VIAL SQ SCH (09:32)
[2018-12-20] MEDS: POLYETHYLENE GLYCOL 3350 119 GM BTL PO SCH ×2 (09:34→22:04)
[2018-12-20] MEDS: TIMOLOL 0.5% OPHTHALMIC SOL 5 ML BOTTLE OU SCH ×2 (09:34→22:03)
[2018-12-20] MEDS: BRIMONIDINE TARTRATE 0.2% OPHTHALMIC 5 ML BOTTLE OU SCH ×2 (09:34→22:03)
--- NOTE | 2018-12-20 11:44 | PN ---
Progress Note, Physician History of Present Illness: Pt's breathing is better today. Pt still weak. Pt w/o CP, palpitations, dizziness, abd pain, nausea, vomiting. - Current Medication List Current Medications: Active Medications Acetaminophen (Tylenol -) 650 mg PO Q6H PRN PRN Reason: FEVER Last Admin: 12/19/18 18:01 Dose: 650 mg Atorvastatin Calcium (Lipitor -) 20 mg PO [facility] Last Admin: 12/19/18 22:07 Dose: 20 mg Brimonidine Tartrate (Alphagan 0.2% -) 1 drop OU BID [facility] Last Admin: 12/20/18 09:34 Dose: 1 drop Epoetin Elton (Procrit -) 20,000 unit SQ MOWEFR [facility] Last Admin: 12/20/18 09:32 Dose: 20,000 unit Furosemide (Lasix Injection -) 80 mg IVPB BID@0600,1800 [facility] Last Admin: 12/20/18 07:01 Dose: 80 mg Hydralazine HCl (Apresoline -) 40 mg PO TID [facility] Last Admin: 12/20/18 07:01 Dose: 40 mg Insulin Aspart (Novolog Vial Sliding Scale -) 1 vial SQ [facility]; Protocol Last Admin: 12/20/18 10:58 Dose: 2 units Insulin Detemir (Levemir Vial) 20 units SQ ACBK [facility] Last Admin: 12/20/18 07:02 Dose: 20 units Methimazole (Tapazole -) 5 mg PO DAILY [facility] Last Admin: 12/20/18 09:30 Dose: 5 mg Metoprolol Succinate (Toprol Xl -) 25 mg PO DAILY [facility] Last Admin: 12/20/18 09:31 Dose: 25 mg Pantoprazole Sodium (Protonix -) 40 mg PO [facility] Last Admin: 12/19/18 22:07 Dose: 40 mg Polyethylene Glycol (Miralax (For Daily Use) -) 17 gm PO BID [facility] Last Admin: 12/20/18 09:34 Dose: 17 gm Timolol Maleate (Timoptic 0.5%) 1 drop OU BID [facility] Last Admin: 12/20/18 09:34 Dose: 1 drop - Objective Vital Signs: Vital Signs Temperature 98.9 F 12/20/18 08:56 Pulse Rate 80 12/20/18 08:56 Respiratory Rate 17 12/20/18 08:57 Blood Pressure 184/69 H 12/20/18 08:56 O2 Sat by Pulse Oximetry (%) 96 12/20/18 08:57 Constitutional: Yes: No Distress, Calm Cardiovascular: Yes: Regular Rate and Rhythm, Murmur, S1, S2 Respiratory: Yes: Regular, Rales (+ bilat crackles at bases) Gastrointestinal: Yes: Normal Bowel Sounds, Soft, Abdomen, Obese. No: Tenderness Edema: LLE: 1+, RLE: 1+ Neurological: Yes: Alert, Oriented Labs: CBC, BMP 12/20/18 05:30 12/20/18 05:30 INR, PTT INR 1.03 (0.83-1.09) 12/14/18 01:31 Problem List - Problems (1) Acute exacerbation of CHF (congestive heart failure) Code(s): I50.9 - HEART FAILURE, UNSPECIFIED (2) Anasarca Code(s): R60.1 - GENERALIZED EDEMA (3) Chronic renal failure Code(s): N18.9 - CHRONIC KIDNEY DISEASE, UNSPECIFIED (4) Hypertrophic obstructive cardiomyopathy (HOCM) Code(s): I42.1 - OBSTRUCTIVE HYPERTROPHIC CARDIOMYOPATHY (5) Diabetes mellitus Code(s): E11.9 - TYPE 2 DIABETES MELLITUS WITHOUT COMPLICATIONS (6) Liver cirrhosis Code(s): K74.60 - UNSPECIFIED CIRRHOSIS OF LIVER (7) Anemia Code(s): D64.9 - ANEMIA, UNSPECIFIED Qualifiers: Iron deficiency anemia type: inadequate dietary iron intake Assessment/Plan Pt is monitored on Telemetry Pt's BP elevated this AM although her Hydralazine was increased to TID; to repeate BP s/p 2 units of PRBC (on 12/18/2018). IV Lasix was increased; pt with good response To f/u electrolytes, renal function Cardio, Renal, Heme, GI consults are appreciated. AM labs. Pt. care was reviewed with her nurse and dg ( at bedside).
--- NOTE | 2018-12-20 12:07 | PN ---
Progress Note, Physician History of Present Illness: 78 year old woman with history of hypertrophic cardiomyopathy (HCM; no significant intracavitary gradient on 11/2018 ECHO); mild-moderate systolic CHF , HTN, DM, CKD colon CA, s/p resection, hyperthyroidism,hyperlipidemia, LBBB noted 2016; PAD; bilateral 25-30% stenoses of the carotid arteries on 11/2018 ultrasound), anemia, who presents with worsening shortness of breath preventing her from lying flat, which started after a medication change 2 weeks ago. The patient was on furosemide 40 BID and was changed to Torsemide 20mg, 2 pills in the AM. She started developing swelling in the legs and arms worse than baseline and orthopnea. The patient followed up with Physical Science Aide who noticed the swelling and added a second dose of torsemide 20mg at bedtime for a total of 60mg per day, and the patient has been taking this dosage for the past 5 days without improvement of swelling or shortness of breath. Today the patient' s daughter noticed the swelling and decided to bring her into the ED. The patient denies fever, cough, uri symptoms, chest pain, abdominal pain, dysuria, hematuria, nausea, vomiting or diaphoresis. She has no other complaints at bedside. PCP: Minh Hemmer Automatic: Jean Physical Science Aide: Samy - Current Medication List Current Medications: Active Medications Acetaminophen (Tylenol -) 650 mg PO Q6H PRN PRN Reason: FEVER Last Admin: 12/19/18 18:01 Dose: 650 mg Atorvastatin Calcium (Lipitor -) 20 mg PO HS [facility] Last Admin: 12/19/18 22:07 Dose: 20 mg Brimonidine Tartrate (Alphagan 0.2% -) 1 drop OU BID [facility] Last Admin: 12/20/18 09:34 Dose: 1 drop Epoetin Elton (Procrit -) 20,000 unit SQ MOWEFR [facility] Last Admin: 12/20/18 09:32 Dose: 20,000 unit Furosemide (Lasix Injection -) 80 mg IVPB BID@0600,1800 [facility] Last Admin: 12/20/18 07:01 Dose: 80 mg Hydralazine HCl (Apresoline -) 40 mg PO QID [facility] Insulin Aspart (Novolog Vial Sliding Scale -) 1 vial SQ ACHS [facility]; Protocol Last Admin: 12/20/18 10:58 Dose: 2 units Insulin Detemir (Levemir Vial) 20 units SQ ACBK [facility] Last Admin: 12/20/18 07:02 Dose: 20 units Methimazole (Tapazole -) 5 mg PO DAILY [facility] Last Admin: 12/20/18 09:30 Dose: 5 mg Metoprolol Succinate (Toprol Xl -) 25 mg PO DAILY [facility] Last Admin: 12/20/18 09:31 Dose: 25 mg Pantoprazole Sodium (Protonix -) 40 mg PO HS [facility] Last Admin: 12/19/18 22:07 Dose: 40 mg Polyethylene Glycol (Miralax (For Daily Use) -) 17 gm PO BID [facility] Last Admin: 12/20/18 09:34 Dose: 17 gm Timolol Maleate (Timoptic 0.5%) 1 drop OU BID [facility] Last Admin: 12/20/18 09:34 Dose: 1 drop - Objective Vital Signs: Vital Signs Temperature 98.9 F 12/20/18 08:56 Pulse Rate 71 12/20/18 11:47 Respiratory Rate 18 12/20/18 11:47 Blood Pressure 185/74 H 12/20/18 11:47 O2 Sat by Pulse Oximetry (%) 96 12/20/18 08:57 Eyes: Yes: WNL, Conjunctiva Clear, EOM Intact HENT: Yes: WNL, Atraumatic, Normocephalic Neck: Yes: WNL, Supple, Trachea Midline Cardiovascular: Yes: Regular Rate and Rhythm, Murmur, S1, S2 Respiratory: Yes: WNL, Regular, CTA Bilaterally Gastrointestinal: Yes: WNL, Normal Bowel Sounds Genitourinary: Yes: WNL Musculoskeletal: Yes: WNL Extremities: Yes: WNL Edema: No Integumentary: Yes: WNL Neurological: Yes: WNL, Alert, Oriented ...Motor Strength: WNL Psychiatric: Yes: WNL Labs: CBC, BMP 12/20/18 05:30 12/20/18 05:30 INR, PTT INR 1.03 (0.83-1.09) 12/14/18 01:31 Assessment/Plan - Problems (1) Systolic and diastolic CHF w/reduced LV function, NYHA class 4 Assessment/Plan: Now on metoprolol (systolic CHF; HCM; HTN). On hydralazine. Code(s): I50.40 - UNSP COMBINED SYSTOLIC AND DIASTOLIC (CONGESTIVE) HRT FAIL (2) Hypertrophic obstructive cardiomyopathy (HOCM) Assessment/Plan: Pt and family have been put in contact in the past with heart failure group for genetic testing to r/o other members having HOCM. Code(s): I42.1 - OBSTRUCTIVE HYPERTROPHIC CARDIOMYOPATHY (3) Renal insufficiency Assessment/Plan: Now off torsemide; being given IV furosemide. F/u BUN/Cr, electrolytes, Is and Os, daily weight. F/u with screen printing cloth spreader. Code(s): N28.9 - DISORDER OF KIDNEY AND URETER, UNSPECIFIED (4) Anemia Code(s): D64.9 - ANEMIA, UNSPECIFIED Qualifiers: Iron deficiency anemia type: inadequate dietary iron intake (5) HTN (hypertension) Assessment/Plan: On hydralazine; on amlodipine as outpatient. On metoprolol ER (HCM; systolic CHF; HTN) renal dysfunction presently precludes use of ACEI or ARB. Code(s): I10 - ESSENTIAL (PRIMARY) HYPERTENSION (6) Hyperthyroidism Assessment/Plan: on methimazole. TSH WNL. Code(s): E05.90 - THYROTOXICOSIS, UNSP WITHOUT THYROTOXIC CRISIS OR STORM
[2018-12-20] MEDS: hydrALAZINE HCL 10 MG TABLET PO SCH ×3 (12:19→22:02)
--- NOTE | 2018-12-20 12:24 | PN ---
Progress Note (short form) - Note Progress Note: Renal follow up for CKD with fluid overload Pt seen and examined at the bedside still feels weak but better breathing then yesterday no cp, fever, chills, N/V/D Vital Signs Temperature 98.9 F 12/20/18 08:56 Pulse Rate 71 12/20/18 11:47 Respiratory Rate 18 12/20/18 11:47 Blood Pressure 185/74 H 12/20/18 11:47 O2 Sat by Pulse Oximetry (%) 96 12/20/18 08:57 Intake & Output 12/17/18 12/18/18 12/19/18 12/20/18 23:59 23:59 23:59 23:59 Intake Total 350 1270 730 Balance 350 1270 730 Weight 75.841 kg 77.167 kg 77.564 kg 74.843 kg NAD + rales + leg edema CBC, BMP 12/20/18 05:30 12/20/18 05:30 Current Medications Acetaminophen (Tylenol -) 650 mg PO Q6H PRN PRN Reason: FEVER Last Admin: 12/19/18 18:01 Dose: 650 mg Atorvastatin Calcium (Lipitor -) 20 mg PO HS [facility] Last Admin: 12/19/18 22:07 Dose: 20 mg Brimonidine Tartrate (Alphagan 0.2% -) 1 drop OU BID [facility] Last Admin: 12/20/18 09:34 Dose: 1 drop Epoetin Elton (Procrit -) 20,000 unit SQ MOWEFR [facility] Last Admin: 12/20/18 09:32 Dose: 20,000 unit Furosemide (Lasix Injection -) 80 mg IVPB BID@0600,1800 [facility] Last Admin: 12/20/18 07:01 Dose: 80 mg Hydralazine HCl (Apresoline -) 40 mg PO QID [facility] Last Admin: 12/20/18 12:19 Dose: 40 mg Insulin Aspart (Novolog Vial Sliding Scale -) 1 vial SQ ACHS [facility]; Protocol Last Admin: 12/20/18 10:58 Dose: 2 units Insulin Detemir (Levemir Vial) 20 units SQ ACBK [facility] Last Admin: 12/20/18 07:02 Dose: 20 units Methimazole (Tapazole -) 5 mg PO DAILY [facility] Last Admin: 12/20/18 09:30 Dose: 5 mg Metoprolol Succinate (Toprol Xl -) 25 mg PO DAILY [facility] Last Admin: 12/20/18 09:31 Dose: 25 mg Pantoprazole Sodium (Protonix -) 40 mg PO HS [facility] Last Admin: 12/19/18 22:07 Dose: 40 mg Polyethylene Glycol (Miralax (For Daily Use) -) 17 gm PO BID [facility] Last Admin: 12/20/18 09:34 Dose: 17 gm Timolol Maleate (Timoptic 0.5%) 1 drop OU BID [facility] Last Admin: 12/20/18 09:34 Dose: 1 drop 78 year old woman with hx of 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 #Anasarca/CHF/Fluid overload #CKD stage 4 with nephrotic proteinuira #CHF #DM #Iron deficiency anemia Renal function remains stable Continue Lasix 80mg IV BID trend daily weights and renal function will continue EILEEN 3x weekly Thank you Robby Pablo DO
[2018-12-20] MEDS: ATORVASTATIN CA 20 MG TABLET (FP) PO SCH (22:02)
[2018-12-20] MEDS: PANTOPRAZOLE 40 MG TABLET (FP) PO SCH (22:03)
[2018-12-21] MEDS: INSULIN SLIDING SCALE (NOVOLOG) 1 VIAL SQ SCH ×4 (06:25→22:42)
[2018-12-21] MEDS: FUROSEMIDE 40 MG/4 ML INJECTABLE VIAL IVPB SCH ×2 (06:29→17:04)
[2018-12-21] MEDS: INSULIN (LEVEMIR) 100 UNITS/ML UNITS SQ SCH (06:30)
[2018-12-21 06:47] LABS: HEMATOCRIT 27.8 % (32.4-45.2); HEMOGLOBIN 9.6 GM/dL (10.7-15.3); MCH 30.9 pg (25.7-33.7); MCHC 34.5 g/dl (32.0-36.0); MEAN CELL VOLUME 89.4 fl (80-96); MEAN PLT VOLUME 8.9 fl (7.5-11.1); PLATELET COUNT 201 K/MM3 (134-434); RBC 3.11 M/mm3 (3.60-5.2); RDW 14.9 % (11.6-15.6); WHITE BLOOD COUNT 5.8 K/mm3 (4.0-10.0)
[2018-12-21 07:06] LABS: ANION GAP 4 MMOL/L (8-16); BLOOD UREA NITROGEN 66 mg/dL (7-18); CALCIUM 9.1 mg/dL (8.5-10.1); CHLORIDE 98 mmol/L (98-107); CO2 36 mmol/L (21-32); CREATININE 2.3 mg/dL (0.55-1.3); GLUCOSE,RANDOM 87 mg/dL (74-106); MAGNESIUM 2.3 mg/dL (1.8-2.4); POTASSIUM 3.8 mmol/L (3.5-5.1); SODIUM 138 mmol/L (136-145)
[2018-12-21] MEDS: hydrALAZINE HCL 10 MG TABLET PO SCH ×4 (09:16→22:36)
[2018-12-21] MEDS: METHIMAZOLE 5 MG TABLET (FP) PO SCH (09:17)
[2018-12-21] MEDS: metoPROLOL SUCCINATE 25 MG TAB.SR.24H (FP) PO SCH (09:17)
[2018-12-21] MEDS: TIMOLOL 0.5% OPHTHALMIC SOL 5 ML BOTTLE OU SCH ×2 (09:22→22:36)
[2018-12-21] MEDS: BRIMONIDINE TARTRATE 0.2% OPHTHALMIC 5 ML BOTTLE OU SCH ×2 (09:22→22:35)
[2018-12-21] MEDS: POLYETHYLENE GLYCOL 3350 119 GM BTL PO SCH ×2 (13:26→22:47)
--- NOTE | 2018-12-21 15:18 | PN ---
Progress Note (short form) - Note Progress Note: Renal follow up for CKD with fluid overload Pt seen and examined at the bedside feels better weights improving making urine no sob, cp Vital Signs Temperature 98.6 F 12/21/18 09:00 Pulse Rate 74 12/21/18 09:00 Respiratory Rate 18 12/21/18 09:00 Blood Pressure 180/69 H 12/21/18 09:00 O2 Sat by Pulse Oximetry (%) 99 12/21/18 09:00 Intake & Output 12/18/18 12/19/18 12/20/18 12/21/18 23:59 23:59 23:59 23:59 Intake Total 1270 730 310 20 Balance 1270 730 310 20 Weight 77.167 kg 77.564 kg 74.843 kg 74.616 kg NAD + rales + leg edema CBC, BMP 12/21/18 05:30 12/21/18 05:30 Current Medications Acetaminophen (Tylenol -) 650 mg PO Q6H PRN PRN Reason: FEVER Last Admin: 12/19/18 18:01 Dose: 650 mg Atorvastatin Calcium (Lipitor -) 20 mg PO HS [facility] Last Admin: 12/20/18 22:02 Dose: 20 mg Brimonidine Tartrate (Alphagan 0.2% -) 1 drop OU BID [facility] Last Admin: 12/21/18 09:22 Dose: 1 drop Epoetin Elton (Procrit -) 20,000 unit SQ MoWeFr@1000 [facility] Furosemide (Lasix Injection -) 80 mg IVPB BID@0600,1800 [facility] Last Admin: 12/21/18 06:29 Dose: 80 mg Hydralazine HCl (Apresoline -) 40 mg PO QID [facility] Last Admin: 12/21/18 13:27 Dose: 40 mg Insulin Aspart (Novolog Vial Sliding Scale -) 1 vial SQ ACHS [facility]; Protocol Last Admin: 12/21/18 13:26 Dose: 2 units Insulin Detemir (Levemir Vial) 20 units SQ ACBK [facility] Last Admin: 12/21/18 06:30 Dose: Not Given Methimazole (Tapazole -) 5 mg PO DAILY [facility] Last Admin: 12/21/18 09:17 Dose: 5 mg Metoprolol Succinate (Toprol Xl -) 25 mg PO DAILY [facility] Last Admin: 12/21/18 09:17 Dose: 25 mg Pantoprazole Sodium (Protonix -) 40 mg PO HS [facility] Last Admin: 12/20/18 22:03 Dose: 40 mg Polyethylene Glycol (Miralax (For Daily Use) -) 17 gm PO BID [facility] Last Admin: 12/21/18 13:26 Dose: 17 gm Timolol Maleate (Timoptic 0.5%) 1 drop OU BID [facility] Last Admin: 12/21/18 09:22 Dose: 1 drop 78 year old woman with hx of 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 #Anasarca/CHF/Fluid overload #CKD stage 4 with nephrotic proteinuira #CHF #DM #Iron deficiency anemia Renal function remains stable Continue IV diuretics for now, can plan to transition to oral diuretics in next 24-48 hours low salt diet Trend renal function and electrolytes Continue EILEEN 3x weekly s/p PRBC transfusion with good response Thank you Robby Pablo DO
--- NOTE | 2018-12-21 15:42 | PN ---
Progress Note, Physician Chief Complaint: Pt A&Ox3; hard of hearing; denies chest pain; +dyspnea on mild exertion. History of Present Illness: 78 year old woman with history of hypertrophic cardiomyopathy (HCM; no significant intracavitary gradient on 11/2018 ECHO); mild-moderate systolic CHF , HTN, DM, CKD colon CA, s/p resection, hyperthyroidism,hyperlipidemia, LBBB noted 2016; PAD; bilateral 25-30% stenoses of the carotid arteries on 11/2018 ultrasound), anemia, who presents with worsening shortness of breath preventing her from lying flat, which started after a medication change 2 weeks ago. The patient was on furosemide 40 BID and was changed to Torsemide 20mg, 2 pills in the AM. She started developing swelling in the legs and arms worse than baseline and orthopnea. The patient followed up with Head Of Data who noticed the swelling and added a second dose of torsemide 20mg at bedtime for a total of 60mg per day, and the patient has been taking this dosage for the past 5 days without improvement of swelling or shortness of breath. Today the patient' s daughter noticed the swelling and decided to bring her into the ED. The patient denies fever, cough, uri symptoms, chest pain, abdominal pain, dysuria, hematuria, nausea, vomiting or diaphoresis. She has no other complaints at bedside. PCP: Minh Shingle Carrier: Jean Head Of Data: Samy Negative stress MIBIs 2010 and January 2016; hx bradycardia - Current Medication List Current Medications: Active Medications Acetaminophen (Tylenol -) 650 mg PO Q6H PRN PRN Reason: FEVER Last Admin: 12/19/18 18:01 Dose: 650 mg Atorvastatin Calcium (Lipitor -) 20 mg PO HS [facility] Last Admin: 12/20/18 22:02 Dose: 20 mg Brimonidine Tartrate (Alphagan 0.2% -) 1 drop OU BID [facility] Last Admin: 12/21/18 09:22 Dose: 1 drop Epoetin Elton (Procrit -) 20,000 unit SQ MoWeFr@1000 [facility] Furosemide (Lasix Injection -) 80 mg IVPB BID@0600,1800 [facility] Last Admin: 12/21/18 06:29 Dose: 80 mg Hydralazine HCl (Apresoline -) 40 mg PO QID [facility] Last Admin: 12/21/18 13:27 Dose: 40 mg Insulin Aspart (Novolog Vial Sliding Scale -) 1 vial SQ ACHS [facility]; Protocol Last Admin: 12/21/18 13:26 Dose: 2 units Insulin Detemir (Levemir Vial) 20 units SQ ACBK [facility] Last Admin: 12/21/18 06:30 Dose: Not Given Methimazole (Tapazole -) 5 mg PO DAILY [facility] Last Admin: 12/21/18 09:17 Dose: 5 mg Metoprolol Succinate (Toprol Xl -) 25 mg PO DAILY [facility] Last Admin: 12/21/18 09:17 Dose: 25 mg Pantoprazole Sodium (Protonix -) 40 mg PO HS [facility] Last Admin: 12/20/18 22:03 Dose: 40 mg Polyethylene Glycol (Miralax (For Daily Use) -) 17 gm PO BID [facility] Last Admin: 12/21/18 13:26 Dose: 17 gm Timolol Maleate (Timoptic 0.5%) 1 drop OU BID [facility] Last Admin: 12/21/18 09:22 Dose: 1 drop - Objective Vital Signs: Vital Signs Temperature 97.5 F L 12/21/18 15:00 Pulse Rate 70 12/21/18 15:00 Respiratory Rate 18 12/21/18 15:00 Blood Pressure 144/51 L 12/21/18 15:00 O2 Sat by Pulse Oximetry (%) 99 12/21/18 09:00 Constitutional: Yes: Calm Eyes: Yes: WNL HENT: Yes: WNL Neck: Yes: WNL Cardiovascular: Yes: S1, S2, S4 Respiratory: Yes: Regular, Diminished Gastrointestinal: Yes: Soft ...Rectal Exam: Yes: Deferred Genitourinary: No: Anuria Breast(s): Yes: WNL Musculoskeletal: Yes: Muscle Weakness Extremities: Yes: WNL Edema: No Peripheral Pulses WNL: Yes Neurological: Yes: Alert, Oriented, Weakness Psychiatric: Yes: WNL Labs: CBC, BMP 12/21/18 05:30 12/21/18 05:30 INR, PTT INR 1.03 (0.83-1.09) 12/14/18 01:31 Abnormal Lab Results 12/18/18 12/21/18 12/21/18 11:10 05:30 05:30 RBC 3.11 L Hgb 9.6 L Hct 27.8 L Carbon Dioxide 36 H Anion Gap 4 L BUN 66 H Creatinine 2.3 H Crossmatch See Detail Abnormal Lab Results 12/23/18 12/23/18 07:00 07:00 RBC 3.42 L Hgb 10.6 L Hct 31.2 L Carbon Dioxide 36 H Anion Gap 7 L BUN 67 H Creatinine 2.4 H - ....Imaging Other: Image Reviewed (telemetry: NSR) Problem List - Problems (1) Systolic and diastolic CHF w/reduced LV function, NYHA class 4 Assessment/Plan: Continue metoprolol (mild-moderate systolic LV dysfunction; HCM; HTN). On hydralazine; on diuretics per individual small group instructor. F/u BP and HR serially. Renal w/u in progress; on IV diuretic with plans to change to oral. F/u BUN/Cr, electrolytes, daily weight, Is and Os. Code(s): I50.40 - UNSP COMBINED SYSTOLIC AND DIASTOLIC (CONGESTIVE) HRT FAIL (2) Hypertrophic obstructive cardiomyopathy (HOCM) Assessment/Plan: Pt and family have been put in contact in the past with heart failure group for genetic testing to r/o other members having HOCM. Code(s): I42.1 - OBSTRUCTIVE HYPERTROPHIC CARDIOMYOPATHY (3) Renal insufficiency Assessment/Plan: Now off torsemide (?cause of rash); being given IV furosemide. Relatively stable ; plans for changing to oral diuretic. F/u BUN/Cr, electrolytes, Is and Os, daily weight. F/u with individual small group instructor. Code(s): N28.9 - DISORDER OF KIDNEY AND URETER, UNSPECIFIED (4) Anemia Assessment/Plan: s/p PRBCs; f/u Hb Code(s): D64.9 - ANEMIA, UNSPECIFIED Qualifiers: Iron deficiency anemia type: inadequate dietary iron intake (5) HTN (hypertension) Assessment/Plan: On hydralazine and IV furosemide. On metoprolol ER (HCM; systolic CHF; HTN). Consider restarting amlodipine if BP remains elevated. renal dysfunction presently precludes use of ACEI or ARB. Code(s): I10 - ESSENTIAL (PRIMARY) HYPERTENSION (6) Hyperthyroidism Assessment/Plan: on methimazole; now on metoprolol. TSH WNL. Code(s): E05.90 - THYROTOXICOSIS, UNSP WITHOUT THYROTOXIC CRISIS OR STORM (7) Anxiety Assessment/Plan: On alprazolam. Code(s): F41.9 - ANXIETY DISORDER, UNSPECIFIED (8) Glaucoma Assessment/Plan: on Timoptic drops. Code(s): H40.9 - UNSPECIFIED GLAUCOMA
--- NOTE | 2018-12-21 16:56 | PN ---
Progress Note, Physician History of Present Illness: Pt's breathing is better today. Pt still weak, but less, c/o BEATTY. Pt w/o CP, palpitations, dizziness, abd pain, nausea, vomiting. Pt's daughter is at bedside, agrees that her mother is better today. - Current Medication List Current Medications: Active Medications Acetaminophen (Tylenol -) 650 mg PO Q6H PRN PRN Reason: FEVER Last Admin: 12/19/18 18:01 Dose: 650 mg Atorvastatin Calcium (Lipitor -) 20 mg PO HS [facility] Last Admin: 12/20/18 22:02 Dose: 20 mg Brimonidine Tartrate (Alphagan 0.2% -) 1 drop OU BID [facility] Last Admin: 12/21/18 09:22 Dose: 1 drop Epoetin Elton (Procrit -) 20,000 unit SQ MoWeFr@1000 [facility] Furosemide (Lasix Injection -) 80 mg IVPB BID@0600,1800 [facility] Last Admin: 12/21/18 06:29 Dose: 80 mg Hydralazine HCl (Apresoline -) 40 mg PO QID [facility] Last Admin: 12/21/18 13:27 Dose: 40 mg Insulin Aspart (Novolog Vial Sliding Scale -) 1 vial SQ ACHS [facility]; Protocol Last Admin: 12/21/18 13:26 Dose: 2 units Insulin Detemir (Levemir Vial) 20 units SQ ACBK [facility] Last Admin: 12/21/18 06:30 Dose: Not Given Methimazole (Tapazole -) 5 mg PO DAILY [facility] Last Admin: 12/21/18 09:17 Dose: 5 mg Metoprolol Succinate (Toprol Xl -) 25 mg PO DAILY [facility] Last Admin: 12/21/18 09:17 Dose: 25 mg Pantoprazole Sodium (Protonix -) 40 mg PO HS [facility] Last Admin: 12/20/18 22:03 Dose: 40 mg Polyethylene Glycol (Miralax (For Daily Use) -) 17 gm PO BID [facility] Last Admin: 12/21/18 13:26 Dose: 17 gm Timolol Maleate (Timoptic 0.5%) 1 drop OU BID [facility] Last Admin: 12/21/18 09:22 Dose: 1 drop - Objective Vital Signs: Vital Signs Temperature 97.5 F L 12/21/18 15:00 Pulse Rate 70 12/21/18 15:00 Respiratory Rate 18 12/21/18 15:00 Blood Pressure 144/51 L 12/21/18 15:00 O2 Sat by Pulse Oximetry (%) 99 12/21/18 09:00 Constitutional: Yes: No Distress, Calm Cardiovascular: Yes: Regular Rate and Rhythm, Murmur, S1, S2 Respiratory: Yes: Regular, Rales (at bases) Gastrointestinal: Yes: Normal Bowel Sounds, Soft, Abdomen, Obese. No: Tenderness Edema: LLE: 1+, RLE: 1+ Neurological: Yes: Alert, Oriented Labs: CBC, BMP 12/21/18 05:30 12/21/18 05:30 INR, PTT INR 1.03 (0.83-1.09) 12/14/18 01:31 Problem List - Problems (1) Acute exacerbation of CHF (congestive heart failure) Code(s): I50.9 - HEART FAILURE, UNSPECIFIED (2) Anasarca Code(s): R60.1 - GENERALIZED EDEMA (3) Chronic renal failure Code(s): N18.9 - CHRONIC KIDNEY DISEASE, UNSPECIFIED (4) Hypertrophic obstructive cardiomyopathy (HOCM) Code(s): I42.1 - OBSTRUCTIVE HYPERTROPHIC CARDIOMYOPATHY (5) Diabetes mellitus Code(s): E11.9 - TYPE 2 DIABETES MELLITUS WITHOUT COMPLICATIONS (6) Liver cirrhosis Code(s): K74.60 - UNSPECIFIED CIRRHOSIS OF LIVER (7) Anemia Code(s): D64.9 - ANEMIA, UNSPECIFIED Qualifiers: Iron deficiency anemia type: inadequate dietary iron intake Assessment/Plan Pt is monitored on Telemetry s/p 2 units of PRBC (on 12/18/2018). IV Lasix was increased; pt with good response; to continu foe naw To f/u electrolytes, renal function Cardio, Renal, Heme, GI consults are appreciated. AM labs. Pt. care was reviewed with her nurse and dg ( at bedside).
[2018-12-21] MEDS ORDERED: ALPRAZolam 0.25 MG TABLET PO PRN (22:13)
[2018-12-21] MEDS: PANTOPRAZOLE 40 MG TABLET (FP) PO SCH (22:36)
[2018-12-21] MEDS: ATORVASTATIN CA 20 MG TABLET (FP) PO SCH (22:36)
[2018-12-22] MEDS: INSULIN SLIDING SCALE (NOVOLOG) 1 VIAL SQ SCH ×4 (06:27→21:24)
[2018-12-22] MEDS: FUROSEMIDE 40 MG/4 ML INJECTABLE VIAL IVPB SCH ×2 (06:27→17:11)
[2018-12-22] MEDS: INSULIN (LEVEMIR) 100 UNITS/ML UNITS SQ SCH (06:32)
[2018-12-22 07:38] LABS: BASO % 0.4 % (0-2.0); HEMATOCRIT 29.4 % (32.4-45.2); HEMOGLOBIN 9.8 GM/dL (10.7-15.3); LYMPH % 23.3 % (8-40); MCH 30.5 pg (25.7-33.7); MCHC 33.5 g/dl (32.0-36.0); MONO % 14.4 % (3.8-10.2); NEUT % 59.9 % (42.8-82.8); PLATELET COUNT 199 K/MM3 (134-434); RBC 3.23 M/mm3 (3.60-5.2); RDW 15.3 % (11.6-15.6); WHITE BLOOD COUNT 5.4 K/mm3 (4.0-10.0)
[2018-12-22 08:22] LABS: ANION GAP 6 MMOL/L (8-16); BLOOD UREA NITROGEN 69 mg/dL (7-18); CALCIUM 9.4 mg/dL (8.5-10.1); CHLORIDE 96 mmol/L (98-107); CO2 35 mmol/L (21-32); CREATININE 2.6 mg/dL (0.55-1.3); GLUCOSE,RANDOM 158 mg/dL (74-106); MAGNESIUM 2.3 mg/dL (1.8-2.4); SODIUM 137 mmol/L (136-145)
[2018-12-22] MEDS: hydrALAZINE HCL 10 MG TABLET PO SCH ×4 (10:43→21:25)
[2018-12-22] MEDS: EPOETIN ALFA 20,000 UNIT/1 ML VIAL SQ SCH (10:44)
[2018-12-22] MEDS: TIMOLOL 0.5% OPHTHALMIC SOL 5 ML BOTTLE OU SCH ×2 (10:44→21:26)
[2018-12-22] MEDS: metoPROLOL SUCCINATE 25 MG TAB.SR.24H (FP) PO SCH (10:44)
[2018-12-22] MEDS: METHIMAZOLE 5 MG TABLET (FP) PO SCH (10:44)
[2018-12-22] MEDS: POLYETHYLENE GLYCOL 3350 119 GM BTL PO SCH ×2 (10:45→21:25)
[2018-12-22] MEDS: BRIMONIDINE TARTRATE 0.2% OPHTHALMIC 5 ML BOTTLE OU SCH ×2 (10:46→21:26)
[2018-12-22] MEDS ORDERED: INSULIN (NOVOLOG) ASPART 100 UNITS/ML 10ML VIAL ONE (12:19)
[2018-12-22 12:20] VITALS: BMI 30.9
--- NOTE | 2018-12-22 13:38 | PN ---
Progress Note (short form) - Note Progress Note: Renal follow up for CKD with fluid overload Pt seen and examined at the bedside daughter at the bedside pt sleeping had episode of anxiety yesterday making urine leg edema improving Vital Signs Temperature 98 F 12/22/18 10:00 Pulse Rate 70 12/22/18 10:00 Respiratory Rate 18 12/22/18 10:00 Blood Pressure 168/80 12/22/18 12:47 O2 Sat by Pulse Oximetry (%) 98 12/22/18 09:00 Intake & Output 12/19/18 12/20/18 12/21/18 12/22/18 23:59 23:59 23:59 23:59 Intake Total 730 310 780 140 Balance 730 310 780 140 Weight 77.564 kg 74.843 kg 74.616 kg 74.389 kg NAD Dec BS no rales + leg edema CBC, BMP 12/22/18 06:22 12/22/18 06:22 Current Medications Acetaminophen (Tylenol -) 650 mg PO Q6H PRN PRN Reason: FEVER Last Admin: 12/19/18 18:01 Dose: 650 mg Alprazolam (Xanax -) 0.25 mg PO Q12H PRN PRN Reason: ANXIETY Last Admin: 12/21/18 22:36 Dose: 0.25 mg Atorvastatin Calcium (Lipitor -) 20 mg PO HS [facility] Last Admin: 12/21/18 22:36 Dose: 20 mg Brimonidine Tartrate (Alphagan 0.2% -) 1 drop OU BID [facility] Last Admin: 12/22/18 10:46 Dose: 1 drop Epoetin Elton (Procrit -) 20,000 unit SQ MoWeFr@1000 [facility] Last Admin: 12/22/18 10:44 Dose: 20,000 unit Furosemide (Lasix Injection -) 80 mg IVPB BID@0600,1800 [facility] Last Admin: 12/22/18 06:27 Dose: 80 mg Hydralazine HCl (Apresoline -) 40 mg PO QID [facility] Last Admin: 12/22/18 10:43 Dose: 40 mg Insulin Aspart (Novolog Vial Sliding Scale -) 1 vial SQ ACHS [facility]; Protocol Last Admin: 12/22/18 12:20 Dose: 2 units Insulin Detemir (Levemir Vial) 20 units SQ ACBK [facility] Last Admin: 12/22/18 06:32 Dose: 20 units Methimazole (Tapazole -) 5 mg PO DAILY [facility] Last Admin: 12/22/18 10:44 Dose: 5 mg Metoprolol Succinate (Toprol Xl -) 25 mg PO DAILY [facility] Last Admin: 12/22/18 10:44 Dose: 25 mg Pantoprazole Sodium (Protonix -) 40 mg PO HS [facility] Last Admin: 12/21/18 22:36 Dose: 40 mg Polyethylene Glycol (Miralax (For Daily Use) -) 17 gm PO BID [facility] Last Admin: 12/22/18 10:45 Dose: 17 gm Timolol Maleate (Timoptic 0.5%) 1 drop OU BID [facility] Last Admin: 12/22/18 10:44 Dose: 1 drop 78 year old woman with hx of 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 #Anasarca/CHF/Fluid overload #CKD stage 4 with nephrotic proteinuira #CHF #DM #Iron deficiency anemia Renal function remains stable Can continue IV Lasix until pt is ready for discharge Trend renal function and electrolytes continue EILEEN s/p PRBC transfusion Physical therapy evaluation Thank you Robby Pablo DO
--- NOTE | 2018-12-22 19:22 | PN ---
Progress Note, Physician History of Present Illness: Pt's breathing is better today. Pt w/o CP, palpitations, dizziness, abd pain, nausea, vomiting. Pt's daughter is at bedside, agrees that her mother is better today. - Current Medication List Current Medications: Active Medications Acetaminophen (Tylenol -) 650 mg PO Q6H PRN PRN Reason: FEVER Last Admin: 12/19/18 18:01 Dose: 650 mg Alprazolam (Xanax -) 0.25 mg PO Q12H PRN PRN Reason: ANXIETY Last Admin: 12/21/18 22:36 Dose: 0.25 mg Atorvastatin Calcium (Lipitor -) 20 mg PO HS [facility] Last Admin: 12/21/18 22:36 Dose: 20 mg Brimonidine Tartrate (Alphagan 0.2% -) 1 drop OU BID [facility] Last Admin: 12/22/18 10:46 Dose: 1 drop Epoetin Elton (Procrit -) 20,000 unit SQ MoWeFr@1000 [facility] Last Admin: 12/22/18 10:44 Dose: 20,000 unit Furosemide (Lasix Injection -) 80 mg IVPB BID@0600,1800 [facility] Last Admin: 12/22/18 17:11 Dose: 80 mg Hydralazine HCl (Apresoline -) 40 mg PO QID [facility] Last Admin: 12/22/18 17:11 Dose: 40 mg Insulin Aspart (Novolog Vial Sliding Scale -) 1 vial SQ [facility]; Protocol Last Admin: 12/22/18 16:35 Dose: 4 units Insulin Detemir (Levemir Vial) 20 units SQ ACBK [facility] Last Admin: 12/22/18 06:32 Dose: 20 units Methimazole (Tapazole -) 5 mg PO DAILY [facility] Last Admin: 12/22/18 10:44 Dose: 5 mg Metoprolol Succinate (Toprol Xl -) 25 mg PO DAILY [facility] Last Admin: 12/22/18 10:44 Dose: 25 mg Pantoprazole Sodium (Protonix -) 40 mg PO HS [facility] Last Admin: 12/21/18 22:36 Dose: 40 mg Polyethylene Glycol (Miralax (For Daily Use) -) 17 gm PO BID [facility] Last Admin: 12/22/18 10:45 Dose: 17 gm Timolol Maleate (Timoptic 0.5%) 1 drop OU BID [facility] Last Admin: 12/22/18 10:44 Dose: 1 drop - Objective Vital Signs: Vital Signs Temperature 98.1 F 12/22/18 15:00 Pulse Rate 60 12/22/18 15:00 Respiratory Rate 18 12/22/18 15:00 Blood Pressure 139/51 L 12/22/18 15:00 O2 Sat by Pulse Oximetry (%) 98 12/22/18 09:00 Constitutional: Yes: No Distress, Calm Cardiovascular: Yes: Regular Rate and Rhythm, S1, S2 Respiratory: Yes: Regular, Rales (minimum at bases) Gastrointestinal: Yes: Normal Bowel Sounds, Soft. No: Tenderness Edema: LLE: 1+, RLE: 1+ Neurological: Yes: Alert, Oriented Labs: CBC, BMP 12/22/18 06:22 12/22/18 06:22 INR, PTT INR 1.03 (0.83-1.09) 12/14/18 01:31 Problem List - Problems (1) Acute exacerbation of CHF (congestive heart failure) Code(s): I50.9 - HEART FAILURE, UNSPECIFIED (2) Anasarca Code(s): R60.1 - GENERALIZED EDEMA (3) Chronic renal failure Code(s): N18.9 - CHRONIC KIDNEY DISEASE, UNSPECIFIED (4) Hypertrophic obstructive cardiomyopathy (HOCM) Code(s): I42.1 - OBSTRUCTIVE HYPERTROPHIC CARDIOMYOPATHY (5) Diabetes mellitus Code(s): E11.9 - TYPE 2 DIABETES MELLITUS WITHOUT COMPLICATIONS (6) Liver cirrhosis Code(s): K74.60 - UNSPECIFIED CIRRHOSIS OF LIVER (7) Anemia Code(s): D64.9 - ANEMIA, UNSPECIFIED Qualifiers: Iron deficiency anemia type: inadequate dietary iron intake Assessment/Plan Pt is monitored on Telemetry s/p 2 units of PRBC (on 12/18/2018). IV Lasix was increased; pt with good response; Lasix adjustment per Renal. To f/u electrolytes, renal function Cardio, Renal, Heme, GI consults are appreciated. AM labs. Pt. care was reviewed with her nurse and dg ( at bedside).
[2018-12-22] MEDS: ATORVASTATIN CA 20 MG TABLET (FP) PO SCH (21:25)
[2018-12-22] MEDS: PANTOPRAZOLE 40 MG TABLET (FP) PO SCH (21:25)
[2018-12-23] MEDS: INSULIN SLIDING SCALE (NOVOLOG) 1 VIAL SQ SCH ×4 (06:07→21:57)
[2018-12-23] MEDS: INSULIN (LEVEMIR) 100 UNITS/ML UNITS SQ SCH (06:07)
[2018-12-23] MEDS: FUROSEMIDE 40 MG/4 ML INJECTABLE VIAL IVPB SCH ×2 (06:13→17:46)
[2018-12-23] MEDS: hydrALAZINE HCL 10 MG TABLET PO SCH ×5 (06:45→21:53)
[2018-12-23] MEDS: metoPROLOL SUCCINATE 25 MG TAB.SR.24H (FP) PO SCH ×2 (06:46→09:29)
[2018-12-23 07:22] LABS: HEMATOCRIT 31.2 % (32.4-45.2); HEMOGLOBIN 10.6 GM/dL (10.7-15.3); MCH 31.1 pg (25.7-33.7); MCHC 34.1 g/dl (32.0-36.0); MEAN CELL VOLUME 91.2 fl (80-96); MEAN PLT VOLUME 9.3 fl (7.5-11.1); PLATELET COUNT 213 K/MM3 (134-434); RBC 3.42 M/mm3 (3.60-5.2); RDW 15.2 % (11.6-15.6); WHITE BLOOD COUNT 5.3 K/mm3 (4.0-10.0)
[2018-12-23 07:49] LABS: ANION GAP 7 MMOL/L (8-16); BLOOD UREA NITROGEN 67 mg/dL (7-18); CHLORIDE 98 mmol/L (98-107); CO2 36 mmol/L (21-32); CREATININE 2.4 mg/dL (0.55-1.3); GLUCOSE,RANDOM 90 mg/dL (74-106); POTASSIUM 3.8 mmol/L (3.5-5.1); SODIUM 141 mmol/L (136-145)
--- NOTE | 2018-12-23 08:36 | PN ---
Progress Note, Physician Chief Complaint: Pt A&Ox3; hard of hearing; denies chest pain or dyspnea. History of Present Illness: 78 year old woman with history of hypertrophic cardiomyopathy (HCM; no significant intracavitary gradient on 11/2018 ECHO); mild-moderate systolic CHF , HTN, DM, CKD colon CA, s/p resection, hyperthyroidism,hyperlipidemia, LBBB noted 2016; PAD; bilateral 25-30% stenoses of the carotid arteries on 11/2018 ultrasound), anemia, who presents with worsening shortness of breath preventing her from lying flat, which started after a medication change 2 weeks ago. The patient was on furosemide 40 BID and was changed to Torsemide 20mg, 2 pills in the AM. She started developing swelling in the legs and arms worse than baseline and orthopnea. The patient followed up with Manager Benefit who noticed the swelling and added a second dose of torsemide 20mg at bedtime for a total of 60mg per day, and the patient has been taking this dosage for the past 5 days without improvement of swelling or shortness of breath. Today the patient' s daughter noticed the swelling and decided to bring her into the ED. The patient denies fever, cough, uri symptoms, chest pain, abdominal pain, dysuria, hematuria, nausea, vomiting or diaphoresis. She has no other complaints at bedside. PCP: Minh Cobol Programmer: Jean Manager Benefit: Samy Hendricks stress MIBIs 2010 and January 2016; hx bradycardia - Current Medication List Current Medications: Active Medications Acetaminophen (Tylenol -) 650 mg PO Q6H PRN PRN Reason: FEVER Last Admin: 12/19/18 18:01 Dose: 650 mg Alprazolam (Xanax -) 0.25 mg PO Q12H PRN PRN Reason: ANXIETY Last Admin: 12/21/18 22:36 Dose: 0.25 mg Atorvastatin Calcium (Lipitor -) 20 mg PO HS [facility] Last Admin: 12/22/18 21:25 Dose: 20 mg Brimonidine Tartrate (Alphagan 0.2% -) 1 drop OU BID [facility] Last Admin: 12/22/18 21:26 Dose: 1 drop Epoetin Elton (Procrit -) 20,000 unit SQ MoWeFr@1000 [facility] Last Admin: 12/22/18 10:44 Dose: 20,000 unit Furosemide (Lasix Injection -) 80 mg IVPB BID@0600,1800 [facility] Last Admin: 12/23/18 06:13 Dose: 80 mg Hydralazine HCl (Apresoline -) 40 mg PO QID [facility] Last Admin: 12/23/18 06:45 Dose: 40 mg Insulin Aspart (Novolog Vial Sliding Scale -) 1 vial SQ ACHS [facility]; Protocol Last Admin: 12/23/18 06:07 Dose: Not Given Insulin Detemir (Levemir Vial) 20 units SQ ACBK [facility] Last Admin: 12/23/18 06:07 Dose: Not Given Methimazole (Tapazole -) 5 mg PO DAILY [facility] Last Admin: 12/22/18 10:44 Dose: 5 mg Metoprolol Succinate (Toprol Xl -) 25 mg PO DAILY [facility] Last Admin: 12/23/18 06:46 Dose: 25 mg Pantoprazole Sodium (Protonix -) 40 mg PO HS [facility] Last Admin: 12/22/18 21:25 Dose: 40 mg Polyethylene Glycol (Miralax (For Daily Use) -) 17 gm PO BID [facility] Last Admin: 12/22/18 21:25 Dose: 17 gm Timolol Maleate (Timoptic 0.5%) 1 drop OU BID [facility] Last Admin: 12/22/18 21:26 Dose: 1 drop - Objective Vital Signs: Vital Signs Temperature 98.0 F 12/23/18 05:00 Pulse Rate 68 12/23/18 08:31 Respiratory Rate 18 12/23/18 08:31 Blood Pressure 177/68 H 12/23/18 08:31 O2 Sat by Pulse Oximetry (%) 100 12/22/18 21:00 Constitutional: Yes: Anxious Eyes: Yes: WNL HENT: Yes: WNL Neck: Yes: WNL Cardiovascular: Yes: Murmur, S1, S2, S4 Respiratory: Yes: Diminished Gastrointestinal: Yes: Soft ...Rectal Exam: Yes: Deferred Genitourinary: No: Anuria Breast(s): Yes: WNL Musculoskeletal: Yes: Muscle Weakness Extremities: Yes: Cool Edema: No Peripheral Pulses WNL: Yes Integumentary: Yes: WNL Neurological: Yes: WNL Psychiatric: Yes: WNL Labs: CBC, BMP 12/23/18 07:00 12/23/18 07:00 INR, PTT INR 1.03 (0.83-1.09) 12/14/18 01:31 Problem List - Problems (1) Systolic and diastolic CHF w/reduced LV function, NYHA class 4 Assessment/Plan: Continue metoprolol (mild-moderate systolic LV dysfunction; HCM; HTN). On hydralazine; on diuretics per photo editor. Consider restarting amlodiine if BP remains elevated. F/u BP and HR serially. Renal w/u in progress; on IV diuretic with plans to change to oral. F/u BUN/Cr, electrolytes, daily weight, Is and Os. Code(s): I50.40 - UNSP COMBINED SYSTOLIC AND DIASTOLIC (CONGESTIVE) HRT FAIL (2) Hypertrophic obstructive cardiomyopathy (HOCM) Assessment/Plan: Pt and family have been put in contact in the past with heart failure group for genetic testing to r/o other members having HOCM. Code(s): I42.1 - OBSTRUCTIVE HYPERTROPHIC CARDIOMYOPATHY (3) Renal insufficiency Assessment/Plan: Now off torsemide (?cause of rash); being given IV furosemide. Relatively stable ; plans for changing to oral diuretic. F/u BUN/Cr, electrolytes, Is and Os, daily weight. F/u with photo editor. Code(s): N28.9 - DISORDER OF KIDNEY AND URETER, UNSPECIFIED (4) Anemia Assessment/Plan: s/p PRBCs; f/u Hb Code(s): D64.9 - ANEMIA, UNSPECIFIED Qualifiers: Iron deficiency anemia type: inadequate dietary iron intake (5) HTN (hypertension) Code(s): I10 - ESSENTIAL (PRIMARY) HYPERTENSION (6) Hyperthyroidism Assessment/Plan: on methimazole and metoprolol. TSH WNL. Code(s): E05.90 - THYROTOXICOSIS, UNSP WITHOUT THYROTOXIC CRISIS OR STORM (7) Anxiety Assessment/Plan: On alprazolam. Code(s): F41.9 - ANXIETY DISORDER, UNSPECIFIED (8) Glaucoma Assessment/Plan: on Timoptic drops. Code(s): H40.9 - UNSPECIFIED GLAUCOMA
[2018-12-23] MEDS: POLYETHYLENE GLYCOL 3350 119 GM BTL PO SCH ×2 (09:29→21:54)
[2018-12-23] MEDS: METHIMAZOLE 5 MG TABLET (FP) PO SCH (09:29)
--- NOTE | 2018-12-23 09:30 | PN ---
Progress Note, Physician Chief Complaint: Coverage for [employer] BP running high TELE: NSR, APCs - Current Medication List Current Medications: Active Medications Acetaminophen (Tylenol -) 650 mg PO Q6H PRN PRN Reason: FEVER Last Admin: 12/19/18 18:01 Dose: 650 mg Alprazolam (Xanax -) 0.25 mg PO Q12H PRN PRN Reason: ANXIETY Last Admin: 12/21/18 22:36 Dose: 0.25 mg Atorvastatin Calcium (Lipitor -) 20 mg PO HS [facility] Last Admin: 12/22/18 21:25 Dose: 20 mg Brimonidine Tartrate (Alphagan 0.2% -) 1 drop OU BID [facility] Last Admin: 12/22/18 21:26 Dose: 1 drop Epoetin Elton (Procrit -) 20,000 unit SQ MoWeFr@1000 [facility] Last Admin: 12/22/18 10:44 Dose: 20,000 unit Furosemide (Lasix Injection -) 80 mg IVPB BID@0600,1800 [facility] Last Admin: 12/23/18 06:13 Dose: 80 mg Hydralazine HCl (Apresoline -) 40 mg PO QID [facility] Last Admin: 12/23/18 06:45 Dose: 40 mg Insulin Aspart (Novolog Vial Sliding Scale -) 1 vial SQ [facility]; Protocol Last Admin: 12/23/18 06:07 Dose: Not Given Insulin Detemir (Levemir Vial) 20 units SQ ACBK [facility] Last Admin: 12/23/18 06:07 Dose: Not Given Methimazole (Tapazole -) 5 mg PO DAILY [facility] Last Admin: 12/22/18 10:44 Dose: 5 mg Metoprolol Succinate (Toprol Xl -) 25 mg PO DAILY [facility] Last Admin: 12/23/18 06:46 Dose: 25 mg Pantoprazole Sodium (Protonix -) 40 mg PO HS [facility] Last Admin: 12/22/18 21:25 Dose: 40 mg Polyethylene Glycol (Miralax (For Daily Use) -) 17 gm PO BID [facility] Last Admin: 12/22/18 21:25 Dose: 17 gm Timolol Maleate (Timoptic 0.5%) 1 drop OU BID [facility] Last Admin: 12/22/18 21:26 Dose: 1 drop - Objective Vital Signs: Vital Signs Temperature 98.0 F 12/23/18 05:00 Pulse Rate 68 12/23/18 08:31 Respiratory Rate 18 12/23/18 08:31 Blood Pressure 177/68 H 12/23/18 08:31 O2 Sat by Pulse Oximetry (%) 100 12/22/18 21:00 Constitutional: Yes: No Distress Cardiovascular: Yes: Regular Rate and Rhythm Respiratory: Yes: Other (rales at bases) Gastrointestinal: Yes: Soft Edema: Yes Edema: LLE: 1+, RLE: 1+ Neurological: Yes: Alert, Oriented Labs: CBC, BMP 12/23/18 07:00 12/23/18 07:00 INR, PTT INR 1.03 (0.83-1.09) 12/14/18 01:31 - ....Imaging EKG: Image Reviewed Assessment/Plan IMP: CKD Decompensated systolic CHF Reported HCM with no sig intracavitary gradient REC: 1. To continue diuresis with IV lasix 2. Continue metoprolol 3. May benefit from addition of low dose Imdur- will discuss with Dr. Kelley and review prior office echo May help lower BP and beneficial in combination with hydralazine in patients who are not candidates for TAYLOR/ARB
[2018-12-23] MEDS: TIMOLOL 0.5% OPHTHALMIC SOL 5 ML BOTTLE OU SCH ×2 (09:33→21:54)
[2018-12-23] MEDS: BRIMONIDINE TARTRATE 0.2% OPHTHALMIC 5 ML BOTTLE OU SCH ×2 (09:33→21:53)
--- NOTE | 2018-12-23 10:10 | PN ---
Progress Note (short form) - Note Progress Note: Renal follow up for CKD with fluid overload Pt seen and examined at the bedside no acute complaints feels better sob improved making urine weights improving Vital Signs Temperature 98.0 F 12/23/18 05:00 Pulse Rate 68 12/23/18 08:31 Respiratory Rate 18 12/23/18 08:31 Blood Pressure 177/68 H 12/23/18 08:31 O2 Sat by Pulse Oximetry (%) 100 12/22/18 21:00 Intake & Output 12/20/18 12/21/18 12/22/18 12/23/18 23:59 23:59 23:59 23:59 Intake Total 310 780 140 20 Balance 310 780 140 20 Weight 74.843 kg 74.616 kg 74.389 kg 73.936 kg NAD Dec BS no rales + leg edema CBC, BMP 12/23/18 07:00 12/23/18 07:00 Current Medications Acetaminophen (Tylenol -) 650 mg PO Q6H PRN PRN Reason: FEVER Last Admin: 12/19/18 18:01 Dose: 650 mg Alprazolam (Xanax -) 0.25 mg PO Q12H PRN PRN Reason: ANXIETY Last Admin: 12/21/18 22:36 Dose: 0.25 mg Atorvastatin Calcium (Lipitor -) 20 mg PO HS [facility] Last Admin: 12/22/18 21:25 Dose: 20 mg Brimonidine Tartrate (Alphagan 0.2% -) 1 drop OU BID [facility] Last Admin: 12/23/18 09:33 Dose: 1 drop Epoetin Elton (Procrit -) 20,000 unit SQ MoWeFr@1000 [facility] Last Admin: 12/22/18 10:44 Dose: 20,000 unit Furosemide (Lasix Injection -) 80 mg IVPB BID@0600,1800 [facility] Last Admin: 12/23/18 06:13 Dose: 80 mg Hydralazine HCl (Apresoline -) 40 mg PO QID [facility] Last Admin: 12/23/18 09:29 Dose: Not Given Insulin Aspart (Novolog Vial Sliding Scale -) 1 vial SQ [facility]; Protocol Last Admin: 12/23/18 06:07 Dose: Not Given Insulin Detemir (Levemir Vial) 20 units SQ ACBK [facility] Last Admin: 12/23/18 06:07 Dose: Not Given Isosorbide Dinitrate (Isordil -) 5 mg PO BID [facility] Methimazole (Tapazole -) 5 mg PO DAILY [facility] Last Admin: 12/23/18 09:29 Dose: 5 mg Metoprolol Succinate (Toprol Xl -) 25 mg PO DAILY [facility] Last Admin: 12/23/18 09:29 Dose: Not Given Pantoprazole Sodium (Protonix -) 40 mg PO HS [facility] Last Admin: 12/22/18 21:25 Dose: 40 mg Polyethylene Glycol (Miralax (For Daily Use) -) 17 gm PO BID [facility] Last Admin: 12/23/18 09:29 Dose: 17 gm Timolol Maleate (Timoptic 0.5%) 1 drop OU BID [facility] Last Admin: 12/23/18 09:33 Dose: 1 drop 78 year old woman with hx of 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 #Anasarca/CHF/Fluid overload #CKD stage 4 with nephrotic proteinuira #CHF #DM #Iron deficiency anemia Renal function remains stable Can continue IV Lasix until pt is ready for discharge Trend renal function and electrolytes discussed with cardiology will add isodril BID for BP control and vasodilation for HF continue EILEEN s/p PRBC transfusion Physical therapy evaluation Thank you Robby Pablo DO
[2018-12-23] MEDS: ISOSORBIDE DINITRATE 5 MG TABLET PO SCH ×2 (11:25→21:54)
--- NOTE | 2018-12-23 14:48 | PN ---
Progress Note, Physician History of Present Illness: Pt's breathing is better today; pt is sitting in the chair, eating Pt w/o CP, palpitations, dizziness, abd pain, nausea, vomiting. - Current Medication List Current Medications: Active Medications Acetaminophen (Tylenol -) 650 mg PO Q6H PRN PRN Reason: FEVER Last Admin: 12/19/18 18:01 Dose: 650 mg Alprazolam (Xanax -) 0.25 mg PO Q12H PRN PRN Reason: ANXIETY Last Admin: 12/21/18 22:36 Dose: 0.25 mg Atorvastatin Calcium (Lipitor -) 20 mg PO HS [facility] Last Admin: 12/22/18 21:25 Dose: 20 mg Brimonidine Tartrate (Alphagan 0.2% -) 1 drop OU BID [facility] Last Admin: 12/23/18 09:33 Dose: 1 drop Epoetin Elton (Procrit -) 20,000 unit SQ MoWeFr@1000 [facility] Last Admin: 12/22/18 10:44 Dose: 20,000 unit Furosemide (Lasix Injection -) 80 mg IVPB BID@0600,1800 [facility] Last Admin: 12/23/18 06:13 Dose: 80 mg Hydralazine HCl (Apresoline -) 40 mg PO QID [facility] Last Admin: 12/23/18 13:36 Dose: 40 mg Insulin Aspart (Novolog Vial Sliding Scale -) 1 vial SQ [facility]; Protocol Last Admin: 12/23/18 11:24 Dose: 2 units Insulin Detemir (Levemir Vial) 20 units SQ ACBK [facility] Last Admin: 12/23/18 06:07 Dose: Not Given Isosorbide Dinitrate (Isordil -) 5 mg PO BID [facility] Last Admin: 12/23/18 11:25 Dose: 5 mg Methimazole (Tapazole -) 5 mg PO DAILY [facility] Last Admin: 12/23/18 09:29 Dose: 5 mg Metoprolol Succinate (Toprol Xl -) 25 mg PO DAILY [facility] Last Admin: 12/23/18 09:29 Dose: Not Given Pantoprazole Sodium (Protonix -) 40 mg PO HS [facility] Last Admin: 12/22/18 21:25 Dose: 40 mg Polyethylene Glycol (Miralax (For Daily Use) -) 17 gm PO BID [facility] Last Admin: 12/23/18 09:29 Dose: 17 gm Timolol Maleate (Timoptic 0.5%) 1 drop OU BID [facility] Last Admin: 12/23/18 09:33 Dose: 1 drop - Objective Vital Signs: Vital Signs Temperature 98 F 12/23/18 13:34 Pulse Rate 60 12/23/18 13:34 Respiratory Rate 18 12/23/18 13:34 Blood Pressure 158/58 L 12/23/18 13:34 O2 Sat by Pulse Oximetry (%) 98 12/23/18 09:00 Constitutional: Yes: No Distress, Calm Cardiovascular: Yes: Regular Rate and Rhythm, S1, S2 Respiratory: Yes: Regular, Rales (crackles at bases only) Gastrointestinal: Yes: Normal Bowel Sounds, Soft, Abdomen, Obese. No: Tenderness Edema: LLE: 1+, RLE: 1+ Neurological: Yes: Alert, Oriented Labs: CBC, BMP 12/23/18 07:00 12/23/18 07:00 INR, PTT INR 1.03 (0.83-1.09) 12/14/18 01:31 Problem List - Problems (1) Acute exacerbation of CHF (congestive heart failure) Code(s): I50.9 - HEART FAILURE, UNSPECIFIED (2) Anasarca Code(s): R60.1 - GENERALIZED EDEMA (3) Chronic renal failure Code(s): N18.9 - CHRONIC KIDNEY DISEASE, UNSPECIFIED (4) Hypertrophic obstructive cardiomyopathy (HOCM) Code(s): I42.1 - OBSTRUCTIVE HYPERTROPHIC CARDIOMYOPATHY (5) Diabetes mellitus Code(s): E11.9 - TYPE 2 DIABETES MELLITUS WITHOUT COMPLICATIONS (6) Liver cirrhosis Code(s): K74.60 - UNSPECIFIED CIRRHOSIS OF LIVER (7) Anemia Code(s): D64.9 - ANEMIA, UNSPECIFIED Qualifiers: Iron deficiency anemia type: inadequate dietary iron intake Assessment/Plan IV Lasix -to f/u with Renal To f/u electrolytes Admit to monitor bed. Cardio, Renal consults are appreciated. AM labs Case was d/w pt's nurse and family (at bedside).
[2018-12-23] MEDS: PANTOPRAZOLE 40 MG TABLET (FP) PO SCH (21:53)
[2018-12-23] MEDS: ATORVASTATIN CA 20 MG TABLET (FP) PO SCH (21:53)
[2018-12-24] MEDS: INSULIN SLIDING SCALE (NOVOLOG) 1 VIAL SQ SCH ×4 (06:35→22:06)
[2018-12-24] MEDS: INSULIN (LEVEMIR) 100 UNITS/ML UNITS SQ SCH (06:36)
[2018-12-24] MEDS: FUROSEMIDE 40 MG/4 ML INJECTABLE VIAL IVPB SCH ×2 (06:36→17:31)
[2018-12-24 07:54] LABS: ANION GAP 5 MMOL/L (8-16); BLOOD UREA NITROGEN 61 mg/dL (7-18); CHLORIDE 97 mmol/L (98-107); CO2 38 mmol/L (21-32); CREATININE 2.4 mg/dL (0.55-1.3); GLUCOSE,RANDOM 131 mg/dL (74-106); MAGNESIUM 2.3 mg/dL (1.8-2.4); PHOSPHOROUS 3.2 mg/dL (2.5-4.9); POTASSIUM 3.8 mmol/L (3.5-5.1); SODIUM 139 mmol/L (136-145)
--- NOTE | 2018-12-24 08:36 | PN ---
Progress Note, Physician Chief Complaint: OOB to chair feeling better less SOB; BP high; daughter at bedside; turkmen speaking only - Current Medication List Current Medications: Active Medications Acetaminophen (Tylenol -) 650 mg PO Q6H PRN PRN Reason: FEVER Last Admin: 12/19/18 18:01 Dose: 650 mg Alprazolam (Xanax -) 0.25 mg PO Q12H PRN PRN Reason: ANXIETY Last Admin: 12/21/18 22:36 Dose: 0.25 mg Atorvastatin Calcium (Lipitor -) 20 mg PO HS [facility] Last Admin: 12/23/18 21:53 Dose: 20 mg Brimonidine Tartrate (Alphagan 0.2% -) 1 drop OU BID [facility] Last Admin: 12/23/18 21:53 Dose: 1 drop Epoetin Elton (Procrit -) 20,000 unit SQ MoWeFr@1000 [facility] Last Admin: 12/22/18 10:44 Dose: 20,000 unit Furosemide (Lasix Injection -) 80 mg IVPB BID@0600,1800 [facility] Last Admin: 12/24/18 06:36 Dose: 80 mg Hydralazine HCl (Apresoline -) 40 mg PO QID [facility] Last Admin: 12/23/18 21:53 Dose: 40 mg Insulin Aspart (Novolog Vial Sliding Scale -) 1 vial SQ [facility]; Protocol Last Admin: 12/24/18 06:35 Dose: Not Given Insulin Detemir (Levemir Vial) 20 units SQ ACBK [facility] Last Admin: 12/24/18 06:36 Dose: 20 units Isosorbide Dinitrate (Isordil -) 5 mg PO BIDISORDIL [facility] Methimazole (Tapazole -) 5 mg PO DAILY [facility] Last Admin: 12/23/18 09:29 Dose: 5 mg Metoprolol Succinate (Toprol Xl -) 25 mg PO DAILY [facility] Last Admin: 12/23/18 09:29 Dose: Not Given Pantoprazole Sodium (Protonix -) 40 mg PO [facility] Last Admin: 12/23/18 21:53 Dose: 40 mg Polyethylene Glycol (Miralax (For Daily Use) -) 17 gm PO BID [facility] Last Admin: 12/23/18 21:54 Dose: 17 gm Timolol Maleate (Timoptic 0.5%) 1 drop OU BID [facility] Last Admin: 12/23/18 21:54 Dose: 1 drop - Objective Vital Signs: Vital Signs Temperature 98.2 F 12/24/18 07:00 Pulse Rate 63 12/24/18 07:00 Respiratory Rate 20 12/24/18 07:00 Blood Pressure 167/77 12/24/18 07:00 O2 Sat by Pulse Oximetry (%) 99 12/23/18 20:34 Constitutional: Yes: No Distress, Calm Eyes: Yes: Conjunctiva Clear HENT: Yes: Atraumatic Neck: Yes: Supple Cardiovascular: Yes: Regular Rate and Rhythm Respiratory: Yes: Diminished Gastrointestinal: Yes: Soft. No: Tenderness Genitourinary: No: CVA Tenderness - Left, CVA Tenderness - Right Musculoskeletal: No: Joint Stiffness, Joint Swelling Extremities: No: Cold, Cool, Cyanosis Edema: No Integumentary: No: Rash, Venous Stasis Changes Neurological: Yes: WNL, Alert, Oriented ...Motor Strength: WNL Psychiatric: Yes: WNL, Alert, Oriented. No: Agitated, Suicidal Ideation Labs: CBC, BMP 12/23/18 07:00 12/24/18 05:15 INR, PTT INR 1.03 (0.83-1.09) 12/14/18 01:31 - ....Imaging Other: Report Reviewed Assessment/Plan 78 year old woman with history of CHF, HTN, DM, CKD and hyperthyroidism who presents with worsening shortness of breath. Diagnosed with CHF fluid overload and anemia, also HTN uncontrolled cardiology and renal consults appreciated heme eval sq epogen f/u labs diuretics per cardio BP control meds adjusted falls DVT decubs pfx sq heparin for DVT pfx; no bleeding recently d/w pt and daughter at bedside
--- NOTE | 2018-12-24 09:37 | PN ---
Progress Note (short form) - Note Progress Note: Renal follow up for CKD with fluid overload Pt seen and examined at the bedside feels better swelling in legs improved Vital Signs Temperature 98.2 F 12/24/18 07:00 Pulse Rate 63 12/24/18 07:00 Respiratory Rate 20 12/24/18 07:00 Blood Pressure 167/77 12/24/18 07:00 O2 Sat by Pulse Oximetry (%) 99 12/23/18 20:34 NAD Dec BS no rales + leg edema CBC, BMP 12/23/18 07:00 12/23/18 07:00 Current Medications Acetaminophen (Tylenol -) 650 mg PO Q6H PRN PRN Reason: FEVER Last Admin: 12/19/18 18:01 Dose: 650 mg Alprazolam (Xanax -) 0.25 mg PO Q12H PRN PRN Reason: ANXIETY Last Admin: 12/21/18 22:36 Dose: 0.25 mg Atorvastatin Calcium (Lipitor -) 20 mg PO HS [facility] Last Admin: 12/22/18 21:25 Dose: 20 mg Brimonidine Tartrate (Alphagan 0.2% -) 1 drop OU BID [facility] Last Admin: 12/23/18 09:33 Dose: 1 drop Epoetin Elton (Procrit -) 20,000 unit SQ MoWeFr@1000 [facility] Last Admin: 12/22/18 10:44 Dose: 20,000 unit Furosemide (Lasix Injection -) 80 mg IVPB BID@0600,1800 [facility] Last Admin: 12/23/18 06:13 Dose: 80 mg Hydralazine HCl (Apresoline -) 40 mg PO QID [facility] Last Admin: 12/23/18 09:29 Dose: Not Given Insulin Aspart (Novolog Vial Sliding Scale -) 1 vial SQ ACHS [facility]; Protocol Last Admin: 12/23/18 06:07 Dose: Not Given Insulin Detemir (Levemir Vial) 20 units SQ ACBK [facility] Last Admin: 12/23/18 06:07 Dose: Not Given Isosorbide Dinitrate (Isordil -) 5 mg PO BID [facility] Methimazole (Tapazole -) 5 mg PO DAILY [facility] Last Admin: 12/23/18 09:29 Dose: 5 mg Metoprolol Succinate (Toprol Xl -) 25 mg PO DAILY [facility] Last Admin: 12/23/18 09:29 Dose: Not Given Pantoprazole Sodium (Protonix -) 40 mg PO HS [facility] Last Admin: 12/22/18 21:25 Dose: 40 mg Polyethylene Glycol (Miralax (For Daily Use) -) 17 gm PO BID [facility] Last Admin: 12/23/18 09:29 Dose: 17 gm Timolol Maleate (Timoptic 0.5%) 1 drop OU BID [facility] Last Admin: 12/23/18 09:33 Dose: 1 drop 78 year old woman with hx of 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 #Anasarca/CHF/Fluid overload #CKD stage 4 with nephrotic proteinuira #CHF #DM #Iron deficiency anemia Renal function remains stable will convert to oral diuretics starting tomorrow Trend renal function and electrolytes BP remains high will add amlodipine for better BP control s/p PRBC transfusion Physical therapy evaluation Thank you Robby Pablo DO
[2018-12-24] MEDS ORDERED: PT OWN MED DRAWER 7, Y5N ONE (09:53)
[2018-12-24] MEDS: METHIMAZOLE 5 MG TABLET (FP) PO SCH (10:01)
[2018-12-24] MEDS: POLYETHYLENE GLYCOL 3350 119 GM BTL PO SCH ×2 (10:01→22:06)
[2018-12-24] MEDS: ISOSORBIDE DINITRATE 5 MG TABLET PO SCH ×2 (10:01→17:32)
[2018-12-24] MEDS: hydrALAZINE HCL 10 MG TABLET PO SCH ×4 (10:01→22:05)
[2018-12-24] MEDS: metoPROLOL SUCCINATE 25 MG TAB.SR.24H (FP) PO SCH (10:02)
[2018-12-24] MEDS: TIMOLOL 0.5% OPHTHALMIC SOL 5 ML BOTTLE OU SCH ×2 (10:03→22:06)
[2018-12-24] MEDS: BRIMONIDINE TARTRATE 0.2% OPHTHALMIC 5 ML BOTTLE OU SCH ×2 (10:03→22:06)
--- NOTE | 2018-12-24 10:40 | PN ---
Progress Note, Physician Chief Complaint: BP remains high She has no new complaints TELE: Sinus iker - Current Medication List Current Medications: Active Medications Acetaminophen (Tylenol -) 650 mg PO Q6H PRN PRN Reason: FEVER Last Admin: 12/19/18 18:01 Dose: 650 mg Alprazolam (Xanax -) 0.25 mg PO Q12H PRN PRN Reason: ANXIETY Last Admin: 12/21/18 22:36 Dose: 0.25 mg Atorvastatin Calcium (Lipitor -) 20 mg PO HS [facility] Last Admin: 12/23/18 21:53 Dose: 20 mg Brimonidine Tartrate (Alphagan 0.2% -) 1 drop OU BID [facility] Last Admin: 12/24/18 10:03 Dose: 1 drop Epoetin Elton (Procrit -) 20,000 unit SQ MoWeFr@1000 [facility] Last Admin: 12/22/18 10:44 Dose: 20,000 unit Furosemide (Lasix Injection -) 80 mg IVPB BID@0600,1800 [facility] Last Admin: 12/24/18 06:36 Dose: 80 mg Hydralazine HCl (Apresoline -) 40 mg PO QID [facility] Last Admin: 12/24/18 10:01 Dose: 40 mg Insulin Aspart (Novolog Vial Sliding Scale -) 1 vial SQ [facility]; Protocol Last Admin: 12/24/18 06:35 Dose: Not Given Insulin Detemir (Levemir Vial) 20 units SQ ACBK [facility] Last Admin: 12/24/18 06:36 Dose: 20 units Isosorbide Dinitrate (Isordil -) 5 mg PO BIDISORDIL [facility] Last Admin: 12/24/18 10:01 Dose: 5 mg Methimazole (Tapazole -) 5 mg PO DAILY [facility] Last Admin: 12/24/18 10:01 Dose: 5 mg Metoprolol Succinate (Toprol Xl -) 25 mg PO DAILY [facility] Last Admin: 12/24/18 10:02 Dose: 25 mg Pantoprazole Sodium (Protonix -) 40 mg PO HS [facility] Last Admin: 12/23/18 21:53 Dose: 40 mg Polyethylene Glycol (Miralax (For Daily Use) -) 17 gm PO BID [facility] Last Admin: 12/24/18 10:01 Dose: 17 gm Timolol Maleate (Timoptic 0.5%) 1 drop OU BID [facility] Last Admin: 12/24/18 10:03 Dose: 1 drop - Objective Vital Signs: Vital Signs Temperature 98.2 F 12/24/18 09:59 Pulse Rate 63 12/24/18 09:59 Respiratory Rate 18 12/24/18 09:59 Blood Pressure 190/58 H 12/24/18 09:59 O2 Sat by Pulse Oximetry (%) 99 12/23/18 20:34 Constitutional: Yes: No Distress, Calm Eyes: Yes: Conjunctiva Clear Cardiovascular: Yes: Regular Rate and Rhythm Respiratory: Yes: Other (rales at bases) Gastrointestinal: Yes: Soft Edema: Yes Edema: LLE: 1+, RLE: 1+ Neurological: Yes: Alert, Oriented ...Motor Strength: WNL Labs: CBC, BMP 12/23/18 07:00 12/24/18 05:15 INR, PTT INR 1.03 (0.83-1.09) 12/14/18 01:31 - ....Imaging EKG: Image Reviewed Assessment/Plan IMP: CKD Decompensated systolic CHF Reported HCM with no sig intracavitary gradient REC: 1. To continue diuresis with IV lasix 2. Continue metoprolol 3. Low dose Imdur added to be used in conjunction with Hydralazine (not TAYLOR/ARB candidate) Agree with renal, addition of Amlodipine for BP control. Coverage for [employer]
[2018-12-24] MEDS: amLODIPine BESYLATE 5 MG TABLET (FP) PO SCH (12:16)
[2018-12-24] MEDS: HEPARIN NA (PORCINE) 5,000 UNITS/ML 1ML VIAL SQ SCH ×2 (12:16→22:05)
[2018-12-24] MEDS: ATORVASTATIN CA 20 MG TABLET (FP) PO SCH (22:05)
[2018-12-24] MEDS: PANTOPRAZOLE 40 MG TABLET (FP) PO SCH (22:05)
[2018-12-24] MEDS: ACETAMINOPHEN 325 MG TABLET (FP) PO PRN (22:21)
[2018-12-25] MEDS: FUROSEMIDE 40 MG/4 ML INJECTABLE VIAL IVPB SCH ×2 (06:54→17:41)
[2018-12-25] MEDS: INSULIN (LEVEMIR) 100 UNITS/ML UNITS SQ SCH (07:04)
[2018-12-25] MEDS: INSULIN SLIDING SCALE (NOVOLOG) 1 VIAL SQ SCH ×4 (07:04→22:29)
[2018-12-25 07:36] LABS: BASO % 0.4 % (0-2.0); EOS % 2.2 % (0-4.5); HEMOGLOBIN 9.6 GM/dL (10.7-15.3); MCH 30.5 pg (25.7-33.7); MCHC 34.2 g/dl (32.0-36.0); MEAN CELL VOLUME 89.1 fl (80-96); MEAN PLT VOLUME 8.9 fl (7.5-11.1); MONO % 13.9 % (3.8-10.2); NEUT % 54.5 % (42.8-82.8); PLATELET COUNT 210 K/MM3 (134-434); RBC 3.14 M/mm3 (3.60-5.2); RDW 14.8 % (11.6-15.6); WHITE BLOOD COUNT 4.6 K/mm3 (4.0-10.0)
[2018-12-25 07:55] LABS: ALK PHOS 76 U/L (45-117); ANION GAP 4 MMOL/L (8-16); BILIRUBIN,TOTAL 0.5 mg/dL (0.2-1); BLOOD UREA NITROGEN 62 mg/dL (7-18); CALCIUM 9.2 mg/dL (8.5-10.1); CHLORIDE 96 mmol/L (98-107); CO2 39 mmol/L (21-32); CREATININE 2.5 mg/dL (0.55-1.3); GLUCOSE,RANDOM 114 mg/dL (74-106); POTASSIUM 4.1 mmol/L (3.5-5.1); SGOT/AST 22 U/L (15-37); SGPT/ALT 16 U/L (13-61); SODIUM 139 mmol/L (136-145); TOT PROT 5.9 g/dl (6.4-8.2)
[2018-12-25] MEDS ORDERED: PT OWN MED DRAWER 7, Y5N ONE ×2 (09:01→14:06)
--- NOTE | 2018-12-25 09:11 | PN ---
Progress Note, Physician Chief Complaint: seen and examined No distress Sitting up in chair TELE: Sinus iker- no sig pauses or sustained arrhythmias - Current Medication List Current Medications: Active Medications Acetaminophen (Tylenol -) 650 mg PO Q6H PRN PRN Reason: FEVER Last Admin: 12/24/18 22:21 Dose: 650 mg Alprazolam (Xanax -) 0.25 mg PO Q12H PRN PRN Reason: ANXIETY Last Admin: 12/21/18 22:36 Dose: 0.25 mg Amlodipine Besylate (Norvasc -) 5 mg PO DAILY [facility] Last Admin: 12/24/18 12:16 Dose: 5 mg Atorvastatin Calcium (Lipitor -) 20 mg PO HS [facility] Last Admin: 12/24/18 22:05 Dose: 20 mg Brimonidine Tartrate (Alphagan 0.2% -) 1 drop OU BID [facility] Last Admin: 12/24/18 22:06 Dose: 1 drop Epoetin Elton (Procrit -) 20,000 unit SQ MoWeFr@1000 [facility] Last Admin: 12/22/18 10:44 Dose: 20,000 unit Furosemide (Lasix Injection -) 80 mg IVPB BID@0600,1800 [facility] Last Admin: 12/25/18 06:54 Dose: 80 mg Heparin Sodium (Porcine) (Heparin -) 5,000 unit SQ BID [facility] Last Admin: 12/24/18 22:05 Dose: 5,000 unit Hydralazine HCl (Apresoline -) 40 mg PO QID [facility] Last Admin: 12/24/18 22:05 Dose: 40 mg Insulin Aspart (Novolog Vial Sliding Scale -) 1 vial SQ [facility]; Protocol Last Admin: 12/25/18 07:04 Dose: Not Given Insulin Detemir (Levemir Vial) 20 units SQ ACBK [facility] Last Admin: 12/25/18 07:04 Dose: 20 units Isosorbide Dinitrate (Isordil -) 5 mg PO BIDISORDIL [facility] Last Admin: 12/24/18 17:32 Dose: 5 mg Methimazole (Tapazole -) 5 mg PO DAILY [facility] Last Admin: 12/24/18 10:01 Dose: 5 mg Metoprolol Succinate (Toprol Xl -) 25 mg PO DAILY [facility] Last Admin: 12/24/18 10:02 Dose: 25 mg Pantoprazole Sodium (Protonix -) 40 mg PO HS [facility] Last Admin: 12/24/18 22:05 Dose: 40 mg Polyethylene Glycol (Miralax (For Daily Use) -) 17 gm PO BID [facility] Last Admin: 12/24/18 22:06 Dose: 17 gm Timolol Maleate (Timoptic 0.5%) 1 drop OU BID [facility] Last Admin: 12/24/18 22:06 Dose: 1 drop - Objective Vital Signs: Vital Signs Temperature 99 F 12/25/18 08:33 Pulse Rate 59 L 12/25/18 08:33 Respiratory Rate 20 12/25/18 08:33 Blood Pressure 188/77 H 12/25/18 08:33 O2 Sat by Pulse Oximetry (%) 99 12/24/18 21:00 Constitutional: Yes: No Distress Cardiovascular: Yes: Regular Rate and Rhythm Respiratory: Yes: Other (improvement. No rales right, rales persist 1/3 up left) Gastrointestinal: Yes: Soft Edema: Yes Edema: LLE: 1+, RLE: 1+ Neurological: Yes: Alert, Oriented Labs: CBC, BMP 12/25/18 05:25 12/25/18 05:25 INR, PTT INR 1.03 (0.83-1.09) 12/14/18 01:31 Laboratory Tests 12/22/18 12/23/18 12/23/18 06:22 07:00 07:00 WBC 5.3 Hgb 10.6 L Hct Plt Count 213 Sodium 141 Potassium 3.8 BUN Creatinine 2.6 H 2.4 H Magnesium 12/24/18 12/25/18 12/25/18 05:15 05:25 05:25 WBC 4.6 Hgb 9.6 L Hct 28.0 L Plt Count 210 Sodium 139 139 Potassium 4.1 BUN 61 H 62 H Creatinine 2.4 H 2.5 H Magnesium 2.3 - ....Imaging EKG: Image Reviewed Assessment/Plan IMP: CKD Decompensated systolic CHF Reported HCM with no sig intracavitary gradient REC: 1. To continue diuresis with IV lasix with close monitoring renal fxn 2. Continue metoprolol 3. Titrate Isordil to be used in conjunction with Hydralazine (not TAYLOR/ARB candidate due to CKD) 4. Continue Amlodipine for HTN. [facility]
[2018-12-25] MEDS: TIMOLOL 0.5% OPHTHALMIC SOL 5 ML BOTTLE OU SCH ×2 (09:18→22:27)
[2018-12-25] MEDS: BRIMONIDINE TARTRATE 0.2% OPHTHALMIC 5 ML BOTTLE OU SCH ×2 (09:20→22:27)
[2018-12-25] MEDS: hydrALAZINE HCL 10 MG TABLET PO SCH ×3 (09:21→17:35)
[2018-12-25] MEDS: amLODIPine BESYLATE 5 MG TABLET (FP) PO SCH (09:21)
[2018-12-25] MEDS: HEPARIN NA (PORCINE) 5,000 UNITS/ML 1ML VIAL SQ SCH ×2 (09:21→22:28)
[2018-12-25] MEDS: ISOSORBIDE DINITRATE 5 MG TABLET PO SCH (09:23)
[2018-12-25] MEDS: metoPROLOL SUCCINATE 25 MG TAB.SR.24H (FP) PO SCH (09:24)
[2018-12-25] MEDS: METHIMAZOLE 5 MG TABLET (FP) PO SCH (09:24)
[2018-12-25] MEDS: POLYETHYLENE GLYCOL 3350 119 GM BTL PO SCH ×2 (09:24→22:29)
[2018-12-25] MEDS: ISOSORBIDE DINITRATE 10 MG TABLET (FP) PO SCH ×2 (11:00→22:27)
--- NOTE | 2018-12-25 11:42 | PN ---
Progress Note, Physician Chief Complaint: daughter at bedside (speaks slovak) d/w her tests consults results OK to be transferred to med surg floor pt and daughter do not want SNF/rehab but will go home when cleared by cardio and renal with [facility] V[facility] and home PT - Current Medication List Current Medications: Active Medications Acetaminophen (Tylenol -) 650 mg PO Q6H PRN PRN Reason: FEVER Last Admin: 12/24/18 22:21 Dose: 650 mg Alprazolam (Xanax -) 0.25 mg PO Q12H PRN PRN Reason: ANXIETY Last Admin: 12/21/18 22:36 Dose: 0.25 mg Amlodipine Besylate (Norvasc -) 5 mg PO DAILY [facility] Last Admin: 12/25/18 09:21 Dose: 5 mg Atorvastatin Calcium (Lipitor -) 20 mg PO HS [facility] Last Admin: 12/24/18 22:05 Dose: 20 mg Brimonidine Tartrate (Alphagan 0.2% -) 1 drop OU BID [facility] Last Admin: 12/25/18 09:20 Dose: 1 drop Epoetin Elton (Procrit -) 20,000 unit SQ MoWeFr@1000 [facility] Last Admin: 12/22/18 10:44 Dose: 20,000 unit Furosemide (Lasix Injection -) 80 mg IVPB BID@0600,1800 [facility] Last Admin: 12/25/18 06:54 Dose: 80 mg Heparin Sodium (Porcine) (Heparin -) 5,000 unit SQ BID [facility] Last Admin: 12/25/18 09:21 Dose: 5,000 unit Hydralazine HCl (Apresoline -) 40 mg PO QID [facility] Last Admin: 12/25/18 09:21 Dose: 40 mg Insulin Aspart (Novolog Vial Sliding Scale -) 1 vial SQ [facility]; Protocol Last Admin: 12/25/18 07:04 Dose: Not Given Insulin Detemir (Levemir Vial) 20 units SQ ACBK [facility] Last Admin: 12/25/18 07:04 Dose: 20 units Isosorbide Dinitrate (Isordil -) 10 mg PO BID [facility] Methimazole (Tapazole -) 5 mg PO DAILY [facility] Last Admin: 12/25/18 09:24 Dose: 5 mg Metoprolol Succinate (Toprol Xl -) 25 mg PO DAILY [facility] Last Admin: 12/25/18 09:24 Dose: 25 mg Pantoprazole Sodium (Protonix -) 40 mg PO HS [facility] Last Admin: 12/24/18 22:05 Dose: 40 mg Polyethylene Glycol (Miralax (For Daily Use) -) 17 gm PO BID [facility] Last Admin: 12/25/18 09:24 Dose: 17 gm Timolol Maleate (Timoptic 0.5%) 1 drop OU BID [facility] Last Admin: 12/25/18 09:18 Dose: 1 drop - Objective Vital Signs: Vital Signs Temperature 99 F 12/25/18 08:33 Pulse Rate 59 L 12/25/18 08:33 Respiratory Rate 20 12/25/18 08:33 Blood Pressure 188/77 H 12/25/18 08:33 O2 Sat by Pulse Oximetry (%) 99 12/25/18 09:00 Constitutional: Yes: No Distress, Calm Eyes: Yes: Conjunctiva Clear HENT: Yes: Atraumatic Neck: Yes: Supple Cardiovascular: Yes: Regular Rate and Rhythm Respiratory: Yes: CTA Bilaterally Gastrointestinal: Yes: Soft. No: Tenderness Genitourinary: No: CVA Tenderness - Left, CVA Tenderness - Right Musculoskeletal: No: Joint Stiffness, Joint Swelling Extremities: No: Cold, Cool Edema: No Integumentary: No: Rash, Venous Stasis Changes Neurological: Yes: WNL, Alert, Oriented ...Motor Strength: WNL Psychiatric: Yes: WNL, Alert, Oriented. No: Agitated, Suicidal Ideation Labs: CBC, BMP 12/25/18 05:25 12/25/18 05:25 INR, PTT INR 1.03 (0.83-1.09) 12/14/18 01:31 - ....Imaging Other: Report Reviewed Assessment/Plan 78 year old woman with history of CHF, HTN, DM, CKD and hyperthyroidism who presents with worsening shortness of breath. Diagnosed with CHF fluid overload and anemia, also HTN uncontrolled cardiology and renal consults appreciated heme eval sq epogen f/u labs diuretics per cardio BP control meds adjusted falls DVT decubs pfx sq heparin for DVT pfx; no bleeding recently d/w pt and daughter at bedside
--- NOTE | 2018-12-25 12:06 | PN ---
Progress Note, Physician Chief Complaint: The patient seen and examined by her bed. Her daughter with her. Claims to be feeling better. No chest pains. Maintains good urine output. On IV Lasix twice daily. 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 - Current Medication List Current Medications: Active Medications Acetaminophen (Tylenol -) 650 mg PO Q6H PRN PRN Reason: FEVER Last Admin: 12/24/18 22:21 Dose: 650 mg Alprazolam (Xanax -) 0.25 mg PO Q12H PRN PRN Reason: ANXIETY Last Admin: 12/21/18 22:36 Dose: 0.25 mg Amlodipine Besylate (Norvasc -) 5 mg PO DAILY [facility] Last Admin: 12/25/18 09:21 Dose: 5 mg Atorvastatin Calcium (Lipitor -) 20 mg PO HS [facility] Last Admin: 12/24/18 22:05 Dose: 20 mg Brimonidine Tartrate (Alphagan 0.2% -) 1 drop OU BID [facility] Last Admin: 12/25/18 09:20 Dose: 1 drop Epoetin Elton (Procrit -) 20,000 unit SQ MoWeFr@1000 [facility] Last Admin: 12/22/18 10:44 Dose: 20,000 unit Furosemide (Lasix Injection -) 80 mg IVPB BID@0600,1800 [facility] Last Admin: 12/25/18 06:54 Dose: 80 mg Heparin Sodium (Porcine) (Heparin -) 5,000 unit SQ BID [facility] Last Admin: 12/25/18 09:21 Dose: 5,000 unit Hydralazine HCl (Apresoline -) 40 mg PO QID [facility] Last Admin: 12/25/18 09:21 Dose: 40 mg Insulin Aspart (Novolog Vial Sliding Scale -) 1 vial SQ ACHS [facility]; Protocol Last Admin: 12/25/18 07:04 Dose: Not Given Insulin Detemir (Levemir Vial) 20 units SQ ACBK [facility] Last Admin: 12/25/18 07:04 Dose: 20 units Isosorbide Dinitrate (Isordil -) 10 mg PO BID [facility] Methimazole (Tapazole -) 5 mg PO DAILY [facility] Last Admin: 12/25/18 09:24 Dose: 5 mg Metoprolol Succinate (Toprol Xl -) 25 mg PO DAILY [facility] Last Admin: 12/25/18 09:24 Dose: 25 mg Pantoprazole Sodium (Protonix -) 40 mg PO HS [facility] Last Admin: 12/24/18 22:05 Dose: 40 mg Polyethylene Glycol (Miralax (For Daily Use) -) 17 gm PO BID [facility] Last Admin: 12/25/18 09:24 Dose: 17 gm Timolol Maleate (Timoptic 0.5%) 1 drop OU BID [facility] Last Admin: 12/25/18 09:18 Dose: 1 drop - Objective Vital Signs: Vital Signs Temperature 99 F 12/25/18 08:33 Pulse Rate 59 L 12/25/18 08:33 Respiratory Rate 20 12/25/18 08:33 Blood Pressure 188/77 H 12/25/18 08:33 O2 Sat by Pulse Oximetry (%) 99 12/25/18 09:00 Constitutional: Yes: No Distress, Anxious Eyes: Yes: Conjunctiva Clear HENT: Yes: Normocephalic Neck: Yes: Trachea Midline Cardiovascular: Yes: Regular Rate and Rhythm, S1, S2 Respiratory: Yes: CTA Bilaterally, Diminished Gastrointestinal: Yes: Normal Bowel Sounds, Abdomen, Obese Genitourinary: No: Bladder Distention, CVA Tenderness - Left, CVA Tenderness - Right Extremities: Yes: WNL Edema: Yes Edema: LLE: 1+, RLE: 1+ Neurological: Yes: Oriented Labs: CBC, BMP 12/25/18 05:25 12/25/18 05:25 INR, PTT INR 1.03 (0.83-1.09) 12/14/18 01:31 Problem List - Problems (1) Acute exacerbation of CHF (congestive heart failure) Code(s): I50.9 - HEART FAILURE, UNSPECIFIED (2) Anasarca Code(s): R60.1 - GENERALIZED EDEMA (3) Diabetes mellitus Code(s): E11.9 - TYPE 2 DIABETES MELLITUS WITHOUT COMPLICATIONS (4) SOB (shortness of breath) Code(s): R06.02 - SHORTNESS OF BREATH (5) Systolic and diastolic CHF w/reduced LV function, NYHA class 4 Code(s): I50.40 - UNSP COMBINED SYSTOLIC AND DIASTOLIC (CONGESTIVE) HRT FAIL (6) Acute on chronic renal failure Code(s): N17.9 - ACUTE KIDNEY FAILURE, UNSPECIFIED; N18.9 - CHRONIC KIDNEY DISEASE, UNSPECIFIED (7) Chronic renal failure Code(s): N18.9 - CHRONIC KIDNEY DISEASE, UNSPECIFIED (8) Peripheral edema Code(s): R60.9 - EDEMA, UNSPECIFIED (9) Weakness Code(s): R53.1 - WEAKNESS (10) Anemia Code(s): D64.9 - ANEMIA, UNSPECIFIED Qualifiers: Iron deficiency anemia type: inadequate dietary iron intake Assessment/Plan 78 year old woman with hx of 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 #Anasarca/CHF/Fluid overload ... The edema resolving. Should be able to switch to oral loop diuretics if the patients edema continues to improve. #CKD stage 4 with nephrotic proteinuira ... Some #CHF...resolving #DM...needs optimal glycemic control. #Iron deficiency anemia Can switch to oral loop diuretics, if the clinical status continues to improve. Will need higher doses of Lasix... 80-100 mg BID. Thank you. Talia Lau MD
[2018-12-25] MEDS: EPOETIN ALFA 20,000 UNIT/1 ML VIAL SQ SCH (13:00)
[2018-12-25] MEDS: PANTOPRAZOLE 40 MG TABLET (FP) PO SCH (22:27)
[2018-12-25] MEDS: ACETAMINOPHEN 325 MG TABLET (FP) PO PRN (22:27)
[2018-12-25] MEDS: ATORVASTATIN CA 20 MG TABLET (FP) PO SCH (22:27)
[2018-12-25] MEDS: hydrALAZINE HCL 50 MG TABLET (FP) PO SCH (22:27)
[2018-12-25] MEDS ORDERED: ALPRAZolam 0.25 MG TABLET PO PRN (23:08)
[2018-12-25] MEDS ORDERED: ACETAMINOPHEN 325 MG TABLET (FP) PO PRN (23:08)
[2018-12-26] MEDS ORDERED: FUROSEMIDE 40 MG/4 ML INJECTABLE VIAL IVPB SCH (06:00)
[2018-12-26] MEDS: INSULIN SLIDING SCALE (NOVOLOG) 1 VIAL SQ SCH ×4 (06:21→22:36)
[2018-12-26] MEDS: INSULIN (LEVEMIR) 100 UNITS/ML UNITS SQ SCH (06:51)
--- NOTE | 2018-12-26 08:16 | PN ---
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/w CM - Current Medication List Current Medications: Active Medications Acetaminophen (Tylenol -) 650 mg PO Q6H PRN PRN Reason: FEVER Alprazolam (Xanax -) 0.25 mg PO Q12H PRN PRN Reason: ANXIETY Amlodipine Besylate (Norvasc -) 5 mg PO DAILY [facility] Atorvastatin Calcium (Lipitor -) 20 mg PO HS [facility] Brimonidine Tartrate (Alphagan 0.2% -) 1 drop OU BID [facility] Epoetin Elton (Procrit -) 20,000 unit SQ MoWeFr@1000 [facility] Furosemide (Lasix Injection -) 80 mg IVPB BID@0600,1800 [facility] Last Admin: 12/26/18 06:14 Dose: 80 mg Heparin Sodium (Porcine) (Heparin -) 5,000 unit SQ BID [facility] Hydralazine HCl (Apresoline -) 50 mg PO QID [facility] Last Admin: 12/25/18 22:27 Dose: 50 mg Insulin Aspart (Novolog Vial Sliding Scale -) 1 vial SQ [facility]; Protocol Last Admin: 12/26/18 06:21 Dose: Not Given Insulin Detemir (Levemir Vial) 20 units SQ ACBK [facility] Last Admin: 12/26/18 06:51 Dose: 20 units Isosorbide Dinitrate (Isordil -) 10 mg PO BIDISORDIL [facility] Methimazole (Tapazole -) 5 mg PO DAILY [facility] Metoprolol Succinate (Toprol Xl -) 25 mg PO DAILY [facility] Pantoprazole Sodium (Protonix -) 40 mg PO HS [facility] Polyethylene Glycol (Miralax (For Daily Use) -) 17 gm PO BID [facility] Timolol Maleate (Timoptic 0.5%) 1 drop OU BID [facility] - Objective Vital Signs: Vital Signs Temperature 98.0 F 12/26/18 06:00 Pulse Rate 58 L 12/26/18 06:00 Respiratory Rate 20 12/26/18 06:00 Blood Pressure 161/50 L 12/26/18 06:00 O2 Sat by Pulse Oximetry (%) 98 12/25/18 21:00 Constitutional: Yes: No Distress, Calm Eyes: Yes: Conjunctiva Clear HENT: Yes: Atraumatic Neck: Yes: Supple Cardiovascular: Yes: Regular Rate and Rhythm Respiratory: Yes: Diminished Gastrointestinal: Yes: Soft. No: Tenderness Genitourinary: No: CVA Tenderness - Left, CVA Tenderness - Right Musculoskeletal: No: Joint Stiffness, Joint Swelling Extremities: No: Cold, Cool Edema: Yes (pedal bilat) Integumentary: No: Rash, Venous Stasis Changes Neurological: Yes: WNL, Alert, Oriented ...Motor Strength: WNL Psychiatric: Yes: WNL, Alert, Oriented. No: Agitated, Suicidal Ideation Labs: CBC, BMP 12/25/18 05:25 12/25/18 05:25 INR, PTT INR 1.03 (0.83-1.09) 12/14/18 01:31 - ....Imaging Other: Report Reviewed Assessment/Plan 78 year old woman with history of CHF, HTN, DM, CKD and hyperthyroidism who presents with worsening shortness of breath. Diagnosed with CHF fluid overload and anemia, also HTN uncontrolled cardiology and renal consults f.u heme f/u sq epogen f/u labs diuretics per cardio BP control meds adjusted falls DVT decubs pfx sq heparin for DVT pfx; no bleeding recently pre and post / RA; PT rehab; d/w CM, home VNS d/w pt and daughter at bedside
[2018-12-26] MEDS ORDERED: PT OWN MED DRAWER 7, Y5N ONE ×3 (09:15→19:06)
[2018-12-26] MEDS: hydrALAZINE HCL 50 MG TABLET (FP) PO SCH ×4 (09:21→22:33)
[2018-12-26] MEDS: TIMOLOL 0.5% OPHTHALMIC SOL 5 ML BOTTLE OU SCH ×2 (09:21→22:35)
[2018-12-26] MEDS: amLODIPine BESYLATE 5 MG TABLET (FP) PO SCH (09:21)
[2018-12-26] MEDS: METHIMAZOLE 5 MG TABLET (FP) PO SCH (09:22)
[2018-12-26] MEDS: ISOSORBIDE DINITRATE 10 MG TABLET (FP) PO SCH ×3 (09:22→19:06)
[2018-12-26] MEDS: metoPROLOL SUCCINATE 25 MG TAB.SR.24H (FP) PO SCH (09:23)
[2018-12-26] MEDS: HEPARIN NA (PORCINE) 5,000 UNITS/ML 1ML VIAL SQ SCH ×2 (09:23→22:37)
[2018-12-26] MEDS: BRIMONIDINE TARTRATE 0.2% OPHTHALMIC 5 ML BOTTLE OU SCH ×2 (09:25→22:35)
[2018-12-26] MEDS: POLYETHYLENE GLYCOL 3350 119 GM BTL PO SCH ×2 (09:30→22:38)
--- NOTE | 2018-12-26 10:44 | PN ---
Progress Note, Physician Chief Complaint: The patient seen and examined by her bed. Her daughter with her. No new complaints. Claims to be feeling better. No chest pains. Maintains good urine output. On IV Lasix twice daily. 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 The patient had been treated with IV Lasix, and the diuretic response had been excellent. - Current Medication List Current Medications: Active Medications Acetaminophen (Tylenol -) 650 mg PO Q6H PRN PRN Reason: FEVER Alprazolam (Xanax -) 0.25 mg PO Q12H PRN PRN Reason: ANXIETY Amlodipine Besylate (Norvasc -) 5 mg PO DAILY [facility] Last Admin: 12/26/18 09:21 Dose: 5 mg Atorvastatin Calcium (Lipitor -) 20 mg PO HS [facility] Brimonidine Tartrate (Alphagan 0.2% -) 1 drop OU BID [facility] Last Admin: 12/26/18 09:25 Dose: 1 drop Epoetin Elton (Procrit -) 20,000 unit SQ MoWeFr@1000 [facility] Furosemide (Lasix -) 80 mg PO BID@0600,1400 [facility] Heparin Sodium (Porcine) (Heparin -) 5,000 unit SQ BID [facility] Last Admin: 12/26/18 09:23 Dose: 5,000 unit Hydralazine HCl (Apresoline -) 50 mg PO QID [facility] Last Admin: 12/26/18 09:21 Dose: 50 mg Insulin Aspart (Novolog Vial Sliding Scale -) 1 vial SQ ACHS [facility]; Protocol Last Admin: 12/26/18 06:21 Dose: Not Given Insulin Detemir (Levemir Vial) 20 units SQ ACBK [facility] Last Admin: 12/26/18 06:51 Dose: 20 units Isosorbide Dinitrate (Isordil -) 10 mg PO BIDISORDIL [facility] Last Admin: 12/26/18 09:22 Dose: Not Given Methimazole (Tapazole -) 5 mg PO DAILY [facility] Last Admin: 12/26/18 09:22 Dose: 5 mg Metoprolol Succinate (Toprol Xl -) 25 mg PO DAILY [facility] Last Admin: 12/26/18 09:23 Dose: Not Given Pantoprazole Sodium (Protonix -) 40 mg PO HS [facility] Polyethylene Glycol (Miralax (For Daily Use) -) 17 gm PO BID [facility] Last Admin: 12/26/18 09:30 Dose: 17 grams Timolol Maleate (Timoptic 0.5%) 1 drop OU BID [facility] Last Admin: 12/26/18 09:21 Dose: 1 drop - Objective Vital Signs: Vital Signs Temperature 98 F 12/26/18 09:19 Pulse Rate 59 L 12/26/18 09:19 Respiratory Rate 20 12/26/18 09:19 Blood Pressure 176/63 H 12/26/18 09:19 O2 Sat by Pulse Oximetry (%) 98 12/25/18 21:00 Constitutional: Yes: No Distress HENT: Yes: Atraumatic Neck: Yes: Trachea Midline Cardiovascular: Yes: Tachycardia, S1, S2 Respiratory: Yes: CTA Bilaterally Gastrointestinal: Yes: Normal Bowel Sounds, Soft Musculoskeletal: Yes: Muscle Pain Edema: LLE: Trace, RLE: Trace Labs: CBC, BMP 12/25/18 05:25 12/25/18 05:25 INR, PTT INR 1.03 (0.83-1.09) 12/14/18 01:31 Problem List - Problems (1) Acute exacerbation of CHF (congestive heart failure) Code(s): I50.9 - HEART FAILURE, UNSPECIFIED (2) Anasarca Code(s): R60.1 - GENERALIZED EDEMA (3) Diabetes mellitus Code(s): E11.9 - TYPE 2 DIABETES MELLITUS WITHOUT COMPLICATIONS (4) SOB (shortness of breath) Code(s): R06.02 - SHORTNESS OF BREATH (5) Systolic and diastolic CHF w/reduced LV function, NYHA class 4 Code(s): I50.40 - UNSP COMBINED SYSTOLIC AND DIASTOLIC (CONGESTIVE) HRT FAIL (6) Acute on chronic renal failure Code(s): N17.9 - ACUTE KIDNEY FAILURE, UNSPECIFIED; N18.9 - CHRONIC KIDNEY DISEASE, UNSPECIFIED (7) Chronic renal failure Code(s): N18.9 - CHRONIC KIDNEY DISEASE, UNSPECIFIED (8) Peripheral edema Code(s): R60.9 - EDEMA, UNSPECIFIED (9) Weakness Code(s): R53.1 - WEAKNESS (10) Anemia Code(s): D64.9 - ANEMIA, UNSPECIFIED Qualifiers: Iron deficiency anemia type: inadequate dietary iron intake Assessment/Plan 78 year old woman with hx of 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 #Anasarca/CHF/Fluid overload ... The edema resolving. Will switch to PO Lasix. #CKD stage 4 with nephrotic proteinuira ... #CHF...resolving #DM...needs optimal glycemic control. #Iron deficiency anemia Can switch to oral loop diuretics ...Lasix 80 mg BID. Will need higher doses of Lasix to maintain optimal diuresis. Will monitor the Renal functions with you. Thank you. Talia Lau MD
[2018-12-26] MEDS ORDERED: INSULIN (NOVOLOG) ASPART 100 UNITS/ML 10ML VIAL ONE (11:13)
[2018-12-26] MEDS: FUROSEMIDE 40 MG TABLET (FP) PO SCH (14:50)
[2018-12-26] MEDS ORDERED: PANTOPRAZOLE 40 MG TABLET (FP) PO SCH (22:00)
[2018-12-26] MEDS ORDERED: ATORVASTATIN CA 20 MG TABLET (FP) PO SCH (22:00)
[2018-12-27] MEDS: INSULIN SLIDING SCALE (NOVOLOG) 1 VIAL SQ SCH ×2 (06:53→12:15)
[2018-12-27] MEDS: FUROSEMIDE 40 MG TABLET (FP) PO SCH (06:53)
[2018-12-27] MEDS: INSULIN (LEVEMIR) 100 UNITS/ML UNITS SQ SCH (06:55)
[2018-12-27] MEDS ORDERED: INSULIN (LEVEMIR) 100 UNITS/ML UNITS SQ ONE (07:05)
[2018-12-27] MEDS ORDERED: INSULIN (NOVOLOG) ASPART 100 UNITS/ML 10ML VIAL ONE (07:06)
[2018-12-27 08:01] VITALS: PULSE 62
--- NOTE | 2018-12-27 09:07 | DS ---
Physical Examination Vital Signs: Vital Signs Temperature 98.1 F 12/27/18 06:00 Pulse Rate 62 12/27/18 06:00 Respiratory Rate 20 12/27/18 06:00 Blood Pressure 150/59 L 12/27/18 06:00 O2 Sat by Pulse Oximetry (%) 90 L 12/26/18 21:00 Findings/Remarks: OOB to chair, no CP/SOB feels well wants to go home; diuresed 14 lbs since admission walked with PT in hallway 50 feet; pt and 2 daughters refused SNF they will take pt home (they live with her) and home PT rehab VNS. PREPLEATER does not qualify for home O2 d/w pt and daughter (monegasque speaking) f/u needed PCP cardiology GI renal and heme onc phone # Given meds d/w pt, scripts done f/u labs check weight call us if > 2 lbs in 1 day LS ADA diet d/w pt Constitutional: Yes: No Distress, Calm Eyes: Yes: Conjunctiva Clear HENT: Yes: Atraumatic Neck: Yes: Supple Cardiovascular: Yes: Regular Rate and Rhythm Respiratory: Yes: CTA Bilaterally Gastrointestinal: Yes: Soft. No: Tenderness Renal/: No: CVA Tenderness - Left, CVA Tenderness - Right Musculoskeletal: No: Joint Stiffness, Joint Swelling Extremities: No: Cold, Cool Edema: No (much improved) Integumentary: No: Rash, Venous Stasis Changes Neurological: Yes: WNL, Alert, Oriented ...Motor Strength: WNL Psychiatric: Yes: WNL, Alert, Oriented. No: Agitated, Suicidal Ideation Labs: CBC, BMP 12/25/18 05:25 12/25/18 05:25 Discharge Summary Reason For Visit: GENERALIZED EDEMA Current Active Problems Acute CHF (Acute) Acute exacerbation of CHF (congestive heart failure) (Acute) Anasarca (Acute) Anxiety (Acute) Diabetes mellitus (Acute) Glaucoma (Acute) Hyperthyroidism (Acute) Liver cirrhosis (Acute) SOB (shortness of breath) (Acute) Systolic and diastolic CHF w/reduced LV function, NYHA class 4 (Acute) Procedures: Principal: 78 YOF HTN DM CRF anemia ASHD admitted with SOB CHF exac fluid overload, ARF/CRF and anemia Other Procedures: seen by cardiology, renal and heme;. meds adjusted; IV lasix diuresed 14 lbs Hospital Course: improved with above D home f/u as outpt as advised Condition: Improved - Instructions Diet, Activity, Other Instructions: f/u PCP cardiology, renal and heme in 1-4 weeks f.u labs CBC CMP 1-2 weeks RTER if worse or recurrent c/o home VNS, PT rehab, PREPLEATER Referrals: Albert Wilkinson MD [Primary Care Provider] - Gerry Kelley MD [Staff Physician] - Toñito Chawla MD [Staff Physician] - Robby Pablo MD [Staff Physician] - Disposition: VNS/HOME HEALTH CARE - Home Medications Comprehensive Discharge Medication List: Ambulatory Orders Ferrous Sulfate [Feosol] 325 mg PO BID 01/14/15 Simvastatin [Zocor -] 20 mg PO HS 01/14/15 Acetaminophen [Tylenol .Regular Strength -] 650 mg PO Q6H PRN #0 tablet Amlodipine Besylate [Norvasc -] 10 mg PO DAILY 12/04/15 Brimonidine Tartrate/Timolol [Combigan 0.2%-0.5% Eye Drops] 1 drop OU DAILY Cholecalciferol (Vitamin D3) [Vitamin D] 2,000 unit PO DAILY 12/04/15 Insulin (Levemir) [Levemir Vial] 40 units SQ ACBK 11/25/17 Insulin Sliding Scale [Novolog Vial Sliding Scale -] 1 vial SQ ACHS PRN [place]-3 Fatty Acids/Fish Oil [Fish Oil 1,000 mg Capsule] 1 each PO DAILY Atorvastatin Ca [Lipitor] 10 mg PO HS 12/14/18 Linagliptin [Tradjenta] 5 mg PO DAILY 12/14/18 Furosemide [Lasix -] 80 mg PO BID #120 tablet 12/25/18 Isosorbide Dinitrate [Isordil -] 5 mg PO BID #60 tablet 12/25/18 Metoprolol Succinate [Toprol XL -] 25 mg PO DAILY #30 tab.sr.24h 12/25/18 Polyethylene Glycol 3350 [Miralax 119 gm Btl -] 17 gm PO BID bottle 12/25/18 hydrALAZINE HCL [Apresoline -] 50 mg PO QID #120 tablet 12/25/18
[2018-12-27] MEDS ORDERED: EPOETIN ALFA 20,000 UNIT/1 ML VIAL SQ SCH (10:00)
[2018-12-27] MEDS: amLODIPine BESYLATE 5 MG TABLET (FP) PO SCH (10:20)
[2018-12-27] MEDS: hydrALAZINE HCL 50 MG TABLET (FP) PO SCH (10:20)
[2018-12-27] MEDS: metoPROLOL SUCCINATE 25 MG TAB.SR.24H (FP) PO SCH (10:20)
[2018-12-27] MEDS: HEPARIN NA (PORCINE) 5,000 UNITS/ML 1ML VIAL SQ SCH (10:21)
[2018-12-27] MEDS: POLYETHYLENE GLYCOL 3350 119 GM BTL PO SCH (10:21)
[2018-12-27] MEDS: METHIMAZOLE 5 MG TABLET (FP) PO SCH (10:21)
[2018-12-27] MEDS: ISOSORBIDE DINITRATE 10 MG TABLET (FP) PO SCH (10:21)
[2018-12-27] MEDS: TIMOLOL 0.5% OPHTHALMIC SOL 5 ML BOTTLE OU SCH (10:29)
[2018-12-27] MEDS: BRIMONIDINE TARTRATE 0.2% OPHTHALMIC 5 ML BOTTLE OU SCH (10:29)
[2018-12-27 10:33] VITALS: BP 182/59; TEMP 98
--- NOTE | 2018-12-27 10:50 | PN ---
Progress Note, Physician Chief Complaint: The patient seen and examined by her bed. Her daughter with her. No new complaints. Denies any chest pains. Maintains good urine output. 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 IV Lasix was switched to PO. - Current Medication List Current Medications: Active Medications Acetaminophen (Tylenol -) 650 mg PO Q6H PRN PRN Reason: FEVER Last Admin: 12/26/18 22:34 Dose: 650 mg Alprazolam (Xanax -) 0.25 mg PO Q12H PRN PRN Reason: ANXIETY Amlodipine Besylate (Norvasc -) 5 mg PO DAILY [facility] Last Admin: 12/27/18 10:20 Dose: 5 mg Atorvastatin Calcium (Lipitor -) 20 mg PO HS [facility] Last Admin: 12/26/18 22:34 Dose: 20 mg Brimonidine Tartrate (Alphagan 0.2% -) 1 drop OU BID [facility] Last Admin: 12/27/18 10:29 Dose: 1 drop Epoetin Elton (Procrit -) 20,000 unit SQ MoWeFr@1000 [facility] Furosemide (Lasix -) 80 mg PO BID@0600,1400 [facility] Last Admin: 12/27/18 06:53 Dose: 80 mg Heparin Sodium (Porcine) (Heparin -) 5,000 unit SQ BID [facility] Last Admin: 12/27/18 10:21 Dose: 5,000 unit Hydralazine HCl (Apresoline -) 50 mg PO QID [facility] Last Admin: 12/27/18 10:20 Dose: 50 mg Insulin Aspart (Novolog Vial Sliding Scale -) 1 vial SQ ACHS [facility]; Protocol Last Admin: 12/27/18 06:53 Dose: Not Given Insulin Detemir (Levemir Vial) 20 units SQ ACBK [facility] Last Admin: 12/27/18 06:55 Dose: 20 units Isosorbide Dinitrate (Isordil -) 10 mg PO BIDISORDIL [facility] Last Admin: 12/27/18 10:21 Dose: 10 mg Methimazole (Tapazole -) 5 mg PO DAILY [facility] Last Admin: 12/27/18 10:21 Dose: 5 mg Metoprolol Succinate (Toprol Xl -) 25 mg PO DAILY [facility] Last Admin: 12/27/18 10:20 Dose: 25 mg Pantoprazole Sodium (Protonix -) 40 mg PO HS [facility] Last Admin: 12/26/18 22:33 Dose: 40 mg Polyethylene Glycol (Miralax (For Daily Use) -) 17 gm PO BID [facility] Last Admin: 12/27/18 10:21 Dose: 17 grams Timolol Maleate (Timoptic 0.5%) 1 drop OU BID [facility] Last Admin: 12/27/18 10:29 Dose: 1 drop - Objective Vital Signs: Vital Signs Temperature 98 F 12/27/18 10:32 Pulse Rate 62 12/27/18 06:00 Respiratory Rate 20 12/27/18 10:32 Blood Pressure 182/59 H 12/27/18 10:32 O2 Sat by Pulse Oximetry (%) 90 L 12/26/18 21:00 Constitutional: Yes: No Distress, Calm Eyes: Yes: Conjunctiva Clear HENT: Yes: Normocephalic Neck: Yes: Trachea Midline Cardiovascular: Yes: S1, S2 Respiratory: Yes: CTA Bilaterally, Diminished Gastrointestinal: Yes: Normal Bowel Sounds, Soft Edema: No Labs: CBC, BMP 12/25/18 05:25 12/25/18 05:25 INR, PTT INR 1.03 (0.83-1.09) 12/14/18 01:31 Problem List - Problems (1) Acute exacerbation of CHF (congestive heart failure) Code(s): I50.9 - HEART FAILURE, UNSPECIFIED (2) Anasarca Code(s): R60.1 - GENERALIZED EDEMA (3) Diabetes mellitus Code(s): E11.9 - TYPE 2 DIABETES MELLITUS WITHOUT COMPLICATIONS (4) SOB (shortness of breath) Code(s): R06.02 - SHORTNESS OF BREATH (5) Systolic and diastolic CHF w/reduced LV function, NYHA class 4 Code(s): I50.40 - UNSP COMBINED SYSTOLIC AND DIASTOLIC (CONGESTIVE) HRT FAIL (6) Acute on chronic renal failure Code(s): N17.9 - ACUTE KIDNEY FAILURE, UNSPECIFIED; N18.9 - CHRONIC KIDNEY DISEASE, UNSPECIFIED (7) Chronic renal failure Code(s): N18.9 - CHRONIC KIDNEY DISEASE, UNSPECIFIED (8) Peripheral edema Code(s): R60.9 - EDEMA, UNSPECIFIED (9) Weakness Code(s): R53.1 - WEAKNESS (10) Anemia Code(s): D64.9 - ANEMIA, UNSPECIFIED Qualifiers: Iron deficiency anemia type: inadequate dietary iron intake Assessment/Plan 78 year old woman with hx of 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 #Anasarca/CHF/Fluid overload ... The edema improved. #CKD stage 4 with nephrotic proteinuira ... #CHF...resolving #DM...needs optimal glycemic control. #Iron deficiency anemia The patient tolerates PO Lasix well. BP slightly elevated. ? Related to anxiety. Will repeat again. If stable will d/c home to be followed as outpatient in the office. Agree with plans to start Procrit. Thank you. Talia Lau MD
== END 2018-12-27 12:47 | disposition home health service (06) | DRG 291 ==
LOC: JER 18:14 → JERBED 12-14 00:02 → J4W 12-15 03:49 → J5S 12-25 20:42
PROVIDERS: ADMIT Specialist; ATTEND Specialist
PROC: 30233N1 Transfusion of Nonautologous Red Blood Cells into Peripheral Vein, Percutaneous Approach (ICD-10-PCS; principal; 2018-12-18)
DX: I13.0 Hypertensive heart and chronic kidney disease with heart failure and stage 1 through stage 4 chronic kidney disease, or unspecified chronic kidney disease (principal); I50.43 Acute on chronic combined systolic (congestive) and diastolic (congestive) heart failure; N18.4 Chronic kidney disease, stage 4 (severe); E05.90 Thyrotoxicosis, unspecified without thyrotoxic crisis or storm; E11.22 Type 2 diabetes mellitus with diabetic chronic kidney disease; D50.9 Iron deficiency anemia, unspecified; I42.1 Obstructive hypertrophic cardiomyopathy; K74.60 Unspecified cirrhosis of liver; D63.1 Anemia in chronic kidney disease; Z79.4 Long term (current) use of insulin; Z86.73 Personal history of transient ischemic attack (TIA), and cerebral infarction without residual deficits; Z87.891 Personal history of nicotine dependence; Z85.038 Personal history of other malignant neoplasm of large intestine; Z90.49 Acquired absence of other specified parts of digestive tract; E78.5 Hyperlipidemia, unspecified; I73.9 Peripheral vascular disease, unspecified; N31.9 Neuromuscular dysfunction of bladder, unspecified; E66.9 Obesity, unspecified; Z68.29 Body mass index [BMI] 29.0-29.9, adult; G89.29 Other chronic pain; M54.5 Low back pain; E11.21 Type 2 diabetes mellitus with diabetic nephropathy; H40.9 Unspecified glaucoma
CPT/HCPCS: 36415; 36430; 71045-TC-FY; 80048; 80053; 80061; 81003; 81015; 82550; 82962; 83721; 83735; 83880; 84100; 84443; 84484; 85025; 85027; 85610; 86850; 86900; 86901; 86922; 87086; 93005; 93010; 94761; 96365; 97116-GP; 97161-GP; 99285-25; J0885; J1644; J1756; P9038; P9058

== ENCOUNTER 2019-03-12 18:28 | Observation (INO) | payer OTHER ==
[2019-03-12 18:39] VITALS: BMI 30.2
--- NOTE | 2019-03-12 18:39 | PDOC ---
Rapid Medical Evaluation Chief Complaint: Revisit, Lab Variance Time Seen by Provider: 03/12/19 18:37 Medical Evaluation: Allergies Allergy/AdvReac Type Severity Reaction Status Date / Time No Known Allergies Allergy Verified 03/12/19 18:36 03/12/19 18:37 I have performed a brief in-person evaluation of this patient. The patient presents with a chief complaint of sent by pcp for transfusion. Patient was seen by doctor, had lab work done and she has low h & h Pertinent physical exam findings: NAD even and unlabored breathing weak I have ordered the following lab The patient will proceed to the ED for further evaluation. Discharge Disposition - Diagnosis Abnormal laboratory test - Referrals - Patient Instructions - Post Discharge Activity
--- NOTE | 2019-03-12 19:10 | PDOC ---
History of Present Illness - General Chief Complaint: Revisit, Lab Variance Stated Complaint: HERFOR BLOOD TRANSFUSION Time Seen by Provider: 03/12/19 18:37 History Source: Patient - History of Present Illness Initial Comments: 03/12/19 19:53 79 year old Nigerian speaking LEP female with of CHF of HTN, DM, CKD and Hyperthyroidism who presents to our ED following a low Hb reading from labs drawn last week at her PMD's office. Daughter @ bedside assists in history, states patient was evaluated by her PMD last week for shortness of breath, however today patient had no active medical complaints and did not wish to come to the ED. Patient denies any active medical complaints including shortness of breath, chest pain, abdominal pain, nausea/vomiting, diarrhea/constipation, dysuria/ hematuria. NKDA Past History - Past Medical History Allergies/Adverse Reactions: Allergies Allergy/AdvReac Type Severity Reaction Status Date / Time No Known Allergies Allergy Verified 03/12/19 18:36 Home Medications: Ambulatory Orders Ferrous Sulfate [Feosol] 325 mg PO BID 01/14/15 Simvastatin [Zocor -] 20 mg PO HS 01/14/15 Acetaminophen [Tylenol .Regular Strength -] 650 mg PO Q6H PRN #0 tablet Amlodipine Besylate [Norvasc -] 10 mg PO DAILY 12/04/15 Brimonidine Tartrate/Timolol [Combigan 0.2%-0.5% Eye Drops] 1 drop OU DAILY Cholecalciferol (Vitamin D3) [Vitamin D] 2,000 unit PO DAILY 12/04/15 Insulin (Levemir) [Levemir Vial] 40 units SQ ACBK 11/25/17 Insulin Sliding Scale [Novolog Vial Sliding Scale -] 1 vial SQ ACHS PRN [place]-3 Fatty Acids/Fish Oil [Fish Oil 1,000 mg Capsule] 1 each PO DAILY Atorvastatin Ca [Lipitor] 10 mg PO HS 12/14/18 Linagliptin [Tradjenta] 5 mg PO DAILY 12/14/18 Furosemide [Lasix -] 80 mg PO BID #120 tablet 12/25/18 Isosorbide Dinitrate [Isordil -] 5 mg PO BID #60 tablet 12/25/18 Metoprolol Succinate [Toprol XL -] 25 mg PO DAILY #30 tab.sr.24h 12/25/18 Polyethylene Glycol 3350 [Miralax 119 gm Btl -] 17 gm PO BID bottle 12/25/18 hydrALAZINE HCL [Apresoline -] 50 mg PO QID #120 tablet 12/25/18 Epoetin Elton [Epogen] 10,000 unit SQ WEEKLY #6 ml 12/27/18 Anemia: Yes (on iron) Asthma: No Cancer: Yes (Cancerous polyp, carotid stenosis) Cardiac Disorders: Yes CVA: Yes (TIA) COPD: No CHF: Yes Dementia: No Diabetes: Yes GI Disorders: No Disorders: Yes (kidney disease) HTN: Yes Hypercholesterolemia: Yes Liver Disease: No Seizures: No Thyroid Disease: Yes - Surgical History Abdominal Surgery: No Appendectomy: Yes Cardiac Surgery: No Cholecystectomy: No Lung Surgery: No Neurologic Surgery: No Orthopedic Surgery: No - Immunization History Immunization Up to Date: Yes - Suicide/Smoking/Psychosocial Hx Smoking Status: No Smoking History: Never smoked Have you smoked in the past 12 months: No If you are a former smoker, when did you quit?: 40 years ago Cigars Per Day: 0 Information on smoking cessation initiated: No Hx Alcohol Use: No Drug/Substance Use Hx: No Substance Use Type: None Hx Substance Use Treatment: No Review of Systems - Review of Systems Constitutional: No: Chills, Fever HEENTM: No: Recent change in vision Respiratory: No: Cough, Shortness of Breath Cardiac (ROS): No: Chest Pain, Lightheadedness, Palpitations, Syncope *Physical Exam - Vital Signs Last Vital Signs Temp Pulse Resp BP Pulse Ox 98.1 F 70 16 140/50 L 99 03/12/19 18:36 03/12/19 18:36 03/12/19 18:36 03/12/19 18:36 03/12/19 18:36 - Physical Exam General Appearance: Yes: Nourished, Appropriately Dressed HEENT: positive: Pale Conjunctivae Neck: positive: Trachea midline, Supple Respiratory/Chest: positive: Lungs Clear, Normal Breath Sounds Cardiovascular: positive: S1, S2, Edema (3+ B/L pitting edema). negative: Murmur Gastrointestinal/Abdominal: positive: Normal Bowel Sounds, Soft Extremity: positive: Normal Capillary Refill, Normal Inspection Integumentary: positive: Normal Color, Dry, Warm Neurologic: positive: Fully Oriented, Alert ED Treatment Course - LABORATORY CBC & Chemistry Diagram: 03/12/19 18:51 03/12/19 18:51 Medical Decision Making - Medical Decision Making 79 year old female with outside low Hb reading. At presentation patient hypotensive (140/50), other VS unremarkable. PE shows mild conjunctival pallor. CBC, CMP, TSH, EKG, CXR pending. 03/12/19 20:01 Case d/w Dr. Wilkinson, states patient was evaluated in his office last or Tuesday for shortness of breath. Patient stated she couldn't walk from one room to another w/o catching her breath. Hb reported at 7.4 Will admit to OBS tele with repeat Hb in the a.m. 03/12/19 20:02 Hb 8.3, ? hemo-concentrated, GFR pending 03/12/19 20:26 Worsening Cr (2.9 < -- 2.6 in 02/2019) GFR 15.65 Clinical Impression: Anemia, Acute on chronic CKD *DC/Admit/Observation/Transfer Diagnosis at time of Disposition: Abnormal laboratory test - Referrals - Patient Instructions - Post Discharge Activity
[2019-03-12 19:16] LABS: HEMATOCRIT 24.6 % (32.4-45.2); HEMOGLOBIN 8.3 GM/dL (10.7-15.3); MCH 31.5 pg (25.7-33.7); MCHC 33.6 g/dl (32.0-36.0); MEAN CELL VOLUME 93.8 fl (80-96); NEUT % 59.2 % (42.8-82.8); PLATELET COUNT 245 K/MM3 (134-434); RBC 2.62 M/mm3 (3.60-5.2); RDW 14.7 % (11.6-15.6); WHITE BLOOD COUNT 5.5 K/mm3 (4.0-10.0)
[2019-03-12 19:17] LABS: BASO % 0.5 % (0-2.0); EOS % 1.4 % (0-4.5); MONO % 10.9 % (3.8-10.2)
[2019-03-12 19:50] LABS: INR 0.97 (0.83-1.09); PROTHROMBIN TIME (PATIENT) 11.4 SEC (9.7-13.0)
[2019-03-12 19:53] LABS: ACTIVATED PTT 30.8 SECONDS (25.2-36.5)
[2019-03-12 20:36] LABS: ALBUMIN 3.6 g/dl (3.4-5.0); ALK PHOS 115 U/L (45-117); ANION GAP 8 MMOL/L (8-16); BILIRUBIN,TOTAL 0.3 mg/dL (0.2-1); BLOOD UREA NITROGEN 64 mg/dL (7-18); CALCIUM 9.6 mg/dL (8.5-10.1); CHLORIDE 101 mmol/L (98-107); CO2 30 mmol/L (21-32); CREATININE 2.9 mg/dL (0.55-1.3); GLUCOSE,RANDOM 215 mg/dL (74-106); SGOT/AST 26 U/L (15-37); SGPT/ALT 20 U/L (13-61); SODIUM 139 mmol/L (136-145); TOT PROT 6.9 g/dl (6.4-8.2)
--- NOTE | 2019-03-12 20:42 | HP ---
Admitting History and Physical - Primary Care Physician PCP: Albert Wilkinson - Admission Chief Complaint: Anemia History of Present Illness: Pt with Hx/o HOCM, DM, CRF, anemia (received Iron IV) seen in the office for worsening BEATTY over the last month and noticed to have Hb of 7.4 (from slightly above 8 a month ago) was referred to ER for reevaluation and possible PRBC transfusion. In ER Hb is above 8. Pt's daughter is at the bedside. - Past Medical History RELIEF COOK: Yes: Dementia (mild), TIA Cardiovascular: Yes: HTN, Hyperlipdemia, Other (HOCM) Gastrointestinal: Yes: Other (Abdominal/Umbilical hernia) Renal/: Yes: Neurogenic Bladder Heme/Onc: Yes: Anemia, Cancer (colon, s/o colectomy) Musculoskeletal: Yes: Chronic low back pain Endocrine: Yes: Diabetes Mellitus - Past Surgical History Past Surgical History: Yes: Appendectomy, Cholecystectomy - Smoking History Smoking history: Never smoked Have you smoked in the past 12 months: No If you are a former smoker, when did you quit?: 40 years ago - Alcohol/Substance Use Hx Alcohol Use: No - Social History ADL: Independent History of Recent Travel: No Home Medications - Allergies Allergies/Adverse Reactions: Allergies Allergy/AdvReac Type Severity Reaction Status Date / Time No Known Allergies Allergy Verified 03/12/19 18:36 - Home Medications Home Medications: Ambulatory Orders RX: Ferrous Sulfate [Feosol] 325 mg PO BID 01/14/15 RX: Acetaminophen [Tylenol .Regular Strength -] 650 mg PO Q6H PRN #0 tablet RX: Amlodipine Besylate [Norvasc -] 10 mg PO DAILY 12/04/15 RX: Brimonidine Tartrate/Timolol [Combigan 0.2%-0.5% Eye Drops] 1 drop OU DAILY 12/04/15 RX: Cholecalciferol (Vitamin D3) [Vitamin D] 2,000 unit PO DAILY 12/04/15 RX: Insulin (Levemir) [Levemir Vial] 40 units SQ ACBK 11/25/17 RX: Insulin Sliding Scale [Novolog Vial Sliding Scale -] 1 vial SQ ACHS PRN RX: [place]-3 Fatty Acids/Fish Oil [Fish Oil 1,000 mg Capsule] 1 each PO DAILY RX: Atorvastatin Ca [Lipitor] 10 mg PO HS 12/14/18 RX: Linagliptin [Tradjenta] 5 mg PO DAILY 12/14/18 RX: Furosemide [Lasix -] 80 mg PO BID #120 tablet 12/25/18 RX: Isosorbide Dinitrate [Isordil -] 5 mg PO BID #60 tablet 12/25/18 RX: Metoprolol Succinate [Toprol XL -] 25 mg PO DAILY #30 tab.sr.24h 12/25/18 RX: Polyethylene Glycol 3350 [Miralax 119 gm Btl -] 17 gm PO BID bottle RX: hydrALAZINE HCL [Apresoline -] 50 mg PO QID #120 tablet 12/25/18 RX: Epoetin Elton [Epogen] 10,000 unit SQ WEEKLY #6 ml 12/27/18 RX: Brimonidine Tartrate [Alphagan 0.2% -] 1 drop OU BID drops 03/15/19 Family Disease History - Family Disease History Family Disease History: CA: Sister (ob/gyn physician malignancy) Review of Systems - Review of Systems Constitutional: denies: Chills, Fever Eyes: reports: Double Vision. denies: Blurred Vision HENT: reports: Nasal Congestion, Throat Pain, Other (no gum bleeding). denies: Ear Discharge Neck: denies: Pain on Movement, Stiffness Cardiovascular: reports: Edema. denies: Chest Pain, Palpitations Respiratory: reports: SOB on Exertion. denies: Cough, SOB, Wheezing Gastrointestinal: reports: Vomiting. denies: Abdominal Pain, Nausea Genitourinary: denies: Burning, Discharge Musculoskeletal: denies: Back Pain, Muscle Pain Integumentary: denies: Bruising, Eczema Neurological: denies: Change in LOC, Numbness, Tremors Endocrine: denies: Excessive Sweating, Intolerance to Cold Hematology/Lymphatic: denies: Easily Bruised, Excessive Bleeding Psychiatric: denies: Anxiety, Depression Physical Examination Vital Signs: Vital Signs Temperature 98.1 F 03/12/19 18:36 Pulse Rate 70 03/12/19 18:36 Respiratory Rate 16 03/12/19 18:36 Blood Pressure 140/50 L 03/12/19 18:36 O2 Sat by Pulse Oximetry (%) 99 03/12/19 18:36 Constitutional: Yes: No Distress, Calm Eyes: Yes: Conjunctiva Clear, EOM Intact HENT: Yes: Normocephalic. No: Drooling, Pharyngeal Erythema, Rhinnorhea Neck: Yes: Trachea Midline. No: Lymphadenopathy Cardiovascular: Yes: Regular Rate and Rhythm, S1 Respiratory: Yes: Regular. No: Rales Gastrointestinal: Yes: Normal Bowel Sounds, Abdomen, Obese. No: Tenderness ...Rectal Exam: No: Deferred Renal/: No: CVA Tenderness - Left, CVA Tenderness - Right Breast(s): Yes: Other (deferred) Musculoskeletal: No: Back Pain, Joint Stiffness, Joint Swelling Extremities: Yes: Cold. No: Cool Edema: LLE: 2+, RLE: 2+ Neurological: Yes: Alert, Oriented, Other (motor and sensory examination is symmetric in UE/ LE/ face) Psychiatric: Yes: Alert, Oriented Labs: CBC, BMP 03/12/19 18:51 03/12/19 18:51 Problem List - Problems (1) Anemia Code(s): D64.9 - ANEMIA, UNSPECIFIED (2) Hypertrophic obstructive cardiomyopathy (HOCM) Code(s): I42.1 - OBSTRUCTIVE HYPERTROPHIC CARDIOMYOPATHY (3) CHF (congestive heart failure) Code(s): I50.9 - HEART FAILURE, UNSPECIFIED (4) Chronic renal failure Code(s): N18.9 - CHRONIC KIDNEY DISEASE, UNSPECIFIED (5) Diabetes mellitus Code(s): E11.9 - TYPE 2 DIABETES MELLITUS WITHOUT COMPLICATIONS (6) HTN (hypertension) Code(s): I10 - ESSENTIAL (PRIMARY) HYPERTENSION (7) HLD (hyperlipidemia) Code(s): E78.5 - HYPERLIPIDEMIA, UNSPECIFIED (8) Cirrhosis Code(s): K74.60 - UNSPECIFIED CIRRHOSIS OF LIVER Qualifiers: Hepatic cirrhosis type: other cirrhosis Qualified Code(s): K74.69 - Other cirrhosis of liver Assessment/Plan Pt was placed in Observation ER's Hb level likely falsely elevated.To repeat H/H in AM Cont current meds Pt's condition was d/w pt and dg (at bedside)
[2019-03-13] MEDS ORDERED: ACETAMINOPHEN 325 MG TABLET (FP) PO PRN (02:05)
[2019-03-13] MEDS: FUROSEMIDE 40 MG TABLET (FP) PO SCH ×2 (06:44→14:37)
[2019-03-13] MEDS: sitaGLIPtin PHOSPHATE 25 MG TABLET (FP) PO SCH (06:45)
[2019-03-13] MEDS: INSULIN (LEVEMIR) 100 UNITS/ML UNITS SQ SCH (06:45)
[2019-03-13] MEDS: INSULIN SLIDING SCALE (NOVOLOG) 1 VIAL SQ SCH ×4 (06:45→23:13)
[2019-03-13 08:01] LABS: HEMATOCRIT 21.4 % (32.4-45.2); HEMOGLOBIN 7.3 GM/dL (10.7-15.3); MCH 31.5 pg (25.7-33.7); MEAN CELL VOLUME 92.6 fl (80-96); MEAN PLT VOLUME 8.5 fl (7.5-11.1); PLATELET COUNT 208 K/MM3 (134-434); RBC 2.31 M/mm3 (3.60-5.2); RDW 14.6 % (11.6-15.6)
[2019-03-13 08:52] LABS: ALBUMIN 3.3 g/dl (3.4-5.0); ALK PHOS 90 U/L (45-117); ANION GAP 7 MMOL/L (8-16); BILIRUBIN,TOTAL 0.6 mg/dL (0.2-1); BLOOD UREA NITROGEN 59 mg/dL (7-18); CALCIUM 9.5 mg/dL (8.5-10.1); CHLORIDE 102 mmol/L (98-107); CO2 32 mmol/L (21-32); CREATININE 2.6 mg/dL (0.55-1.3); GLUCOSE,RANDOM 147 mg/dL (74-106); POTASSIUM 3.9 mmol/L (3.5-5.1); SGOT/AST 19 U/L (15-37); SGPT/ALT 15 U/L (13-61); SODIUM 140 mmol/L (136-145)
[2019-03-13] MEDS ORDERED: PATIENT'S OWN MEDICATION (NON-FORMULARY) (Brimonidine Tartrate/Timolol [Combigan 0.2%-0.5% OU SCH (10:00)
[2019-03-13] MEDS ORDERED: PATIENT'S OWN MEDICATION (NON-FORMULARY) (Linagliptin [Tradjenta] 5 MG) PO SCH (10:00)
[2019-03-13] MEDS ORDERED: PT OWN MED DRAWER 7, Y5N ONE ×5 (11:02→22:08)
[2019-03-13] MEDS: metoPROLOL SUCCINATE 25 MG TAB.SR.24H (FP) PO SCH (11:04)
[2019-03-13] MEDS: TIMOLOL 0.5% OPHTHALMIC SOL 5 ML BOTTLE OU SCH ×2 (11:05→23:18)
[2019-03-13] MEDS: amLODIPine BESYLATE 5 MG TABLET (FP) PO SCH (11:05)
[2019-03-13] MEDS: hydrALAZINE HCL 50 MG TABLET (FP) PO SCH ×4 (11:05→23:07)
[2019-03-13] MEDS: FERROUS SO4 325 MG TABLET (FP) PO SCH ×2 (11:05→23:07)
[2019-03-13] MEDS: BRIMONIDINE TARTRATE 0.2% OPHTHALMIC 5 ML BOTTLE OU SCH ×2 (11:09→23:18)
[2019-03-13] MEDS ORDERED: INSULIN (NOVOLOG) ASPART 100 UNITS/ML 10ML VIAL ONE (11:31)
[2019-03-13] MEDS: ISOSORBIDE DINITRATE 5 MG TABLET PO SCH ×2 (12:00→20:00)
[2019-03-13] MEDS: POLYETHYLENE GLYCOL 3350 119 GM BTL PO SCH ×2 (14:37→23:07)
--- NOTE | 2019-03-13 14:43 | CONSULT ---
Consultation: REQUESTING PROVIDER: CONSULT REQUEST: We have been asked to medically evaluate this patient for worsened anemia HISTORY OF PRESENT ILLNESS: This is a 79 yo F with of anemia with multiple past transfusions last this dec, CKD, colo ca s/p resection 3 yrs ago, HOCM, HTN, DM, and Hyperthyroidism, who was sent to ed by PCP due to low Hgb 7.4 down fron >8 on office labs for transfusion eval. Patient was less symptomatic than usual complaining only of mild sob. according to daughter, she was recently taken off epogen but once her dctor heard about current Hgb it was prescribed to her again. Last coloscopy was 2 yrs ago and last endoscopy was 5 yrs go. denies melena, hematochezia, hematemesis, hematuria. REVIEW OF SYSTEMS: CONSTITUTIONAL: Absent: fever, chills, weight change HEENT: Absent: rhinorrhea, nasal congestion, throat pain CARDIOVASCULAR: Absent: chest pain, syncope, palpitations, irregular heart rate, lightheadedness , peripheral edema RESPIRATORY: Absent: cough, hemoptysis GASTROINTESTINAL: Absent: abdominal pain, abdominal distension, nausea, vomiting, diarrhea, constipation, melena, hematochezia GENITOURINARY: Absent: dysuria, hematuria MUSCULOSKELETAL: Absent: back pain, neck pain SKIN: Absent: rash, itching, pallor HEMATOLOGIC/IMMUNOLOGIC: Absent: easy bleeding, easy bruising ENDOCRINE: Absent: unexplained weight gain, unexplained weight loss, heat intolerance, cold intolerance NEUROLOGIC: Absent: headache, focal weakness or paresthesias PSYCHIATRIC: Absent: anxiety, depression PHYSICAL EXAMINATION Vital Signs - 24 hr 03/12/19 03/12/19 03/13/19 18:36 18:45 00:10 Temperature 98.1 F Pulse Rate 70 Respiratory 16 Rate Blood Pressure 140/50 L O2 Sat by Pulse 99 100 100 Oximetry (%) 03/13/19 03/13/19 03/13/19 01:51 06:00 11:03 Temperature 98.4 F 98.8 F 97.7 F Pulse Rate 67 73 66 Respiratory 18 18 24 H Rate Blood Pressure 146/51 L 135/45 L 151/58 L O2 Sat by Pulse 100 Oximetry (%) 03/13/19 03/13/19 12:45 14:33 Temperature 97.9 F Pulse Rate 63 64 Respiratory 24 H 20 Rate Blood Pressure 124/45 L 145/59 L O2 Sat by Pulse Oximetry (%) GENERAL: Awake, alert, and fully oriented, in no acute distress. HEAD: Normal with no signs of trauma. EYES: Pupils equal, round and reactive to light, extraocular movements intact, sclera anicteric, conjunctiva clear. EARS, NOSE, THROAT: Moist mucous membranes. NECK: supple LUNGS: Breath sounds equal, clear to auscultation bilaterally. HEART: Regular rate and rhythm, normal S1 and S2 + systolic murmur at R upper sternal boarder ABDOMEN: Soft, nontender, not distended, normoactive bowel sounds, no guarding, no rebound, no masses. MUSCULOSKELETAL: No CVA tenderness. UPPER EXTREMITIES: 2+ pulses, warm, well-perfused. No peripheral edema. LOWER EXTREMITIES: warm, well-perfused. No calf tenderness. No peripheral edema. NEUROLOGICAL: Cranial nerves II-XII grossly intact. PSYCHIATRIC: Cooperative. Good eye contact. Appropriate mood and affect. SKIN: Warm, dry Laboratory Results - last 24 hr 03/12/19 03/12/19 03/12/19 18:51 18:51 18:51 WBC 5.5 RBC 2.62 L Hgb 8.3 L Hct 24.6 L MCV 93.8 MCH 31.5 MCHC 33.6 RDW 14.7 D Plt Count 245 D MPV 9.0 Absolute Neuts (auto) 3.3 Neutrophils % 59.2 Lymphocytes % 28.0 Monocytes % 10.9 H Eosinophils % 1.4 Basophils % 0.5 Nucleated RBC % 0 Retic Count PT with INR 11.40 INR 0.97 PTT (Actin FS) 30.8 Sodium 139 Potassium 4.0 Chloride 101 Carbon Dioxide 30 Anion Gap 8 BUN 64 H Creatinine 2.9 H Creat Clearance w eGFR 15.65 POC Glucometer Random Glucose 215 H Calcium 9.6 Total Bilirubin 0.3 AST 26 ALT 20 Alkaline Phosphatase 115 Total Protein 6.9 Albumin 3.6 Vitamin B12 Serum Folate TSH 2.38 Blood Type Antibody Screen Crossmatch 03/13/19 03/13/19 03/13/19 06:43 07:08 07:08 WBC 5.0 RBC 2.31 L Hgb 7.3 L Hct 21.4 L MCV 92.6 MCH 31.5 MCHC 34.0 RDW 14.6 Plt Count 208 MPV 8.5 Absolute Neuts (auto) Neutrophils % Lymphocytes % Monocytes % Eosinophils % Basophils % Nucleated RBC % Retic Count 6.00 H D PT with INR INR PTT (Actin FS) Sodium 140 Potassium 3.9 Chloride 102 Carbon Dioxide 32 Anion Gap 7 L BUN 59 H Creatinine 2.6 H Creat Clearance w eGFR 17.76 POC Glucometer 137 Random Glucose 147 H Calcium 9.5 Total Bilirubin 0.6 AST 19 ALT 15 Alkaline Phosphatase 90 Total Protein 6.0 L Albumin 3.3 L Vitamin B12 Serum Folate TSH Blood Type Antibody Screen Crossmatch 03/13/19 03/13/19 03/13/19 10:30 10:30 10:30 WBC RBC Hgb Hct MCV MCH MCHC RDW Plt Count MPV Absolute Neuts (auto) Neutrophils % Lymphocytes % Monocytes % Eosinophils % Basophils % Nucleated RBC % Retic Count 6.07 H PT with INR INR PTT (Actin FS) Sodium Potassium Chloride Carbon Dioxide Anion Gap BUN Creatinine Creat Clearance w eGFR POC Glucometer Random Glucose Calcium Total Bilirubin AST ALT Alkaline Phosphatase Total Protein Albumin Vitamin B12 Serum Folate 60 H TSH Blood Type O POSITIVE Antibody Screen Negative Crossmatch See Detail 03/13/19 03/13/19 10:30 11:29 WBC RBC Hgb Hct MCV MCH MCHC RDW Plt Count MPV Absolute Neuts (auto) Neutrophils % Lymphocytes % Monocytes % Eosinophils % Basophils % Nucleated RBC % Retic Count PT with INR INR PTT (Actin FS) Sodium Potassium Chloride Carbon Dioxide Anion Gap BUN Creatinine Creat Clearance w eGFR POC Glucometer 180 Random Glucose Calcium Total Bilirubin AST ALT Alkaline Phosphatase Total Protein Albumin Vitamin B12 5713 H Serum Folate TSH Blood Type Antibody Screen Crossmatch Active Medications Generic Name Dose Route Start Last Admin Trade Name Freq PRN Reason Stop Dose Admin Acetaminophen 650 mg 03/13/19 02:05 Tylenol - PO Q6H PRN FEVER Amlodipine Besylate 10 mg 03/13/19 10:00 03/13/19 11:05 Norvasc - PO 10 mg DAILY TRISHA Administration Atorvastatin Calcium 10 mg 03/13/19 22:00 Lipitor - PO HS [facility] Brimonidine Tartrate 1 drop 03/13/19 10:00 03/13/19 11:09 Alphagan 0.2% - OU 1 drop BID TRISHA Administration Ferrous Sulfate 325 mg 03/13/19 10:00 03/13/19 11:05 Feosol - PO 325 mg BID TRISHA Administration Furosemide 80 mg 03/13/19 06:00 03/13/19 14:37 Lasix - PO 80 mg BIDLASIX TRISHA Administration Hydralazine HCl 50 mg 03/13/19 10:00 03/13/19 14:37 Apresoline - PO 50 mg QID TRISHA Administration Insulin Aspart 1 vial 03/13/19 07:00 03/13/19 11:39 Novolog Vial Sliding Scale - SQ 4 units ACHS TRISHA Administration Protocol Insulin Detemir 40 units 03/13/19 07:00 03/13/19 06:45 Levemir Vial SQ 40 units ACBK TRISHA Administration Isosorbide Dinitrate 5 mg 03/13/19 10:00 03/13/19 12:00 Isordil - PO 5 mg BIDISORDIL TRISHA Administration Metoprolol Succinate 25 mg 03/13/19 10:00 03/13/19 11:04 Toprol Xl - PO 25 mg DAILY TRISHA Administration Polyethylene Glycol 17 gm 03/13/19 10:00 03/13/19 14:37 Miralax (For Daily Use) - PO 17 grams BID TRISHA Administration Sitagliptin Phosphate 25 mg 03/13/19 07:00 03/13/19 06:45 Januvia - PO 25 mg DAILY@0700 TRISHA Administration Timolol Maleate 1 drop 03/13/19 10:00 03/13/19 11:05 Timoptic 0.5% OU 1 drop BID TRISHA Administration ASSESSMENT/PLAN: This is a 79 yo F with of anemia with multiple past transfusions last this dec, CKD, colo ca s/p resection 3 yrs ago, HOCM, HTN, DM, and Hyperthyroidism, who was sent to ed by PCP due to low Hgb 7.4 down fron >8 on office labs for transfusion eval. acute on chronic anemia normocytic due to CKD History of Colon ca s/p resection HOCM HTN DM -transfusing 2 u pRBCs -f/u iron studies -restart epogen -venofer -outpatient GI f/u Dispo: We will continue to follow the patient. Thank you for this consultative opportunity. Problem List - Problems (1) Anemia Code(s): D64.9 - ANEMIA, UNSPECIFIED (2) CHF (congestive heart failure) Code(s): I50.9 - HEART FAILURE, UNSPECIFIED (3) HLD (hyperlipidemia) Code(s): E78.5 - HYPERLIPIDEMIA, UNSPECIFIED (4) HTN (hypertension) Code(s): I10 - ESSENTIAL (PRIMARY) HYPERTENSION Visit type - Emergency Visit Emergency Visit: Yes ED Registration Date: 03/12/19 Care time: The patient presented to the Emergency Department on the above date and was hospitalized for further evaluation of their emergent condition. - New Patient This patient is new to me today: Yes Date on this admission: 03/13/19 - Critical Care Critical Care patient: No
--- NOTE | 2019-03-13 15:29 | CON.CARD ---
Consult Consult Specialty:: cardiology Reason for Consultation:: BEATTY - History of Present Illness Chief Complaint: Pt A&O; feels weak; daughter at bedside. History of Present Illness: The patient is a 79 year old female, with a significant PMHx of long standing Anemia, hypertrophic obstructive cardiomyopathy (HOCM), with 11/2018 ECHO noting mildly reduced LVEF, no significant LVOT gradient, HTN, DM, CKD and hypothyroidism, who presents to the emergency department for shortness of breath and anemia. The patient went to see Dr. Wilkinson on Tuesday for shortness of breath and her hemoglobin was 7.4. The patient received a call from Dr. Wilkinson today and was told to come to the ED for a blood transfusion. The patient denies any complaints at this time. The patient denies fever, chills, nausea, vomit, diarrhea or constipation. The patient denies dysuria, frequency, urgency or hematuria. - History Source History Provided By: Patient, Family Member, Medical Record Limitations to Obtaining History: No Limitations - Past Medical History RN RENAL: Yes: Dementia (mild), TIA Cardio/Vascular: Yes: HTN, Hyperlipdemia, Other (HOCM) Gastrointestinal: Yes: Other (Abdominal/Umbilical hernia) Renal/: Yes: Renal Inusuff, Neurogenic Bladder Reproductive: Yes: Postmenopausal ...: No Heme/Onc: Yes: Anemia Musculoskeletal: Yes: Chronic low back pain Endocrine: Yes: Diabetes Mellitus Additional Medical History: Obesity - Past Surgical History Past Surgical History: Yes: Appendectomy, Cholecystectomy - Alcohol/Substance Use Hx Alcohol Use: No History of Substance Use: reports: None - Smoking History Smoking history: Never smoked Have you smoked in the past 12 months: No If you are a former smoker, when did you quit?: 40 years ago - Social History ADL: Independent History of Recent Travel: No Home Medications - Allergies Allergies/Adverse Reactions: Allergies Allergy/AdvReac Type Severity Reaction Status Date / Time No Known Allergies Allergy Verified 03/12/19 18:36 - Home Medications Home Medications: Ambulatory Orders Ferrous Sulfate [Feosol] 325 mg PO BID 01/14/15 Acetaminophen [Tylenol .Regular Strength -] 650 mg PO Q6H PRN #0 tablet Amlodipine Besylate [Norvasc -] 10 mg PO DAILY 12/04/15 Brimonidine Tartrate/Timolol [Combigan 0.2%-0.5% Eye Drops] 1 drop OU DAILY Cholecalciferol (Vitamin D3) [Vitamin D] 2,000 unit PO DAILY 12/04/15 Insulin (Levemir) [Levemir Vial] 40 units SQ ACBK 11/25/17 Insulin Sliding Scale [Novolog Vial Sliding Scale -] 1 vial SQ ACHS PRN Hubbell-3 Fatty Acids/Fish Oil [Fish Oil 1,000 mg Capsule] 1 each PO DAILY Atorvastatin Ca [Lipitor] 10 mg PO HS 12/14/18 Linagliptin [Tradjenta] 5 mg PO DAILY 12/14/18 Furosemide [Lasix -] 80 mg PO BID #120 tablet 12/25/18 Isosorbide Dinitrate [Isordil -] 5 mg PO BID #60 tablet 12/25/18 Metoprolol Succinate [Toprol XL -] 25 mg PO DAILY #30 tab.sr.24h 12/25/18 Polyethylene Glycol 3350 [Miralax 119 gm Btl -] 17 gm PO BID bottle 12/25/18 hydrALAZINE HCL [Apresoline -] 50 mg PO QID #120 tablet 12/25/18 Epoetin Elton [Epogen] 10,000 unit SQ WEEKLY #6 ml 12/27/18 Brimonidine Tartrate [Alphagan 0.2% -] 1 drop OU BID drops 03/15/19 Family Disease History - Family Disease History Family Disease History: [place]: Sister ([employer] malignancy) Review of Systems - Review of Systems Constitutional: reports: Weakness Cardiovascular: reports: Shortness of Breath Respiratory: reports: Exercise Intolerance Musculoskeletal: reports: Muscle Weakness Neurological: reports: Weakness - Risk Factors Known Risk Factors: Yes: Age, Hypertension, Physical Inactivity, Other (HOCM; systolic and diastolic CHF) Vital Signs: Vital Signs Temperature 97.9 F 03/13/19 12:45 Pulse Rate 64 03/13/19 14:33 Respiratory Rate 20 03/13/19 14:33 Blood Pressure 145/59 L 03/13/19 14:33 O2 Sat by Pulse Oximetry (%) 100 03/13/19 01:51 Constitutional: Yes: Calm Eyes: Yes: WNL HENT: Yes: WNL Neck: Yes: WNL Respiratory: Yes: Diminished, Tachypnea Renal/: No: Anuria Heart Sounds: Yes: S1, Split S2, S4 - Other Data Labs, Other Data: CBC, BMP 03/13/19 07:08 03/13/19 07:08 INR, PTT INR 0.97 (0.83-1.09) 03/12/19 18:51 Imaging - Results EKG: Image Reviewed (NSR; LAD; QRS widening (hx "LBBB")) Problem List - Problems (1) HOCM (hypertrophic obstructive cardiomyopathy) Assessment/Plan: F/u ECHO (hx mildly reduced LVEF, HCM with no significant LVOT gradient). On amlodipine/valsartan at home (? the ARB now held due to worsening renal function). Avoid excessive dehydration and preload reduction (i.e. decrease dose of furosemide as soon as clinically able to). F/u CXR, Is and Os, daily weight. Code(s): I42.1 - OBSTRUCTIVE HYPERTROPHIC CARDIOMYOPATHY (2) Anemia Code(s): D64.9 - ANEMIA, UNSPECIFIED (3) HLD (hyperlipidemia) Code(s): E78.5 - HYPERLIPIDEMIA, UNSPECIFIED (4) HTN (hypertension) Assessment/Plan: On amlodipine; was on combination with valsartan at home (HTN, systolic CHF, DM) , though the latter may now be held due to worsening renal dysfunction. If LVOT gradient increases, will consider beta blockers (especially if remains with reduced LVEF). Code(s): I10 - ESSENTIAL (PRIMARY) HYPERTENSION (5) Hypertrophic obstructive cardiomyopathy (HOCM) Code(s): I42.1 - OBSTRUCTIVE HYPERTROPHIC CARDIOMYOPATHY (6) Peripheral edema Code(s): R60.9 - EDEMA, UNSPECIFIED (7) Renal insufficiency Code(s): N28.9 - DISORDER OF KIDNEY AND URETER, UNSPECIFIED (8) SOB (shortness of breath) Code(s): R06.02 - SHORTNESS OF BREATH (9) Systolic and diastolic CHF w/reduced LV function, NYHA class 4 Code(s): I50.40 - UNSP COMBINED SYSTOLIC AND DIASTOLIC (CONGESTIVE) HRT FAIL (10) Weakness Code(s): R53.1 - WEAKNESS (11) Diabetes mellitus Code(s): E11.9 - TYPE 2 DIABETES MELLITUS WITHOUT COMPLICATIONS (12) HTN (hypertension) Assessment/Plan: On hydralazine, metoprolol ER, amlodipine, furosemide. Code(s): I10 - ESSENTIAL (PRIMARY) HYPERTENSION
--- NOTE | 2019-03-13 17:21 | PN ---
Progress Note, Physician History of Present Illness: Pt w/o SOB, CPP palpitations, abd pain ( pt in bed) Pts dg is at bedside. - Current Medication List Current Medications: Active Medications Acetaminophen (Tylenol -) 650 mg PO Q6H PRN PRN Reason: FEVER Amlodipine Besylate (Norvasc -) 10 mg PO DAILY [facility] Last Admin: 03/13/19 11:05 Dose: 10 mg Atorvastatin Calcium (Lipitor -) 10 mg PO HS [facility] Brimonidine Tartrate (Alphagan 0.2% -) 1 drop OU BID [facility] Last Admin: 03/13/19 11:09 Dose: 1 drop Ferrous Sulfate (Feosol -) 325 mg PO BID [facility] Last Admin: 03/13/19 11:05 Dose: 325 mg Furosemide (Lasix -) 80 mg PO BIDLASIX [facility] Last Admin: 03/13/19 14:37 Dose: 80 mg Hydralazine HCl (Apresoline -) 50 mg PO QID [facility] Last Admin: 03/13/19 14:37 Dose: 50 mg Insulin Aspart (Novolog Vial Sliding Scale -) 1 vial SQ [facility]; Protocol Last Admin: 03/13/19 11:39 Dose: 4 units Insulin Detemir (Levemir Vial) 40 units SQ ACBK [facility] Last Admin: 03/13/19 06:45 Dose: 40 units Isosorbide Dinitrate (Isordil -) 5 mg PO BIDISORDIL [facility] Last Admin: 03/13/19 12:00 Dose: 5 mg Metoprolol Succinate (Toprol Xl -) 25 mg PO DAILY [facility] Last Admin: 03/13/19 11:04 Dose: 25 mg Polyethylene Glycol (Miralax (For Daily Use) -) 17 gm PO BID [facility] Last Admin: 03/13/19 14:37 Dose: 17 grams Sitagliptin Phosphate (Januvia -) 25 mg PO DAILY@0700 [facility] Last Admin: 03/13/19 06:45 Dose: 25 mg Timolol Maleate (Timoptic 0.5%) 1 drop OU BID [facility] Last Admin: 03/13/19 11:05 Dose: 1 drop - Objective Vital Signs: Vital Signs Temperature 97.5 F L 03/13/19 17:09 Pulse Rate 64 03/13/19 17:09 Respiratory Rate 20 03/13/19 17:09 Blood Pressure 143/56 L 03/13/19 17:09 O2 Sat by Pulse Oximetry (%) 100 03/13/19 01:51 Constitutional: Yes: No Distress, Calm Cardiovascular: Yes: Regular Rate and Rhythm, S1, S2 Respiratory: Yes: Regular, Rales (coarse BS at bases) Gastrointestinal: Yes: Normal Bowel Sounds, Soft. No: Tenderness Edema: Yes Edema: LLE: 1+, RLE: 1+ Neurological: Yes: Alert, Oriented Labs: CBC, BMP 03/13/19 07:08 03/13/19 07:08 INR, PTT INR 0.97 (0.83-1.09) 03/12/19 18:51 Problem List - Problems (1) Anemia Code(s): D64.9 - ANEMIA, UNSPECIFIED (2) Hypertrophic obstructive cardiomyopathy (HOCM) Code(s): I42.1 - OBSTRUCTIVE HYPERTROPHIC CARDIOMYOPATHY (3) CHF (congestive heart failure) Code(s): I50.9 - HEART FAILURE, UNSPECIFIED (4) Chronic renal failure Code(s): N18.9 - CHRONIC KIDNEY DISEASE, UNSPECIFIED (5) Diabetes mellitus Code(s): E11.9 - TYPE 2 DIABETES MELLITUS WITHOUT COMPLICATIONS (6) HTN (hypertension) Code(s): I10 - ESSENTIAL (PRIMARY) HYPERTENSION (7) HLD (hyperlipidemia) Code(s): E78.5 - HYPERLIPIDEMIA, UNSPECIFIED (8) Cirrhosis Code(s): K74.60 - UNSPECIFIED CIRRHOSIS OF LIVER Qualifiers: Hepatic cirrhosis type: other cirrhosis Qualified Code(s): K74.69 - Other cirrhosis of liver Assessment/Plan AM Hb of 7.3; to transfuse PRCB. Heme consult. Cardio consult To repeat H/H in AM Pt's condition was d/w pt and dg (at bedside) Pts condition and treatment was d/w pts nurse.
--- NOTE | 2019-03-13 18:52 | PN ---
Teaching Attending Note Name of Resident: Leda Hall ATTENDING PHYSICIAN STATEMENT I saw and evaluated the patient. I reviewed the resident's note and discussed the case with the resident. I agree with the resident's findings and plan as documented. SUBJECTIVE: Patient seen and examined Presented with fall in Hb/Hct Hx of CKD and Fe++ deficiency Last Vital Signs Temp Pulse Resp BP Pulse Ox 98.3 F 65 24 H 141/62 100 03/13/19 18:28 03/13/19 18:28 03/13/19 18:28 03/13/19 18:28 03/13/19 01:51 HEENT: DANIKA, EOM Intact Oropharynx: No thrush, No mucositis Neck: Supple Nodes: Without adenopathy Breasts: Without masses Cor: RSR, No murmurs, No gallops Lungs: Clear to P&A Abd: Soft, Normal bowel sounds, No organomegaly large ventral hernia, surgical scar Ext:No significant edema Skin: No rashes, Integument intact CBC, BMP 03/13/19 07:08 03/13/19 07:08 Current Medications Generic Name Dose Route Start Last Admin Trade Name Freq PRN Reason Stop Dose Admin Acetaminophen 650 mg 03/13/19 02:05 Tylenol - PO Q6H PRN FEVER Amlodipine Besylate 10 mg 03/13/19 10:00 03/13/19 11:05 Norvasc - PO 10 mg DAILY TRISHA Administration Atorvastatin Calcium 10 mg 03/13/19 22:00 Lipitor - PO HS TRISHA Brimonidine Tartrate 1 drop 03/13/19 10:00 03/13/19 11:09 Alphagan 0.2% - OU 1 drop BID TRISHA Administration Ferrous Sulfate 325 mg 03/13/19 10:00 03/13/19 11:05 Feosol - PO 325 mg BID TRISHA Administration Furosemide 80 mg 03/13/19 06:00 03/13/19 14:37 Lasix - PO 80 mg BIDLASIX TRISHA Administration Hydralazine HCl 50 mg 03/13/19 10:00 03/13/19 14:37 Apresoline - PO 50 mg QID TRISHA Administration Insulin Aspart 1 vial 03/13/19 07:00 03/13/19 17:18 Novolog Vial Sliding Scale - SQ Not Given ACHS TRISHA Protocol Insulin Detemir 40 units 03/13/19 07:00 03/13/19 06:45 Levemir Vial SQ 40 units ACBK TRISHA Administration Isosorbide Dinitrate 5 mg 03/13/19 10:00 03/13/19 12:00 Isordil - PO 5 mg BIDISORDIL [facility]ISHA Administration Metoprolol Succinate 25 mg 03/13/19 10:00 03/13/19 11:04 Toprol Xl - PO 25 mg DAILY TRIS[facility] Administration Polyethylene Glycol 17 gm 03/13/19 10:00 03/13/19 14:37 Miralax (For Daily Use) - PO 17 grams BID [facility] Administration Sitagliptin Phosphate 25 mg 03/13/19 07:00 03/13/19 06:45 Januvia - PO 25 mg DAILY@0700 [facility] Administration Timolol Maleate 1 drop 03/13/19 10:00 03/13/19 11:05 Timoptic 0.5% OU 1 drop BID [facility] Administration OBJECTIVE: ASSESSMENT AND PLAN: Anemia - suspect chronic disease CKD CKD DM CHF HBP HPL Unfortunately Fe++ studies may have been obtained after transfusion which will make question of chronic blood loss more problematic. Patient is a candidate for EILEEN based upon renal status. Will check Fe++ /ferritin and decide about Venofer.
[2019-03-13] MEDS: ATORVASTATIN CA 10 MG TABLET (FP) PO SCH (23:07)
[2019-03-14 04:10] LABS: SERUM IRON SATURATION 13 % (15-55); TOTAL IRON BINDING CAPACITY 281 ug/dL (250-450); UIBC 245 ug/dL (118-369)
[2019-03-14] MEDS: INSULIN SLIDING SCALE (NOVOLOG) 1 VIAL SQ SCH ×4 (06:42→21:30)
[2019-03-14] MEDS: FUROSEMIDE 40 MG TABLET (FP) PO SCH ×2 (06:43→14:47)
[2019-03-14] MEDS: sitaGLIPtin PHOSPHATE 25 MG TABLET (FP) PO SCH (06:43)
[2019-03-14] MEDS: INSULIN (LEVEMIR) 100 UNITS/ML UNITS SQ SCH (06:43)
[2019-03-14 07:30] LABS: CALCIUM 9.6 mg/dL (8.5-10.1); POTASSIUM 3.7 mmol/L (3.5-5.1)
[2019-03-14 07:41] LABS: HEMATOCRIT 28.6 % (32.4-45.2); HEMOGLOBIN 9.9 GM/dL (10.7-15.3); MCH 30.8 pg (25.7-33.7); MCHC 34.7 g/dl (32.0-36.0); MEAN CELL VOLUME 88.9 fl (80-96); MEAN PLT VOLUME 8.7 fl (7.5-11.1); PLATELET COUNT 210 K/MM3 (134-434); RBC 3.22 M/mm3 (3.60-5.2); RDW 15.9 % (11.6-15.6); WHITE BLOOD COUNT 6.3 K/mm3 (4.0-10.0)
[2019-03-14 10:04] LABS: CREATININE 2.5 mg/dL (0.55-1.3)
[2019-03-14] MEDS ORDERED: PT OWN MED DRAWER 7, Y5N ONE ×3 (10:30→20:56)
[2019-03-14] MEDS: hydrALAZINE HCL 50 MG TABLET (FP) PO SCH ×4 (10:32→21:29)
[2019-03-14] MEDS: FERROUS SO4 325 MG TABLET (FP) PO SCH ×2 (10:32→21:29)
[2019-03-14] MEDS: amLODIPine BESYLATE 5 MG TABLET (FP) PO SCH (10:33)
[2019-03-14] MEDS: metoPROLOL SUCCINATE 25 MG TAB.SR.24H (FP) PO SCH (10:33)
[2019-03-14] MEDS: ISOSORBIDE DINITRATE 5 MG TABLET PO SCH ×2 (10:33→18:00)
[2019-03-14] MEDS: BRIMONIDINE TARTRATE 0.2% OPHTHALMIC 5 ML BOTTLE OU SCH ×2 (10:35→21:29)
--- NOTE | 2019-03-14 11:03 | PN ---
Progress Note, Physician History of Present Illness: Pt w/o SOB, CP, palpitations, abd pain. Pts dg is at bedside. - Current Medication List Current Medications: Active Medications Acetaminophen (Tylenol -) 650 mg PO Q6H PRN PRN Reason: FEVER Amlodipine Besylate (Norvasc -) 10 mg PO DAILY [facility] Last Admin: 03/14/19 10:33 Dose: 10 mg Atorvastatin Calcium (Lipitor -) 10 mg PO HS [facility] Last Admin: 03/13/19 23:07 Dose: 10 mg Brimonidine Tartrate (Alphagan 0.2% -) 1 drop OU BID [facility] Last Admin: 03/14/19 10:35 Dose: 1 drop Ferrous Sulfate (Feosol -) 325 mg PO BID [facility] Last Admin: 03/14/19 10:32 Dose: 325 mg Furosemide (Lasix -) 80 mg PO BIDLASIX [facility] Last Admin: 03/14/19 06:43 Dose: 80 mg Hydralazine HCl (Apresoline -) 50 mg PO QID [facility] Last Admin: 03/14/19 10:32 Dose: 50 mg Insulin Aspart (Novolog Vial Sliding Scale -) 1 vial SQ [facility]; Protocol Last Admin: 03/14/19 06:42 Dose: Not Given Insulin Detemir (Levemir Vial) 40 units SQ ACBK [facility] Last Admin: 03/14/19 06:43 Dose: Not Given Isosorbide Dinitrate (Isordil -) 5 mg PO BIDISORDIL [facility] Last Admin: 03/14/19 10:33 Dose: 5 mg Metoprolol Succinate (Toprol Xl -) 25 mg PO DAILY [facility] Last Admin: 03/14/19 10:33 Dose: 25 mg Polyethylene Glycol (Miralax (For Daily Use) -) 17 gm PO BID [facility] Last Admin: 03/13/19 23:07 Dose: 17 grams Sitagliptin Phosphate (Januvia -) 25 mg PO DAILY@0700 [facility] Last Admin: 03/14/19 06:43 Dose: Not Given Timolol Maleate (Timoptic 0.5%) 1 drop OU BID [facility] Last Admin: 03/13/19 23:18 Dose: 1 drop - Objective Vital Signs: Vital Signs Temperature 98.7 F 03/14/19 06:00 Pulse Rate 70 03/14/19 06:00 Respiratory Rate 20 03/14/19 06:00 Blood Pressure 131/52 L 03/14/19 06:00 O2 Sat by Pulse Oximetry (%) 96 03/14/19 03:00 Constitutional: Yes: No Distress, Calm Cardiovascular: Yes: Regular Rate and Rhythm, Murmur, S1, S2 Respiratory: Yes: Regular, CTA Bilaterally. No: Rales Edema: LLE: 1+, RLE: 1+ Neurological: Yes: Alert, Oriented Labs: CBC, BMP 03/14/19 06:00 03/14/19 06:00 INR, PTT INR 0.97 (0.83-1.09) 03/12/19 18:51 Problem List - Problems (1) Anemia Code(s): D64.9 - ANEMIA, UNSPECIFIED (2) Hypertrophic obstructive cardiomyopathy (HOCM) Code(s): I42.1 - OBSTRUCTIVE HYPERTROPHIC CARDIOMYOPATHY (3) CHF (congestive heart failure) Code(s): I50.9 - HEART FAILURE, UNSPECIFIED (4) Chronic renal failure Code(s): N18.9 - CHRONIC KIDNEY DISEASE, UNSPECIFIED (5) Diabetes mellitus Code(s): E11.9 - TYPE 2 DIABETES MELLITUS WITHOUT COMPLICATIONS (6) HTN (hypertension) Code(s): I10 - ESSENTIAL (PRIMARY) HYPERTENSION (7) HLD (hyperlipidemia) Code(s): E78.5 - HYPERLIPIDEMIA, UNSPECIFIED (8) Cirrhosis Code(s): K74.60 - UNSPECIFIED CIRRHOSIS OF LIVER Qualifiers: Hepatic cirrhosis type: other cirrhosis Qualified Code(s): K74.69 - Other cirrhosis of liver Assessment/Plan s/p PRBC transfusion. Heme and Cardio consults are appreciated. ECHO is pending; case was d/w Dr. Pena. Pts condition and treatment was d/w pts nurse. DC planning this afternoon if no new significant ECHO abnormalities.
[2019-03-14] MEDS: TIMOLOL 0.5% OPHTHALMIC SOL 5 ML BOTTLE OU SCH ×2 (11:05→21:29)
--- NOTE | 2019-03-14 12:01 | PN ---
Progress Note, Physician History of Present Illness: The patient is a 79 year old female, with a significant PMHx of long standing Anemia, hypertrophic obstructive cardiomyopathy (HOCM), with 11/2018 ECHO noting mildly reduced LVEF, no significant LVOT gradient, HTN, DM, CKD and hypothyroidism, who presents to the emergency department for shortness of breath and anemia. The patient went to see Dr. Wilkinson on Tuesday for shortness of breath and her hemoglobin was 7.4. The patient received a call from Dr. Wilkinson today and was told to come to the ED for a blood transfusion. The patient denies any complaints at this time. The patient denies fever, chills, nausea, vomit, diarrhea or constipation. The patient denies dysuria, frequency, urgency or hematuria. - Current Medication List Current Medications: Active Medications Acetaminophen (Tylenol -) 650 mg PO Q6H PRN PRN Reason: FEVER Amlodipine Besylate (Norvasc -) 10 mg PO DAILY [facility] Last Admin: 03/14/19 10:33 Dose: 10 mg Atorvastatin Calcium (Lipitor -) 10 mg PO HS [facility] Last Admin: 03/13/19 23:07 Dose: 10 mg Brimonidine Tartrate (Alphagan 0.2% -) 1 drop OU BID [facility] Last Admin: 03/14/19 10:35 Dose: 1 drop Ferrous Sulfate (Feosol -) 325 mg PO BID [facility] Last Admin: 03/14/19 10:32 Dose: 325 mg Furosemide (Lasix -) 80 mg PO BIDLASIX [facility] Last Admin: 03/14/19 06:43 Dose: 80 mg Hydralazine HCl (Apresoline -) 50 mg PO QID [facility] Last Admin: 03/14/19 10:32 Dose: 50 mg Insulin Aspart (Novolog Vial Sliding Scale -) 1 vial SQ ACHS [facility]; Protocol Last Admin: 03/14/19 06:42 Dose: Not Given Insulin Detemir (Levemir Vial) 40 units SQ ACBK [facility] Last Admin: 03/14/19 06:43 Dose: Not Given Isosorbide Dinitrate (Isordil -) 5 mg PO BIDISORDIL [facility] Last Admin: 03/14/19 10:33 Dose: 5 mg Metoprolol Succinate (Toprol Xl -) 25 mg PO DAILY [facility] Last Admin: 03/14/19 10:33 Dose: 25 mg Polyethylene Glycol (Miralax (For Daily Use) -) 17 gm PO BID [facility] Last Admin: 03/13/19 23:07 Dose: 17 grams Sitagliptin Phosphate (Januvia -) 25 mg PO DAILY@0700 [facility] Last Admin: 03/14/19 06:43 Dose: Not Given Timolol Maleate (Timoptic 0.5%) 1 drop OU BID [facility] Last Admin: 03/14/19 11:05 Dose: 1 drop - Objective Vital Signs: Vital Signs Temperature 98.7 F 03/14/19 06:00 Pulse Rate 70 03/14/19 06:00 Respiratory Rate 20 03/14/19 06:00 Blood Pressure 131/52 L 03/14/19 06:00 O2 Sat by Pulse Oximetry (%) 96 03/14/19 03:00 Eyes: Yes: WNL, Conjunctiva Clear, EOM Intact HENT: Yes: WNL, Atraumatic, Normocephalic Neck: Yes: WNL, Supple, Trachea Midline Cardiovascular: Yes: WNL, Regular Rate and Rhythm Respiratory: Yes: WNL, Regular, CTA Bilaterally Gastrointestinal: Yes: WNL, Normal Bowel Sounds Genitourinary: Yes: WNL Musculoskeletal: Yes: WNL Extremities: Yes: WNL Edema: No Integumentary: Yes: WNL Neurological: Yes: WNL, Alert, Oriented ...Motor Strength: WNL Psychiatric: Yes: WNL Labs: CBC, BMP 03/14/19 06:00 03/14/19 06:00 INR, PTT INR 0.97 (0.83-1.09) 03/12/19 18:51 Assessment/Plan - Problems (1) HOCM (hypertrophic obstructive cardiomyopathy) Assessment/Plan: F/u ECHO (hx mildly reduced LVEF, HCM with no significant LVOT gradient). On amlodipine/valsartan at home (? the ARB now held due to worsening renal function). Avoid excessive dehydration and preload reduction (i.e. decrease dose of furosemide as soon as clinically able to). F/u CXR, Is and Os, daily weight. Code(s): I42.1 - OBSTRUCTIVE HYPERTROPHIC CARDIOMYOPATHY (2) Anemia Code(s): D64.9 - ANEMIA, UNSPECIFIED (3) HLD (hyperlipidemia) Code(s): E78.5 - HYPERLIPIDEMIA, UNSPECIFIED (4) HTN (hypertension) Assessment/Plan: On amlodipine; was on combination with valsartan at home (HTN, systolic CHF, DM) , though the latter may now be held due to worsening renal dysfunction. If LVOT gradient increases, will consider beta blockers (especially if remains with reduced LVEF). Code(s): I10 - ESSENTIAL (PRIMARY) HYPERTENSION (5) Hypertrophic obstructive cardiomyopathy (HOCM) Code(s): I42.1 - OBSTRUCTIVE HYPERTROPHIC CARDIOMYOPATHY (6) Peripheral edema Code(s): R60.9 - EDEMA, UNSPECIFIED (7) Renal insufficiency Code(s): N28.9 - DISORDER OF KIDNEY AND URETER, UNSPECIFIED (8) SOB (shortness of breath) Code(s): R06.02 - SHORTNESS OF BREATH (9) Systolic and diastolic CHF w/reduced LV function, NYHA class 4 Code(s): I50.40 - UNSP COMBINED SYSTOLIC AND DIASTOLIC (CONGESTIVE) HRT FAIL (10) Weakness Code(s): R53.1 - WEAKNESS (11) Diabetes mellitus Code(s): E11.9 - TYPE 2 DIABETES MELLITUS WITHOUT COMPLICATIONS (12) HTN (hypertension) Code(s): I10 - ESSENTIAL (PRIMARY) HYPERTENSION
[2019-03-14] MEDS: POLYETHYLENE GLYCOL 3350 119 GM BTL PO SCH ×2 (12:04→21:30)
--- NOTE | 2019-03-14 15:17 | ECHO ---
Name: HARRY THOMAS Exam:Adult Echocardiogram Study Date: 03/14/2019 12:45 PM Age: 79 yrs Reason For Study: LVEF Height: 71 in Weight: 149 lb BSA: 1.9 m2 MMode/2D Measurements & Calculations IVSd: 1.1 cm Ao root diam: 2.7 cm LVIDd: 4.9 cm LA dimension: 3.3 cm LVIDs: 3.0 cm LVPWd: 0.96 cm EDV(Teich): 110.2 ml LVOT diam: 2.0 cm ESV(Teich): 36.3 ml Doppler Measurements & Calculations MV E max nahum: 74.5 cm/sec Ao V2 max: 263.3 cm/sec MV A max nahum: 108.6 cm/sec Ao max P.7 mmHg MV E/A: 0.69 Ao V2 mean: 186.2 cm/sec MV dec time: 0.30 sec Ao mean P.2 mmHg Ao V2 VTI: 65.6 cm SULLY(I,D): 1.6 cm2 SULLY(V,D): 1.7 cm2 LV V1 max P.2 mmHg MR max nahum: 367.7 cm/sec LV V1 mean P.1 mmHg MR max P.1 mmHg LV V1 max: 134.5 cm/sec LV V1 mean: 95.3 cm/sec LV V1 VTI: 31.9 cm SV(LVOT): 103.6 ml TR max nahum: 265.3 cm/sec TR max P.3 mmHg PA V2 max: 105.7 cm/sec PI end-d nahum: 74.7 cm/sec PA max P.5 mmHg Med Peak E' Nahum: 3.5 cm/sec Med E/e': 21.0 Lat Peak E' Nahum: 3.1 cm/sec Lat E/e': 23.7 Procedure A two-dimensional transthoracic echocardiogram with color flow and Doppler was performed. Left Ventricle The LV wall thickness is consistent with assymetric septal hypertrophy and hypertrophic cardiomyopath y. An intracavitary gradient is present. The left ventricular ejection fraction is normal. E/A reversal con sistent with but not diagnostic of poor LV compliance. The left ventricular wall motion is normal. Right Ventricle The right ventricle is normal in size and function. Atria Normal left and right atrial size and function. Mitral Valve There is mild mitral valve thickening. There is no mitral valve stenosis. There is mild mitral regurg itation. Tricuspid Valve There is mild tricuspid valve thickening. There is no tricuspid stenosis. There is mild tricuspid regurgitation. Right ventricular systolic pressure is normal. Aortic Valve The aortic valve is normal in structure and function. No hemodynamically significant valvular aortic stenosis. No aortic regurgitation is present. Pulmonic Valve The pulmonic valve is not well visualized. There is no pulmonic valvular stenosis. Trace to mild pulm onic valvular regurgitation. Interpretation Summary The LV wall thickness is consistent with assymetric septal hypertrophy and hypertrophic cardiomyopath y. The left ventricular ejection fraction is normal. The left ventricular wall motion is normal. The right ventricle is normal in size and function. There is mild mitral regurgitation. There is mild tricuspid regurgitation. Right ventricular systolic pressure is normal. E/A reversal consistent with but not diagnostic of poor LV compliance An intracavitary gradient is present. MD Jae Pena 03/14/2019 03:17 PM
--- NOTE | 2019-03-14 17:29 | PN ---
Physical Exam: SUBJECTIVE: Patient seen and examined OBJECTIVE: Vital Signs Period Temp Pulse Resp BP Sys/Elder Pulse Ox Last 24 Hr 97.9 F-98.7 F 60-76 18-24 122-155/46-70 96-97 GENERAL: Awake, alert, and fully oriented, in no acute distress. HEAD: Normal with no signs of trauma. EYES: Pupils equal, round and reactive to light, extraocular movements intact, sclera anicteric, conjunctiva clear. EARS, NOSE, THROAT: Moist mucous membranes. NECK: supple LUNGS: Breath sounds equal, clear to auscultation bilaterally. HEART: Regular rate and rhythm, normal S1 and S2 + systolic murmur at R upper sternal boarder ABDOMEN: Soft, nontender, not distended, normoactive bowel sounds, no guarding, no rebound, no masses. MUSCULOSKELETAL: No CVA tenderness. UPPER EXTREMITIES: 2+ pulses, warm, well-perfused. No peripheral edema. LOWER EXTREMITIES: warm, well-perfused. No calf tenderness. No peripheral edema. NEUROLOGICAL: Cranial nerves II-XII grossly intact. PSYCHIATRIC: Cooperative. Good eye contact. Appropriate mood and affect. SKIN: Warm, dry Laboratory Results - last 24 hr 03/13/19 03/13/19 03/13/19 10:30 10:30 23:12 WBC RBC Hgb Hct MCV MCH MCHC RDW Plt Count MPV Sodium Potassium Chloride Carbon Dioxide Anion Gap BUN Creatinine Est GFR (CKD-EPI)AfAm Est GFR (CKD-EPI)NonAf POC Glucometer 71 Random Glucose Calcium Iron 36 TIBC 281 Iron Saturation 13 L Blood Type O POSITIVE Antibody Screen Negative Crossmatch See Detail 03/14/19 03/14/19 03/14/19 06:00 06:00 06:41 WBC 6.3 RBC 3.22 L Hgb 9.9 L Hct 28.6 L D MCV 88.9 MCH 30.8 MCHC 34.7 RDW 15.9 H Plt Count 210 MPV 8.7 Sodium 139 Potassium 3.7 Chloride 101 Carbon Dioxide 32 Anion Gap 6 L BUN 55 H Creatinine 2.5 H Est GFR (CKD-EPI)AfAm 20.49 Est GFR (CKD-EPI)NonAf 17.68 POC Glucometer 75 Random Glucose 67 L Calcium 9.6 Iron TIBC Iron Saturation Blood Type Antibody Screen Crossmatch 03/14/19 12:02 WBC RBC Hgb Hct MCV MCH MCHC RDW Plt Count MPV Sodium Potassium Chloride Carbon Dioxide Anion Gap BUN Creatinine Est GFR (CKD-EPI)AfAm Est GFR (CKD-EPI)NonAf POC Glucometer 135 Random Glucose Calcium Iron TIBC Iron Saturation Blood Type Antibody Screen Crossmatch Active Medications Generic Name Dose Route Start Last Admin Trade Name Freq PRN Reason Stop Dose Admin Acetaminophen 650 mg 03/13/19 02:05 Tylenol - PO Q6H PRN FEVER Amlodipine Besylate 10 mg 03/13/19 10:00 03/14/19 10:33 Norvasc - PO 10 mg DAILY TRISHA Administration Atorvastatin Calcium 10 mg 03/13/19 22:00 03/13/19 23:07 Lipitor - PO 10 mg HS TRISHA Administration Brimonidine Tartrate 1 drop 03/13/19 10:00 03/14/19 10:35 Alphagan 0.2% - OU 1 drop BID TRISHA Administration Ferrous Sulfate 325 mg 03/13/19 10:00 03/14/19 10:32 Feosol - PO 325 mg BID TRISHA Administration Furosemide 80 mg 03/13/19 06:00 03/14/19 14:47 Lasix - PO 80 mg BIDLASIX TRISHA Administration Hydralazine HCl 50 mg 03/13/19 10:00 03/14/19 14:47 Apresoline - PO 50 mg QID TRISHA Administration Insulin Aspart 1 vial 03/13/19 07:00 03/14/19 12:04 Novolog Vial Sliding Scale - SQ Not Given ACHS [facility] Protocol Insulin Detemir 40 units 03/13/19 07:00 03/14/19 06:43 Levemir Vial SQ Not Given ACBK [facility] Isosorbide Dinitrate 5 mg 03/13/19 10:00 03/14/19 10:33 Isordil - PO 5 mg BIDISORDIL TRISHA Administration Metoprolol Succinate 25 mg 03/13/19 10:00 03/14/19 10:33 Toprol Xl - PO 25 mg DAILY TRISHA Administration Polyethylene Glycol 17 gm 03/13/19 10:00 03/14/19 12:04 Miralax (For Daily Use) - PO 17 grams BID TRISHA Administration Sitagliptin Phosphate 25 mg 03/13/19 07:00 03/14/19 06:43 Januvia - PO Not Given DAILY@0700 TRISHA Timolol Maleate 1 drop 03/13/19 10:00 03/14/19 11:05 Timoptic 0.5% OU 1 drop BID TRISHA Administration ASSESSMENT/PLAN: This is a 79 yo F with of anemia with multiple past transfusions last this dec, CKD, colo ca s/p resection 3 yrs ago, HOCM, HTN, DM, and Hyperthyroidism, who was sent to ed by PCP due to low Hgb 7.4 down fron >8 on office labs for transfusion eval. acute on chronic anemia normocytic due to CKD History of Colon ca s/p resection HOCM HTN DM -s/p 2 u pRBCs hgb 9.9 -fe dropped from 130 to 36, there may be a bleeding component. GI consulted -restart epogen -consider venofer Dispo: We will continue to follow the patient. Thank you for this consultative opportunity. Problem List - Problems (1) Anemia Code(s): D64.9 - ANEMIA, UNSPECIFIED (2) CHF (congestive heart failure) Code(s): I50.9 - HEART FAILURE, UNSPECIFIED (3) HLD (hyperlipidemia) Code(s): E78.5 - HYPERLIPIDEMIA, UNSPECIFIED (4) HTN (hypertension) Code(s): I10 - ESSENTIAL (PRIMARY) HYPERTENSION Visit type - Emergency Visit Emergency Visit: Yes ED Registration Date: 03/12/19 Care time: The patient presented to the Emergency Department on the above date and was hospitalized for further evaluation of their emergent condition. - New Patient This patient is new to me today: No - Critical Care Critical Care patient: No - Discharge Referral Referred to [facility] Med [facility] No
--- NOTE | 2019-03-14 17:47 | PN.GI ---
GI Progress Note Subjective: GI CONSULT DICTATED DAUGHTER REFUSING ENDOSCOPIC EVALUATION -OBTAIN STOOL FOR OCCULT BLOOD X3 -PPI 40 MG PO QD -TREND H/H DAILY WHILE HOSPITALIZED -DIET TOLERATED -HEME EVALUATION WILL F/U - Objective Vital Signs: Vital Signs Temperature 98.4 F 03/14/19 14:27 Pulse Rate 62 03/14/19 14:27 Respiratory Rate 20 03/14/19 14:27 Blood Pressure 127/49 L 03/14/19 14:27 O2 Sat by Pulse Oximetry (%) 97 03/14/19 11:00 Labs: CBC, BMP 03/14/19 06:00 03/14/19 06:00 INR, PTT INR 0.97 (0.83-1.09) 03/12/19 18:51
--- NOTE | 2019-03-14 18:24 | PN ---
Progress Note (short form) - Note Progress Note: Patient seen and examined Offers no complaints on ROS Review of Fe++ studies reveals fall in serum Fe++ from 130 to 36 from mid February until now suggesting a component of blood loss anemia, in addition to CKD Last Vital Signs Temp Pulse Resp BP Pulse Ox 98.4 F 62 20 127/49 L 97 03/14/19 14:27 03/14/19 14:27 03/14/19 14:27 03/14/19 14:27 03/14/19 11:00 HEENT: DANIKA, EOM Intact Oropharynx: No thrush, No mucositis,upper bite plates Cor: RSR, No murmurs, No gallops Lungs:scattered rhonchi and wheezes Abd: Soft, Normal bowel sounds, No organomegaly Ext:No significant edema Skin: No rashes, Integument intact CBC, BMP 03/14/19 06:00 03/14/19 06:00 Current Medications Generic Name Dose Route Start Last Admin Trade Name Freq PRN Reason Stop Dose Admin Acetaminophen 650 mg 03/13/19 02:05 Tylenol - PO Q6H PRN FEVER Amlodipine Besylate 10 mg 03/13/19 10:00 03/14/19 10:33 Norvasc - PO 10 mg DAILY TRISHA Administration Atorvastatin Calcium 10 mg 03/13/19 22:00 03/13/19 23:07 Lipitor - PO 10 mg HS TRISHA Administration Brimonidine Tartrate 1 drop 03/13/19 10:00 03/14/19 10:35 Alphagan 0.2% - OU 1 drop BID TRISHA Administration Ferrous Sulfate 325 mg 03/13/19 10:00 03/14/19 10:32 Feosol - PO 325 mg BID TRISHA Administration Furosemide 80 mg 03/13/19 06:00 03/14/19 14:47 Lasix - PO 80 mg BIDLASIX TRISHA Administration Hydralazine HCl 50 mg 03/13/19 10:00 03/14/19 17:57 Apresoline - PO 50 mg QID TRISHA Administration Insulin Aspart 1 vial 03/13/19 07:00 03/14/19 17:58 Novolog Vial Sliding Scale - SQ 2 units ACHS TRISHA Administration Protocol Insulin Detemir 40 units 03/13/19 07:00 03/14/19 06:43 Levemir Vial SQ Not Given ACBK TRISHA Isosorbide Dinitrate 5 mg 03/13/19 10:00 03/14/19 18:00 Isordil - PO 5 mg BIDISORDIL TRISHA Administration Metoprolol Succinate 25 mg 03/13/19 10:00 03/14/19 10:33 Toprol Xl - PO 25 mg DAILY TRISHA Administration Polyethylene Glycol 17 gm 03/13/19 10:00 03/14/19 12:04 Miralax (For Daily Use) - PO 17 grams BID TRISHA Administration Sitagliptin Phosphate 25 mg 03/13/19 07:00 03/14/19 06:43 Januvia - PO Not Given DAILY@0700 TRISHA Timolol Maleate 1 drop 03/13/19 10:00 03/14/19 11:05 Timoptic 0.5% OU 1 drop BID TRISHA Administration Impression: Anemia - likely multifactorial- CKD/blood loss For GI assessment. EPO per nephrology protocol Will give venofer.
[2019-03-14] MEDS ORDERED: IRON SUCROSE INJECTION 200 MG in SODIUM CHLORIDE 90 ML IVPB ONE (18:27)
--- NOTE | 2019-03-14 19:15 | CONS ---
DATE OF CONSULTATION: DATE OF DICTATION: 03/14/2019 GASTROENTEROLOGY CONSULTATION HISTORY OF PRESENT ILLNESS: The patient is a 79-year-old female with a past medical history of diabetes, chronic renal insufficiency, anemia, and also previous history of GI bleed in 2017 at which time she was found on endoscopy to have duodenal bulb ulcer and peptic ulcer as well as AVN. Also at the time she had colonoscopy done and had . CT scan done in 2017 reveals a gastric lesion which was . Apparently lesion was resected 3 years ago. She now had outpatient done by her primary medical doctor and was noted to have hemoglobin of 7.4. She also complained of shortness of breath and therefore was sent to the emergency room for further evaluation and blood transfusion. As per the daughter who is at the bedside, she denies any abdominal pain, melena, hematochezia, nausea, vomiting, hematemesis, or weight loss. She is also very apprehensive about any additional endoscopic procedures at this time. PAST MEDICAL AND SURGICAL HISTORY: As listed in the HPI. ALLERGIES: No known drug allergies. Additional surgical history includes an appendectomy and a cholecystectomy. SOCIAL HISTORY: Does not smoke or drink. She actually quit smoking 40 years ago. FAMILY HISTORY: Significant for coronary artery disease. HOME MEDICATIONS: Include iron, Zocor, Tylenol, Norvasc, eyedrops, vitamin D, Levemir, NovoLog, fish oil, Lipitor, Tradjenta, Lasix, Isordil, Toprol, Miralax, hydralazine, and Epogen. REVIEW OF SYSTEMS: As per the HPI. PHYSICAL EXAMINATION: VITAL SIGNS: Temperature 98, pulse 62, blood pressure 120/49, pulse oximetry 97% on room air, respiratory rate 12. GENERAL: In no acute distress. Pleasant female. HEENT: Anicteric sclerae. CARDIOVASCULAR: S1, S2, regular rate and rhythm. LUNGS: Bilaterally clear to auscultation. ABDOMEN: Soft, with a ventral hernia and surgical scar and nontender. EXTREMITIES: No edema. LABORATORY: Hemoglobin 7.3/21, currently 9.9/28, white blood cell count 5, MCV 92, platelet count 208, INR 0.97. Sodium 139, potassium 3.7, BUN/creatinine 55/2.5, glucose 67. She has not had any abdominal imaging during this hospitalization. IMPRESSION: Normocytic anemia without sign of an overt gastrointestinal bleed. However, occult blood loss cannot be excluded at this time. She is hemodynamically stable. The daughter is currently refusing any endoscopic evaluation. I would therefore recommend fecal occult blood testing x3 and further discussion with the patient's daughter regarding the importance of endoscopic examination of the patient who has had angiectasias in the past. Would also recommend hematology consultation, start her on Protonix 40 mg intravenous daily. Diet can be advanced as tolerated. Avoid nonsteroidal antiinflammatory drugs. Patient can be followed by the gastrointestinal service. DO CRICKET BAR/[id number]
[2019-03-14] MEDS: ATORVASTATIN CA 10 MG TABLET (FP) PO SCH (21:29)
[2019-03-15] MEDS: sitaGLIPtin PHOSPHATE 25 MG TABLET (FP) PO SCH (06:15)
[2019-03-15] MEDS: FUROSEMIDE 40 MG TABLET (FP) PO SCH ×2 (06:15→14:48)
[2019-03-15] MEDS: INSULIN SLIDING SCALE (NOVOLOG) 1 VIAL SQ SCH ×2 (06:17→11:31)
[2019-03-15] MEDS: INSULIN (LEVEMIR) 100 UNITS/ML UNITS SQ SCH (06:17)
[2019-03-15] MEDS ORDERED: PT OWN MED DRAWER 7, Y5N ONE (06:45)
[2019-03-15 07:45] LABS: HEMOGLOBIN 9.9 GM/dL (10.7-15.3); MCH 30.5 pg (25.7-33.7); MCHC 34.2 g/dl (32.0-36.0); MEAN CELL VOLUME 89.2 fl (80-96); MEAN PLT VOLUME 8.6 fl (7.5-11.1); PLATELET COUNT 210 K/MM3 (134-434); RBC 3.25 M/mm3 (3.60-5.2); RDW 15.4 % (11.6-15.6); WHITE BLOOD COUNT 5.3 K/mm3 (4.0-10.0)
[2019-03-15 07:57] LABS: BILIRUBIN,TOTAL 0.5 mg/dL (0.2-1); CALCIUM 9.6 mg/dL (8.5-10.1); CREATININE 2.5 mg/dL (0.55-1.3); POTASSIUM 3.8 mmol/L (3.5-5.1)
[2019-03-15] MEDS: FERROUS SO4 325 MG TABLET (FP) PO SCH (09:11)
[2019-03-15] MEDS: amLODIPine BESYLATE 5 MG TABLET (FP) PO SCH (09:11)
[2019-03-15] MEDS: metoPROLOL SUCCINATE 25 MG TAB.SR.24H (FP) PO SCH (09:12)
[2019-03-15] MEDS: BRIMONIDINE TARTRATE 0.2% OPHTHALMIC 5 ML BOTTLE OU SCH (09:13)
[2019-03-15] MEDS: TIMOLOL 0.5% OPHTHALMIC SOL 5 ML BOTTLE OU SCH (09:13)
[2019-03-15] MEDS: POLYETHYLENE GLYCOL 3350 119 GM BTL PO SCH (09:26)
[2019-03-15] MEDS: ISOSORBIDE DINITRATE 5 MG TABLET PO SCH (10:31)
--- NOTE | 2019-03-15 11:18 | DS ---
Physical Examination Vital Signs: Vital Signs Temperature 98.8 F 03/15/19 09:10 Pulse Rate 64 03/15/19 09:10 Respiratory Rate 20 03/15/19 09:10 Blood Pressure 154/66 03/15/19 09:10 O2 Sat by Pulse Oximetry (%) 97 03/15/19 03:00 Findings/Remarks: Pt w/o SOB, CP, palpitations, abd pain. Constitutional: Yes: No Distress, Calm Cardiovascular: Yes: Regular Rate and Rhythm, Murmur, S1, S2 Respiratory: Yes: Regular, CTA Bilaterally. No: Rales Gastrointestinal: Yes: Normal Bowel Sounds, Soft. No: Tenderness Edema: LLE: 1+, RLE: 1+ Neurological: Yes: Alert, Oriented Labs: CBC, BMP 03/15/19 06:10 03/15/19 06:10 Discharge Summary Reason For Visit: ANEMIA Current Active Problems Abnormal laboratory test (Acute) Anemia (Acute) CHF (congestive heart failure) (Acute) HLD (hyperlipidemia) (Acute) HOCM (hypertrophic obstructive cardiomyopathy) (Acute) HTN (hypertension) (Acute) Hospital Course: Pt with Hx/o Anemia, CHD, HOCM was sent from office to ER for Anemia (Hb of 7.4) ; initial Hb was 8.3, repeated Hb was 7.3. Pt was transfused two units of PRBC, was seen by Heme (Dr Chawla), Cardio (Dr Pena). Iron studies are also suggestive blood loss anemia. Pt was seen by GI (Dr Hurst/ [place]) for further workup; patient and daughter refused endoscopy ( I confirmed it); pt to be DC'ed home with early f/u. Condition: Improved - Instructions Diet, Activity, Other Instructions: Low salt, Low Cholesterol, ADA Disposition: HOME - Home Medications Comprehensive Discharge Medication List: Ambulatory Orders See Patient discharge Instructions Resume all home medications
[2019-03-15] MEDS: hydrALAZINE HCL 50 MG TABLET (FP) PO SCH ×2 (11:28→14:48)
[2019-03-15] MEDS ORDERED: INSULIN (NOVOLOG) ASPART 100 UNITS/ML 10ML VIAL ONE (11:30)
[2019-03-15 15:49] VITALS: BP 137/81; PULSE 58; TEMP 97.9
== END 2019-03-15 16:49 | disposition home or self-care (01) ==
LOC: JER 18:28 → JERBED 19:54 → J5S 03-13 00:07
PROVIDERS: ADMIT Specialist; ATTEND Specialist
PROC: 30233N1 Transfusion of Nonautologous Red Blood Cells into Peripheral Vein, Percutaneous Approach (ICD-10-PCS; principal; 2019-03-12)
PROC: 3E033GC Introduction of Other Therapeutic Substance into Peripheral Vein, Percutaneous Approach (ICD-10-PCS; 2019-03-12)
PROC: 3E033VG Introduction of Insulin into Peripheral Vein, Percutaneous Approach (ICD-10-PCS; 2019-03-12)
DX: D64.9 Anemia, unspecified (principal); R79.9 Abnormal finding of blood chemistry, unspecified; E11.22 Type 2 diabetes mellitus with diabetic chronic kidney disease; I13.0 Hypertensive heart and chronic kidney disease with heart failure and stage 1 through stage 4 chronic kidney disease, or unspecified chronic kidney disease; N18.9 Chronic kidney disease, unspecified; I50.9 Heart failure, unspecified; Z79.4 Long term (current) use of insulin; E05.90 Thyrotoxicosis, unspecified without thyrotoxic crisis or storm; I42.1 Obstructive hypertrophic cardiomyopathy; R60.0 Localized edema; R06.02 Shortness of breath; R53.1 Weakness; Z86.73 Personal history of transient ischemic attack (TIA), and cerebral infarction without residual deficits; Z79.84 Long term (current) use of oral hypoglycemic drugs
CPT/HCPCS: 36415; 36430; 36511; 80048; 80053; 82607; 82746; 82962; 83540; 83550; 84443; 85025; 85027; 85044; 85610; 85730; 86850; 86900; 86901; 86922; 93306-TC; 96365; 96372; 99283-25; G0378; J1756; P9038; P9058

== ENCOUNTER 2019-11-02 06:48 | Day surgery (SDC) | payer OTHER ==
[2019-11-02] MEDS ORDERED: IRON SUCROSE INJECTION 200 MG in SODIUM CHLORIDE 100 ML IVPB ONE (10:00)
[2019-11-02 14:27] VITALS: TEMP 98.8
[2019-11-02 15:49] VITALS: BP 157/46; PULSE 61
== END 2019-11-02 11:45 | disposition home or self-care (01) ==
LOC: JONCNONCHE 06:48 → JONCCHEMO 06:48 → J7W 09:59 → JONCNONCHE 11:45
PROVIDERS: ATTEND Internal Medicine Hematology & Oncology
PROC: 3E033GC Introduction of Other Therapeutic Substance into Peripheral Vein, Percutaneous Approach (ICD-10-PCS; principal; 2019-11-02)
DX: D50.9 Iron deficiency anemia, unspecified (principal)
CPT/HCPCS: 96365; J1756

== ENCOUNTER 2019-11-09 06:08 | Day surgery (SDC) | payer OTHER ==
[2019-11-09] MEDS ORDERED: IRON SUCROSE INJECTION 200 MG in SODIUM CHLORIDE 100 ML IVPB ONE (10:00)
[2019-11-09 12:13] VITALS: BP 141/45; PULSE 63; TEMP 97.9
== END 2019-11-09 12:10 | disposition home or self-care (01) ==
LOC: JONCNONCHE 06:08 → J7W 10:19 → JONCNONCHE 12:10
PROVIDERS: ATTEND Internal Medicine Hematology & Oncology
PROC: 3E013GC Introduction of Other Therapeutic Substance into Subcutaneous Tissue, Percutaneous Approach (ICD-10-PCS; principal; 2019-11-09)
DX: D50.9 Iron deficiency anemia, unspecified (principal)
CPT/HCPCS: 96365; J1756

== ENCOUNTER 2019-11-23 07:11 | Day surgery (SDC) | payer OTHER ==
[2019-11-23] MEDS ORDERED: IRON SUCROSE INJECTION 200 MG in SODIUM CHLORIDE 100 ML IVPB ONE (10:00)
[2019-11-23 11:40] VITALS: TEMP 97.7
[2019-11-23 11:41] VITALS: BP 154/51; PULSE 68
== END 2019-11-23 12:00 | disposition home or self-care (01) ==
LOC: JONCNONCHE 07:11 → J7W 10:18 → JONCNONCHE 12:00
PROVIDERS: ATTEND Internal Medicine Hematology & Oncology
PROC: 3E033GC Introduction of Other Therapeutic Substance into Peripheral Vein, Percutaneous Approach (ICD-10-PCS; principal; 2019-11-23)
DX: D50.9 Iron deficiency anemia, unspecified (principal)
CPT/HCPCS: 96365; J1756

== ENCOUNTER 2019-11-30 06:59 | Day surgery (SDC) | payer OTHER ==
[2019-11-30] MEDS ORDERED: IRON SUCROSE INJECTION 200 MG in SODIUM CHLORIDE 100 ML IVPB ONE (10:00)
[2019-11-30 11:05] LABS: BASO % 0.5 % (0-2.0); EOS % 1.1 % (0-4.5); HEMATOCRIT 26.2 % (32.4-45.2); HEMOGLOBIN 8.8 GM/dL (10.7-15.3); MCH 30.3 pg (25.7-33.7); MCHC 33.5 g/dl (32.0-36.0); MEAN CELL VOLUME 90.5 fl (80-96); MEAN PLT VOLUME 8.3 fl (7.5-11.1); MONO % 9.7 % (3.8-10.2); NEUT % 67.7 % (42.8-82.8); PLATELET COUNT 227 K/MM3 (134-434); RBC 2.89 M/mm3 (3.60-5.2); RDW 15.2 % (11.6-15.6); WHITE BLOOD COUNT 4.9 K/mm3 (4.0-10.0)
[2019-11-30 11:31] LABS: IRON SERUM 48 ug/dL (50-175); TOTAL IRON BINDING CAPACITY 281 ug/dL (250-450)
[2019-11-30 11:37] LABS: ALBUMIN 3.1 g/dl (3.4-5.0); BILIRUBIN,TOTAL 0.3 mg/dL (0.2-1); BLOOD UREA NITROGEN 72.7 mg/dL (7-18); CREATININE 3.3 mg/dL (0.55-1.3); POTASSIUM 3.9 mmol/L (3.5-5.1); TOT PROT 6.1 g/dl (6.4-8.2)
[2019-11-30 14:47] VITALS: TEMP 97.5
[2019-11-30 14:51] VITALS: BP 136/48; PULSE 61
== END 2019-11-30 13:35 | disposition home or self-care (01) ==
LOC: JONCNONCHE 06:59 → J7W 12:15 → JONCNONCHE 13:35
PROVIDERS: ATTEND Internal Medicine Hematology & Oncology
PROC: 3E033GC Introduction of Other Therapeutic Substance into Peripheral Vein, Percutaneous Approach (ICD-10-PCS; principal; 2019-11-30)
DX: D50.9 Iron deficiency anemia, unspecified (principal)
CPT/HCPCS: 36415; 80053; 82728; 83540; 83550; 85025; 96365; J1756

== ENCOUNTER 2019-12-07 07:02 | Day surgery (SDC) | payer OTHER ==
[2019-12-07] MEDS ORDERED: IRON SUCROSE INJECTION 200 MG in SODIUM CHLORIDE 100 ML IVPB ONE (10:00)
[2019-12-07 12:17] VITALS: TEMP 98
[2019-12-07 12:22] VITALS: BP 165/50; PULSE 68
== END 2019-12-07 13:30 | disposition home or self-care (01) ==
LOC: JONCNONCHE 07:02 → J7W 09:55 → JONCNONCHE 13:30
PROVIDERS: ATTEND Internal Medicine Hematology & Oncology
PROC: 3E033GC Introduction of Other Therapeutic Substance into Peripheral Vein, Percutaneous Approach (ICD-10-PCS; principal; 2019-12-07)
DX: D50.9 Iron deficiency anemia, unspecified (principal)
CPT/HCPCS: 96365; J1756

== ENCOUNTER → 2019-12-14 | Day surgery (SDC) | payer OTHER ==
[~2019-12-14] MED LIST: IRON SUCROSE INJECTION 200 MG in SODIUM CHLORIDE 90 ML IVPB ONE
[2019-12-14 11:07] LABS: BASO % 0.4 % (0-2.0); EOS % 0.9 % (0-4.5); HEMATOCRIT 28.2 % (32.4-45.2); HEMOGLOBIN 9.2 GM/dL (10.7-15.3); LYMPH % 18.7 % (8-40); MCH 29.9 pg (25.7-33.7); MCHC 32.6 g/dl (32.0-36.0); MEAN CELL VOLUME 91.9 fl (80-96); MEAN PLT VOLUME 8.5 fl (7.5-11.1); MONO % 9.7 % (3.8-10.2); NEUT % 70.3 % (42.8-82.8); PLATELET COUNT 207 K/MM3 (134-434); RBC 3.07 M/mm3 (3.60-5.2); RDW 16.8 % (11.6-15.6); WHITE BLOOD COUNT 6.1 K/mm3 (4.0-10.0)
[2019-12-14 11:38] LABS: BILIRUBIN,TOTAL 0.4 mg/dL (0.2-1); BLOOD UREA NITROGEN 41.8 mg/dL (7-18); CALCIUM 9.8 mg/dL (8.5-10.1); CREATININE 2.7 mg/dL (0.55-1.3)
== END | disposition home or self-care (01) ==
LOC: JONCNONCHE 05:39
PROVIDERS: ATTEND Internal Medicine Hematology & Oncology
DX: Z53.8 Procedure and treatment not carried out for other reasons (principal)
CPT/HCPCS: 36415; 80053; 82728; 83540; 83550; 85025; 96365

== ENCOUNTER 2019-12-28 06:52 | Day surgery (SDC) | payer OTHER ==
[2019-12-28 12:25] LABS: BASO % 0.4 % (0-2.0); EOS % 0.7 % (0-4.5); HEMATOCRIT 26.8 % (32.4-45.2); HEMOGLOBIN 8.9 GM/dL (10.7-15.3); MCHC 33.2 g/dl (32.0-36.0); MEAN CELL VOLUME 90.5 fl (80-96); MEAN PLT VOLUME 8.2 fl (7.5-11.1); NEUT % 63.9 % (42.8-82.8); PLATELET COUNT 207 K/MM3 (134-434); RBC 2.96 M/mm3 (3.60-5.2); RDW 16.6 % (11.6-15.6); WHITE BLOOD COUNT 5.5 K/mm3 (4.0-10.0)
[2019-12-28 12:53] LABS: IRON SERUM 52 ug/dL (50-175); TOTAL IRON BINDING CAPACITY 279 ug/dL (250-450)
[2019-12-28 12:54] LABS: ALBUMIN 3.2 g/dl (3.4-5.0); BILIRUBIN,TOTAL 0.4 mg/dL (0.2-1); BLOOD UREA NITROGEN 70.9 mg/dL (7-18); CALCIUM 10.1 mg/dL (8.5-10.1); CREATININE 2.8 mg/dL (0.55-1.3); MAGNESIUM 2.2 mg/dL (1.8-2.4); POTASSIUM 3.9 mmol/L (3.5-5.1); TOT PROT 6.1 g/dl (6.4-8.2)
[2019-12-28 13:30] LABS: ERYTHROCYTE SEDIMENTATION RATE 33 mm/hr (0-30)
[2019-12-28] MEDS ORDERED: IRON SUCROSE INJECTION 200 MG in SODIUM CHLORIDE 100 ML IVPB ONE (14:00)
[2019-12-28 15:12] VITALS: BP 160/52; PULSE 62; TEMP 97.5
== END 2019-12-28 15:16 | disposition home or self-care (01) ==
LOC: JONCNONCHE 06:52 → J7W 13:29 → JONCNONCHE 15:16
PROVIDERS: ATTEND Internal Medicine Hematology & Oncology
PROC: 3E033GC Introduction of Other Therapeutic Substance into Peripheral Vein, Percutaneous Approach (ICD-10-PCS; principal; 2019-12-28)
DX: D50.9 Iron deficiency anemia, unspecified (principal); E11.9 Type 2 diabetes mellitus without complications; I10 Essential (primary) hypertension
CPT/HCPCS: 36415; 80053; 83540; 83550; 83735; 85025; 85651; 96365; J1756

== ENCOUNTER 2020-08-15 12:26 | Day surgery (SDC) | payer OTHER ==
--- OUTSIDE RECORDS SUMMARY | 2020-08-15 12:42 | XMS ---
:1940 Author Organization [facility] Support Name Relationship Address Phone RE Unavailable Unavailable Unavailable JEROD TORRES DAUGHTER [address] [place] [address] JEROD TORRES Unavailable [address] [place] [address] Re-disclosure Warning The records that you are about to access may contain information from federally- assisted alcohol or drug abuse programs. If such information is present, then the following federally mandated warning applies: This information has been disclosed to you from records protected by federal confidentiality rules (42 CFR part 2). The federal rules prohibit you from making any further disclosure of this information unless further disclosure is expressly permitted by the written consent of the person to whom it pertains or as otherwise permitted by 42 CFR part 2. A general authorization for the release of medical or other information is NOT sufficient for this purpose. The Federal rules restrict any use of the information to criminally investigate or prosecute any alcohol or drug abuse patient.The records that you are about to access may contain highly sensitive health information, the redisclosure of which is protected by Article 27-F of the [facility] Public Health law. If you continue you may haveaccess to information: Regarding HIV / AIDS; Provided by facilities licensed or operated by the [facility] Office of Mental Health; or Provided by the [facility] Office for People With Developmental Disabilities. If such information is present, then the following [facility] mandated warning applies: This information has been disclosed to you from confidential records which are protected by state law. State law prohibits you from making any further disclosure of this information without the specific written consent of the person to whom it pertains, or as otherwise permitted by law. Any unauthorized further disclosure in violation of state law may result in a fine or skilled nursing sentence or both. A general authorization for the release of medical or other information is NOT sufficient authorization for further disclosure. Insurance Providers Payer name Policy type Policy ID Covered Covered republican's Policy P thony / Coverage republican ID relationship to Reardon Inf ormation type reardon MEDICAID [id number] SP [id number] MEDICARE [id number] SP [id number] 37 7 MEDICARE [id number] SP [id number] M MEDICAID [id number] SP [id number] MEDICARE [id number] SP [id number] M MEDICARE [id number] SP [id number] M MEDICARE [id number] SP [id number] M [facility] [id number] 100-10-10 4691- BENEFITS [id number]-M M SOLUTIONS MEDICAID OF [id number] 1 [id number] [place] MED[place] [id number] SP [id number] M
[2020-08-15 13:10] LABS: BASO % 0.4 % (0-2.0); EOS % 1.4 % (0-4.5); HEMATOCRIT 16.7 % (32.4-45.2); LYMPH % 28.6 % (8-40); MCH 31.7 pg (25.7-33.7); MCHC 33.5 g/dl (32.0-36.0); MEAN CELL VOLUME 94.7 fl (80-96); MEAN PLT VOLUME 8.7 fl (7.5-11.1); MONO % 10.3 % (3.8-10.2); NEUT % 59.3 % (42.8-82.8); PLATELET COUNT 178 K/MM3 (134-434); RBC 1.76 M/mm3 (3.60-5.2); RDW 14.5 % (11.6-15.6); WHITE BLOOD COUNT 4.5 K/mm3 (4.0-10.0)
[2020-08-15 13:22] LABS: HEMOGLOBIN 5.6 GM/dL (10.7-15.3)
[2020-08-15 14:02] LABS: ALBUMIN 2.6 g/dl (3.4-5.0); ALK PHOS 105 U/L (45-117); ANION GAP 7 MMOL/L (8-16); BILIRUBIN,TOTAL 0.3 mg/dL (0.2-1); BLOOD UREA NITROGEN 77.1 mg/dL (7-18); CALCIUM 9.5 mg/dL (8.5-10.1); CHLORIDE 101 mmol/L (98-107); CO2 31 mmol/L (21-32); GLUCOSE,RANDOM 254 mg/dL (74-106); IRON SERUM 21 ug/dL (50-175); SGOT/AST 28 U/L (15-37); SGPT/ALT 18 U/L (13-61); SODIUM 139 mmol/L (136-145); TOT PROT 5.4 g/dl (6.4-8.2); TOTAL IRON BINDING CAPACITY 276 ug/dL (250-450)
[2020-08-15 14:08] LABS: ERYTHROCYTE SEDIMENTATION RATE 76 mm/hr (0-30)
[2020-08-16 00:56] VITALS: BP 151/71; PULSE 70; TEMP 98.1
--- NOTE | 2020-08-20 22:41 | HP ---
[facility] - Chief Complaint Chief Complaint: HEre for severe anemia. Noted by her geophysics professor to have severe anemia. Denies anyother complaints - Past Medical History Allergies/Adverse Reactions: Allergies Allergy/AdvReac Type Severity Reaction Status Date / Time No Known Allergies Allergy Verified 03/12/19 18:36 [employer]: Yes: Dementia (mild), TIA Cardiovascular: Yes: HTN, Hyperlipdemia, Other (HOCM) Gastrointestinal: Yes: Other (Abdominal/Umbilical hernia) Renal/: Yes: Neurogenic Bladder Heme/Onc: Yes: Anemia, Cancer (colon, s/o colectomy) Musculoskeletal: Yes: Chronic low back pain Endocrine: Yes: Diabetes Mellitus Additional Medical History: Obesity - Current Medications Current Medications: Home Medications Medication Instructions Recorded Ferrous Sulfate [Feosol] 325 mg PO BID 01/14/15 Acetaminophen [Tylenol .Regular 650 mg PO Q6H PRN #0 tablet 01/18/15 Strength -] Amlodipine Besylate [Norvasc -] 10 mg PO DAILY 12/04/15 Brimonidine Tartrate/Timolol 1 drop OU DAILY 12/04/15 [Combigan 0.2%-0.5% Eye Drops] Cholecalciferol (Vitamin D3) 2,000 unit PO DAILY 12/04/15 [Vitamin D] Insulin (Levemir) [Levemir Vial] 40 units SQ ACBK 11/25/17 Insulin Sliding Scale [Novolog 1 vial SQ ACHS PRN 11/25/17 Vial Sliding Scale -] Melber-3 Fatty Acids/Fish Oil [Fish 1 each PO DAILY 11/25/17 Oil 1,000 mg Capsule] Atorvastatin Ca [Lipitor] 10 mg PO HS 12/14/18 Linagliptin [Tradjenta] 5 mg PO DAILY 12/14/18 Furosemide [Lasix -] 80 mg PO BID #120 tablet 12/25/18 Isosorbide Dinitrate [Isordil] 5 mg PO BID #60 tablet 12/25/18 Metoprolol Succinate [Toprol XL -] 25 mg PO DAILY #30 tab.sr.24h 12/25/18 Polyethylene Glycol 3350 [Miralax 17 gm PO BID bottle 12/25/18 119 gm Btl -] hydrALAZINE HCL [Apresoline -] 50 mg PO QID #120 tablet 12/25/18 Epoetin Elton [Epogen] 10,000 unit SQ WEEKLY #6 ml 12/27/18 Brimonidine Tartrate [Alphagan 1 drop OU BID drops 03/15/19 0.2% -] Satellite Physical Exam - Physical Examination General Appearance: Alert & Oriented x3, No Distress, Calm Lung: Clear to auscultation, Normal air movement Heart: Regular rate & rhythm, Normal S1, Normal S2 Abdomen: Soft Extremities: No edema Neurological: Intact Satellite Impression/Plan - Impression/Plan Impression: 80 y/o with CKD , goiter, fundal mass , ? dementia comes in with severe anemia. Anemia of chronic kideney disease + /- gi blood losses. for transfusion of PRBCs. Will need iron replacement and procrit as outpatient. discussed with daughter possibility of occult malignancy and GI w/u to diagnose this. She is reluctant to pursue aggressive GI w/u for her mother .
== END 2020-08-16 00:30 | disposition home or self-care (01) ==
LOC: JONCBLOOD 12:26 → JERBED 12:59 → JONCBLOOD 12:59 → J7W 13:01 → JONCBLOOD 08-16 07:06
PROVIDERS: ATTEND Internal Medicine Hematology & Oncology
PROC: 30233N1 Transfusion of Nonautologous Red Blood Cells into Peripheral Vein, Percutaneous Approach (ICD-10-PCS; principal; 2020-08-15)
DX: E11.22 Type 2 diabetes mellitus with diabetic chronic kidney disease (principal); I12.9 Hypertensive chronic kidney disease with stage 1 through stage 4 chronic kidney disease, or unspecified chronic kidney disease; N18.9 Chronic kidney disease, unspecified; D63.1 Anemia in chronic kidney disease; Z79.4 Long term (current) use of insulin; Z85.038 Personal history of other malignant neoplasm of large intestine
CPT/HCPCS: 36415; 36430; 80053; 82607; 82728; 83540; 83550; 84439; 84443; 85025; 85651; 86140; 86850; 86900; 86901; 86922; P9058

== ENCOUNTER 2020-08-25 07:17 | Day surgery (SDC) | payer OTHER ==
--- OUTSIDE RECORDS SUMMARY | 2020-08-25 07:22 | XMS ---
:1940 Author Organization [facility] Support Name Relationship Address Phone RE, RETIRED Unavailable Unavailable Unavailable RE Unavailable Unavailable Unavailable JEROD TORRES DAUGHTER [address] [place] [address] JEROD TORRES Unavailable [address] [address] Re-disclosure Warning The records that you are [...] is protected by Article 27-F of the [facility] Public Health law. If you continue you may haveaccess to information: Regarding HIV / AIDS; Provided by facilities licensed or operated by the [facility] Office of Mental Health; or Provided by the [facility] Office for People With Developmental Disabilities. If such information is present, then the following [facility] mandated warning applies: This information has been [...] law may result in a fine or snf sentence or both. A general authorization for the release of medical or other information is NOT sufficient authorization for further disclosure. Insurance Providers Payer name Policy type Policy ID Covered Covered alliance party's Policy P thony / Coverage alliance party ID relationship to Reardon Inf ormation type reardon MEDICAID [id number] SP [id number] MEDICARE [id number] SP [id number] 37 7 MEDICARE [id number] SP [id number] M MEDICAID [id number] SP [id number] MEDICARE [id number] SP [id number] M MEDICARE [id number] SP [id number] M MEDICARE [id number] SP [id number] M [facility] [id number] 100-10-10 4691- BENEFITS 691-M M SOLUTIONS MEDICAID OF [id number] [place] [id number] SP [id number] M
[2020-08-25] MEDS ORDERED: IRON SUCROSE INJECTION 200 MG in SODIUM CHLORIDE 90 ML IVPB ONE (16:10)
[2020-08-25 17:10] VITALS: TEMP 98.4
[2020-08-25 17:28] VITALS: BP 174/63; PULSE 65
[2020-08-25 17:41] LABS: BASO % 0.4 % (0-2.0); EOS % 0.9 % (0-4.5); HEMATOCRIT 33.5 % (32.4-45.2); HEMOGLOBIN 10.8 GM/dL (10.7-15.3); LYMPH % 23.9 % (8-40); MCH 30.8 pg (25.7-33.7); MCHC 32.1 g/dl (32.0-36.0); MEAN CELL VOLUME 95.9 fl (80-96); MEAN PLT VOLUME 8.9 fl (7.5-11.1); MONO % 9.2 % (3.8-10.2); NEUT % 65.6 % (42.8-82.8); PLATELET COUNT 227 K/MM3 (134-434); RDW 15.5 % (11.6-15.6); WHITE BLOOD COUNT 5.8 K/mm3 (4.0-10.0)
[2020-08-25 18:01] LABS: POTASSIUM 3.8 mmol/L (3.5-5.1)
[2020-08-25 18:05] LABS: CALCIUM 10.1 mg/dL (8.5-10.1)
[2020-08-25 18:06] LABS: ALBUMIN 3.2 g/dl (3.4-5.0)
[2020-08-25 18:09] LABS: CREATININE 2.7 mg/dL (0.55-1.3)
[2020-08-25 18:10] LABS: BILIRUBIN,TOTAL 0.8 mg/dL (0.2-1); TOT PROT 6.9 g/dl (6.4-8.2)
[2020-08-25 18:30] LABS: BLOOD UREA NITROGEN 49.3 mg/dL (7-18)
== END 2020-08-25 18:00 | disposition home or self-care (01) ==
LOC: JONCNONCHE 07:17
PROVIDERS: ATTEND Internal Medicine Hematology & Oncology
PROC: 3E033GC Introduction of Other Therapeutic Substance into Peripheral Vein, Percutaneous Approach (ICD-10-PCS; principal; 2020-08-25)
DX: D50.9 Iron deficiency anemia, unspecified (principal)
CPT/HCPCS: 36415; 80053; 85025; 96365; J1756

== ENCOUNTER 2020-09-22 09:41 | Day surgery (SDC) | payer OTHER ==
[2020-09-22] MEDS ORDERED: IRON SUCROSE INJECTION 200 MG in SODIUM CHLORIDE 100 ML IVPB ONE (10:30)
[2020-09-22] MEDS ORDERED: EPOETIN ALFA-EPBX 10,000 UNIT/ML VIAL SQ ONE (11:47)
[2020-09-22] MEDS ORDERED: EPOETIN ALFA 20,000 UNIT/1 ML VIAL SQ ONE (12:00)
[2020-09-22 18:33] VITALS: BP 155/74; PULSE 71; TEMP 97.6
== END 2020-09-22 13:15 | disposition home or self-care (01) ==
LOC: JONCNONCHE 09:41
PROVIDERS: ATTEND Internal Medicine Hematology & Oncology
PROC: 3E033GC Introduction of Other Therapeutic Substance into Peripheral Vein, Percutaneous Approach (ICD-10-PCS; principal; 2020-09-22)
DX: D50.9 Iron deficiency anemia, unspecified (principal)
CPT/HCPCS: 96365; J0885; J1756

== ENCOUNTER 2020-10-30 19:49 | Emergency (ER) | payer OTHER ==
[2020-10-30 20:48] VITALS: BMI 33.3
[2020-10-30 21:49] LABS: EOS % 0.9 % (0-4.5); MEAN PLT VOLUME 8.4 fl (7.5-11.1)
[2020-10-30 21:51] LABS: BASO % 1.7 % (0-2.0); LYMPH % 27.3 % (8-40); MCH 32.8 pg (25.7-33.7); MCHC 31.5 g/dl (32.0-36.0); MEAN CELL VOLUME 104.2 fl (80-96); NEUT % 59.1 % (42.8-82.8); PLATELET COUNT 250 K/MM3 (134-434); RBC 2.01 M/mm3 (3.60-5.2)
[2020-10-30 21:53] LABS: HEMOGLOBIN 6.6 GM/dl (10.7-15.3)
[2020-10-30 21:54] LABS: INR 1.04 (0.82-1.09); PROTHROMBIN TIME (PATIENT) 11.6 SEC (10.2-13.0)
[2020-10-30 21:57] LABS: ALBUMIN 2.9 g/dl (3.4-5.0); BILIRUBIN,TOTAL 0.6 mg/dl (0.2-1); CREATININE 2.9 mg/dl (0.55-1.3); POTASSIUM 3.5 mmol/L (3.5-5.1); TOT PROT 5.4 g/dl (6.4-8.2)
[2020-10-30] MEDS ORDERED: DEXTROSE 50%-WATER 25 GM/50 ML DISP.SYRIN ONE (22:25)
[2020-10-30] MEDS ORDERED: DEXTROSE 50%-WATER - 25 GM/50 ML VIAL IVPUSH ONE (22:58)
[2020-10-30 23:27] LABS: ADD RBC MORPHOLOGY YES
[2020-10-30 23:28] LABS: ANISOCYTOSIS 2+
[2020-10-30 23:29] LABS: MACROCYTOSIS 2+; OVALOCYTE 1+
[2020-10-31] MEDS ORDERED: PANTOPRAZOLE SODIUM 40 MG VIAL IVPUSH ONE (00:36)
[2020-10-31] MEDS ORDERED: FUROSEMIDE 40 MG/4 ML INJECTABLE VIAL IVPUSH ONE (01:04)
[2020-10-31] MEDS ORDERED: FUROSEMIDE 40 MG/4 ML INJECTABLE VIAL ONE (01:20)
[2020-10-31] MEDS ORDERED: PANTOPRAZOLE SODIUM 40 MG VIAL ONE ×2 (01:20→09:37)
[2020-10-31 08:13] LABS: BASO % 3.5 % (0-2.0); EOS % 1.3 % (0-4.5); HEMATOCRIT 21.5 % (32.4-45.2); HEMOGLOBIN 6.8 GM/dl (10.7-15.3); LYMPH % 13.2 % (8-40); MCH 32.4 pg (25.7-33.7); MCHC 31.9 g/dl (32.0-36.0); MEAN CELL VOLUME 101.6 fl (80-96); MEAN PLT VOLUME 8.1 fl (7.5-11.1); MONO % 12.6 % (3.8-10.2); NEUT % 69.4 % (42.8-82.8); PLATELET COUNT 184 K/MM3 (134-434); RBC 2.12 M/mm3 (3.60-5.2); RDW 18.5 % (11.6-15.6); WHITE BLOOD COUNT 5.7 K/mm3 (4.0-10.8)
[2020-10-31 08:21] LABS: ALBUMIN 2.5 g/dl (3.4-5.0); BILIRUBIN,TOTAL 0.7 mg/dl (0.2-1); CALCIUM 9.4 mg/dl (8.5-10); CREATININE 2.8 mg/dl (0.55-1.3); POTASSIUM 3.7 mmol/L (3.5-5.1); TOT PROT 4.6 g/dl (6.4-8.2)
[2020-10-31 09:19] LABS: ADD RBC MORPHOLOGY YES
[2020-10-31] MEDS ORDERED: POTASSIUM CHLORIDE ORAL LIQUID 20 MEQ/15 ML PO ONE (09:28)
[2020-10-31] MEDS ORDERED: FUROSEMIDE 100 MG/10 ML INJECTABLE VIAL IVPB ONE (09:29)
[2020-10-31 10:25] VITALS: TEMP 98.7
[2020-10-31 11:15] VITALS: BP 150/46; PULSE 84
[2020-10-31 20:16] LABS: N-TERMINAL BNP 4133.3 pg/ml (5-450)
[2020-10-31] MEDS ORDERED: PATIENT'S OWN MEDICATION (NON-FORMULARY) (Travoprost [Travatan Z] 5 ML Drops) OU SCH (22:00)
[2020-10-31] MEDS ORDERED: PATIENT'S OWN MEDICATION (NON-FORMULARY) (Brimonidine Tartrate/Timolol [Combigan 0.2%-0.5% OU SCH (22:00)
[2020-10-31] MEDS ORDERED: ISOSORBIDE DINITRATE 5 MG TABLET PO SCH (22:00)
[2020-10-31] MEDS ORDERED: hydrALAZINE HCL 10 MG TABLET PO SCH (22:00)
[2020-10-31] MEDS ORDERED: PATIENT'S OWN MEDICATION (NON-FORMULARY) (Simvastatin [Zocor] 20 MG Tablet) PO SCH (22:00)
[2020-11-01] MEDS ORDERED: VITAMIN B COMPLEX PO SCH (10:00)
[2020-11-01] MEDS ORDERED: PANTOPRAZOLE SODIUM 40 MG VIAL IVPUSH SCH (10:00)
== END 2020-10-31 12:15 | disposition left against medical advice (07) ==
LOC: SUPCPDRO 19:49 → FER 19:49
PROC: 3E033GC Introduction of Other Therapeutic Substance into Peripheral Vein, Percutaneous Approach (ICD-10-PCS; principal; 2020-10-31)
DX: D64.9 Anemia, unspecified (principal)
CPT/HCPCS: 36415; 36430; 71045-TC-FY; 80053; 82272; 82550; 82962; 83880; 84484; 85025; 85610; 86850; 86900; 86901; 86922; 93005; 99285-25; C9803; P9058; U0003